=== PATIENT | female | born 2005 | race Caucasian/White ===

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

== ENCOUNTER → 2023-02-21 | Outpatient (CLI) | payer BC, OTHER, MEDICAID, SELFPAY ==
--- NOTE | 2023-02-21 10:25 | US_ITS ---
STUDY: ABDOMINAL ULTRASOUND - RIGHT UPPER QUADRANT REASON FOR VISIT: Female, 17 years old RUQ PAIN TECHNIQUE: Ultrasound evaluation of the right upper quadrant was performed with real-time and static figueroa-scale imaging. TECHNICAL QUALITY: Adequate. COMPARISON: None. FINDINGS: Liver: The liver measures 14.1 cm. There is normal echogenicity of the liver. The bile ducts are within normal limits. There is hepatic color flow. The direction of portal flow is hepatopetal. There is no demonstrated mass lesion. Gallbladder: Normal distended gallbladder. The gallbladder wall measures 1.6 mm. There is a negative sonographic Allison''s sign. There is no pericholecystic fluid. There are no gallstones. Common Bile Duct (C.B.D.): The common bile duct measures 3.2 mm. Pancreas: Normal size of the head, body and tail of the pancreas. There is normal echogenicity of the pancreas. There is no demonstrated pancreatic mass or cyst. Right Kidney: Normal size of the right kidney. The right kidney measures 11.6 x 5.3 x 4.0 cm. Normal renal cortex. The right cortex measures 1.0 cm. There is no demonstrated renal mass or cyst. There is no right hydronephrosis. US/Abdomen Limited IMPRESSION: Normal right upper quadrant ultrasound examination. Electronically Signed: Aneudy Mac MD at 11:31 EDT ,
[2023-02-21 11:50] LABS: Erythrocyte Sedimentation Rate 1 mm/hr (0-30)
[2023-02-21 12:00] LABS: Absolute Lymphocyte Count 1.76 X10^3/uL (0.83-4.51); Basophil# 0.04 X10^3/uL; Basophil% 0.7 % (0-1); Eosinophil# 0.07 X10^3/uL; Eosinophils% 1.3 % (0-5); Hematocrit 44.5 % (37-47); Hemoglobin 13.8 g/dL (12.0-15.0); Lymphocyte # 1.76 X10^3/ul (0.83-4.51); Lymphocyte % 32.8 % (19-41); Mean Corpuscular Hgb 27.1 pg (27.0-32.0); Mean Corpuscular Volume 87.4 fL (81-99); Mean Platelet Vol. 10.9 fl (6.2-12.0); Monocyte# 0.51 X10^3/uL; Monocyte% 9.5 % (0-10); NRBC Flagged by Analyzer 0 % (0-5); Neutrophil # 2.98 X10^3/uL (2.7-7.7); Neutrophil % 55.5 % (47-70); Platelet Count 228 K/mm3 (150-450); RBC Distribution Width CV 12.5 % (11.6-14.6); RBC Distribution Width SD 39.4 fl (35.1-43.9); Red Blood Count 5.09 M/mm3 (4.2-5.4); White Blood Count 5.4 K/mm3 (4.4-11.0)
[2023-02-21 12:21] LABS: ALB/GLOB Ratio 1.1 RATIO (0.9-2.4); AST(SGOT) 12 U/L (15-37); Alanine Aminotransfer ALT/SGPT 14 U/L (13-56); Albumin, Serum 3.8 g/dL (3.2-5.0); Alkaline Phosphatase 39 U/L (45-117); Anion Gap 7 (5-15); BUN 8 mg/dL (7-18); BUN/Creat Ratio 11.6 RATIO (10-20); CRP < 2.90 mg/L (0.0-3.0); Calcium,Total 9.3 mg/dL (8.5-10.1); Chloride 107 mmol/L (98-107); Creatinine, Serum 0.69 mg/dL (0.55-1.02); EST Glomerular Filtration Rate 116 mL/min (>60); Est Glom Filt Rate - Afr Amer 140 mL/min (>60); Ferritin 6 ng/mL (8-252); Globulin 3.6 g/dL (2.2-4.2); Glucose 93 mg/dL (74-106); Iron 35 ug/dL (50-170); Potassium 3.6 mmol/L (3.5-5.1); Protein, Total 7.4 g/dL (6.4-8.2); Sodium Level 138 mmol/L (136-145)
== END | disposition home or self-care (01) ==
PROVIDERS: PCP Family Medicine; Referring Provider Family Medicine; Visit Provider Family Medicine
DX: R10.9 Unspecified abdominal pain (principal); R11.0 Nausea; K90.0 Celiac disease; D64.9 Anemia, unspecified; Z51.81 Encounter for therapeutic drug level monitoring
CPT/HCPCS: 36415; 76705; 80053; 82728; 83540; 85025; 85652; 86140

== ENCOUNTER → 2023-03-28 | Outpatient (CLI) | payer OTHER, BC, SELFPAY ==
--- NOTE | 2023-03-28 10:13 | NM_ITS ---
(CLINICAL: 17-year-old female with history of chronic nausea. SEMI-SOLID PHASE 99m Tc SULFUR COLLOID GASTRIC EMPTYING STUDY COMPARISON: None available FINDINGS: The patient was administered 0.9 mCi of 99m Tc sulfur colloid mixed with oatmeal and consumed per os. Image acquisitions in the anterior-posterior projections were obtained for 60 minutes. There is prompt visualization of the stomach. There is no gastroesophageal reflux identified. The T ? raw data emptying was calculated to be 52 minutes, (Normal: 12-56 minutes). NM/Gastric Emptying Study IMPRESSION: 1. NORMAL 99m Tc sulfur colloid semi-solid phase (oatmeal) gastric emptying imaging examination. A. There is upper limits of normal semi-solid phase gastric emptying compared to normal controls with maintained first order kinetics throughout all components of the examination. (Laura et al, J Nucl Med Tech 38: 186, 2010). Electronically Signed: Srinivas Grayson DO at 9:28 EDT ,
== END | disposition home or self-care (01) ==
PROVIDERS: PCP Family Medicine; Referring Provider Family Medicine; Visit Provider Family Medicine
DX: R11.0 Nausea (principal)
CPT/HCPCS: 78264; A9541

== ENCOUNTER → 2024-05-14 | Outpatient (CLI) | payer OTHER, SELFPAY ==
[2024-05-14 15:15] LABS: Absolute Lymphocyte Count 2.58 X10^3/uL (0.83-4.51); Absolute Neutrophil Count 3.2 X10^3/uL (2.0-7.7); Basophil# 0.02 X10^3/uL; Basophil% 0.3 % (0-1); Eosinophil# 0.09 X10^3/uL; Eosinophils% 1.4 % (0-5); Hematocrit 40.9 % (37-47); Hemoglobin 13.2 g/dL (12.0-15.0); Lymphocyte # 2.58 X10^3/ul (0.83-4.51); Lymphocyte % 39.8 % (19-41); Mean Corp Hgb Conc 32.3 g/dL (32-36); Mean Corpuscular Hgb 26.6 pg (27.0-32.0); Mean Corpuscular Volume 82.3 fL (81-99); Mean Platelet Vol. 10.5 fl (6.2-12.0); Monocyte# 0.59 X10^3/uL; Monocyte% 9.1 % (0-10); NRBC Flagged by Analyzer 0 % (0-5); Neutrophil # 3.19 X10^3/uL (2.7-7.7); Neutrophil % 49.1 % (47-70); Platelet Count 235 K/mm3 (150-450); RBC Distribution Width CV 13.2 % (11.6-14.6); RBC Distribution Width SD 39.2 fl (35.1-43.9); Red Blood Count 4.97 M/mm3 (4.2-5.4); White Blood Count 6.5 K/mm3 (4.4-11.0)
[2024-05-14 16:42] LABS: Ferritin 7 ng/mL (8-252); Iron 38 ug/dL (50-170)
== END | disposition home or self-care (01) ==
LOC: LAB 14:47
PROVIDERS: PCP Family Medicine; Referring Provider Family Medicine; Visit Provider Family Medicine
DX: D50.9 Iron deficiency anemia, unspecified (principal)
CPT/HCPCS: 36415; 82728; 83540; 85025

== ENCOUNTER → 2024-07-27 | Outpatient (CLI) | payer OTHER, SELFPAY ==
[2024-07-27 09:37] LABS: hCG Titer Quant., Serum < 1 mIU/mL (1-3)
== END | disposition home or self-care (01) ==
LOC: LAB 07:59
PROVIDERS: PCP Family Medicine; Referring Provider Advanced Practice Midwife; Visit Provider Advanced Practice Midwife
DX: O20.9 Hemorrhage in early pregnancy, unspecified (principal); Z3A.00 Weeks of gestation of pregnancy not specified
CPT/HCPCS: 36415; 84702

== ENCOUNTER → 2024-09-10 | Outpatient (CLI) | payer OTHER, SELFPAY ==
[2024-09-10 14:24] LABS: Absolute Lymphocyte Count 1.61 X10^3/uL (0.83-4.51); Absolute Neutrophil Count 1.7 X10^3/uL (2.0-7.7); Basophil# 0.01 X10^3/uL; Basophil% 0.3 % (0-1); Eosinophil# 0.02 X10^3/uL; Eosinophils% 0.5 % (0-5); Hematocrit 43.4 % (37-47); Hemoglobin 14.5 g/dL (12.0-15.0); Lymphocyte # 1.61 X10^3/ul (0.83-4.51); Lymphocyte % 42.9 % (19-41); Mean Corp Hgb Conc 33.4 g/dL (32-36); Mean Corpuscular Hgb 28.4 pg (27.0-32.0); Mean Corpuscular Volume 85.1 fL (81-99); Mean Platelet Vol. 10.4 fl (6.2-12.0); Monocyte# 0.42 X10^3/uL; Monocyte% 11.2 % (0-10); NRBC Flagged by Analyzer 0 % (0-5); Neutrophil # 1.69 X10^3/uL (2.7-7.7); Neutrophil % 45.1 % (47-70); POSITIVE MORPHOLOGY YES; Platelet Count 180 K/mm3 (150-450); RBC Distribution Width CV 14.2 % (11.6-14.6); RBC Distribution Width SD 44.1 fl (35.1-43.9); White Blood Count 3.8 K/mm3 (4.4-11.0)
[2024-09-10 14:29] LABS: Differential Indicated SCAN CRITERIA MET
[2024-09-10 15:18] LABS: Ferritin 767 ng/mL (22-378); Iron 84 ug/dL (50-170)
[2024-09-10 15:20] LABS: Reactive Lymphocyte 3+
[2024-09-10 15:22] LABS: Platelet Estimate A (ADEQ)
[2024-09-10 15:23] LABS: Pathologist Review May foll
== END | disposition home or self-care (01) ==
LOC: LAB 13:00
PROVIDERS: PCP Family Medicine; Referring Provider Family Medicine; Visit Provider Family Medicine
DX: D50.9 Iron deficiency anemia, unspecified (principal)
CPT/HCPCS: 36415; 82728; 83540; 85025

== ENCOUNTER → 2024-12-08 | Outpatient (CLI) | payer OTHER, SELFPAY ==
[2024-12-08 08:47] LABS: Absolute Lymphocyte Count 2.04 X10^3/uL (0.83-4.51); Absolute Neutrophil Count 2.6 X10^3/uL (2.0-7.7); Basophil# 0.02 X10^3/uL; Basophil% 0.4 % (0-1); Eosinophil# 0.11 X10^3/uL; Eosinophils% 2.1 % (0-5); Hematocrit 44.2 % (37-47); Hemoglobin 15.1 g/dL (12.0-15.0); Lymphocyte # 2.04 X10^3/ul (0.83-4.51); Lymphocyte % 38.9 % (19-41); Mean Corp Hgb Conc 34.2 g/dL (32-36); Mean Corpuscular Hgb 30.2 pg (27.0-32.0); Mean Corpuscular Volume 88.4 fL (81-99); Mean Platelet Vol. 10.3 fl (6.2-12.0); Monocyte# 0.49 X10^3/uL; Monocyte% 9.4 % (0-10); NRBC Flagged by Analyzer 0 % (0-5); Neutrophil # 2.56 X10^3/uL (2.7-7.7); Neutrophil % 48.8 % (47-70); Platelet Count 199 K/mm3 (150-450); RBC Distribution Width CV 12.3 % (11.6-14.6); RBC Distribution Width SD 39.8 fl (35.1-43.9); White Blood Count 5.2 K/mm3 (4.4-11.0)
[2024-12-08 10:12] LABS: Ferritin 182 ng/mL (22-378); Iron 115 ug/dL (50-170); Iron Binding Capacity,Total 270 ug/dL (250-450); Iron Binding Capacity,Unsat 155 ug/dL (228-428); Vitamin B12 462 pg/mL (180-914)
== END | disposition home or self-care (01) ==
LOC: LAB 08:12
PROVIDERS: PCP Family Medicine; Referring Provider Family Medicine; Visit Provider Family Medicine
DX: D50.9 Iron deficiency anemia, unspecified (principal)
CPT/HCPCS: 36415; 82607; 82728; 83540; 83550; 85025

== ENCOUNTER → 2025-01-10 | Outpatient (CLI) | payer OTHER, SELFPAY ==
[2025-01-10 17:44] LABS: hCG Titer Quant., Serum 522 mIU/mL (<9 non-preg)
== END | disposition home or self-care (01) ==
LOC: LAB 16:40
PROVIDERS: PCP Family Medicine; Referring Provider Advanced Practice Midwife; Visit Provider Advanced Practice Midwife
DX: O20.9 Hemorrhage in early pregnancy, unspecified (principal); Z3A.00 Weeks of gestation of pregnancy not specified
CPT/HCPCS: 36415; 84702

== ENCOUNTER → 2025-01-12 | Outpatient (CLI) | payer OTHER, SELFPAY ==
[2025-01-12 20:40] LABS: hCG Titer Quant., Serum 94 mIU/mL (<9 non-preg)
== END | disposition home or self-care (01) ==
LOC: LABSPEC 18:45
PROVIDERS: PCP Family Medicine; Visit Provider Advanced Practice Midwife
DX: O20.9 Hemorrhage in early pregnancy, unspecified (principal); Z3A.00 Weeks of gestation of pregnancy not specified
CPT/HCPCS: 36415; 84702

== ENCOUNTER → 2025-01-12 | Outpatient (CLI) | payer OTHER, SELFPAY | END | disposition home or self-care (01) | LOC: LAB 18:27 | PROVIDERS: PCP Family Medicine; Referring Provider Advanced Practice Midwife; Visit Provider Advanced Practice Midwife | DX: Z00.00 Encounter for general adult medical examination without abnormal findings (principal) ==

== ENCOUNTER → 2025-01-21 | Outpatient (CLI) | payer OTHER, SELFPAY ==
--- OUTSIDE RECORDS SUMMARY | 2025-01-21 10:40 | XMS RPT_ITS | CCD ---
Author Organization [facility] Providers Care Mud Analysis Operator Name Role Phone Unavailable Primary Care Provider Unavailabl e PROVIDER, UNKNOWN Referring Unavailable Unavailable Primary Care Provider Unavailabl e NORA KEY Attending Unavailab le NORA KEY Attending Unavailab le NORA KEY Attending Unavailab le NORA KEY Referring Unavailab Dr. Susu Oconnor Primary Care Provider [phone] Dr. Susu Garcia Referring Provider [phone] ENDY Montesinos Attending Provider [phone] Dr. Susu Garcia DO Primary Care Provider Fely Hickman CNM Attending Provider [phone] Fely Hickman CNM Referring Provider Dr. Susu Garcia DO Attending Provider [phone] Dr. Susu Garcia DO Referring Provider [phone] Dr. Susu Garcia DO Primary Care Provider Dr. Susu Garcia DO Primary Care Provider [phone] Dr. Susu Garcia DO Attending Provider [phone] Dr. Susu Garcia DO Referring Provider [phone] Fely Hickman CNM Attending Provider Fely Hickman CNM Referring Provider Ifrah MAN, Dr. Piper Attending Provider Susu Garcia Referring Unavailable Susu Garcia Primary Care Unavailable Veronique Rg Attending Unavailable Fely Hickman Referring Unavailable Susu Garcia Primary Care Unavailable Fely Hickman Attending Unavailable Fely Hickman Attending Unavailable Fely Hickman Referring Unavailable Malys, Susu Primary Care Unavailable Malys, Susu Referring Unavailable Malys, Susu Primary Care Unavailable Malys, Susu Attending Unavailable Malys, Susu Primary Care Unavailable Fely Hickman Attending Unavailable Malys, Susu Referring Unavailable Malys, Susu Primary Care Unavailable Malys, Susu Attending Unavailable Fely Hickman Attending Unavailable Fely Hickman Referring Unavailable Malys, Susu Primary Care Unavailable Malys, Susu Attending Unavailable Malys, Susu Referring Unavailable Malys, Susu Primary Care Unavailable Allergies Allergy Classification Reported Allergen(s) Allergy Type Date of Onset Reaction(s) Facility (7 sources) Wheat gluten extract Drug Allergy 12-16-2022 Diarrhea [facility] (4 sources) natural latex rubber Allergy to substance 01-11-2025 Hives [facility] Comment on above: itching (1 source) Gluten Drug allergy (disorder) 01-11-2025 [facility] Repository (1 source) natural latex rubber Drug allergy (disorder) 01-11-2025 [facility] Repository Medications Current Medications Medication Drug Class(es) Dates Sig (Normalized) Sig (Original) acetaminophen 300 mg / codeine phosphate 30 mg oral tablet (1 source) Opioid Agonist Start: 04-02-2022 End: 04-07-2022 take 1 tablet by mouth every four hours as needed for pain acetaminophen-codein e (TYLENOL-CODEINE #3) 300-30 mg per tablet Indications: Postoperative pain Take 1 tablet by mouth every 4 hours as needed for pain for up to 5 days. 20 tablet 0 04/02/2022 04/07/2022 Active Comment on above: Take 1 tablet by shyla every 4 hours as needed for pain for up to 5 days. cetirizine hydrochloride 10 mg oral capsule (20 sources) Histamine-1 Receptor Antagonist Start: 04-15-2016 End: 10-15-2022 take 1 capsule by mouth once daily as needed Cetirizine (Zyrtec) 10 mg capsule Active 10 mg PO DAILY as needed October 15, 2022 12:00am Comment on above: Take 10 mg by mouth. cholecalciferol 0.125 mg oral capsule (4 sources) Vitamin D Start: 01-11-2025 take 1 capsule by mouth once daily Cholecalciferol (Vitamin D3) 125 mcg (5,000 unit) capsule Active 125 ug PO daily January 11, 2025 12:00am Multivit 33-Mdur-Xkxbnp 1-Dha (Pnv-Dha) 27 mg iron-1 mg -300 mg capsule (4 sources) Start: 01-11-2025 Multivit 76-Vevu-Hcsqdr 1-Dha (Pnv-Dha) 27 mg iron-1 mg -300 mg capsule Active NMA PO January 11, 2025 12:00am omeprazole 20 mg delayed release oral tablet (20 sources) Proton Pump Inhibitor Start: 10-15-2022 take 10 mg by mouth once daily Omeprazole 20 mg tablet,delayed release (DR/EC) Active 10 mg PO DAILY October 15, 2022 8:17am Start: 10-15-2022 take 10 mg by mouth once daily Omeprazole Active 10 MG PO DAILY October 15, 2022 8:17am Start: 02-27-2022 omeprazole (FL ILOSEC) 20 mg capsule Start: 05-24-2019 End: 10-15-2022 take 1 tablet by mouth once daily Omeprazole 20 MG tablet,delayed release (DR/EC) Discontinued 20 mg PO DAILY May 24, 2019 1:00am October 15, 2022 8:18am Completed/Discontinued Medications Medication Drug Class(es) Dates Sig (Normalized) Sig (Original) acetaminophen 325 mg / HYDROcodone bitartrate 5 mg oral tablet (7 sources) Opioid Agonist Start: 05-26-2019 End: 06-09-2019 take 1-2 tablets by mouth every six hours as needed for pain Hydrocodone-Acetamin ophen 1 TABLET tablet Discontinued 1 - 2 {tbl} PO EVERY 6 HOURS NEEDED as needed for Pain 40 5 0 May 26, 2019 May 30, 2019 1:00am June 09, 2019 1:10am Postoperative pain Other acute postprocedural pain stop all other narcotics and tylenol products Start: 05-26-2019 End: 06-09-2019 take 1-2 tablets by mouth every six hours as needed Hydrocodone-Acetaminophen Discontinued 1 - 2 TABLET PO EVERY 6 HOURS NEEDED 40 5 May 26, 2019 June 09, 2019 1:10am stop all other narcotics and tylenol products Desogestrel-Ethinyl Estradiol (20 sources) Progestin, Estrogen Start: 12-26-2023 End: 01-11-2025 take 0.15 tablet by mouth once daily Desogestrel-Ethinyl Estradiol (Enskyce) 0.15-0.03 mg tablet Discontinued 1 {tbl} PO DAILY 84 4 December 26, 2023 12:11pm January 11, 2025 8:06am Start: 12-26-2023 take 0.15 tablet by mouth once daily Desogestrel-Ethinyl Estradiol (Enskyce) 0.15-0.03 mg tablet Active 1 {tbl} PO DAILY 84 December 26, 2023 12:11pm Start: 12-16-2022 End: 12-26-2023 take 0.15 tablet by mouth once daily Desogestrel-Ethinyl Estradiol (Apri) 0.15-0.03 mg tablet Discontinued 1 {tbl} PO DAILY 84 December 16, 2022 8:58am December 26, 2023 12:11pm Start: 12-16-2022 End: 12-26-2023 take 0.15 tablet by mouth once daily Desogestrel-Ethinyl Estradiol (Apri) 0.15-0.03 mg tablet Discontinued 1 {tbl} PO DAILY 84 December 16, 2022 8:58am December 26, 2023 12:11pm Start: 12-16-2022 Desogestrel-Et hinyl Estradiol (Apri) 0.15-0.03 mg tablet Active 1 TABLET PO DAILY December 16, 2022 8:58am Start: 10-15-2022 End: 12-16-2022 take 0.15 tablet by mouth once daily Desogestrel-Ethinyl Estradiol (Apri) 0.15-0.03 mg tablet Discontinued 1 {tbl} PO DAILY 84 0 October 15, 2022 12:00am December 16, 2022 8:58am Start: 10-15-2022 End: 12-16-2022 take 0.15 tablet by mouth once daily Desogestrel-Ethinyl Estradiol (Apri) 0.15-0.03 mg tablet Discontinued 1 {tbl} PO DAILY 84 October 15, 2022 12:00am December 16, 2022 8:58am Start: 10-15-2022 End: 12-16-2022 Desogestrel-Ethinyl Estradio l (Apri) 0.15-0.03 mg tablet Discontinued 1 TABLET PO DAILY October 15, 2022 12:00am December 16, 2022 8:58am fexofenadine hydrochloride 180 mg oral tablet (6 sources) Histamine-1 Receptor Antagonist take 1 tablet by mouth once daily fexofenadine (NORMA) 180 mg tablet Take 180 mg by mouth once daily. 0 Active Comment on above: Take 180 mg by mouth once daily. fluticasone propionate 0.05 mg/actuat metered dose nasal spray (13 sources) Corticosteroid Start: 04-15-20 End: 10-08-19 18 Fluticasone Propionate 1 SPRAY spray,suspension Discontinued 1 NMA NASAL DAILY as needed for Allergies April 15, 2016 12:00am October 07, 2017 1:41pm Start: 04-15-2016 End: 10-07-2017 Fluticasone Propionate Disco ntinued 1 SPRAY NASAL DAILY April 15, 2016 12:00am October 07, 2017 1:41pm take 1 spray(s) nasa l route once daily as needed fluticasone (FLONASE) 50 mcg/actuation nasal spray Use 1 [place] in each nostril once daily as needed. 0 Active Comment on above: Use 1 [place] in each nostril once daily as needed. hydrOXYzine hydrochloride 25 mg oral tablet (7 sources) Antihistamine Start: 04-20-20 End: 10-16-19 take 1 tablet by mouth at bedtime Hydroxyzine Hcl 25 mg tablet Discontinued 25 mg PO AT BEDTIME April 20, 2021 12:00am October 15, 2022 8:17am Problems Problem Classification Problem Date Documented Da te Episodic/Chronic Complications of surgical procedures or medical care (4 sources) Suture granuloma; Translations: [Other complications of procedures, not elsewhere classified, initial encounter] Episodic Contraceptive and procreative management (8 sources) Patient encounter status; Translations: [Encounter for contraceptive management, unspecified] 10-15-2022 Episodic Crushing injury or internal injury (7 sources) Crush injury of right thumb; Translations: [Crushing injury of right thumb, initial encounter] 05-08-2020 Episodic Deficiency and other anemia (1 source) Iron deficiency anemia, unspecified; Translations: [Iron deficiency anemia, unspecified] Onset: 5 Episodic Esophageal disorders (6 sources) Gastroesophageal reflux disease; Translations: [Gastro-esophageal reflux disease without esophagitis] Onset: 2 Chronic Fracture of lower limb (7 sources) Closed fracture of lateral malleolus; Translations: [Displaced fracture of lateral malleolus of unspecified fibula, initial encounter for closed fracture] 10-15-2022 Episodic Hemorrhage during ; abruptio placenta; placenta previa (7 sources) Antepartum hemorrhage; Translations: [Hemorrhage in early , unspecified] Onset: 5 07-26-2024 Episodic Other complications of (3 sources) High risk ; Translations: [Supervision of high risk , unspecified, unspecified trimester] 01-11-2025 Episodic Comment on above: , INGRID 08/31/25, H dejon Rose Other complications of (3 sources) Chemical ; Translations: [Inappropriate change in quantitative human chorionic gonadotropin (hCG) in early ] 01-13-2025 Episodic Other connective tissue disease (7 sources) Peroneal tendinitis of right lower limb; Translations: [Peroneal tendinitis, right leg] 10-15-2022 Episodic Other gastrointestinal disorders (7 sources) Gastrointestinal tract problem; Translations: [Other specified symptoms and signs involving the digestive system and abdomen] 10-15-2022 Episodic Other injuries and conditions due to external causes (7 sources) Injury of right ankle; Translations: [Unspecified injury of right ankle, initial encounter] 10-15-2022 Episodic Other nervous system disorders (1 source) Postoperative pain ; Translations: [Other acute postprocedural pain] Episodic Other non-traumatic joint disorders (3 sources) Ankle pain; Translations: [Pain in right ankle and joints of right foot] Episodic Other and delivery including normal (3 sources) ; Translations: [Encounter for supervision of normal , unspecified, unspecified trimester] 01-11-2025 Episodic Comment on above: discussed genetic & carrier testing-undecided Other upper respiratory infections (7 sources) Acute upper respiratory infection; Translations: [Acute upper respiratory infection, unspecified] 10-15-2022 Episodic Residual codes; unclassified (1 source) Pain; Translations: [Pain, unspecified] Episodic Residual codes; unclassified (1 source) Pain, unspecified; Translations: [Pain] Onset: 2 Episodic Residual codes; unclassified (1 source) History of operative procedure on foot; Translations: [Other specified postprocedural states] Episodic Results Test Name Value Interpretation Reference Range Facility Serum human chorionic gonado tropin detection for pregnancyOrdered By: Fely Hickman on 01-12-2025 HCG ( test) Ql 94 mIU/mL High <9 [facility] Comment on above: Gestational Age0.2-1 Week: 5-50 mIU/mL1-2 Weeks: 50-500 mIU/mL2-3 Weeks: 100-5000 mIU/mL3-4 Weeks: 500-10,000 mIU/mL4-5 Weeks:1000-50,000 mIU/mL5-6 Weeks: 10,000-100,000 mIU/mL6-8 Weeks: 15,000-200,000 mIU/mL2-3 Months:10,000-100,000 mIU/mL hCG Titer Quant., Serumon HCG QUANT. 94 mIU/mL High <9 non-preg [facility] Comment on above: Result Comment: Gest ational Age 0.2-1 Week: 5-50 mIU/mL 1-2 Weeks: 50-500 mIU/mL 2-3 Weeks: 100-5000 mIU/mL 3-4 Weeks: 500-10,000 mIU/mL 4-5 Weeks:1000-50,000 mIU/mL 5-6 Weeks: 10,000-100,000 mIU/mL 6-8 Weeks: 15,000-200,000 mIU/mL 2-3 Months:10,000-100,000 mIU/mL Performed By: #### L [id number], L100.0100, L503.6150 #### [facility] [address] [place], [place], [id number] Serum human chorionic gonado tropin detection for pregnancyOrdered By: Fely Hickman on 01-10-2025 HCG ( test) Ql 522 mIU/mL High <9 [facility] Comment on above: Gestational Age0.2-1 Week: 5-50 mIU/mL1-2 Weeks: 50-500 mIU/mL2-3 Weeks: 100-5000 mIU/mL3-4 Weeks: 500-10,000 mIU/mL4-5 Weeks:1000-50,000 mIU/mL5-6 Weeks: 10,000-100,000 mIU/mL6-8 Weeks: 15,000-200,000 mIU/mL2-3 Months:10,000-100,000 mIU/mL hCG Titer Quant., Serumon HCG QUANT. 522 mIU/mL High <9 non-preg [facility] Comment on above: Result Comment: Gest ational Age 0.2-1 Week: 5-50 mIU/mL 1-2 Weeks: 50-500 mIU/mL 2-3 Weeks: 100-5000 mIU/mL 3-4 Weeks: 500-10,000 mIU/mL 4-5 Weeks:1000-50,000 mIU/mL 5-6 Weeks: 10,000-100,000 mIU/mL 6-8 Weeks: 15,000-200,000 mIU/mL 2-3 Months:10,000-100,000 mIU/mL Performed By: #### L [id number], L100.0100, L503.6150 #### [facility] [address] [place], [address] Absolute lymphocyte countOrd ered By: Susu Garcia on 12-08-2024 Lymphocytes Auto (Unsp spec) [#/Vol] 2.04 10*3/uL 0.83-4.51 [facility] Absolute neutrophil countOrd ered By: Susu Garcia on 12-08-2024 Neutrophils (Bld) [#/Vol] 2.6 10*3/uL 2.0-7.7 [facility] Automated lymphocyte count a s percentage of total leukocytesOrdered By: Susu Garcia on 12-08-2024 Lymphocytes/100 WBC Auto (Unsp spec) 38.9 % 19-41 [facility] Basophil percentageOrdered B y: Susu Garcia on 12-08-2024 Basophils/100 WBC (Bld) 0.4 % 0-1 [facility] CBC W/Diff, Automatedon 11-21 Absolute Lymph 2.04 X10 3/uL Normal 0.83-4.51 [facility] Comment on above: Performed By: #### L [id number], [id number], L100.0100, [id number] #### [facility] [address] [place], [address] Absolute Neut 2.6 X10 3/uL Normal 2.0-7.7 [facility] Comment on above: Performed By: #### L [id number], [id number], L100.0100, [id number] #### [facility] [address] [place], [address] Basophils/100 WBC (Bld) 0.4 % Normal 0-1 [facility] Comment on above: Performed By: #### L [id number], [id number], L100.0100, [id number] #### [facility] [address] [place], [address] Eosinophils/100 WBC (Bld) 2.1 % Normal 0-5 [facility] Comment on above: Performed By: #### L [id number], [id number], L100.0100, [id number] #### [facility] [address] [place], [address] Erythrocyte distribution width (RBC) [Ratio] 12.3 % Normal 11.6-14.6 [facility] Comment on above: Performed By: #### L [id number], [id number], L100.0100, [id number] #### [facility] [address] [place], [address] Hematocrit (Bld) [Volume fraction] 44.2 % Normal 37-47 [facility] Comment on above: Performed By: #### L [id number], [id number], L100.0100, [id number] #### [facility] [address] [place], [address] Hemoglobin (Bld) [Mass/Vol] 15.1 g/dL High 12.0-15.0 [facility] Comment on above: Performed By: #### L [id number], [id number], L100.0100, [id number] #### [facility] [address] [place], [address] IG% 0.400 Normal 0.0-0.9 [facility] Comment on above: Result Comment: IG% - Immature Granulocytes (promyelocytes, myelocytes and metamyelocytes) > 1% indicates that a LEFT SHIFT is Present. Performed By: #### L [id number], [id number], L100.0100, [id number] #### [facility] [address] [place], [address] Lymphocytes/100 WBC (Bld) 38.9 % Normal 19-41 [facility] Comment on above: Performed By: #### L [id number], [id number], L100.0100, [id number] #### [facility] [address] [place], [address] MCH (RBC) [Entitic mass] 30.2 pg Normal 27.0-32.0 [facility] Comment on above: Performed By: #### L [id number], [id number], L100.0100, [id number] #### [facility] [address] [place], [address] MCHC (RBC) [Mass/Vol] 34.2 g/dL Normal 32-36 [facility] Comment on above: Performed By: #### L [id number], [id number], L100.0100, [id number] #### [facility] [address] [place], [address] MCV (RBC) [Entitic vol] 88.4 fL Normal 81-99 [facility] Comment on above: Performed By: #### L [id number], [id number], L100.0100, [id number] #### [facility] [address] [place], [address] Monocytes/100 WBC (Bld) 9.4 % Normal 0-10 [facility] Comment on above: Performed By: #### L [id number], [id number], L100.0100, [id number] #### [facility] [address] [place], [address] Neutrophils/100 WBC (Bld) 48.8 % Normal 47-70 [facility] Comment on above: Performed By: #### L [id number], [id number], L100.0100, [id number] #### [facility] [address] [place], [address] Nucleated RBC (Bld) [#/Vol] 0 10*3/uL Normal 0-5 [facility] Comment on above: Performed By: #### L [id number], [id number], L100.0100, [id number] #### [facility] [address] [place], [address] Platelet mean volume (Bld) [Entitic vol] 10.3 fL Normal 6.2-12.0 [facility] Comment on above: Performed By: #### L [id number], [id number], L100.0100, [id number] #### [facility] [address] [place], [address] Platelets (Bld) [#/Vol] 199 10*3/uL Normal 150-450 [facility] Comment on above: Performed By: #### L [id number], [id number], L100.0100, [id number] #### [facility] [address] [place], [address] RBC (Bld) [#/Vol] 5.00 10*6/uL Normal 4.2-5.[address] [facility] Comment on above: Performed By: #### L [id number], [id number], L100.0100, [id number] #### [facility] [address] [place], [address] RDW SD 39.8 fl Normal 35.1-43.9 [facility] Comment on above: Performed By: #### L [id number], [id number], L100.0100, [id number] #### [facility] [address] [place], [address] WBC (Bld) [#/Vol] 5.2 10*3/uL Normal 4.4-11.0 [facility] Comment on above: Performed By: #### L [id number], [id number], L100.0100, [id number] #### [facility] [address] [place], [address] Eosinophil percentageOrdered By: Susu Garcia on 12-08-2024 Eosinophils/100 WBC (Bld) 2.1 % 0-5 [facility] Erythrocyte distribution wid th ratioOrdered By: Susu Garcia on 12-08-2024 Erythrocyte distribution width (RBC) [Ratio] 12.3 % 11.6-14.6 [facility] Erythrocyte distribution wid th standard deviationOrdered By: Susu Garcia on 12-08-2024 Erythrocyte distribution width (RBC) [Ratio] 39.8 fl 35.1-43.9 [facility] Ferritinon 12-08-2024 Ferritin [Mass/Vol] 182 ng/mL Normal 22-[address] [facility] Comment on above: Performed By: #### L [id number], [id number], L100.0100, [id number] #### [facility] [address] [place], [address] Hematocrit Auto (Bld) [Volum e fraction]Ordered By: Susu Garcia on 12-08-2024 Hematocrit (Bld) [Volume fraction] 44.2 % 37-47 [facility] Hemoglobin measurementOrdere d By: Susu Garcia on 12-08-2024 Hemoglobin (Bld) [Mass/Vol] 15.1 g/dL High 12.0-15.0 [facility] Immature granulocytes/100 WB C Auto (Bld)Ordered By: Susu Garcia on 12-08-2024 Immature granulocytes/100 WBC (Bld) 0.400 % 0.0-0.9 [facility] Comment on above: IG% - Immature Granu locytes (promyelocytes, myelocytes and metamyelocytes) > 1% indicates that a LEFT SHIFT is Present. Iron measurement (mass/mass) Ordered By: Susu Pitohomer on 12-08-2024 Iron (Unsp spec) [Mass/Mass] 115 ug/dL 50-170 [facility] Iron+Iron Binding Capacityon 12-08-2024 Iron [Mass/Vol] 115 ug/dL Normal 50-170 [facility] Comment on above: Performed By: #### L [id number], [id number], L100.0100, [id number] #### [facility] [address] [facility] [address] IRON SATURATION 43.0 Normal 13-59 [facility] Comment on above: Performed By: #### L 503.6030, [id number], L100.0100, [id number] #### [facility] [address] [place], [address] TIBC 270 ug/dL Normal 250-450 [facility] Comment on above: Performed By: #### L [id number], [id number], L100.0100, [id number] #### [facility] [address] [facility] [place] [place]. [facility] [address] UIBC 155 ug/dL Low 228-428 [facility] Comment on above: Performed By: #### L [id number], [id number], L100.0100, [id number] #### [facility] [place], [address] MCV (mean corpuscular volume ) determinationOrdered By: Susu Garcia on 12-08-2024 MCV (RBC) [Entitic vol] 88.4 fL 81-99 [facility] Mean corpuscular hemoglobin (MCH) determinationOrdered By: Susu Garcia on 12-08-2024 MCH (RBC) [Entitic mass] 30.2 pg 27.0-32.0 [facility] Mean corpuscular hemoglobin concentration (MCHC) determinationOrdered By: Susu Garcia on 12-08-2024 MCHC (RBC) [Mass/Vol] 34.2 g/dL 32-36 [facility] Mean platelet volume determi nationOrdered By: Susu Garcia on 12-08-2024 Platelet mean volume (Bld) [Entitic vol] 10.3 fL 6.2-12.0 [facility] Monocyte percentageOrdered B y: Susu Garcia on 12-08-2024 Monocytes/100 WBC (Bld) 9.4 % 0-10 [facility] Neutrophil percentageOrdered By: Susu Garcia on 12-08-2024 Neutrophils/100 WBC (Bld) 48.8 % 47-70 [facility] No Panel InformationOrdered By: Susu Garcia on 12-08-2024 Unsaturated Iron Binding Capacity 155 ug/dL Low 228-428 [facility] Nucleated red blood cell per centageOrdered By: Susu Garcia on 12-08-2024 Nucleated RBC/100 WBC (Bld) [Ratio] 0 % 0-5 [facility] Platelet countOrdered By: Renea Garcia on 12-08-2024 Platelets (Bld) [#/Vol] 199 10*3/uL 150-450 [facility] RBC Auto (Bld) [#/Vol]Ordere d By: Susu Garcia on 12-08-2024 RBC (Bld) [#/Vol] 5.00 10*6/uL 4.2-5.[address] [facility] Serum or plasma ferritin judie surement (mass/volume)Ordered By: Susu Garcia on 12-08-2024 Ferritin [Mass/Vol] 182 ng/mL 22-[address] [facility] Serum or plasma iron saturat ion measurement (mass fraction)Ordered By: Susuabran Garcia on 12-08-2024 Iron saturation [Mass fraction] 43.0 % 13-59 [facility] Vitamin B12on 12-08-2024 Cobalamin (Vitamin B12) [Mass/Vol] 462 pg/mL Normal 180-914 [facility] Comment on above: Performed By: #### L 503.6030, L503.0106, L100.0100, L503.6550 #### [facility] [address] [place], [address] Vitamin B12 ser/plasOrdered By: Susu Garcia on 12-08-2024 Cobalamin (Vitamin B12) [Mass/Vol] 462 pg/mL 180-914 [facility] White blood cell (WBC) count Ordered By: Susu Garcia on 12-08-2024 WBC (Bld) [#/Vol] 5.2 10*3/uL 4.4-11.0 [facility] CBC W/Diff, Automatedon 09-22 PATH REV Reviewed Normal [facility] Comment on above: Result Comment: SEE REPORT IN PATIENT'S EMR AMENDED REPORT 10/11/24 1520 PATH REV previously reported as: October Performed By: #### L 503.6150, L503.6550, L100.0100 #### [facility] [address] [place], [address] Absolute lymphocyte countOrd ered By: Susu Garcia on 09-10-2024 Lymphocytes Auto (Unsp spec) [#/Vol] 1.61 10*3/uL 0.83-4.51 [facility] Absolute neutrophil countOrd ered By: Susu Garcai on 09-10-2024 Neutrophils (Bld) [#/Vol] 1.7 10*3/uL Low 2.0-7.7 [facility] Automated lymphocyte count a s percentage of total leukocytesOrdered By: Susu Garcia on 09-10-2024 Lymphocytes/100 WBC Auto (Unsp spec) 42.9 % High 19-41 [facility] Basophil percentageOrdered B y: Susu Garcia on 09-10-2024 Basophils/100 WBC (Bld) 0.3 % 0-1 [facility] Eosinophil percentageOrdered By: Susu Garcia on 09-10-2024 Eosinophils/100 WBC (Bld) 0.5 % 0-5 [facility] Erythrocyte distribution wid th ratioOrdered By: Susu Garcia on 09-10-2024 Erythrocyte distribution width (RBC) [Ratio] 14.2 % 11.6-14.6 [facility] Erythrocyte distribution wid th standard deviationOrdered By: Susu Garcia on 09-10-2024 Erythrocyte distribution width (RBC) [Entitic vol] 44.1 fL High 35.1-43.9 [facility] Erythrocyte distribution width (RBC) [Ratio] 44.1 fl High 35.1-43.9 [facility] Ferritinon 09-10-2024 Ferritin [Mass/Vol] 767 ng/mL High 22-[address] [facility] Comment on above: Performed By: #### L 503.6550, L100.0100, L503.6150 #### [facility] [address] [place] [address], [id number] Hematocrit Auto (Bld) [Volum e fraction]Ordered By: Susu Pitohomer on 09-10-2024 Hematocrit (Bld) [Volume fraction] 43.4 % 37-47 [facility] Hemoglobin measurementOrdere d By: Susu Pitohomer on 09-10-2024 Hemoglobin (Bld) [Mass/Vol] 14.5 g/dL 12.0-15.0 [facility] Immature granulocytes/100 WB C Auto (Bld)Ordered By: Susu Garcia on 09-10-2024 Immature granulocytes/100 WBC (Bld) 0.000 % 0.0-0.9 [facility] Comment on above: IG% - Immature Granu locytes (promyelocytes, myelocytes and metamyelocytes) > 1% indicates that a LEFT SHIFT is Present. Ironon 09-10-2024 Iron [Mass/Vol] 84 ug/dL Normal 50-170 [facility] Comment on above: Performed By: #### L 503.6150, L503.6550, L100.0100 #### [facility] [place], [address] Iron (Unsp spec) [Mass/Mass] Ordered By: Susu Garcia on 09-10-2024 Iron [Mass/Vol] 84 ug/dL 50-170 [facility] Iron measurement (mass/mass) Ordered By: Susu Garcia on 09-10-2024 Iron (Unsp spec) [Mass/Mass] 84 ug/dL 50-170 [facility] Lymphocytes Auto (Unsp spec) [#/Vol]Ordered By: Susu Garcia on 09-10-2024 Lymphocytes (Bld) [#/Vol] 1.61 10*3/uL 0.83-4.51 [facility] Lymphocytes/100 WBC Auto (Un sp spec)Ordered By: Susu Garcia on 09-10-2024 Lymphocytes/100 WBC (Bld) 42.9 % High 19-41 [facility] MCV (mean corpuscular volume ) determinationOrdered By: Susu Garcia on 09-10-2024 MCV (RBC) [Entitic vol] 85.1 fL 81-99 [facility] Mean corpuscular hemoglobin (MCH) determinationOrdered By: Susu Garcia on 09-10-2024 MCH (RBC) [Entitic mass] 28.4 pg 27.0-32.0 [facility] Mean corpuscular hemoglobin concentration (MCHC) determinationOrdered By: Susu Garcia on 09-10-2024 MCHC (RBC) [Mass/Vol] 33.4 g/dL 32-36 [facility] Mean platelet volume determi nationOrdered By: Susu Garcia on 09-10-2024 Platelet mean volume (Bld) [Entitic vol] 10.4 fL 6.2-12.0 [facility] Monocyte percentageOrdered B y: Susu Garcia on 09-10-2024 Monocytes/100 WBC (Bld) 11.2 % High 0-10 [facility] Neutrophil percentageOrdered By: Susu Garcia on 09-10-2024 Neutrophils/100 WBC (Bld) 45.1 % Low 47-70 [facility] Nucleated red blood cell per centageOrdered By: Susu Garcia on 09-10-2024 Nucleated RBC/100 WBC (Bld) [Ratio] 0 % 0-5 [facility] Pathologist review Marek (Unsp spec) [Interp]Ordered By: Susu Garcia on 09-10-2024 Differential Pathologist's Review October [facility] Platelet countOrdered By: Renea Garcia on 09-10-2024 Platelets (Bld) [#/Vol] 180 10*3/uL 150-450 [facility] Platelet estimateOrdered By: Susu Garcia on 09-10-2024 Platelets LM Ql (Bld) A [facility] Platelets LM Ql (Bld)Ordered By: Susu Garcia on 09-10-2024 Platelet Estimate A [facility] RBC Auto (Bld) [#/Vol]Ordere d By: Susu Garcia on 09-10-2024 RBC (Bld) [#/Vol] 5.10 10*6/uL 4.2-5.[address] [facility] Reactive lymphocyte countOrd ered By: Susu Garcia on 09-10-2024 Reactive Lymphocytes 3+ [facility] Review by pathologistOrdered By: Susu Garcia on 09-10-2024 Pathologist review Marek (Unsp spec) [Interp] Reviewed [facility] Comment on above: SEE REPORT IN PATIEN T'S EMRPrevious reported result: October sophia Edited by: MYRA on 10/11/24:1520SEE REPORT IN PATIENT'S EMR AMENDED REPORT 10/11/24 1520 PATH REV previously reported as: January cortes Previous reported result: Reviewed Edited by: MYRA on 10/11/24:1557 AMENDED REPORT 10/11/24 1557 PATH REV previously reported as: Reviewed Serum or plasma ferritin judie surement (mass/volume)Ordered By: Susu Garcia on 09-10-2024 Ferritin [Mass/Vol] 767 ng/mL High 22-[address] [facility] White blood cell (WBC) count Ordered By: Susu Garcia on 09-10-2024 WBC (Bld) [#/Vol] 3.8 10*3/uL Low 4.4-11.0 [facility] HCG ( test) QlOrder ed By: Fely Hickman on 07-27-2024 Human Chorionic Gonadotropin, Quant < 1 mIU/mL <4 [facility] Comment on above: hCG levels with Gest ational AgeGestational Age hCG mIU/mL (IU/L)0.2 - 1 week 5 - 501-2 weeks 50 - 5002-3 weeks 100 - 98133-5 weeks 500 - 804009-4 weeks 1000 - 872000-4 weeks 20827 - 100,0006-8 weeks 39928 - 200,0002-3 months 09419 - 100,000 hCG Titer Quant., Serumon HCG QUANT. < 1 Normal 1-3 [facility] Comment on above: Result Comment: hCG levels with Gestational Age Gestational Age hCG mIU/mL (IU/L) 0.2 - 1 week 5 - 50 1-2 weeks 50 - 500 2-3 weeks 100 - 5000 3-4 weeks 500 - 22507 4-5 weeks 1000 - 60250 5-6 weeks 28430 - 100,000 6-8 weeks 97608 - 200,000 2-3 months 83160 - 100,000 Performed By: #### L 700.8000 #### [facility] [address] [place], [address] CBC W/Diff, Automatedon - Absolute Lymph 2.58 X10 3/uL Normal 0.83-4.51 [facility] Comment on above: Performed By: #### L 503.6550, L100.0100, L503.6150 #### [facility] [address] [place], [address] Absolute Neut 3.2 X10 3/uL Normal 2.0-7.7 [facility] Comment on above: Performed By: #### L 503.6550, L100.0100, L503.6150 #### [facility] [address] [place], [address] Basophils/100 WBC (Bld) 0.3 % Normal 0-1 [facility] Comment on above: Performed By: #### L 503.6550, L100.0100, L503.6150 #### [facility] [address] [place], [address] Eosinophils/100 WBC (Bld) 1.4 % Normal 0-5 [facility] Comment on above: Performed By: #### L 503.6550, L100.0100, L503.6150 #### [facility] [address] [place], [address] Erythrocyte distribution width (RBC) [Ratio] 13.2 % Normal 11.6-14.6 [facility] Comment on above: Performed By: #### L 503.6550, L100.0100, L503.6150 #### [facility] [address] [place], [address] Hematocrit (Bld) [Volume fraction] 40.9 % Normal 37-47 [facility] Comment on above: Performed By: #### L 503.6550, L100.0100, L503.6150 #### [facility] [address] [place], [address] Hemoglobin (Bld) [Mass/Vol] 13.2 g/dL Normal 12.0-15.0 [facility] Comment on above: Performed By: #### L 503.6550, L100.0100, L503.6150 #### [facility] [address] [place], [address] IG% 0.300 Normal 0.0-0.9 [facility] Comment on above: Result Comment: IG% - Immature Granulocytes (promyelocytes, myelocytes and metamyelocytes) > 1% indicates that a LEFT SHIFT is Present. Performed By: #### L 503.6550, L100.0100, L503.6150 #### [facility] [address] [place], [address] Lymphocytes/100 WBC (Bld) 39.8 % Normal 19-41 [facility] Comment on above: Performed By: #### L 503.6550, L100.0100, L503.6150 #### [facility] [address] [place], [address] MCH (RBC) [Entitic mass] 26.6 pg Low 27.0-32.0 [facility] Comment on above: Performed By: #### L 503.6550, L100.0100, L503.6150 #### [facility] [address] [place], [address] MCHC (RBC) [Mass/Vol] 32.3 g/dL Normal 32-36 [facility] Comment on above: Performed By: #### L 503.6550, L100.0100, L503.6150 #### [facility] [address] [place], [address] MCV (RBC) [Entitic vol] 82.3 fL Normal 81-99 [facility] Comment on above: Performed By: #### L 503.6550, L100.0100, L503.6150 #### [facility] [address] [place], [address] Monocytes/100 WBC (Bld) 9.1 % Normal 0-10 [facility] Comment on above: Performed By: #### L 503.6550, L100.0100, L503.6150 #### [facility] [address] [place], [address] Neutrophils/100 WBC (Bld) 49.1 % Normal 47-70 [facility] Comment on above: Performed By: #### L 503.6550, L100.0100, L503.6150 #### [facility] [address] [place], [address] Nucleated RBC (Bld) [#/Vol] 0 10*3/uL Normal 0-5 [facility] Comment on above: Performed By: #### L 503.6550, L100.0100, L503.6150 #### [facility] [address] [place], [address] Platelet mean volume (Bld) [Entitic vol] 10.5 fL Normal 6.2-12.0 [facility] Comment on above: Performed By: #### L 503.6550, L100.0100, L503.6150 #### [facility] [address] [place], [address] Platelets (Bld) [#/Vol] 235 10*3/uL Normal 150-450 [facility] Comment on above: Performed By: #### L 503.6550, L100.0100, L503.6150 #### [facility] [address] [place], [address] RBC (Bld) [#/Vol] 4.97 10*6/uL Normal 4.2-5.[address] [facility] Comment on above: Performed By: #### L 503.6550, L100.0100, L503.6150 #### [facility] [address] [place], [address] RDW SD 39.2 fl Normal 35.1-43.9 [facility] Comment on above: Performed By: #### L 503.6550, L100.0100, L503.6150 #### [facility] [address] [place], [address] WBC (Bld) [#/Vol] 6.5 10*3/uL Normal 4.4-11.0 [facility] Comment on above: Performed By: #### L 503.6550, L100.0100, L503.6150 #### [facility] [address] [place], [address] Ferritinon 05-14-2024 Ferritin [Mass/Vol] 7 ng/mL Low 8-[address] [facility] Comment on above: Performed By: #### L 503.6550, L100.0100, L503.6150 #### [facility] [address] [place], [address] Ironon 05-14-2024 Iron [Mass/Vol] 38 ug/dL Low 50-170 [facility] Comment on above: Performed By: #### L 503.6550, L100.0100, L503.6150 #### [facility] [address] [place], [address] Absolute lymphocyte countOrd ered By: Susu Garcia on 02-21-2023 Lymphocytes Auto (Unsp spec) [#/Vol] 1.76 10*3/uL 0.83-4.51 [facility] Basophil percentageOrdered B y: Susu Garcia on 02-21-2023 Basophils/100 WBC (Bld) 0.7 % 0-1 [facility] Bilirubin [Mass/Vol] 0.30 mg/dL 0.20-1.00 [facility] Comment on above: For patients on eltr ombopag therapy, use of Dimension [place] TBIL is not recommended. Chloride [Moles/Vol] 107 mmol/L 98-107 [facility] Eosinophils/100 WBC (Bld) 1.3 % 0-5 [facility] Glucose [Mass/Vol] 93 mg/dL 74-106 [facility] Neutrophils (Bld) [#/Vol] 3.0 10*3/uL 2.0-7.7 [facility] Neutrophils/100 WBC (Bld) 55.5 % 47-70 [facility] Potassium [Moles/Vol] 3.6 mmol/L 3.5-5.1 [facility] Protein [Mass/Vol] 7.4 g/dL 6.4-8.2 [facility] Sodium [Moles/Vol] 138 mmol/L 136-145 [facility] WBC (Bld) [#/Vol] 5.4 10*3/uL 4.4-11.0 [facility] Blood erythrocytes count (nu mber/volume)Ordered By: Susu Garcia on 02-21-2023 RBC (Bld) [#/Vol] 5.09 10*6/uL 4.2-5.[address] [facility] Blood hemoglobin measurement (mass/volume)Ordered By: Susu Garcia on 02-21-2023 Hemoglobin (Bld) [Mass/Vol] 13.8 g/dL 12.0-15.0 [facility] Blood lymphocytes/100 leukoc ytesOrdered By: Susu Garcia on 02-21-2023 Lymphocytes/100 WBC (Bld) 32.8 % 19-41 [facility] Blood monocytes/100 leukocyt esOrdered By: Susu Garcia on 02-21-2023 Monocytes/100 WBC (Bld) 9.5 % 0-10 [facility] Blood platelet mean volumeOr dered By: Susu Garcia on 02-21-2023 Platelet mean volume (Bld) [Entitic vol] 10.9 fL 6.2-12.0 [facility] Determination of erythrocyte mean corpuscular volume (MCV)Ordered By: Susu Garcia on 02-21-2023 MCV (RBC) [Entitic vol] 87.4 fL 81-99 [facility] Erythrocyte sedimentation ra teOrdered By: Susu Garcia on 02-21-2023 ESR (Bld) [Velocity] 1 mm/h 0-30 [facility] Hematocrit Auto (Bld) [Volum e fraction]Ordered By: Susu Garcia on 02-21-2023 Hematocrit (Bld) [Volume fraction] 44.5 % 37-47 [facility] Iron measurement (mass/mass) Ordered By: Susu Garcia on 02-21-2023 Iron (Unsp spec) [Mass/Mass] 35 ug/dL 50-170 [facility] - Chemistry and C hemistry - challengeOrdered By: Susu Garcia on 02-21-2023 ALP [Catalytic activity/Vol] 39 U/L 45-117 [facility] ALT [Catalytic activity/Vol] 14 U/L 13-56 [facility] CO2 [Moles/Vol] 24.0 mmol/L 21.0-32.0 [facility] Globulin (S) [Mass/Vol] 3.6 g/dL 2.2-4.2 [facility] Urea nitrogen/Creatinine [Mass ratio] 11.6 mg/mg 10-20 [facility] - Hematology and Cell countsOrdered By: Susu Garcia on 02-21-2023 Erythrocyte distribution width (RBC) [Entitic vol] 39.4 fL 35.1-43.9 [facility] Erythrocyte distribution width (RBC) [Ratio] 12.5 % 11.6-14.6 [facility] Immature granulocytes/100 WBC (Bld) 0.200 % 0.0-0.9 [facility] Comment on above: IG% - Immature Granu locytes (promyelocytes, myelocytes and metamyelocytes) > 1% indicates that a LEFT SHIFT is Present. MCH (RBC) [Entitic mass] 27.1 pg 27.0-32.0 [facility] Nucleated RBC/100 WBC (Bld) [Ratio] 0 % 0-5 [facility] MCHC Auto (RBC) [Mass/Vol]Or dered By: Susu Garcia on 02-21-2023 MCHC (RBC) [Mass/Vol] 31.0 g/dL 32-36 [facility] No Panel InformationOrdered By: Susu Garcia on 02-21-2023 Estimated GFR (MDRD) Amer 140 mL/min >60 [facility] Comment on above: GFR Calc Estimated GFR (MDRD) Non-Af Amer 116 mL/min >60 [facility] Comment on above: Non- GFR Calc Platelets bldOrdered By: Joaquina Garcia on 02-21-2023 Platelets (Bld) [#/Vol] 228 10*3/uL 150-450 [facility] Serum or plasma C reactive p rotein measurement (mass/volume)Ordered By: Susu Garcia on 02-21-2023 CRP [Mass/Vol] mg/L 0.0-3.0 [facility] Comment on above: C-Reactive Protein ( CRP) provides useful information for thediagnosis, therapy and monitoring of inflammatory processesand associated diseases. For the evaluation of Relative Riskfor Cardiovascular Disease, a High Sensitivity CRP (HSCRP)should be ordered. Serum or plasma albumin nubia urement (mass/volume)Ordered By: Susu Garcia on 02-21-2023 Albumin [Mass/Vol] 3.8 g/dL 3.2-5.0 [facility] Serum or plasma albumin/glob ulin mass ratioOrdered By: Susu Garcia on 02-21-2023 Albumin/Globulin [Mass ratio] 1.1 {ratio} 0.9-2.4 [facility] Serum or plasma calcium nubia urement (mass/volume)Ordered By: Susu Garcia on 02-21-2023 Calcium [Mass/Vol] 9.3 mg/dL 8.5-10.1 [facility] Serum or plasma creatinine m easurement (mass/volume)Ordered By: Susu Garcia on 02-21-2023 Creatinine [Mass/Vol] 0.69 mg/dL 0.55-1.02 [facility] Comment on above: The validity of the calculated GFR & GFRAA in patients over 70 years has not been determined. Clinical correlation is essential. Serum or plasma ferritin judie surement (mass/volume)Ordered By: Susu Garcia on 02-21-2023 Ferritin [Mass/Vol] 6 ng/mL 8-[address] [facility] Serum or plasma urea nitroge n measurement (mass/volume)Ordered By: Susu Garcia on 02-21-2023 Urea nitrogen [Mass/Vol] 8 mg/dL 7-18 [facility] Thin prep Papanicolaou smear with manual screeningOrdered By: Susu Garcia on 02-21-2023 Thin prep Papanicolaou smear with manual screening 12 U/L 15-37 [facility] Thin prep Papanicolaou smear with manual screening 7 5-15 [facility] CNOVon 05-30-2022 AMANDAOV Office Visit ([place]) PANCHO SAVAGE ([id number]) 1 F Date Time Provider Department 05/30/22 11:45 AM NORA KEY During your visit today, we recorded the following information about you: Nora Key DO 05/30/2022 1:00 PM Signed Follow Up Visit Chief Complaint Pancho Savage is a 16 year old female who presents today for follow up office visit. Patient presents with: Right Ankle - Established Patient, Post Op History of Present Illness PAIN EVALUATION No data found in the last 1 encounters. HPI: Pancho Savage is a 16 year old female for a follow up visit right ankle. Pain history is noted as above. Denies calf pain, numbness, tingling, fever, chills or other constitutional symptoms. Is there any overall improvement in your condition? Yes, Any new injury, since being seen last: No REVIEW OF SYMPTOMS: Patient did not have, and does not currently have, any weight loss, malaise, fever, chills, headache, chest pain, chest pressure, palpitations, cough, shortness of breath, orthopnea, paroxsymal nocturnal dyspnea, nausea, vomiting, diarrhea, constipation, melena, hematochezia, urinary difficulties, prolonged bleeding, easily bruising, heat or cold intolerance, new onset joint pain or swelling, new onset extremity weakness or numbness, new onset auditory or visual disturbances, lightheadedness, dizziness, partial loss of consciousness or full loss of consciousness. Current Outpatient Medications Medication Sig omeprazole (PRILOSEC) 20 mg capsule Cetirizine 10 mg cap Take 10 mg by mouth. fluticasone (FLONASE) 50 mcg/actuation nasal spray Use 1 [place] in each nostril once daily as needed. fexofenadine (NORMA) 180 mg tablet Take 180 mg by mouth once daily. No current facility-administere d medications for this visit. Physical Exam Vitals: There were no vitals taken for this visit. Psych: Pleasant, good affect and mood General Appearance: Well appearing, alert, in no acute distress, well-hydrated, well nourished.. Skin: Skin color, texture, turgor normal, no suspicious rashes or lesions. Peripheral Pulses: Normal. Neurologic: Gait normal. Reflexes normal and symmetric. Sensation grossly intact.. Lymph Nodes: No cervical lymphadenopathy, No supraclavicular lymphadenopathy, No axillary lymphadenopathy., and No inguinal lymphadenopathy.. Respiratory: No recent pulmonary infection, hemoptysis, chronic cough, or shortness of breath at rest Rheumatologic: Joint deformities: Right ankle follow up Right Ankle Exam Right ankle exam is normal. Tenderness The patient is experiencing no tenderness. Range of Motion The patient has normal right ankle ROM. Dorsiflexion: normal Plantar flexion: normal Eversion: normal Inversion: normal Muscle Strength Dorsiflexion: 5/5 Plantar flexion: 5/5 Anterior tibial: 5/5 Posterior tibial: 5/5 Gastrocsoleus: 5/5 Peroneal muscle: 5/5 Tests Anterior drawer: negative Varus tilt: negative Other Erythema: absent Sensation: normal Pulse: present Left Ankle Exam Left ankle exam is normal. Tenderness The patient is experiencing no tenderness. Range of Motion The patient has normal left ankle ROM. Dorsiflexion: normal Plantar flexion: normal Eversion: normal Inversion: normal Muscle Strength Dorsiflexion: 5/5 Plantar flexion: 5/5 Anterior tibial: 5/5 Posterior tibial: 5/5 Gastrocsoleus: 5/5 Peroneal muscle: 5/5 Tests Anterior drawer: negative Varus tilt: negative Other Erythema: absent Sensation: normal Pulse: present Assessment and Plan Radiographs: No imaging to review. Impression: Encounter Diagnosis ICD-10-CM 1. S/P foot surgery Z98.890 Today, in detail, through a thorough evaluation, we discussed possible etiologies of pain and our plans for further diagnostic and therapeutic interventions. We discussed strategies for decreasing pain and improving strength, stability and motion. Patient's questions were answered in detailed. Patient verbalizes understanding and agrees with the treatment plan as discussed. Doing well from a postop standpoint back to all activities has no other issues scars are healing well is getting in November and discussed her wedding plans Call increased pain numbness tingling further issues arise at this point patient is free to go back to all activities and see in the knee as needed basis comment: Please note this report has been produced using speech recognition software and may contain errors related to that system including errors in grammar, punctuation, and spelling, as well as words and phrases that may be inappropriate. If there are any questions or concerns please feel free to contact the dictating provider for clarification. Referring Provider: SELF [[id number]] Allergies As of Date: 05/30/2022 (No Known Allergi (more content not included)... Normal [facility] CNOVon 04-17-2022 CNOV Office Visit (ORMDNA) PANCHO SAVAGE ([id number]) 1 F Date Time Provider Department 04/17/22 2:15 PM NORA KEY During your visit today, we recorded the following information about you: Nora Key DO 04/23/2022 3:11 PM Signed Follow Up Visit Chief Complaint Pancho Savage is a 16 year old female who presents today for follow up office visit. Patient presents with: Right Ankle - Post Op, Pain History of Present Illness PAIN EVALUATION No data found in the last 1 encounters. HPI: Pancho Savage is a 16 year old female for a follow up visit S/P Right ankle arthroscopy, extensive synovectomy, removal of hardware/suture, bony debridement. Pain history is noted as above. Denies calf pain, numbness, tingling, fever, chills or other constitutional symptoms. Is there any overall improvement in your condition? yes Any new injury, since being seen last: No REVIEW OF SYMPTOMS: Patient did not have, and does not currently have, any weight loss, malaise, fever, chills, headache, chest pain, chest pressure, palpitations, cough, shortness of breath, orthopnea, paroxsymal nocturnal dyspnea, nausea, vomiting, diarrhea, constipation, melena, hematochezia, urinary difficulties, prolonged bleeding, easily bruising, heat or cold intolerance, new onset joint pain or swelling, new onset extremity weakness or numbness, new onset auditory or visual disturbances, lightheadedness, dizziness, partial loss of consciousness or full loss of consciousness. Current Outpatient Medications Medication Sig omeprazole (PRILOSEC) 20 mg capsule Cetirizine 10 mg cap Take 10 mg by mouth. fluticasone (FLONASE) 50 mcg/actuation nasal spray Use 1 [place] in each nostril once daily as needed. fexofenadine (NORMA) 180 mg tablet Take 180 mg by mouth once daily. No current facility-administere d medications for this visit. Physical Exam Vitals: There were no vitals taken for this visit. Psych: Pleasant, good affect and mood General Appearance: Well appearing, alert, in no acute distress, well-hydrated, well nourished.. Skin: Skin color, texture, turgor normal, no suspicious rashes or lesions. Peripheral Pulses: Normal. Neurologic: Gait normal. Reflexes normal and symmetric. Sensation grossly intact.. Lymph Nodes: No cervical lymphadenopathy, No supraclavicular lymphadenopathy, No axillary lymphadenopathy., and No inguinal lymphadenopathy.. Respiratory: No recent pulmonary infection, hemoptysis, chronic cough, or shortness of breath at rest Rheumatologic: Joint deformities: right ankle pain Ortho Exam Assessment and Plan Radiographs: No imaging to review. Impression: Encounter Diagnosis ICD-10-CM 1. 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 S/P foot surgery Z98.890 Today, in detail, through a thorough evaluation, we discussed possible etiologies of pain and our plans for further diagnostic and therapeutic interventions. We discussed strategies for decreasing pain and improving strength, stability and motion. Patient's questions were answered in detailed. Patient verbalizes understanding and agrees with the treatment plan as discussed. Doing well WBAT right leg No pain at incision sites, healing well, no signs of infection Patient aware and in agreement of plan. All questions answered. Allergies As of Date: 04/17/2022 (No Known Allergies) Date Reviewed: 04/17/2022 Reviewed by: Danika Valente - Fully Assessed Reason for Visit: Post Op [174] Pain [78] Primary Visit Diagnosis:Suture granuloma, initial encounter [T81.89XA] Other Visit Diagnosis:S/P foot surgery [Z98.890] Prescriptions as of 04/23/2022 - omeprazole (PRILOSEC) 20 mg capsule - Cetirizine 10 mg cap Take 10 mg by mouth. - fluticasone (FLONASE) 50 mcg/actuation nasal spray Use 1 [place] in each nostril once daily as needed. - fexofenadine (NORMA) 180 mg tablet Take 180 mg by mouth once daily. Problem List As Of Date 04/17/2022 Noted Resolved GERD (gastroesophageal reflux disease) [K21.9] 03/27/2022 Right ankle pain [M25.571] 04/02/2022 04/02/2022 Encounter Status:Closed by NORA KEY on 04/23/22 [facility] 04-08-2022 CNPN Telephone (ORMDNA) PANCHO SAVAGE ([id number]) 1 F Date Time Provider Department 04/08/22 NORA KEY ORMICHAEL During your visit today, we recorded the following information about you: Jigna Andrews RN 04/08/2022 11:09 AM Signed Mom calling on behalf of pt Pt had surgery on ankle 04/02/22 Thery are aware to keep dressing (gauze) on but could loosen the nallely if needed Pt has expressed to mom she feels the gauze dressing is sticking to the incision/sutures and it is pulling on them ariel foster very uncomfortable Mom is asking if they can remove the gauze and redress it with something else Pts 1st post op appt is 04/17/22 Please advise Varinder Samuel PA-C 04/08/2022 12:15 PM Addendum I do not recommend removing the sterile dressing at home. If it feels like something is pulling on the sutures, it is likely because the NALLELY wrap is too loose. GERARDO Bucio RN 04/08/2022 1:23 PM Signed Spoke with mom and relayed message. Mom verbalized understanding. Allergies As of Date: 04/08/2022 (No Known Allergies) Date Reviewed: 04/02/2022 Reviewed by: Marjorie Luu RN - Fully Assessed Reason for Visit: Patient Question [6862] Prescriptions as of 04/08/2022 - omeprazole (PRILOSEC) 20 mg capsule - Cetirizine 10 mg cap Take 10 mg by mouth. - fluticasone (FLONASE) 50 mcg/actuation nasal spray Use 1 [place] in each nostril once daily as needed. - fexofenadine (NORMA) 180 mg tablet Take 180 mg by mouth once daily. Problem List As Of Date 04/08/2022 Noted Resolved GERD (gastroesophageal reflux disease) [K21.9] 03/27/2022 Right ankle pain [M25.571] 04/02/2022 04/02/2022 Encounter Status:Closed by JIGNA ANDREWS on 04/08/22 [facility] LATERALon 04-02-2022 [facility] HISTORY PHYSICALon HISTORY PHYSICAL HNO ID: [id number] Author: Khalida Abbott APRN.AIRCRAFT INSTRUMENT MECHANIC Service: ? Author Type: Nurse Practitioner Type: HANDP Filed: 03/27/2022 8:54 AM Note Text: PREANESTHESIA CONSULT CLINIC TELEHEALTH VISIT Patient has been identified by name and date of : Yes This is a virtual visit using Alternative video platform. It require patient-provider interaction for the medical decision making as documented below. Reason for contact: PACC visit Accompanied by: Self Scheduled Surgery: ARTHROSCOPY ANKLE W/ DEBRIDEMENT EXTENSIVE RIGHT Subjective CHIEF COMPLAINT: Patient presents with: Anesthesia Consult HPI: This is a 16 year old female who presents with right ankle pain. Pain has had multiple sprains and 2 ankle fractures. She had surgery on the ankle May of 2019. She is again having pain in ankle and has opted for surgical intervention. ACTIVE PROBLEM LIST Gerd (Gastroesophageal Reflux Disease) History reviewed. No pertinent past medical history. PAST SURGICAL HISTORY Procedure Laterality Date PAST SURGICAL HISTORY OF Right 2019 Ankle No family history on file. Social History Tobacco Use Smoking status: Never Smokeless tobacco: Never Substance Use Topics Alcohol use: Never Drug use: Never ALLERGIES No Known Allergies MEDICATIONS: Current Outpatient Medications Medication Sig omeprazole (PRILOSEC) 20 mg capsule Cetirizine 10 mg cap Take 10 mg by mouth. fluticasone (FLONASE ALLERGY RELIEF) 50 mcg/actuation nasal spray Use 1 [place] in each nostril once daily as needed. fexofenadine (NORMA ALLERGY) 180 mg tablet Take 180 mg by mouth once daily. No current facility-administere d medications for this visit. COVID VACCINATION STATUS: Not vaccinated REVIEW OF SYSTEMS: Pain Assessment: General: No weight loss, malaise or fevers. Neuro: No history of TIA's, stroke, POWER SHOVEL OPERATOR HELPER tumor, impaired sensorium, hemiplegia, paraplegia or quadraplegia. No neurological symptoms or problems. Respiratory: No history of current cough or dyspnea, or pneumonia in the past 6 weeks. No history of respiratory/pulmonar y symptoms or problems. Cardiovascular: No history of HTN requiring medication, no history of angina, CHF, DE, cardiac surgery or stents. Denies rest pain, gangrene or revascularization/am putation for PVD. No history of cardiovascular symptoms or problems. GI: Negative for Nausea, Vomiting, Abdominal pain, Inflammatory bowel disease +GERD : No history of dysuria, frequency or incontinence,, stones or chronic kidney disease BLACK TOP PAVER OPERATOR: Negative for abnormal vaginal bleeding, abnormal vaginal discharge. : Denies, No LMP recorded. Endocrine: No history of diabetes. Has not taken steroids within the past 30 days. No history of endocrinological symptoms or problems. Hematology: No history of bleeding or clotting disorder. Pt is not taking anti-coagulation or platelet medications. No history of hematological symptoms or problems. Oncology: No history of CA metastasis, chemo within 30 days, or radiotherapy within 90 days. Has not lost 10% of body wt in 6 months. No history of oncological symptoms or problems. Psych: No history of psychiatric symptoms or problems. Musculoskeletal: See HPI Skin: Negative for lesions, rash and itching. Objective PHYSICAL EXAM: Pulse 72 Ht 5' 7 (1.70m) Wt 130 lb (59.0kg) BMI 20.36 kg/(m2). VIDEO EXAM: (if completed, performed via video enabled technology) GENERAL: alert and appropriate, in no distress, well-hydrated, well nourished, and happy, smiling, interactive SKIN: no rash noted HEAD: normocephalic, no abnormality or lesion noted EARS: hearing grossly normal OROPHARYNX: moist mucus membranes NECK: full ROM, no cervical LNs noted RESPIRATORY: breathing non-labored CHEST: equal chest rise with normal respiratory effort HEART: No edema or JVD noted. Patient checked HR via apple watch 72 bpm NEUROLOGIC: no obvious deficit Diagnostic tests reviewed for today's visit: No new labs or tests Impression/Recommend ations ASSESSMENT: GERD (gastroesophageal reflux disease) Assessment: Controlled on PPI METS: Do moderate work around the house such as vacuuming, sweeping floors, or carrying in groceries (3.50 METs) Do yardwork, such as raking leaves, weeding,or pushing a power mower (4.50 METs) Climb a flight of stairs or walk up a hill (5.50 METs) Patient denies any chest pain or undue shortness of breath with the above physical activity. ASA Class: 3 ANESTHESIA FINDINGS: Intubation History: No history of difficult intubation Significant Anesthesia Considerations: None Airway Exam: General: Normal appearance Mallampati Score is CLASS II ULBT: Class II - Lower incisors can bite the upper lip below the deandre line Neck: Normal appearance and function, Distance from hyoid to mentum during neck extension is at least 3 finger breaths Mouth: Normal tongue size and Mouth opening greater jan (more content not included)... Normal [facility] CNOVon 03-06-2022 CNOV Office Visit (ORMDNA) PANCHO SAVAGE ([id number]) 1 F Date Time Provider Department 03/06/22 1:00 PM NORA KEY During your visit today, we recorded the following information about you: Weight Height 62.1 kg 1.708 m Nora Key DO 03/11/2022 2:19 PM Signed Reason for Visit/Chief Complaint Pancho Savage is a 16 year old female who presents today for a new evaluation of following complaint: Patient presents with: Right Ankle - New, Pain History of Present Illness: PAIN EVALUATION 03/06/2022 1311 Pain Level: 5 Pain Location: Ankle-Right Description: Shooting;Aching;Efe p Frequency: Continuous Intervention/Comfort measure: Cold;Medication;Repo sition;Relaxation motrin HPI: Pancho Savage is a 16 year old female presenting today with Right ankle pain. Pain history is noted as above. Patient recalls having surgery on her right ankle two years ago at [facility], presents today with pain in the same ankle. Pain located in the lateral ankle area and can feel stitch rubbing against skin which is causing her most of her pain. Patient has been applying ice and taking Motrin for comfort measures. Previous Treatments: Ice: Yes Heat: No Brace: No NSAIDs: Yes, Motrin Injections: No Surgeries: Yes, 2020? Physical Therapy: No Review of Systems: Patient did not have, and does not currently have, any weight loss, malaise, fever, chills, headache, chest pain, chest pressure, palpitations, cough, shortness of breath, orthopnea, paroxsymal nocturnal dyspnea, nausea, vomiting, diarrhea, constipation, melena, hematochezia, urinary difficulties, prolonged bleeding, easily bruising, heat or cold intolerance, new onset joint pain or swelling, new onset extremity weakness or numbness, new onset auditory or visual disturbances, lightheadedness, dizziness, partial loss of consciousness or full loss of consciousness. Current Outpatient Medications on File Prior to Visit Medication Sig omeprazole (PRILOSEC) 20 mg capsule Cetirizine 10 mg cap Take 10 mg by mouth. fluticasone (FLONASE ALLERGY RELIEF) 50 mcg/actuation nasal spray Use 1 [place] in each nostril once daily as needed. fexofenadine (NORMA ALLERGY) 180 mg tablet Take 180 mg by mouth once daily. No current facility-administere d medications on file prior to visit. ALLERGIES No Known Allergies Physical Exam: Vitals: Ht 5' 7.25 (1.71m) Wt 137 lb (62.1kg) BMI 21.30 kg/(m2). Psych: General Appearance: . Skin: Skin color, texture, turgor normal, no suspicious rashes or lesions, . Peripheral Pulses: normal. Neurologic: mormal. Lymph Nodes: normal. Respiratory: normal Rheumatologic: Joint deformities: right lateral ankle pain Right Ankle Exam Right ankle exam is normal. Tenderness The patient is experiencing tenderness in the lateral malleolus. Range of Motion The patient has normal right ankle ROM. Dorsiflexion: normal Plantar flexion: normal Eversion: normal Inversion: normal Muscle Strength Dorsiflexion: 5/5 Plantar flexion: 5/5 Anterior tibial: 5/5 Posterior tibial: 5/5 Gastrocsoleus: 5/5 Peroneal muscle: 5/5 Tests Anterior drawer: negative Varus tilt: negative Other Erythema: absent Sensation: normal Pulse: present Comments: Ttp lateral distal mall, palpable stitch at site of pain Left Ankle Exam Left ankle exam is normal. Tenderness The patient is experiencing no tenderness. Range of Motion The patient has normal left ankle ROM. Dorsiflexion: normal Plantar flexion: normal Eversion: normal Inversion: normal Muscle Strength Dorsiflexion: 5/5 Plantar flexion: 5/5 Anterior tibial: 5/5 Posterior tibial: 5/5 Gastrocsoleus: 5/5 Peroneal muscle: 5/5 Tests Anterior drawer: negative Varus tilt: negative Other Erythema: absent Sensation: normal Pulse: present Imaging: Last XR Ankle - Impression Only XR ANKLE GENERAL 3V AP/LAT/OBL RIGHT Exam End: 03/06/2022 1:49 PM (Final result) Impression: IMPRESSION: Postsurgical changes of the distal fibula. Heterogeneous appearance of the bone density of the talar dome laterally, questionable for prior surgical change. Clinical correlation is recommended. Explosives Mixer Operator: BEKAH Transcribe Date/Time: Mar 06 2022 2:27P ... Assessment and Plan: Impression: Encounter Diagnosis ICD-10-CM 1. Suture granuloma, initial encounter T81.89XA Plan: Today, in detail, through a thorough evaluation, we discussed possible etiologies of pain and our plans for further diagnostic and therapeutic interventions. We discussed strategies for decreasing pain and improving strength, stability and motion. Patient's questions were answered in detailed. Patient verbalizes understanding and agrees with the treatment plan as discussed. Risks and benefits vs alternatives to treatm (more content not included)... Normal [facility] XR ANKLE 3V AP/LAT/OBL RTon 03-06-2022 XR ANKLE 3V AP/LAT/OBL RT * * *Final Report* * * DATE OF EXAM: Mar 06 2022 1:49PM MOHINI [id number] - XR ANKLE 3V AP/LAT/OBL RT / PROCEDURE REASON: [id number] * * * * Physician Interpretation * * * * TECHNIQUE: XR ANKLE 3V AP/LAT/OBL RT - EXAM DATE: 03/06/2022 1:49 PM CLINICAL HISTORY: Pain COMPARISON: None RESULT: Bony alignment and joint spaces are normal. Multiple rounded lucencies are noted with thin sclerotic rim at the distal fibula, concerning for postsurgical changes. There is also mild heterogeneous irregularity within the talar dome laterally, questionable for prior surgical change. A fracture is not seen. The ankle mortise is intact. There is no soft tissue swelling. IMPRESSION: Postsurgical changes of the distal fibula. Heterogeneous appearance of the bone density of the talar dome laterally, questionable for prior surgical change. Clinical correlation is recommended. Explosives Mixer Operator: PSCB Transcribe Date/Time: Mar 06 2022 2:27P Dictated by : PAULO RAUSCH MD This examination was interpreted and the report reviewed and electronically signed by: PAULO RAUSCH MD on Mar 06 2022 2:32PM EST [id number] CN Normal [facility] XR ANKLE GENERAL 3V AP/LAT/O BL RIGHTon 03-06-2022 [facility] Immunoglobulin Aon 0 Immunoglobulin A 74 mg/dL Normal 47-249 [facility] Comment on above: Order Comment: With differential. Is this specimen being sent to an external lab?->No Performed By: #### I GA #### [facility] [place] [address] [employer] 11-03-2019 [employer] SEE COMMENTS Normal [facility] Comment on above: Order Comment: GOKEY TTGA 0.5 ml serum, refrig. Result Comment: Test Result Flag Unit RefValue - Tissue Transglutaminase Ab, <1.2 U/mL IgA, S -- REFERENCE VALUE -- <4.0 (Negative) Test Performed by: [facility] [address] [place] [id number] [employer] Sales: Werner Stoddard M.D. Ph.D.; CLIA# [id number] Testing Performed [address] [address] Performed By: #### M OMSO #### [address] [address] TSH with reflex T4FRon 11-01 TSH with reflex T4FR 1.462 uIU/mL Normal 0.350-5.500 [facility] Comment on above: Order Comment: With differential. Is this specimen being sent to an external lab?->No Performed By: #### T SHR #### [address] [address] Complete Blood Counton 10-31 Differential Complete Automated Normal [facility] Comment on above: Order Comment: With differential. Is this specimen being sent to an external lab?->No Performed By: #### C BC #### [address] [address] Basophils/100 WBC (Bld) 0.40 % Normal 0.00-1.00 [facility] Comment on above: Order Comment: With differential. Is this specimen being sent to an external lab?->No Performed By: #### C BC #### [address] [address] Eosinophils/100 WBC (Bld) 1.10 % Normal 0.00-3.00 [facility] Comment on above: Order Comment: With differential. Is this specimen being sent to an external lab?->No Performed By: #### C BC #### [address] [address] Erythrocyte distribution width (RBC) [Ratio] 12.1 % Normal 0.0-14.4 [facility] Comment on above: Order Comment: With differential. Is this specimen being sent to an external lab?->No Performed By: #### C BC #### [address] [address] Hematocrit (Bld) [Volume fraction] 43.0 % Normal 37.0-46.0 [facility] Comment on above: Order Comment: With differential. Is this specimen being sent to an external lab?->No Performed By: #### C BC #### [address] [id number] Hemoglobin (Bld) [Mass/Vol] 14.4 g/dL Normal 12.0-15.0 [facility] Comment on above: Order Comment: With differential. Is this specimen being sent to an external lab?->No Performed By: #### C BC #### [address] [id number] Immature granulocytes/100 WBC (Bld) 0.10 % Normal [facility] Comment on above: Order Comment: With differential. Is this specimen being sent to an external lab?->No Result Comment: Raquel ture Granulocyte Percent includes promyelocytes, myelocytes, and metamyelocytes. IG% > 1.0 indicates a left shift is present. With automated differentials, bands are included in the neutrophil count and not in the Immature Granulocyte Percent. Performed By: #### C BC #### [address] [address] Lymphocytes/100 WBC (Bld) 35.8 % Normal 25.0-45.0 [facility] Comment on above: Order Comment: With differential. Is this specimen being sent to an external lab?->No Performed By: #### C BC #### [address] [id number] MCH (RBC) [Entitic mass] 28.6 pg Normal 25.0-35.0 [facility] Comment on above: Order Comment: With differential. Is this specimen being sent to an external lab?->No Performed By: #### C BC #### [address] [id number] MCHC (RBC) [Mass/Vol] 33.5 % Normal 31.0-37.0 [facility] Comment on above: Order Comment: With differential. Is this specimen being sent to an external lab?->No Performed By: #### C BC #### [address] [address] MCV (RBC) [Entitic vol] 85.3 fL Normal 78.0-96.0 [facility] Comment on above: Order Comment: With differential. Is this specimen being sent to an external lab?->No Performed By: #### C BC #### [address] [address] Monocytes/100 WBC (Bld) 7.20 % High 3.00-6.00 [facility] Comment on above: Order Comment: With differential. Is this specimen being sent to an external lab?->No Performed By: #### C BC #### [address] [address] Neutrophils (Bld) [#/Vol] 4.1 10*3/uL Normal 1.8-7.5 [facility] Comment on above: Order Comment: With differential. Is this specimen being sent to an external lab?->No Performed By: #### C BC #### [address] [address] Neutrophils/100 WBC (Bld) 55.4 % Normal 34.0-64.0 [facility] Comment on above: Order Comment: With differential. Is this specimen being sent to an external lab?->No Performed By: #### C BC #### [address] [address] Nucleated RBC/100 WBC (Bld) [Ratio] 0.0 % Normal -1.0-0.0 [facility] Comment on above: Order Comment: With differential. Is this specimen being sent to an external lab?->No Performed By: #### C BC #### [address] [id number] Platelet mean volume (Bld) [Entitic vol] 10.8 fL Normal [facility] Comment on above: Order Comment: With differential. Is this specimen being sent to an external lab?->No Result Comment: MPV is platelet range and age dependent Performed By: #### C BC #### [address] [address] Platelets (Bld) [#/Vol] 220 10*3/uL Normal 150-450 [facility] Comment on above: Order Comment: With differential. Is this specimen being sent to an external lab?->No Performed By: #### C BC #### [address] [address] RBC (Bld) [#/Vol] 5.04 10E12/L High 4.10-4.80 [facility] Comment on above: Order Comment: With differential. Is this specimen being sent to an external lab?->No Performed By: #### C BC #### [address] [address] WBC (Bld) [#/Vol] 7.4 10*3/uL Normal 4.5-13.0 [facility] Comment on above: Order Comment: With differential. Is this specimen being sent to an external lab?->No Performed By: #### C BC #### [address] [address] Lipid Panelon 11-01-2019 Cholesterol [Mass/Vol] 160 mg/dL Normal 0-169 [facility] Comment on above: Order Comment: With differential. Is this specimen being sent to an external lab?->No Result Comment: Acceptable <170 mg/dL Borderline 170-199 mg/dL Abnormal >199 mg/dL NOTE: Reference Range change effective 05/26/18 Performed By: #### L IPID #### [address] [id number] Cholesterol in HDL [Mass/Vol] 58 mg/dL Normal [facility] Comment on above: Order Comment: With differential. Is this specimen being sent to an external lab?->No Result Comment: Acceptable >45 mg/dL Borderline 40-45 mg/dL Abnormal <40 mg/dL NOTE: Reference Range change effective 05/26/18 Performed By: #### L IPID #### [address] [id number] Cholesterol in LDL [Mass/Vol] 89 mg/dL Normal 0-109 [facility] Comment on above: Order Comment: With differential. Is this specimen being sent to an external lab?->No Result Comment: Acceptable <110 mg/dL Borderline 110-129 mg/dL Abnormal >129 mg/dl NOTE: Reference Range change effective 05/26/18 Performed By: #### L IPID #### [address] [id number] Non-HDL Cholesterol 102 mg/dl Normal 0-119 [facility] Comment on above: Order Comment: With differential. Is this specimen being sent to an external lab?->No Result Comment: Acceptable <120 mg/dL Borderline 120-144 mg/dL Abnormal >144 mg/dl Performed By: #### L IPID #### [address] [id number] Triglyceride [Mass/Vol] 66 mg/dL Normal 0-89 [facility] Comment on above: Order Comment: With differential. Is this specimen being sent to an external lab?->No Result Comment: Acceptable <90 mg/dl Borderline 90-129 mg/dl Abnormal >129 mg/dl NOTE: Reference Range change effective 05/26/18 Result invalid if not a fasting specimen. Performed By: #### L IPID #### [address] [id number] Progress Noteon 11-01-2019 Welfare Director Authentication Interface Message Text Patient ID: Pancho Savage is a 13 y.o. female. Her chief complaint(s) include: 13 YEAR WELL CHILD Assessment 1. Encounter for routine child health examination without abnormal findings 2. Exercise counseling 3. Encounter for dietary counseling and surveillance 4. Need for vaccination 5. Family history of elevated blood lipids 6. Weight loss, non-intentional 7. Gastroesophageal reflux disease, esophagitis presence not specified 8. Epigastric pain 9. Cluster headache, not intractable, unspecified chronicity pattern 10. Nausea and vomiting, intractability of vomiting not specified, unspecified vomiting type Plan Pancho was seen today for 13 year well child. Diagnoses and all orders for this visit: Encounter for routine child health examination without abnormal findings - Hearing Screening - Behavioral/Emotional Assessment w Score - PHQ-9 Exercise counseling Encounter for dietary counseling and surveillance Need for vaccination - Hepatitis A Ped/Adol <= 18y - HPV (Gardasil 9) Family history of elevated blood lipids - Lipid panel (Clinic Collect) Weight loss, non-intentional - TSH with Reflex to T4, Free (Clinic Collect); Future - Complete Blood Count with Diff (Clinic Collect) - TSH with Reflex to T4, Free (Clinic Collect) Gastroesophageal reflux disease, esophagitis presence not specified Epigastric pain - Immunoglobulin A - Cancel: Transglutaminase IgA Cluster headache, not intractable, unspecified chronicity pattern Nausea and vomiting, intractability of vomiting not specified, unspecified vomiting type - hydrOXYzine (ATARAX) 25 MG tablet; Take 1 Tab (25 mg) by mouth daily for 90 days Other orders - [place] Miscellaneous Sendout: Return in about 1 year (around 10/31/2020) for well check. Discussed fact that patient doing well on limiting diet. Discussed weight being stable. Headaches under good control with atarax. Subjective HPI Comments: Spending about 1-2 hours a day on school work. Anxiety is much better. Worse when having to go to dad's home. Counseling on hold at this time. Still taking hydroxyzine. gma with thyroid issues. Patient has been losing hair a lot. Also appearing thinner. Feeling cold a lot. She is accompanied by her mother. 13 YEAR WELL CHILD Home: Pancho eats meals with family, has an adult to turn to for help and is permitted and able to make independent decisions. Education: Pancho is in 10th grade and earns A's, is meeting expectations, is doing well and is doing well with homework. Eating: Pancho eats regular meals including fruits and vegetables, eats breakfast, limits fast food, drinks non-sweetened liquids and has a calcium source. Activities & Sports: Pancho has a job and has drivers license (working on it.). Drugs: Pancho does not use tobacco, does not use drugs, does not use alcohol and does not vape. Safety: Pancho has a violence free home, has peer relationships free from violence and uses seat belt. Sex: The patient has never had a sexual partner. The patient has never had sex. Suicidality: Pancho has ways to cope with stress. Pancho has no suicidal ideation and has no homicidal ideation. Menstruation Last Menstrual Period: 3 weeks ago. Last Menstrual period: LMP from Vitals No LMP recorded.. Menstruation: regular periods and minimal cramping Output Urine and Stool Pattern: Urine and Stool Pattern: Normal stool pattern, normal urine pattern. Stool Consistency: soft Sleep Sleeping Difficulty: difficulty falling asleep Hours of sleep at a time: 8 Teen Anticipatory Guidance The following anticipatory guidance was reviewed during the visit: Nutrition: limit junk food/fast food and soft drinks. Safety: home safety. Social: avoid or limit screen time and bullying. Health: age appropriate dental care, avoid situations where drugs and alcohol are present, how to resist peer pressure to smoke, drink, use drugs, if abusing drugs or alcohol help is available, seek assistance, learn how to say 'no' to sex, practice abstinence- the safest way to prevent and STDs, puberty/sexual development/contrace ptions/STDs, talk with trusted adult if feeling sad or nervous, learn about self and strengths, recognize and deal with stress and limit sun exposure/use sunscreen. Screenings Life events information was reviewed-no referral needed Hearing Vision Concerns: The caregiver has no concerns about the patient's hearing. The caregiver has no concerns about the patient's vision. Patient is being seen by fitter helper or motorboat mechanic helper. Primary Care Review of Systems Objective Vital Signs 11/01/19 1605 BP: 118/62 Pulse: 83 Weight: 62.6 kg Height: 169 cm Body mass index is 21.92 kg/m . Physical Exam Constitutional: She appears well. She is active. No distress. HENT: Head: Atraumatic. Ears: Right Ear: Tympanic membrane and external ear normal. Left Ear: Tympanic membrane and external ear normal. Nose: Nose normal. Mouth/Throat: Mucous membranes are moist. Dentition is normal. Oropharynx is clear. Eyes: Conjunctivae and EOM are normal. No strabismus. Pupils are equal, round, and reactive to light. Neck: Normal range of motion. Neck supple. Thyroid normal. No neck adenopathy. Cardiovascular: Normal rate, regular rhythm, S1 normal and S2 normal. Pulses are palpable. Heart murmur not heard. Pulmonary/Chest: Breath sounds normal. No respiratory distress. Exhibits no deformity. Abdominal: Soft. Bowel sounds are normal. She exhibits no distension and no mass. There is no hepatosplenomegaly. There is no abdominal tenderness. Musculoskeletal: Normal range of motion. Back: She exhibits no scoliosis. Neurological: She is alert. She has normal strength. She exhibits normal muscle tone. Gait normal. Skin: Skin is warm and not pale. Findings: No rash. Vitals reviewed: Blood pressure 118/62, pulse 83, height 169 cm, weight 62.6 kg. Pancho Savage is a 13 y.o. female patient. Behavioral/Emotional Assessment w Score - PHQ-9 Performed by: Sera Shah MD Authorized by: Sera Shah MD PHQ-9 See PHQ9 Flowsheet Feeling down, depressed, irritable or hopeless: Several days Little interest or pleasure in doing things: Not at all Trouble falling or staying sleep, or sleeping too much: Several days Poor appetite, weight loss, or overeating: Nearly every day Feeling tired or having little energy: More than half the days Feeling bad about yourself - or feeling that you are a failure, or have let yourself or your family down: More than half the days Trouble concentrating on things, like school work, reading or watching TV: Not at all Moving or speaking so slowly that other people could have noticed. Or the opposite - being so fidgety or restless that you were moving around a lot more than usual: Not at all Thoughts that you would be better off , or of hurting yourself in some way: Several days In the past year have you felt depressed or sad most days, even if you felt OK sometimes?: No If you are experiencing any of the problems on this form, how difficult have these problems made it for you to do your work, take care of things at home or get along with other people?: Not difficult at all Has there been a time in the past month when you have had serious thoughts about ending your life?: No Have you ever, in your whole life, tried to kill yourself or made a suicide attempt?: No PHQ-9 Total Score: 10 parents continuing to go through divorce. Electronically signed by: Sera Banks MD [facility] Progress Noteon 08-09-2019 Welfare Director Authentication Interface Message Text Patient ID: Pancho Savage is a 13 y.o. female. Her chief complaint(s) include: Pharyngitis Assessment 1. Acute pharyngitis, unspecified etiology 2. Nausea and vomiting, intractability of vomiting not specified, unspecified vomiting type Plan Pancho was seen today for pharyngitis. Diagnoses and all orders for this visit: Acute pharyngitis, unspecified etiology - POCT rapid strep A antigen - Strep culture Nausea and vomiting, intractability of vomiting not specified, unspecified vomiting type - hydrOXYzine (ATARAX) 25 MG tablet; Take 1 Tab (25 mg) by mouth daily Return for Well Visit and as needed. Reviewed etiologies of vomiting including issues with stress at home. Discussed need to start counseling. Discussed atarax and may increase to BID Subjective HPI Comments: Taking prilosec but still having some vomiting. 1-2 times a week. Very stressful at home. Had been off prilosec until recently. Sick on and off for past month. She is accompanied by her mother. Pharyngitis The onset has been acute. Characterized by aching. The patient's symptoms have included a fever, headaches and vomiting. The patient's symptoms have included no ear pain, no diarrhea and no rash. The patient has had a maximum temperature of 103 degrees. The patient has been exposed to no sick contacts at home . The patient's home management has included ibuprofen and acetaminophen. Primary Care Review of Systems Objective Vital Signs 08/09/19 1425 Temp: 36.6 C (97.9 F) TempSrc: Temporal Weight: 58.7 kg There is no height or weight on file to calculate BMI. Physical Exam Constitutional: She appears well. She is active. No distress. HENT: Head: Atraumatic. Right Ear: Tympanic membrane normal. Left Ear: Tympanic membrane normal. Mouth/Throat: Mucous membranes are moist. Pharynx erythema present. Tonsils are 3+ on the right. Tonsils are 3+ on the left. Eyes: Conjunctivae are normal. Cardiovascular: Normal rate and regular rhythm. Heart murmur not heard. Pulmonary/Chest: Breath sounds normal. There is normal air entry. Neurological: She is alert. Vitals reviewed: Temperature 36.6 C (97.9 F), temperature source Temporal, weight 58.7 kg, last menstrual period 07/29/2019. Last Result POCT rapid strep A antigen Collection Time: 08/09/19 3:15 PM Result Value Ref Range Strep A Antigen None Detected None Detected Yellow Solution *Present Red Control Line *Present Clear Background *Present Lot Number [id number] Normal [facility] Strep Cultureon 08-09-2019 Strep Culture Is this specimen being sent to an external lab?->No Strep Culture: No Beta hemolytic Streptococci isolated. Source: THRSW Collected: 08/09/19 15:19 Site: Throat swab Received : 08/09/19 19:43 Strep Culture FINAL 08/11/19 11:08 No Beta hemolytic Streptococci isolated. Normal [facility] Comment on above: Performed By: #### S SHAYNA #### [place] [address] Vital Signs Date Time Vital Sign Value Performing Clinician Darwin benjamin 12-16-2022 08:30-0400 Body height 170.[address] Susu Garcia Work Phone: [facility] 12-16-2022 08:22-0400 Body mass index (BMI) [Percentile] Per age and sex 70.1 % Dr. Susu Garcia Work Phone: [facility] 12-16-2022 08:22-0400 Body mass index (BMI) [Ratio] 23.5 kg/m2 Dr. Susu Garcia Work Phone: [facility] 12-16-2022 08:22-0400 Body weight 68.[address] Susu Garcia Work Phone: [facility] 12-16-2022 08:22-0400 Diastolic blood pressure 77 mm[Hg] Dr. Susu Garcia Work Phone: [facility] 12-16-2022 08:22-0400 Systolic blood pressure 112 mm[Hg] Dr. Susu Garcia Work Phone: [facility] 04-02-2022 13:00-0400 Diastolic blood pressure 59 mm[Hg] Nora Key DO Work Phone: [facility] 04-02-2022 13:00-0400 Heart rate 81 /min Nora Key DO Work Phone: [facility] 04-02-2022 13:00-0400 Respiratory rate 17 /min Nora Key DO Work Phone: [facility] 04-02-2022 13:00-0400 SaO2% (BldA) [Mass fraction] 100 % Nora Zunigaada DO Work Phone: [facility] 04-02-2022 13:00-0400 Systolic blood pressure 109 mm[Hg] Nora Zunigajasonli DO Work Phone: [facility] 04-02-2022 12:40-0400 Body temperature 97 [degF] Nora Yesi DO Work Phone: [facility] 03-27-2022 08:37-0400 Body height 170.2 cm Pacc 2 Work Phone: [facility] 03-27-2022 08:37-0400 Body mass index (BMI) [Percentile] Per age and sex 36.55 % Pacc 2 Work Phone: [facility] 03-27-2022 08:37-0400 Body weight 58.97 kg Pacc 2 Work Phone: [facility] 03-27-2022 08:37-0400 Heart rate 72 /min Pac 2 Work Phone: [facility] 03-06-2022 [id number] Body height 170.8 cm Nora Key DO Work Phone: [facility] [phone] Body mass index (BMI) [Percentile] Per age and sex 49.47 % Nora Key DO Work Phone: [facility] 03-06-2022 13:040 Body weight 62.14 kg Noar Key DO Work Phone: [facility] Encounters Encounter Date Encounter Type Care Provider Facility Start: 01-18-2025 Encounter for genera l adult medical examination without abnormal findings Fely Hickman [facility] Start: 01-12-2025 End: 01-12-[address] Susu Garcia DO Work Phone: -Laboratory Start: 01-12-2025 End: 01-12-2025 Patient encounter procedure Fely PATELM -Laboratory Specimen Work Phone: Start: 01-11-2025 End: 01-11-[address] Veronique Rg MD -[facility] Work Phone: Start: 01-11-2025 End: 01-12-[address] Susu Garcia DO Work Phone: -[facility] Start: 01-10-2025 End: 01-10-[address] Susu Garcia DO Work Phone: -Laboratory Start: 01-10-2025 End: 01-10-2025 Patient encounter procedure Fely Hickman CNM -Laboratory Work Phone: Start: 01-10-2025 End: 01-10-2025 ambulatory Fely Hickman Facility:[facility] Start: 12-08-2024 End: 12-08-[address] Susu Garcia DO Work Phone: [facility] Work Phone: Start: 12-08-2024 End: 12-08-[address] Susu Garcia DO -Laboratory Work Phone: Start: 12-08-2024 End: 12-08-2024 ambulatory Susu Garcia Facility:[facility] Start: 09-10-2024 End: 09-10-[address] Susu Garcia DO Work Phone: [facility] Work Phone: Start: 09-10-2024 End: 09-10-[address] Susu Garcia DO -Laboratory Work Phone: Start: 09-10-2024 End: 09-10-2024 ambulatory Susu Garcia Facility:[facility] Start: 07-27-2024 End: 07-27-2024 Patient encounter procedure Fely Hickman CNM -Laboratory Work Phone: Start: 07-27-2024 End: 07-27-2024 ambulatory Fely Hickman Facility:[facility] Start: 05-14-2024 End: 05-14-2024 ambulatory Susu Garcia Facility:[facility] Start: 02-21-2023 End: 02-21-[address] Susu Garcia Work Phone: [facility] Work Phone: Start: 02-21-2023 End: 02-21-[address] Susu Garcia Work Phone: [facility] Work Phone: Start: 12-16-2022 End: 12-16-[address] Susu Garcia Work Phone: [facility] Work Phone: Start: 05-30-2022 End: 05-30-2022 ambulatory NORA KEY Facility:[facility] Start: 04-17-2022 End: 04-17-2022 ambulatory NORA KEY Facility:[facility] Start: 04-17-2022 End: 04-17-2022 Patient encounter procedure Nora Key DO Work Phone: Orthopaedics Comment on above: Suture granuloma, in itial encounter (Primary Dx); S/P foot surgery Start: 04-08-2022 Telephone encounter Nora Key DO Work Phone: Orthopaedics Comment on above: Patient Question Start: 04-02-2022 End: 04-02-2022 Subsequent hospital visit by physician Nora Key DO Work Phone: [facility] Surgery Comment on above: Suture granuloma, 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], Right ankle pain, unspecified chronicity [M25.571] Start: 03-27-2022 End: 03-27-2022 ambulatory NORA KEY Facility:[facility] Start: 03-27-2022 Encounter for other preprocedural examination NORA KEY [facility] Start: 03-27-2022 End: 03-27-2022 [facility]: [facility] Start: 03-27-2022 End: 03-27-[address] [facility] 2 Work Phone: Pre Anesthesia Comment on above: Pre-op evaluation (P rimary Dx); Gastroesophageal reflux disease, unspecified whether esophagitis present Start: 03-27-2022 End: 03-27-2022 Preprocedural examination done [facility] 2 Work Phone: Pre Anesthesia Start: 03-13-2022 Orders Only Nora marie DO Work Phone: Orthopaedics Comment on above: Suture granuloma, in itial encounter (Primary Dx); Right ankle pain, acute Start: 03-06-2022 End: 03-06-2022 ambulatory UNKNOWN PROVIDER Facility:[facility] Start: 03-06-2022 End: 03-06-2022 Patient encounter procedure Nora Key DO Work Phone: Orthopaedics Comment on above: Suture granuloma, in itial encounter (Primary Dx) Start: 03-06-2022 End: 03-06-2022 Subsequent hospital visit by physician [facility] [employer] Ellen Jones Work Phone: Radiology Comment on above: Pain [R52] Procedures Date Procedure Procedure Detail Performing Clinician Start: 12-08-2024 Total iron binding c apacity measurement Dr. Susu Garcia DO Work Phone: Start: 09-10-[address] Susu Garcia DO Work Phone: Start: 02-21-[address] Susu Garcia Work Phone: Start: 04-02-2022 PHOTO ANKLE RIGHT LATERAL [facility] Provider Start: 03-06-2022 Radex ankle complete minimum 3 views Nora Key DO Work Phone: Plan of Treatment Date Care Activity Detail Author Start: 02-21-2022 Influenza vaccination INFLUENZA (#1) [facility] Start: 12-03-2021 CHLAMYDIA SCREENING (18-24) CHLAMYDIA SCREENING (18-24) [facility] Start: 12-03-2021 GC (GONORRHEA) SCREE ALINA (18-24) GC (GONORRHEA) SCREENING (18-24) [facility] Start: 12-03-2021 HEPATITIS C SCREENING HEPATITIS C SC REENING [facility] Start: 12-03-2021 HIV SCREENING HIV SCREENING [facility] Start: 06-23-2021 DEPRESSION ASSESSMENT DEPRESSION ASS ESSMENT [facility] Start: 2019 MENINGOCOCCAL CONJUG ATE (1 - 2-dose series) MENINGOCOCCAL CONJUGATE (1 - 2-dose series) [facility] Start: 12-03-2017 PEDS TO ADULT TRANSI TION ANNUAL ASSESSMENT PEDS TO ADULT TRANSITION ANNUAL ASSESSMENT [facility] Start: 2015 Adult depression screening assessment DEPRESSION SCREENING [facility] Start: 2015 PEDS TO ADULT TRANSI TION INITIAL DISCUSSION PEDS TO ADULT TRANSITION INITIAL DISCUSSION [facility] Start: 12-03-2014 HPV VACCINE (1 - 2-d ose series) HPV VACCINE (1 - 2-dose series) [facility] Start: 12-03-2013 MENINGOCOCCAL B: Consider based on risk (1 of 2 - Risk Bexsero 2-dose series) MENINGOCOCCAL B: Consider based on risk (1 of 2 - Risk Bexsero 2-dose series) [facility] Start: 12-03-2010 Urine microalbumin profile DTAP,TDAP,TD (5 - Tdap) [facility] Start: 06-04-2004 COVID-19 VACCINE (#1) COVID-19 VACCI NE (#1) [facility] SURGICAL PATHOLOGY [facility] Work Phone: Comment on above: Release Upon Orderin g for 1 Occurrences starting [facility]/02/2022 [facility] Immunizations Immunization Date Immunization Notes Care Provider Fa cility 04-29-2006 influenza virus vaccine, unspecified formulation [employer] Work Phone: [facility] Work Phone: 06-28-2005 diphtheria, tetanus toxoids and pertussis vaccine [employer] Work Phone: [facility] Work Phone: 06-28-2005 influenza virus vaccine, unspecified formulation [employer] Work Phone: [facility] Work Phone: 06-28-2005 poliovirus vaccine, inactivated [employer] Work Phone: [facility] Work Phone: 03-05-2005 haemophilus influenz ae type b vaccine, HbOC conjugate [employer] Work Phone: [facility] Work Phone: 03-05-2005 pneumococcal conjuga te vaccine, 7 valent [employer] Work Phone: [facility] Work Phone: 01-06-2005 diphtheria, tetanus toxoids and pertussis vaccine [employer] Work Phone: [facility] Work Phone: 12-05-2004 measles, mumps and rubella virus vaccine [employer] Work Phone: [facility] Work Phone: 12-05-2004 varicella virus vaccine [employer] Work Phone: [facility] Work Phone: 09-04-2004 hepatitis B vaccine, pediatric or pediatric/adolescent dosage [employer] Work Phone: [facility] Work Phone: 07-09-2004 haemophilus influenz ae type b vaccine, HbOC conjugate [employer] Work Phone: [facility] Work Phone: 07-09-2004 pneumococcal conjuga te vaccine, 7 valent [employer] Work Phone: [facility] Work Phone: 05-02-2004 diphtheria, tetanus toxoids and pertussis vaccine [employer] Work Phone: [facility] Work Phone: 05-02-2004 haemophilus influenz ae type b vaccine, HbOC conjugate [employer] Work Phone: [facility] Work Phone: 05-02-2004 pneumococcal conjuga te vaccine, 7 valent [employer] Work Phone: [facility] Work Phone: 05-02-2004 poliovirus vaccine, inactivated [employer] Work Phone: [facility] Work Phone: 02-14-2004 diphtheria, tetanus toxoids and pertussis vaccine [employer] Work Phone: [facility] Work Phone: 02-14-2004 poliovirus vaccine, inactivated [employer] Work Phone: [facility] Work Phone: 02-03-2004 haemophilus influenz ae type b vaccine, HbOC conjugate [employer] Work Phone: [facility] Work Phone: 02-03-2004 pneumococcal conjuga te vaccine, 7 valent [employer] Work Phone: [facility] Work Phone: 01-04-2004 hepatitis B vaccine, pediatric or pediatric/adolescent dosage [employer] Work Phone: [facility] Work Phone: 2003 hepatitis B vaccine, pediatric or pediatric/adolescent dosage [employer] Work Phone: [facility] Work Phone: Payers Date Payer Category Payer Self-pay [id number] 2024 Unknown [id number] 2021 Unknown [id number] 2020 Unknown [id number] 2015 Unknown [id number] 2015 Unknown [id number] Unknown [id number] Unknown [id number] [id number] [id number] Unknown [id number] 2.16.8 [id number] Unknown [id number] 2.16.8 [id number] Unknown [id number] 2.16.8 [id number] Unknown [id number] 2.16.8 [id number] Unknown [id number] 2.16.8 [id number] Unknown [id number] 2.16.8 [id number] Unknown [id number] 2.16.8 [id number] Social History Date Type Detail Facility Start: 12-16-2022 Tobacco smoking status SCIS Tobacco smoking consumption unknown [facility] Start: 2003 Sex Assigned At Not on file [facility] Start: 02-24-2022 End: 04-02-2022 Exposure to SARS-CoV-2 (event) Not sure [facility] Start: 03-03-2022 End: 03-13-2022 Exposure to SARS-CoV-2 (event) Unable to assess [facility] Start: 03-27-2022 End: 01-11-2025 Tobacco smoking status NHIS Never smoked tobacco [facility] Work Phone: Start: 03-27-2022 Tobacco use and exposure Smokeless tobacco non-user [facility] Work Phone: Start: 03-27-2022 End: 04-17-2022 Alcohol intake Lifetime non-drinker (finding) [facility] Start: 05-07-2020 With Family [facility] Start: 05-07-2020 Non-smoker [facility] Start: 2003 Sex Assigned At Female [facility] Start: 09-16-2024 Sex Female (finding) [facility] Medical Equipment Procedure Code Equipment Code Equipment Origin al Text Equipment Identifier Dates Arthroscopy, ankle Disposables K it, FiberTak DX S FDA Start: 05-26-2019 Arthroscopy, ankle FiberTak DX S uture [place] FDA Start: 05-26-2019 Arthroscopy, ankle FiberTak DX S uture [place] FDA Start: 05-26-2019 Arthroscopy, ankle FiberTak DX S uture [place] FDA Start: 05-26-2019 Arthroscopy, ankle FiberTak DX S uture [place] FDA Start: 05-26-2019 Arthroscopy, ankle FiberTak DX S uture [place] FDA Start: 05-26-2019 Arthroscopy, ankle InternalBrace Implant System FDA Start: 05-26-2019 Arthroscopy, ankle Disposables K it, FiberTak DX S FDA Start: 05-26-2019 Arthroscopy, ankle FiberTak DX S uture [place] FDA Start: 05-26-2019 Arthroscopy, ankle FiberTak DX S uture [place] FDA Start: 05-26-2019 Arthroscopy, ankle FiberTak DX S uture [place] FDA Start: 05-26-2019 Arthroscopy, ankle FiberTak DX S uture [place] FDA Start: 05-26-2019 Arthroscopy, ankle FiberTak DX S uture [place] FDA Start: 05-26-2019 Arthroscopy, ankle InternalBrace Implant System FDA Start: 05-26-2019 Arthroscopy, ankle Disposables K it, FiberTak DX S FDA Start: 05-26-2019 Arthroscopy, ankle FiberTak DX S uture [place] FDA Start: 05-26-2019 Arthroscopy, ankle FiberTak DX S uture [place] FDA Start: 05-26-2019 Arthroscopy, ankle FiberTak DX S uture [place] FDA Start: 05-26-2019 Arthroscopy, ankle FiberTak DX S uture [place] FDA Start: 05-26-2019 Arthroscopy, ankle FiberTak DX S uture [place] FDA Start: 05-26-2019 Arthroscopy, ankle InternalBrace Implant System FDA Start: 05-26-2019 Arthroscopy, ankle Disposables K it, FiberTak DX S FDA Start: 05-26-2019 Arthroscopy, ankle FiberTak DX S uture [place] FDA Start: 05-26-2019 Arthroscopy, ankle FiberTak DX S uture [place] FDA Start: 05-26-2019 Arthroscopy, ankle FiberTak DX S uture [place] FDA Start: 05-26-2019 Arthroscopy, ankle FiberTak DX S uture [place] FDA Start: 05-26-2019 Arthroscopy, ankle FiberTak DX S uture [place] FDA Start: 05-26-2019 Arthroscopy, ankle InternalBrace Implant System FDA Start: 05-26-2019 Arthroscopy, ankle Disposables K it, FiberTak DX S FDA Start: 05-26-2019 Arthroscopy, ankle FiberTak DX S uture [place] FDA Start: 05-26-2019 Arthroscopy, ankle FiberTak DX S uture [place] FDA Start: 05-26-2019 Arthroscopy, ankle FiberTak DX S uture [place] FDA Start: 05-26-2019 Arthroscopy, ankle FiberTak DX S uture [place] FDA Start: 05-26-2019 Arthroscopy, ankle FiberTak DX S uture [place] FDA Start: 05-26-2019 Arthroscopy, ankle InternalBrace Implant System FDA Start: 05-26-2019 Arthroscopy, ankle Disposables K it, FiberTak DX S FDA Start: 05-26-2019 Arthroscopy, ankle FiberTak DX S uture [place] FDA Start: 05-26-2019 Arthroscopy, ankle FiberTak DX S uture [place] FDA Start: 05-26-2019 Arthroscopy, ankle FiberTak DX S uture [place] FDA Start: 05-26-2019 Arthroscopy, ankle FiberTak DX S uture [place] FDA Start: 05-26-2019 Arthroscopy, ankle FiberTak DX S uture [place] FDA Start: 05-26-2019 Arthroscopy, ankle InternalBrace Implant System FDA Start: 05-26-2019 Arthroscopy, ankle Disposables K it, FiberTak DX S FDA Start: 05-26-2019 Arthroscopy, ankle FiberTak DX S uture [place] FDA Start: 05-26-2019 Arthroscopy, ankle FiberTak DX S uture [place] FDA Start: 05-26-2019 Arthroscopy, ankle FiberTak DX S uture [place] FDA Start: 05-26-2019 Arthroscopy, ankle FiberTak DX S uture [place] FDA Start: 05-26-2019 Arthroscopy, ankle FiberTak DX S uture [place] FDA Start: 05-26-2019 Arthroscopy, ankle InternalBrace Implant System FDA Start: 05-26-2019 Clinical Notes 03-06-2022 to 01-11-2025 Note Date & Type Note Facility 01-11-2025 Chief complaint+R mitch for visit Narrative PNOB Vitalisabella, Education January 11, 2025 7 :51am E ORDER January 12, 2025 6:24 pm [facility] Work Phone: [phone]) 219-999212-08-2022 NoteHNO ID: [id number] Author: Nora Key, DO Service: ? Author Type: Physician Type: Progress Notes Filed: 05/30/2022 1:00 PM Note Text: Follow Up Visit Chief Complaint Pancho Savage is a 16 year old female who presents today for follow up office visit. Patient presents with: Right Ankle - Established Patient, Post Op History of Present Illness PAIN EVALUATION No data found in the last 1 encounters. HPI: Pancho Savage is a 16 year old female for a follow up visit right ankle. Pain history is noted as above. Denies calf pain, numbness, tingling, fever, chills or other constitutional symptoms. Is there any overall improvement in your condition? Yes, Any new injury, since being seen last: No REVIEW OF SYMPTOMS: Patient did not have, and does not currently have, any weight loss, malaise, fever, chills, headache, chest pain, chest pressure, palpitations, cough, shortness of breath, orthopnea, paroxsymal nocturnal dyspnea, nausea, vomiting, diarrhea, constipation, melena, hematochezia, urinary difficulties, prolonged bleeding, easily bruising, heat or cold intolerance, new onset joint pain or swelling, new onset extremity weakness or numbness, new onset auditory or visual disturbances, lightheadedness, dizziness, partial loss of consciousness or full loss of consciousness. Current Outpatient Medications Medication Sig omeprazole (PRILOSEC) 20 mg capsule Cetirizine 10 mg cap Take 10 mg by mouth. fluticasone (FLONASE) 50 mcg/actuation nasal spray Use 1 [place] in each nostril once daily as needed. fexofenadine (NORMA) 180 mg tablet Take 180 mg by mouth once daily. No current facility-administered medications for this visit. Physical Exam Vitals: There were no vitals taken for this visit. Psych: Pleasant, good affect and mood General Appearance: Well appearing, alert, in no acute distress, well-hydrated, well nourished.. Skin: Skin color, texture, turgor normal, no suspicious rashes or lesions. Peripheral Pulses: Normal. Neurologic: Gait normal. Reflexes normal and symmetric. Sensation grossly intact.. Lymph Nodes: No cervical lymphadenopathy, No supraclavicular lymphadenopathy, No axillary lymphadenopathy., and No inguinal lymphadenopathy.. Respiratory: No recent pulmonary infection, hemoptysis, chronic cough, or shortness of breath at rest Rheumatologic: Joint deformities: Right ankle follow up Right Ankle Exam Right ankle exam is normal. Tenderness The patient is experiencing no tenderness. Range of Motion The patient has normal right ankle ROM. Dorsiflexion: normal Plantar flexion: normal Eversion: normal Inversion: normal Muscle Strength Dorsiflexion: 5/5 Plantar flexion: 5/5 Anterior tibial: 5/5 Posterior tibial: 5/5 Gastrocsoleus: 5/5 Peroneal muscle: 5/5 Tests Anterior drawer: negative Varus tilt: negative Other Erythema: absent Sensation: normal Pulse: present Left Ankle Exam Left ankle exam is normal. Tenderness The patient is experiencing no tenderness. Range of Motion The patient has normal left ankle ROM. Dorsiflexion: normal Plantar flexion: normal Eversion: normal Inversion: normal Muscle Strength Dorsiflexion: 5/5 Plantar flexion: 5/5 Anterior tibial: 5/5 Posterior tibial: 5/5 Gastrocsoleus: 5/5 Peroneal muscle: 5/5 Tests Anterior drawer: negative Varus tilt: negative Other Erythema: absent Sensation: normal Pulse: present Assessment and Plan Radiographs: No imaging to review. Impression: Encounter Diagnosis ICD-10-CM 1. S/P foot surgery Z98.890 Today, in detail, through a thorough evaluation, we discussed possible etiologies of pain and our plans for further diagnostic and therapeutic interventions. We discussed strategies for decreasing pain and improving strength, stability and motion. Patient's questions were answered in detailed. Patient verbalizes understanding and agrees with the treatment plan as discussed. Doing well from a postop standpoint back to all activities has no other issues scars are healing well is getting in November and discussed her wedding plans Call increased pain numbness tingling further issues arise at this point patient is free to go back to all activities and see in the knee as needed basis comment: Please note this report has been produced using speech recognition software and may contain errors related to that system including errors in grammar, punctuation, and spelling, as well as words and phrases that may be inappropriate. If there are any questions or concerns please feel free to contact the dictating provider for clarification.[facility]10-26-2022 NoteHNO ID: [id number] Author: Nora Key, DO Service: ? Author Type: Physician Type: Progress Notes Filed: 04/23/2022 3:11 PM Note Text: Follow Up Visit Chief Complaint Pancho Savage is a 16 year old female who presents today for follow up office visit. Patient presents with: Right Ankle - Post Op, Pain History of Present Illness PAIN EVALUATION No data found in the last 1 encounters. HPI: Pancho Savage is a 16 year old female for a follow up visit S/P Right ankle arthroscopy, extensive synovectomy, removal of hardware/suture, bony debridement. Pain history is noted as above. Denies calf pain, numbness, tingling, fever, chills or other constitutional symptoms. Is there any overall improvement in your condition? yes Any new injury, since being seen last: No REVIEW OF SYMPTOMS: Patient did not have, and does not currently have, any weight loss, malaise, fever, chills, headache, chest pain, chest pressure, palpitations, cough, shortness of breath, orthopnea, paroxsymal nocturnal dyspnea, nausea, vomiting, diarrhea, constipation, melena, hematochezia, urinary difficulties, prolonged bleeding, easily bruising, heat or cold intolerance, new onset joint pain or swelling, new onset extremity weakness or numbness, new onset auditory or visual disturbances, lightheadedness, dizziness, partial loss of consciousness or full loss of consciousness. Current Outpatient Medications Medication Sig omeprazole (PRILOSEC) 20 mg capsule Cetirizine 10 mg cap Take 10 mg by mouth. fluticasone (FLONASE) 50 mcg/actuation nasal spray Use 1 [place] in each nostril once daily as needed. fexofenadine (NORMA) 180 mg tablet Take 180 mg by mouth once daily. No current facility-administered medications for this visit. Physical Exam Vitals: There were no vitals taken for this visit. Psych: Pleasant, good affect and mood General Appearance: Well appearing, alert, in no acute distress, well-hydrated, well nourished.. Skin: Skin color, texture, turgor normal, no suspicious rashes or lesions. Peripheral Pulses: Normal. Neurologic: Gait normal. Reflexes normal and symmetric. Sensation grossly intact.. Lymph Nodes: No cervical lymphadenopathy, No supraclavicular lymphadenopathy, No axillary lymphadenopathy., and No inguinal lymphadenopathy.. Respiratory: No recent pulmonary infection, hemoptysis, chronic cough, or shortness of breath at rest Rheumatologic: Joint deformities: right ankle pain Ortho Exam Assessment and Plan Radiographs: No imaging to review. Impression: Encounter Diagnosis ICD-10-CM 1. 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 S/P foot surgery Z98.890 Today, in detail, through a thorough evaluation, we discussed possible etiologies of pain and our plans for further diagnostic and therapeutic interventions. We discussed strategies for decreasing pain and improving strength, stability and motion. Patient's questions were answered in detailed. Patient verbalizes understanding and agrees with the treatment plan as discussed. Doing well WBAT right leg No pain at incision sites, healing well, no signs of infection Patient aware and in agreement of plan. All questions answered.[facility]10-26-2022 History of Present illness Narrative* Nora Key, DO - 04/17/2022 2:23 PM EDT Follow Up Visit Chief Complaint Pancho Savage is a 16 year old female who presents today for follow up office visit. Patient presents with: Right Ankle - Post Op, Pain History of Present Illness PAIN EVALUATION No data found in the last 1 encounters. HPI: Pancho Savage is a 16 year old female for a follow up visit S/P Right ankle arthroscopy, extensive synovectomy, removal of hardware/suture, bony debridement. Pain history is noted as above. Denies calf pain, numbness, tingling, fever, chills or other constitutional symptoms. Is there any overall improvement in your condition? yes Any new injury, since being seen last: No REVIEW OF SYMPTOMS: Patient did not have, and does not currently have, any weight loss, malaise, fever, chills, headache, chest pain, chest pressure, palpitations, cough, shortness of breath, orthopnea, paroxsymal nocturnal dyspnea, nausea, vomiting, diarrhea, constipation, melena, hematochezia, urinary difficulties, prolonged bleeding, easily bruising, heat or cold intolerance, new onset joint pain or swelling, newonset extremity weakness or numbness, new onset auditory or visual disturbances, lightheadedness, dizziness, partial loss of consciousness or full loss of consciousness. Current Outpatient Medications Medication Sig omeprazole (PRILOSEC) 20 mg capsule Cetirizine 10 mg cap Take 10 mg by mouth. fluticasone (FLONASE) 50 mcg/actuation nasal spray Use 1 [place] in each nostril once daily as needed. fexofenadine (NORMA) 180 mg tablet Take 180 mg by mouth once daily. No current facility-administered medications for this visit. Physical Exam Vitals: There were no vitals taken for this visit. Psych: Pleasant, good affect and mood General Appearance: Well appearing, alert, in no acute distress, well-hydrated, well nourished.. Skin: Skin color, texture, turgor normal, no suspicious rashes or lesions. Peripheral Pulses: Normal. Neurologic: Gait normal. Reflexes normal and symmetric. Sensation grossly intact.. Lymph Nodes: No cervical lymphadenopathy, No supraclavicular lymphadenopathy, No axillary lymphadenopathy., and No inguinal lymphadenopathy.. Respiratory: No recent pulmonary infection, hemoptysis, chronic cough, or shortness of breath at rest Rheumatologic: Joint deformities: right ankle pain Ortho Exam Assessment and Plan Radiographs: No imaging to review. Impression: Encounter Diagnosis ICD-10-CM 1. 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 S/P foot surgery Z98.890 Today, in detail, through a thorough evaluation, we discussed possible etiologies of pain and our plans for further diagnostic and therapeutic interventions. We discussed strategies for decreasing pain and improving strength, stability and motion. Patient's questions were answered in detailed. Patient verbalizes understanding and agrees with the treatment plan as discussed. Doing well WBAT right leg No pain at incision sites, healing well, no signs of infection Patient aware and in agreement of plan. All questions answered. [facility] Miscellaneous Notes* Telephone Encounter - Jigna Andrews RN - 04/08/2022 1:21 PM EDT Spoke with mom and relayed message. Mom verbalized understanding. * Telephone Encounter - Varinder Samuel PA-C - 04/08/2022 12:09 PM EDT I do not recommend removing the sterile dressing at home. If it feels like something is pulling on the sutures, it is likely because the NALLELY wrap is too loose. [place] Samuel PA-C * Telephone Encounter - Jigna Andrews RN - 04/08/2022 11:06 AM EDT Mom calling on behalf of pt Pt had surgery on ankle 04/02/22 Thery are aware to keep dressing (gauze) on but could loosen the nallely if needed Pt has expressed to mom she feels the gauze dressing is sticking to the incision/sutures and it is pulling on them ariel foster very uncomfortable Mom is asking if they can remove the gauze and redress it with something else Pts 1st post op appt is 04/17/22 Please advise [facility] History of Past illness Narrative* Problem Noted Date Resolved Date Right ankle pain 04/02/2022 04/02/2022 documented as of this encounter (statuses as of 04/03/2022) [facility]10-11-2022 History of Past illness Narrative* Problem Noted Date Resolved Date Right ankle pain 04/02/2022 04/02/2022 documented as of this encounter (statuses as of 04/08/2022) [facility]10-11-2022 History of Past illness Narrative* Problem Noted Date Resolved Date Right ankle pain 04/02/2022 04/02/2022 documented as of this encounter (statuses as of 04/23/2022) [facility]10-11-2022 Surgical operation note* Operative Report - Nora Key DO - 04/02/2022 10:47 AM EDT OPERATIVE/PROCEDURE REPORT LOG ID: [id number] SURGERY/PROCEDURE DATE: 04/02/2022 INCISION/PROCEDURE START TIME: 11:18 AM INCISION CLOSE/PROCEDURE END TIME: 12:36 PM SURGEON(S)/PROCEDURALIST(S) AND WEB SITE DEVELOPER(S): Surgeon(s) and Role: * Nora Key DO - Primary Physician Systems Integration Manager: Bijal Mott PA-C SURGERY/PROCEDURE(S): Right ankle arthroscopy, extensive synovectomy, removal of hardware/suture, bony debridement ANESTHESIA: General SURGERY/PROCEDURE DETAILS: Preoperative Note Patient is an 16-year-old female well-known to me in clinic. Patient had a ankle reconstruction a few years ago has had 1 from instability standpoint however she is feeling some pain in the anterior aspect of her ankle more laterally where there is prominence from the previous suture. Risk-benefit and alternatives were discussed with patient. Risk included but not limited to blood loss, blood clot, infection, neurovascular G, failure procedure, loss of life and loss of limb. Patient is aware and would like to proceed with right ankle arthroscopy, lateral suture removal debridement bony debridement repair as indicated. Operative note Patient seen and examined preoperative holding area. Right leg was marked. Patient brought to the operating placed supine on the operating table. Signed, anesthesia, antibiotics were mister. Right leg was prepped and draped in usual sterile technique with a tourniquet around her upper thigh. All bony promises well-padded ST placed deep placed on her contralateral limb. We then marked out our anterior lateral anteromedial portal placements for arthroscopy. We also marked out our previous lateralincision. Timeout was performed. The right leg was then elevated Sanguily and tourniquet raised forpressure of 250 torr. We used the previous anteromedial portal and used a 20-gauge needle insufflated the ankle joint. We then used mosquitoes to dissect down to the capsule had good flush turning. Began our diagnostic arthroscopy. Created a lateral portal under direct visualization. There was extensive synovitis which was gently resected with a shaver. The cartilage was intact tibiotalar as wellas medial and lateral joint lines are no loose bodies. We then moved to our open repair. We used our previous incision using 15 blade to cut through the skin dissect down tonight to the level of the palpable hardware. These were suture anchors and knots that were gently removed down to bone and thebony insertion site was also debrided we palpated further to ensure that there is no further prominence of any of the hardware which there was not. We irrigated the incision with copious amounts of sterile saline incision was closed subcuticularly with 3-0 Monocryl in a running 4 Monocryl the portals were closed with interrupted Monocryl control as well. Sterile dressings and Nallely was applied. Tourniquet was deflated. Patient Toller procedure well no complication transferred recovery room stablecondition Postoperative note Taken Intra-Op picture will show appearance at postop visit Follow-up in 2 weeks weight-bear as tolerated Tylenol prescriptions #3 sent to patient's pharmacy Called increased pain numbness tingle further issues arise Gerda disclaimer comment: Please note this report has been produced using speech recognition software and may contain errors related to that system including errors in grammar, punctuation, and spelling, as well as words and phrases that may be inappropriate. If there are any questions or concernsplease feel free to contact the dictating provider for clarification. PRE-OP/PRE-PROCEDURE DIAGNOSIS: right ankle anterior and lateral pain POST-OP/POST-PROCEDURE DIAGNOSIS: Same as Preop ESTIMATED BLOOD LOSS: 0 ml SPECIMENS: retained suture IMPLANTABLE DEVICES: None DRAINS: None COMPLICATIONS: None PARTICIPATION IN SURGERY/PROCEDURE: I/primary surgeon/proceduralist performed the procedure with assistance. No qualified resident/fellow was available. SIGNATURE: Nora Key DO PATIENT NAME: Pancho Savage DATE: April 02, 2022 TIME: 1:11 PM documented in this encounter[facility] History and physical note * Nora Key DO - 04/02/2022 10:11 AM EDT UPDATED HISTORY AND PHYSICAL EXAMINATION SERVICE DATE: 04/02/2022 SERVICE TIME: 10:11 AM PHYSICAL EXAM MUST BE COMPLETED ON ADMISSION The History and Physical (completed in the past 30 days) has been reviewed and the patient has beenexamined. The contents accurately reflect the patient's condition with the following additions or revisions since the H&P was completed. Examination indicates no changes. This H&P can be found in the Electronic Medical Record. SIGNATURE: Nora Key DO PATIENT NAME: Pancho Savage DATE: April 02, 2022 TIME: 10:11 AM Source Note - Khalida Abbott APRN.AIRCRAFT INSTRUMENT MECHANIC - 03/27/2022 8:30 AM EDT PREANESTHESIA CONSULT CLINIC TELEHEALTH VISIT Patient has been identified by name and date of : Yes This is a virtual visit using Alternative video platform. It require patient- provider interaction for the medical decision making as documented below. Reason for contact: PACC visit Accompanied by: Self Scheduled Surgery: ARTHROSCOPY ANKLE W/ DEBRIDEMENT EXTENSIVE RIGHT Subjective CHIEF COMPLAINT: Patient presents with: Anesthesia Consult HPI: This is a 16 year old female who presents with right ankle pain. Pain has had multiple sprainsand 2 ankle fractures. She had surgery on the ankle May of 2019. She is again having pain in ankle and has opted for surgical intervention. ACTIVE PROBLEM LIST Gerd (Gastroesophageal Reflux Disease) History reviewed. No pertinent past medical history. PAST SURGICAL HISTORY Procedure Laterality Date PAST SURGICAL HISTORY OF Right 2019 Ankle No family history on file. Social History Tobacco Use Smoking status: Never Smokeless tobacco: Never Substance Use Topics Alcohol use: Never Drug use: Never ALLERGIES No Known Allergies MEDICATIONS: Current Outpatient Medications Medication Sig omeprazole (PRILOSEC) 20 mg capsule Cetirizine 10 mg cap Take 10 mg by mouth. fluticasone (FLONASE ALLERGY RELIEF) 50 mcg/actuation nasal spray Use 1 [place] in each nostril once daily as needed. fexofenadine (NORMA ALLERGY) 180 mg tablet Take 180 mg by mouth once daily. No current facility-administered medications for this visit. COVID VACCINATION STATUS: Not vaccinated REVIEW OF SYSTEMS: Pain Assessment: General: No weight loss, malaise or fevers. Neuro: No history of TIA's, stroke, POWER SHOVEL OPERATOR HELPER tumor, impaired sensorium, hemiplegia, paraplegia or quadraplegia. No neurological symptoms or problems. Respiratory: No history of current cough or dyspnea, or pneumonia in the past 6 weeks. No history of respiratory/pulmonary symptoms or problems. Cardiovascular: No history of HTN requiring medication, no history of angina, CHF, DE, cardiac surgery or stents. Denies rest pain, gangrene or revascularization/amputation for PVD. No history of cardiovascular symptoms or problems. GI: Negative for Nausea, Vomiting, Abdominal pain, Inflammatory bowel disease +GERD : No history of dysuria, frequency or incontinence,, stones or chronic kidney disease BLACK TOP PAVER OPERATOR: Negative for abnormal vaginal bleeding, abnormal vaginal discharge. : Denies, No LMP recorded. Endocrine: No history of diabetes. Has not taken steroids within the past 30 days. No history of endocrinological symptoms or problems. Hematology: No history of bleeding or clotting disorder. Pt is not taking anti- coagulation or platelet medications. No history of hematological symptoms or problems. Oncology: No history of CA metastasis, chemo within 30 days, or radiotherapy within 90 days. Has not lost 10% of body wt in 6 months. No history of oncological symptoms or problems. Psych: No history of psychiatric symptoms or problems. Musculoskeletal: See HPI Skin: Negative for lesions, rash and itching. Objective PHYSICAL EXAM: Pulse 72 Ht 5' 7 (1.70m) Wt 130 lb (59.0kg) BMI 20.36 kg/(m^2). VIDEO EXAM: (if completed, performed via video enabled technology) GENERAL: alert and appropriate, in no distress, well-hydrated, well nourished, and happy, smiling, interactive SKIN: no rash noted HEAD: normocephalic, no abnormality or lesion noted EARS: hearing grossly normal OROPHARYNX: moist mucus membranes NECK: full ROM, no cervical LNs noted RESPIRATORY: breathing non-labored CHEST: equal chest rise with normal respiratory effort HEART: No edema or JVD noted. Patient checked HR via apple watch 72 bpm NEUROLOGIC: no obvious deficit Diagnostic tests reviewed for today's visit: No new labs or tests Impression/Recommendations ASSESSMENT: GERD (gastroesophageal reflux disease) Assessment: Controlled on PPI METS: Do moderate work around the house such as vacuuming, sweeping floors, or carrying in groceries (3.50 METs) Do yardwork, such as raking leaves, weeding,or pushing a power mower (4.50 METs) Climb a flight of stairs or walk up a hill (5.50 METs) Patient denies any chest pain or undue shortness of breath with the above physical activity. ASA Class: 3 ANESTHESIA FINDINGS: Intubation History: No history of difficult intubation Significant Anesthesia Considerations: None Airway Exam: General: Normal appearance Mallampati Score is CLASS II ULBT: Class II - Lower incisors can bite the upper lip below the deandre line Neck: Normal appearance and function, Distance from hyoid to mentum during neck extension is at least 3 finger breaths Mouth: Normal tongue size and Mouth opening greater than 2 finger breaths Dentition: Intact Airway History: No abnormal airway history STOP BANG Score: Criteria: None Score = 0 PLAN: This patient is optimally prepared for surgery. Instructions will be mailed patient does not have MC CONSULTS: Patient does not require consults for optimization at this time. The Following Tests/Procedures Have Been Initiated: Labs not indicated per PACC protocol, EKG not indicated per PACC protocol Planned Anesthetic: Per anesthesia choice Instructions Given to Patient: Patient given verbal instructions and voices comprehension and compliance. Copy sent electronically via My Chart, email, or mobile device. This is a virtual visit. It required patient-provider interaction for the medical decision making as documented above. SIGNATURE: Khalida Abbott APRN.CNP PATIENT NAME: Pancho Savage DATE: Patient would like to see someone today. TIME: 8:32 AM PAGER/CONTACT #: [facility] History and physical note * Khalida Abbott APRN.CNP - 03/27/2022 8:30 AM EDT PREANESTHESIA CONSULT CLINIC TELEHEALTH VISIT Patient has been identified by name and date of : Yes This is a virtual visit using Alternative video platform. It require patient- provider interaction for the medical decision making as documented below. Reason for contact: PACC visit Accompanied by: Self Scheduled Surgery: ARTHROSCOPY ANKLE W/ DEBRIDEMENT EXTENSIVE RIGHT Subjective CHIEF COMPLAINT: Patient presents with: Anesthesia Consult HPI: This is a 16 year old female who presents with right ankle pain. Pain has had multiple sprainsand 2 ankle fractures. She had surgery on the ankle May of 2019. She is again having pain in ankle and has opted for surgical intervention. ACTIVE PROBLEM LIST Gerd (Gastroesophageal Reflux Disease) History reviewed. No pertinent past medical history. PAST SURGICAL HISTORY Procedure Laterality Date PAST SURGICAL HISTORY OF Right 2019 Ankle No family history on file. Social History Tobacco Use Smoking status: Never Smokeless tobacco: Never Substance Use Topics Alcohol use: Never Drug use: Never ALLERGIES No Known Allergies MEDICATIONS: Current Outpatient Medications Medication Sig omeprazole (PRILOSEC) 20 mg capsule Cetirizine 10 mg cap Take 10 mg by mouth. fluticasone (FLONASE ALLERGY RELIEF) 50 mcg/actuation nasal spray Use 1 [place] in each nostril once daily as needed. fexofenadine (NORMA ALLERGY) 180 mg tablet Take 180 mg by mouth once daily. No current facility-administered medications for this visit. COVID VACCINATION STATUS: Not vaccinated REVIEW OF SYSTEMS: Pain Assessment: General: No weight loss, malaise or fevers. Neuro: No history of TIA's, stroke, POWER SHOVEL OPERATOR HELPER tumor, impaired sensorium, hemiplegia, paraplegia or quadraplegia. No neurological symptoms or problems. Respiratory: No history of current cough or dyspnea, or pneumonia in the past 6 weeks. No history of respiratory/pulmonary symptoms or problems. Cardiovascular: No history of HTN requiring medication, no history of angina, CHF, DE, cardiac surgery or stents. Denies rest pain, gangrene or revascularization/amputation for PVD. No history of cardiovascular symptoms or problems. GI: Negative for Nausea, Vomiting, Abdominal pain, Inflammatory bowel disease +GERD : No history of dysuria, frequency or incontinence,, stones or chronic kidney disease BLACK TOP PAVER OPERATOR: Negative for abnormal vaginal bleeding, abnormal vaginal discharge. : Denies, No LMP recorded. Endocrine: No history of diabetes. Has not taken steroids within the past 30 days. No history of endocrinological symptoms or problems. Hematology: No history of bleeding or clotting disorder. Pt is not taking anti- coagulation or platelet medications. No history of hematological symptoms or problems. Oncology: No history of CA metastasis, chemo within 30 days, or radiotherapy within 90 days. Has not lost 10% of body wt in 6 months. No history of oncological symptoms or problems. Psych: No history of psychiatric symptoms or problems. Musculoskeletal: See HPI Skin: Negative for lesions, rash and itching. Objective PHYSICAL EXAM: Pulse 72 Ht 5' 7 (1.70m) Wt 130 lb (59.0kg) BMI 20.36 kg/(m^2). VIDEO EXAM: (if completed, performed via video enabled technology) GENERAL: alert and appropriate, in no distress, well-hydrated, well nourished, and happy, smiling, interactive SKIN: no rash noted HEAD: normocephalic, no abnormality or lesion noted EARS: hearing grossly normal OROPHARYNX: moist mucus membranes NECK: full ROM, no cervical LNs noted RESPIRATORY: breathing non-labored CHEST: equal chest rise with normal respiratory effort HEART: No edema or JVD noted. Patient checked HR via apple watch 72 bpm NEUROLOGIC: no obvious deficit Diagnostic tests reviewed for today's visit: No new labs or tests Impression/Recommendations ASSESSMENT: GERD (gastroesophageal reflux disease) Assessment: Controlled on PPI METS: Do moderate work around the house such as vacuuming, sweeping floors, or carrying in groceries (3.50 METs) Do yardwork, such as raking leaves, weeding,or pushing a power mower (4.50 METs) Climb a flight of stairs or walk up a hill (5.50 METs) Patient denies any chest pain or undue shortness of breath with the above physical activity. ASA Class: 3 ANESTHESIA FINDINGS: Intubation History: No history of difficult intubation Significant Anesthesia Considerations: None Airway Exam: General: Normal appearance Mallampati Score is CLASS II ULBT: Class II - Lower incisors can bite the upper lip below the deandre line Neck: Normal appearance and function, Distance from hyoid to mentum during neck extension is at least 3 finger breaths Mouth: Normal tongue size and Mouth opening greater than 2 finger breaths Dentition: Intact Airway History: No abnormal airway history STOP BANG Score: Criteria: None Score = 0 PLAN: This patient is optimally prepared for surgery. Instructions will be mailed patient does not have CONSULTS: Patient does not require consults for optimization at this time. The Following Tests/Procedures Have Been Initiated: Labs not indicated per PACC protocol, EKG not indicated per PACC protocol Planned Anesthetic: Per anesthesia choice Instructions Given to Patient: Patient given verbal instructions and voices comprehension and compliance. Copy sent electronically via My Chart, email, or mobile device. This is a virtual visit. It required patient-provider interaction for the medical decision making as documented above. SIGNATURE: Khalida Abbott APRN.CNP PATIENT NAME: Pancho Savage DATE: Patient would like to see someone today. TIME: 8:32 AM PAGER/CONTACT #: documented in this encounterSelect [facility] [place] Instructions* Patient Instructions* Khalida Abbott APRN.CNP - 03/27/2022 8:29 AM EDT PATIENT PREOPERATIVE INSTRUCTIONS Nora Key,* has scheduled you for your procedure at this surgery center: [facility]: [phone] -- [address] [address]. Please read below carefully for your personalized instructions. Dietary Restrictions: - No solid food after midnight. - You may have 12 ounces of clear liquids (water, clear juices such as apple juice or gatorade, carbonated beverages, clear tea, black coffee, jello) until 2 hours before scheduled arrival at facility. Medications: Unless instructed differently below, stay on all of your medications until your surgery. Approved medications to take the morning of surgery with a sip of water: Prilosec If you start any new medications after today's visit, please contact the surgeon's office. Blood Thinning Medications: - Stop NSAIDS (Ibuprofen, Advil, Aleve, Motrin, Celebrex, Mobic, etc.) 7 days before surgery, as directed by your surgeon. - Stop Aspirin 7 days before surgery, as directed by your surgeon. - Stop Vitamin E, ALL multi-vitamins, herbals and dietary supplements 7 days before surgery. - You may take Tylenol (Acetaminophen) or any of your pain medications that do not contain aspirin or NSAIDS as needed. Important Reminders: - Candy, mints, and tobacco products are NOT permitted the morning of surgery. - Hearing aids, dentures and glasses may be worn the morning of surgery. - NO jewelry, body piercings, makeup, hairpins or contacts are to be worn the day of surgery. If you develop symptoms such as a fever, cold, or flu, or have other changes to your health within TWO DAYS of scheduled surgery or the morning of surgery, please contact the surgery center above. Personal Belongings: -Please have photo ID and insurance cards. -If you do not have a copy of advance directives on file with us, please bring a copy with you on the day of surgery. - Leave ALL valuables and money at home or with family members. For Outpatient Procedures: - YOU MUST HAVE A RESPONSIBLE MACHINE COMPOSITOR TAKE YOU HOME. A BULK PLANT SUPERVISOR OR IT ADMINISTRATOR CANNOT BE MADE A RESPONSIBLE MACHINE COMPOSITOR. - We recommend that a responsible person stays with you overnight to take care of you. - You cannot stay in a hotel alone after outpatient surgery. You will not be permitted to have yoursurgery, if you do not have someone to take care of you. Arrival Time for Surgery: - The Surgery Center or hospital where you are having surgery will call the afternoon before surgery (or Friday for Friday surgery) with a scheduled arrival time. - If you have not heard by 4 pm, please contact the surgery center above. Please be aware that emergency situations arise, which may delay or change your surgical time. If this happens, we will notify you as soon as possible and regret any inconvenience. If you already have an Advance Directive, please fax a copy to [phone] or email to for it to be added to your chart. If you do not have an Advance Directive, you can find the appropriate form and more information at [email or web address]. We recommend that youcomplete the Advance Directive form found on the website and bring it with you the day of your surgery. It can be witnessed and scanned into your chart that day. Khalida Abbott APRN.CNP documented in this encounterSelect [facility] [place]22 NoteHNO ID: [id number] Author: Nora Key, DO Service: ? Author Type: Physician Type: Progress Notes Filed: 03/11/2022 2:19 PM Note Text: Reason for Visit/Chief Complaint Pancho Savage is a 16 year old female who presents today for a new evaluation of following complaint: Patient presents with: Right Ankle - New, Pain History of Present Illness: PAIN EVALUATION 03/06/2022 1311 Pain Level: 5 Pain Location: Ankle-Right Description: Shooting;Aching;Sharp Frequency: Continuous Intervention/Comfort measure: Cold;Medication;Reposition;Relaxation motrin HPI: Pancho Savage is a 16 year old female presenting today with Right ankle pain. Pain history is noted as above. Patient recalls having surgery on her right ankle two years ago at [facility], presents today with pain in the same ankle. Pain located in the lateral ankle area and can feel stitch rubbing against skin which is causing her most of her pain. Patient has been applying ice and taking Motrin for comfort measures. Previous Treatments: Ice: Yes Heat: No Brace: No NSAIDs: Yes, Motrin Injections: No Surgeries: Yes, 2020? Physical Therapy: No Review of Systems: Patient did not have, and does not currently have, any weight loss, malaise, fever, chills, headache, chest pain, chest pressure, palpitations, cough, shortness of breath, orthopnea, paroxsymal nocturnal dyspnea, nausea, vomiting, diarrhea, constipation, melena, hematochezia, urinary difficulties, prolonged bleeding, easily bruising, heat or cold intolerance, new onset joint pain or swelling, new onset extremity weakness or numbness, new onset auditory or visual disturbances, lightheadedness, dizziness, partial loss of consciousness or full loss of consciousness. Current Outpatient Medications on File Prior to Visit Medication Sig omeprazole (PRILOSEC) 20 mg capsule Cetirizine 10 mg cap Take 10 mg by mouth. fluticasone (FLONASE ALLERGY RELIEF) 50 mcg/actuation nasal spray Use 1 [place] in each nostril once daily as needed. fexofenadine (NORMA ALLERGY) 180 mg tablet Take 180 mg by mouth once daily. No current facility-administered medications on file prior to visit. ALLERGIES No Known Allergies Physical Exam: Vitals: Ht 5' 7.25 (1.71m) Wt 137 lb (62.1kg) BMI 21.30 kg/(m2). Psych: General Appearance: . Skin: Skin color, texture, turgor normal, no suspicious rashes or lesions, . Peripheral Pulses: normal. Neurologic: mormal. Lymph Nodes: normal. Respiratory: normal Rheumatologic: Joint deformities: right lateral ankle pain Right Ankle Exam Right ankle exam is normal. Tenderness The patient is experiencing tenderness in the lateral malleolus. Range of Motion The patient has normal right ankle ROM. Dorsiflexion: normal Plantar flexion: normal Eversion: normal Inversion: normal Muscle Strength Dorsiflexion: 5/5 Plantar flexion: 5/5 Anterior tibial: 5/5 Posterior tibial: 5/5 Gastrocsoleus: 5/5 Peroneal muscle: 5/5 Tests Anterior drawer: negative Varus tilt: negative Other Erythema: absent Sensation: normal Pulse: present Comments: Ttp lateral distal mall, palpable stitch at site of pain Left Ankle Exam Left ankle exam is normal. Tenderness The patient is experiencing no tenderness. Range of Motion The patient has normal left ankle ROM. Dorsiflexion: normal Plantar flexion: normal Eversion: normal Inversion: normal Muscle Strength Dorsiflexion: 5/5 Plantar flexion: 5/5 Anterior tibial: 5/5 Posterior tibial: 5/5 Gastrocsoleus: 5/5 Peroneal muscle: 5/5 Tests Anterior drawer: negative Varus tilt: negative Other Erythema: absent Sensation: normal Pulse: present Imaging: Last XR Ankle - Impression Only XR ANKLE GENERAL 3V AP/LAT/OBL RIGHT Exam End: 03/06/2022 1:49 PM (Final result) Impression: IMPRESSION: Postsurgical changes of the distal fibula. Heterogeneous appearance of the bone density of the talar dome laterally, questionable for prior surgical change. Clinical correlation is recommended. Explosives Mixer Operator: BEKAH Transcribe Date/Time: Mar 06 2022 2:27P ... Assessment and Plan: Impression: Encounter Diagnosis ICD-10-CM 1. Suture granuloma, initial encounter T81.89XA Plan: Today, in detail, through a thorough evaluation, we discussed possible etiologies of pain and our plans for further diagnostic and therapeutic interventions. We discussed strategies for decreasing pain and improving strength, stability and motion. Patient's questions were answered in detailed. Patient verbalizes understanding and agrees with the treatment plan as discussed. Risks and benefits vs alternatives to treatment were discussed with patient. Risks including but not limited to blood loss, blood clot, infection, neurovascular injury, failure of procedure, need for revision operation, loss of life and loss of limb. Patient james (more content not included)...[facility]22 NoteHNO ID: [id number] Author: MARLIN Velasquez Service: Radiology Author Type: Technologist Type: Progress Notes Filed: 03/06/2022 1:50 PM Note Text: Radiology Service Progress Note PATIENT NAME: Pancho Savage DATE OF SERVICE: March 06, 2022 TIME: 1:49 PM PATIENT IDENTITY VERIFICATION COMPLETED USING TWO (2) IDENTIFIERS: Name and Date of confirmed by patient verbally. FALL SCREENING: Has the patient had 2 falls in the last year or 1 fall with injury or currently using an Ambulatory Assistive Device (Walker, Cane, Wheelchair, Crutches, etc.)? No PATIENT GENDER DATA: Female. status: : No status: NO. PATIENT RELEVANT IMPLANT DATA REVIEWED: Not Applicable RADIOLOGY DEPARTMENT: General X-ray: Exam(s) Completed: Lower Extremity X-Ray(s): Ankle, Right and Wt. Bearing PERIPHERAL IV DATA: Not applicable SIGNED BY: MARLIN Velasquez March 06, 2022 1:49 [facility] [id number] History of Present illness Narrative* Nora Key, DO - 03/06/2022 1:04 PM EDT Images from the original note were not included. Reason for Visit/Chief Complaint Pancho Savage is a 16 year old female who presents today for a new evaluation of following complaint: Patient presents with: Right Ankle - New, Pain History of Present Illness: PAIN EVALUATION 03/06/2022 1311 Pain Level: 5 Pain Location: Ankle-Right Description: Shooting;Aching;Sharp Frequency: Continuous Intervention/Comfort measure: Cold;Medication;Reposition;Relaxation motrin HPI: Pancho Savage is a 16 year old female presenting today with Right ankle pain. Pain history is noted as above. Patient recalls having surgery on her right ankle two years ago at [facility], presents today with pain in the same ankle. Pain located in the lateral ankle area and can feel stitch rubbing against skin which is causing her most of her pain. Patient has been applying ice and taking Motrin for comfort measures. Previous Treatments: Ice: Yes Heat: No Brace: No NSAIDs: Yes, Motrin Injections: No Surgeries: Yes, 2020? Physical Therapy: No Review of Systems: Patient did not have, and does not currently have, any weight loss, malaise, fever, chills, headache, chest pain, chest pressure, palpitations, cough, shortness of breath, orthopnea, paroxsymal nocturnal dyspnea, nausea, vomiting, diarrhea, constipation, melena, hematochezia, urinary difficulties, prolonged bleeding, easily bruising, heat or cold intolerance, new onset joint pain or swelling, newonset extremity weakness or numbness, new onset auditory or visual disturbances, lightheadedness, dizziness, partial loss of consciousness or full loss of consciousness. Current Outpatient Medications on File Prior to Visit Medication Sig omeprazole (PRILOSEC) 20 mg capsule Cetirizine 10 mg cap Take 10 mg by mouth. fluticasone (FLONASE ALLERGY RELIEF) 50 mcg/actuation nasal spray Use 1 [place] in each nostril once daily as needed. fexofenadine (NORMA ALLERGY) 180 mg tablet Take 180 mg by mouth once daily. No current facility-administered medications on file prior to visit. ALLERGIES No Known Allergies Physical Exam: Vitals: Ht 5' 7.25 (1.71m) Wt 137 lb (62.1kg) BMI 21.30 kg/(m^2). Psych: General Appearance: . Skin: Skin color, texture, turgor normal, no suspicious rashes or lesions, . Peripheral Pulses: normal. Neurologic: mormal. Lymph Nodes: normal. Respiratory: normal Rheumatologic: Joint deformities: right lateral ankle pain Right Ankle Exam Right ankle exam is normal. Tenderness The patient is experiencing tenderness in the lateral malleolus. Range of Motion The patient has normal right ankle ROM. Dorsiflexion: normal Plantar flexion: normal Eversion: normal Inversion: normal Muscle Strength Dorsiflexion: 5/5 Plantar flexion: 5/5 Anterior tibial: 5/5 Posterior tibial: 5/5 Gastrocsoleus: 5/5 Peroneal muscle: 5/5 Tests Anterior drawer: negative Varus tilt: negative Other Erythema: absent Sensation: normal Pulse: present Comments: Ttp lateral distal mall, palpable stitch at site of pain Left Ankle Exam Left ankle exam is normal. Tenderness The patient is experiencing no tenderness. Range of Motion The patient has normal left ankle ROM. Dorsiflexion: normal Plantar flexion: normal Eversion: normal Inversion: normal Muscle Strength Dorsiflexion: 5/5 Plantar flexion: 5/5 Anterior tibial: 5/5 Posterior tibial: 5/5 Gastrocsoleus: 5/5 Peroneal muscle: 5/5 Tests Anterior drawer: negative Varus tilt: negative Other Erythema: absent Sensation: normal Pulse: present Imaging: Last XR Ankle - Impression Only XR ANKLE GENERAL 3V AP/LAT/OBL RIGHT Exam End: 03/06/2022 1:49 PM (Final result) Impression: IMPRESSION: Postsurgical changes of the distal fibula. Heterogeneous appearance of the bone density of the talar dome laterally, questionable for prior surgical change. Clinical correlation is recommended. Explosives Mixer Operator: BEKAH Transcribe Date/Time: Mar 06 2022 2:27P ... Assessment and Plan: Impression: Encounter Diagnosis ICD-10-CM 1. Suture granuloma, initial encounter T81.89XA Plan: Today, in detail, through a thorough evaluation, we discussed possible etiologies of pain and our plans for further diagnostic and therapeutic interventions. We discussed strategies for decreasing pain and improving strength, stability and motion. Patient's questions were answered in detailed. Patient verbalizes understanding and agrees with the treatment plan as discussed. Risks and benefits vs alternatives to treatment were discussed with patient. Risks including but not limited to blood loss, blood clot, infection, neurovascular injury, failure of procedure, need forrevision operation, loss of life and loss of limb. Patient aware of risks and benefits and agrees to proceed with written consent for surgical intervention. Will schedule patient for lateral ankle bony debridement, removal of foreign body, repair as indicated [facility] History of Present illness Narrative* MARLIN Velasquez - 03/06/2022 12:40 PM EDT Radiology Service Progress Note PATIENT NAME: Pancho Savage DATE OF SERVICE: March 06, 2022 TIME: 1:49 PM PATIENT IDENTITY VERIFICATION COMPLETED USING TWO (2) IDENTIFIERS: Name and Date of confirmedby patient verbally. FALL SCREENING: Has the patient had 2 falls in the last year or 1 fall with injury or currently using an Ambulatory Assistive Device (Walker, Cane, Wheelchair, Crutches, etc.)? No PATIENT GENDER DATA: Female. status: : No status: NO. PATIENT RELEVANT IMPLANT DATA REVIEWED: Not Applicable RADIOLOGY DEPARTMENT: General X-ray: Exam(s) Completed: Lower Extremity X- Ray(s): Ankle, Right and Wt. Bearing PERIPHERAL IV DATA: Not applicable SIGNED BY: MARLIN Velasquez March 06, 2022 1:49 PM documented in [facility] complaint+Reason for visit Narrative* Chief Complaint Admit Date Rikki Vogel January 11, 2025 7 :51am [facility] Work Phone: Evaluation note* Diagnosis Pain Generalized pain [facility] Diagnosis Suture granuloma, initial encounter- Primary [facility]* Diagnosis Suture granuloma, initial encounter- Primary Right ankle pain, acute [facility]* Diagnosis Pre-op evaluation- Primary Preoperative examination, unspecified Gastroesophageal reflux disease, unspecified whether esophagitis present Suture granuloma, initial encounter Right ankle pain, unspecified chronicity [facility]* Diagnosis Postoperative pain- Primary Other acute postoperative pain Suture granuloma, initial encounter Right ankle pain, unspecified chronicity Right ankle pain Pain in joint, ankle and foot [facility]* Diagnosis Suture granuloma, initial encounter- Primary S/P foot surgery Other postprocedural status [facility] Onset Date Resolution Status Contraception management acu te [facility] Work Phone: Evaluation noteNo assessment information available [facility] Work Phone: Relwli for referral (narrative)* Diagnostic Procedure Only (Routine) - Closed Specialty Diagnoses / Procedures Referred By Contac t Referred To Contact XR IMAGING Diagnoses Pain Procedures XR ANKLE GENERAL 3V AP/LAT/OBL RIGHT RADEX ANKLE COMPLETE MINIMUM 3 VIEWS Nora Key DO [address] [place] [address] Xr Imaging Referral ID Status Reason Start Date Expiration Date V isits Requested Visits Authorized [id number] Closed Auto-Generate d Referral 02/19/2022 03/21/2023 1 1 [facility] for referral (narrative)No reason for referral [facility] Work Phone: Reason for visit Narrative* Diagnostic Procedure Only (Routine) - Closed Specialty Diagnoses / Procedures Referred By Contac t Referred To Contact XR IMAGING Diagnoses Pain Procedures XR ANKLE GENERAL 3V AP/LAT/OBL RIGHT RADEX ANKLE COMPLETE MINIMUM 3 VIEWS Nora Key DO [address] [place] [address] Xr Imaging Referral ID Status Reason Start Date Expiration Date V isits Requested Visits Authorized [id number] Closed Auto-Generate d Referral 02/19/2022 03/21/2023 1 1 [facility] Summary Purpose Family History No Family History Records Found Relationship Condition Age at Onset Recorded Date/T huey Not Specified Sleep apnea Unknown Hypertension Unknown Asthma Unknown grandfather Diabetes mellitus Unknown Relationship Condition Age at Onset Recorded Date/T huey grandfather Diabetes mellitus Unknown Parkinson's disease Unknown father Asthma Unknown Sleep apnea Unknown mother Hypertension Unknown Not Specified Hypertension Unknown grandfather Hypertension Unknown Advance Directives No Advanced Directives Records Found Advance Directive Response Recorded Date/ Time Advance Directives No April 15, 2016 1:15pm Living Will No April 15 1:15pm Power of Corporate Legal Intern No April 15, 2016 1:15pm Advance Directive Response Recorded Date/ Time Advance Directives No April 15, 2016 1:15pm Medications Administered Section Inactive Administered Medications - up to 3 most recent administrations Medication Order MAR Action Action Date Dose Rate Site acetaminophen 1,000 mg tab(s) (TYLENOL) 1,000 mg, ORAL, PRE-OP ONCE, 1 dose, On Fri04/02/22 at 1000, If ordered PRN for pain, patient/guardian may elect to receive this medication for higher pain levels INSTEAD of the opioid, if preferred: Yes, Preprocedure Given 04/02/2022 10:30 AM EDT 1,000 mg fentaNYL 50 mcg/mL 50 mcg injection (SUBLIMAZE) 50 mcg, INTRAVENOUS, EVERY 10 MINUTES NEEDED, 4 doses, Starting on Fri04/02/22 at 1250, Until Fri04/03/22 at 0304, Moderate Pain (4-6) - Parenteral, Severe Pain (>/=7) - Parenteral, breakthrough pain, FIRST LINE THERAPY for mild, moderate, or severe pain, USE FOR MILD PAIN ONLY IF PATIENT IS UNABLE TO TOLERATE ORAL THERAPY, Recovery or Phase I (only) lactated ringers iv infusion 50 mL/hr, INTRAVENOUS, CONTINUOUS, Starting on Fri04/02/22 at 1300, Until Fri04/03/22 at 0304, Recovery or Phase I (only) lactated ringers iv infusion 5-30 mL/hr, INTRAVENOUS, CONTINUOUS, Starting on Fri04/02/22 at 1030, Until Fri04/02/22 at 1240, Preprocedure New Bag/Syringe/Bottle 04/02/2022 10:19 AM EDT 30 mL/hr 30 mL/hr meperidine (PF) 12.5 mg injection (DEMEROL) 12.5 mg, INTRAVENOUS, EVERY 10 MINUTES NEEDED, 2 doses, Starting on Fri04/02/22 at 1250, Until Fri04/03/22 at 0304, for shivering, May Repeat 12.5 mg in 10 minutes X1, Recovery or Phase I (only) Given 04/02/2022 12:58 PM EDT 12.5 mg naloxone 0.4 mg injection (NARCAN) 0.4 mg, INTRAVENOUS, NEEDED, 5 doses, Starting on Fri04/02/22 at 1250, Until Fri04/03/22 at 0304, excessive sedation and respiratory rate less than 8, Please contact the provider if giving patient naloxone (Narcan) dose., Recovery or Phase I (only) oxyCODONE IR 5 mg tab(s) (ROXICODONE) 5 mg, ORAL, NEEDED, 1 dose, Starting on Fri04/02/22 at 1250, Until Fri04/02/22 at 1333, Mild Pain (1-3) - Enteral, Recovery or Phase I (only) Given 04/02/2022 1:33 PM EDT 5 mg prochlorperazine 10 mg injection (COMPAZINE) 10 mg, INTRAVENOUS, EVERY 6 HOURS NEEDED, Starting on Fri04/02/22 at 1250, Until Fri04/03/22 at 0304, Nausea/Vomiting - First Line - Parenteral, EVERY 6 HOURS NEEDED Protect From Light, Recovery or Phase I (only) promethazine 12.5 mg tab(s) (PHENERGAN) 12.5 mg, ORAL, PRE-OP ONCE, 1 dose, On Fri04/02/22 at 1000, Preprocedure Given 04/02/2022 10:30 AM EDT 12.5 mg scopolamine - REMOVE PATCH ONCE, THIS IS USED ONLY TO DOCUMENT PATCH REMOVAL. Use Remvd Patch action. scopolamine - VERIFY patch EVERY 8 HOURS, THIS IS USED ONLY TO DOCUMENT THAT THE PATCH IS VERIFIED ON OR OFF PER ORDER. Use Patch On or Patch Off action. scopolamine 1 mg over 3 days 1 Patch (TRANSDERM-SCOP) 1 Patch, TRANSDERMAL, Administer over 24 Hours, ONCE, 1 dose, On Fri04/02/22 at 1000, Allow 4 hours to achieve onset. Apply patch behind ear. Each time a new patch is needed it should be placed behind the alternate ear from the previous patch. Remove old patch. Each 1.5 mg patch delivers 1 mg of scopolamine over 3 days., Preprocedure Given 04/02/2022 10:30 AM EDT 1 Patch Other Chief Complaint and Reason for Visit Chief Complaint F/U APPT CONTR OL SCREENING/NEED LAB ORDER Reason for Visit Contraception manage ment Chief Complaint Admit Date E-ORDER July 27, 2024 7 :58am Additional Source Comments INFORMATION SOURCE (unrecogn ized section and content) DATE CREATED AUTHOR 11/06/2019 [facility] DATE CREATED AUTHOR AUTHOR'S ORGANIZ ATION 03/22/2022 [facility] DATE CREATED AUTHOR AUTHOR'S ORGANIZ ATION 05/31/2022 [facility] DATE CREATED AUTHOR AUTHOR'S ORGANIZ ATION 01/20/2025 [facility] Source Comments (unrecognize d section and content) In the event this informatio n is protected by the Federal Confidentiality of Alcohol and Drug Abuse Patient Records regulations: The Federal rules restrict any use of the information to criminally investigate or prosecute any alcohol or drug abuse patient.[facility] the event this information is protected by the Federal Confidentiality of Alcohol and Drug Abuse Patient Records regulations: The Federal rules restrict any use of the information to criminally investigate or prosecute any alcohol or drug abuse patient.[facility] the event this information is protected by the Federal Confidentiality of Alcohol and Drug Abuse Patient Records regulations: The Federal rules restrict any use of the information to criminally investigate or prosecute any alcohol or drug abuse patient.[facility] Dublin[facility] the event this information is protected by the Federal Confidentiality of Alcohol and Drug Abuse Patient Records regulations: The Federal rules restrict any use of the information to criminally investigate or prosecute any alcohol or drug abuse patient.[facility] the event this information is protected by the Federal Confidentiality of Alcohol and Drug Abuse Patient Records regulations: The Federal rules restrict any use of the information to criminally investigate or prosecute any alcohol or drug abuse patient.[facility] the event this information is protected by the Federal Confidentiality of Alcohol and Drug Abuse Patient Records regulations: The Federal rules restrict any use of the information to criminally investigate or prosecute any alcohol or drug abuse patient.[facility] DublinIn the event this information is protected by the Federal Confidentiality of Alcohol and Drug Abuse Patient Records regulations: The Federal rules restrict any use of the information to criminally investigate or prosecute any alcohol or drug abuse patient.[facility] Reason for Visit (unrecogniz ed section and content) Reason Comments New Pain Reason Comments Anesthesia Consult Specialty Diagnoses / Procedures Referred By Rigoberto t Referred To Contact Diagnoses Suture granuloma, initial encounter Right ankle pain, unspecified chronicity Suture granuloma, initial encounter [T81.89XA] Right ankle pain, unspecified chronicity [M25.571] Procedures ARTHROSCOPY ANKLE SURGICAL DEBRIDEMENT EXTENSIVE ARTHROSCOPY ANKLE W/ DEBRIDEMENT EXTENSIVE [facility] [address] [place] [address] Referral ID Status Reason Start Date Expiration Date Visits Re quested Visits Authorized [id number] 1 1 Reason Comments Patient Question Reason Comments Post Op Pain Scheduled Active and Recently Administ ered Medications (unrecognized section and content) Medication Order 03/31/2022 04/01/2022 04/02/2022 acetaminophen 1,000 mg tab(s) (TYLENOL) (COMPLETED) 1,000 mg, ORAL, PRE-OP ONCE, 1 dose, On Fri04/02/22 at 1000, If ordered PRN for pain, patient/guardian may elect to receive this medication for higher pain levels INSTEAD of the opioid, if preferred: Yes, Preprocedure 1030 (Given - Provid er: Rivka Downing RN) ceFAZolin iv piggyback 2 g in D5W (iso-osmotic) 100 mL (ANCEF) (COMPLETED) 2 g, INTRAVENOUS, at 200 mL/hr, Administer over 30 Minutes, PRE-OP ONCE, 1 dose, On Fri04/02/22 at 1030, Orthopedic Cases - MRSA Negative or Low Risk PRE-OP ANTIBIOTIC ADMINISTER ONLY IN SURGICAL AREA DO NOT ADMINSTER ON THE FLOOR Refrigerate, Please document the antimicrobial indication: Prophylaxis, Preprocedure 1020 (Sent with Teresa ent - Provider: Daniela Perez RN)1103 (Given - Provider: Teodoro Noyola APRN.EARLY CHILDHOOD TEACHER ASSISTANT) promethazine 12.5 mg tab(s) (PHENERGAN) (COMPLETED) 12.5 mg, ORAL, PRE-OP ONCE, 1 dose, On Fri04/02/22 at 1000, Preprocedure 1030 (Given - Provid er: Rivka Downing RN) scopolamine - REMOVE PATCH ONCE, THIS IS USED ONLY TO DOCUMENT PATCH REMOVAL. Use Remvd Patch action. scopolamine - VERIFY patch EVERY 8 HOURS, THIS IS USED ONLY TO DOCUMENT THAT THE PATCH IS VERIFIED ON OR OFF PER ORDER. Use Patch On or Patch Off action. scopolamine 1 mg over 3 days 1 Patch (TRANSDERM-SCOP) 1 Patch, TRANSDERMAL, Administer over 24 Hours, ONCE, 1 dose, On Fri04/02/22 at 1000, Allow 4 hours to achieve onset. Apply patch behind ear. Each time a new patch is needed it should be placed behind the alternate ear from the previous patch. Remove old patch. Each 1.5 mg patch delivers 1 mg of scopolamine over 3 days., Preprocedure 1030 (Given - Provid er: Rivka Downing RN - Comment: patch placed behind right ear) Continuous Medication Order 03/31/2022 04/01/2022 04/02/2022 lactated ringers iv infusion 50 mL/hr, INTRAVENOUS, CONTINUOUS, Starting on Fri04/02/22 at 1300, Until Fri04/03/22 at 0304, Recovery or Phase I (only) 1300 (Due) lactated ringers iv infusion (CANCELED) 5-30 mL/hr, INTRAVENOUS, CONTINUOUS, Starting on Fri04/02/22 at 1030, Until Fri04/02/22 at 1240, Preprocedure 1019 (New Bag/Syring e/Bottle - Provider: Daniela Perez RN)1240 (Due: Infusion Complete) PRN Medication Order 03/31/2022 04/01/2022 04/02/2022 EPINEPHrine 1 mg in NaCl 0.9% irrigation bag 3,000 mL (CANCELED) X (OR/PROCEDURE) PRN, Starting on Fri04/02/22 at 1132, Until Fri04/02/22 at 1242, Intraprocedure 1132 (Given - Provid er: Nora Key DO) fentaNYL 50 mcg/mL 50 mcg injection (SUBLIMAZE) 50 mcg, INTRAVENOUS, EVERY 10 MINUTES NEEDED, 4 doses, Starting on Fri04/02/22 at 1250, Until Fri04/03/22 at 0304, Moderate Pain (4-6) - Parenteral, Severe Pain (>/=7) - Parenteral, breakthrough pain, FIRST LINE THERAPY for mild, moderate, or severe pain, USE FOR MILD PAIN ONLY IF PATIENT IS UNABLE TO TOLERATE ORAL THERAPY, Recovery or Phase I (only) meperidine (PF) 12.5 mg injection (DEMEROL) 12.5 mg, INTRAVENOUS, EVERY 10 MINUTES NEEDED, 2 doses, Starting on Fri04/02/22 at 1250, Until Fri04/03/22 at 0304, for shivering, May Repeat 12.5 mg in 10 minutes X1, Recovery or Phase I (only) 1258 (Given - Provid er: Marjorie Luu, RN) naloxone 0.4 mg injection (NARCAN) 0.4 mg, INTRAVENOUS, NEEDED, 5 doses, Starting on Fri04/02/22 at 1250, Until Fri04/03/22 at 0304, excessive sedation and respiratory rate less than 8, Please contact the provider if giving patient naloxone (Narcan) dose., Recovery or Phase I (only) oxyCODONE IR 5 mg tab(s) (ROXICODONE) (COMPLETED) 5 mg, ORAL, NEEDED, 1 dose, Starting on Fri04/02/22 at 1250, Until Discontinued, Mild Pain (1-3) - Enteral, Recovery or Phase I (only) 1333 (Given - Provid er: Carmen Keita RN) prochlorperazine 10 mg injection (COMPAZINE) 10 mg, INTRAVENOUS, EVERY 6 HOURS NEEDED, Starting on Fri04/02/22 at 1250, Until Fri04/03/22 at 0304, Nausea/Vomiting - First Line - Parenteral, EVERY 6 HOURS NEEDED Protect From Light, Recovery or Phase I (only) Care Teams (unrecognized sec tion and content) Team Status: Active Member Role Status Dates Dr. Sera Nguyen MD Family Provider Active Dr. Susu Garcia DO Primary Care Provider Active Team Status: Inactive Member Role Status Dates Dr. Susu Garcia DO Primary Care Provider, Referring P guzman Active Tyesha Shi CNM Attending Provider Active Team Status: Inactive Member Role Status Dates Dr. Susu Garcia DO Primary Care Provide r, Attending Provider, Referring Provider Active Team Status: Active Member Role Status Dates Dr. Susu Garcia DO Primary Care Provider Active Team Status: Inactive Member Role Status Dates Dr. Susu Garcia DO Primary Care Provider Active Start: July 27, 2024 End: July 27, 2024 Fely Hickman CNM Attending Provider Active S tart: July 27, 2024 End: July 27, 2024 Fely Hickman CNM Referring Provider Active S tart: July 27, 2024 End: July 27, 2024 Team Status: Inactive Member Role Status Dates Dr. Susu Garcia DO Primary Care Provider Active Start: September 10, 2024 End: September 10, 2024 Dr. Susu Garcia DO Attending Provider Active St art: September 10, 2024 End: September 10, 2024 Dr. Susu Garcia DO Referring Provider Active St art: September 10, 2024 End: September 10, 2024 Team Status: Inactive Member Role Status Dates Dr. Susu Garcia DO Primary Care Provider Active Start: December 08, 2024 End: December 08, 2024 Dr. Susu Garcia DO Attending Provider Active St art: December 08, 2024 End: December 08, 2024 Dr. Susu Garcia DO Referring Provider Active St art: December 08, 2024 End: December 08, 2024 Team Status: Active Member Role/Relationship Status Dates Dr. Susu Garcia DO Primary Care Provider Active Team Status: Inactive Member Role/Relationship Status Dates Dr. Susu Garcia DO Primary Care Provider Active Start: December 08, 2024 End: December 08, 2024 Dr. Susu Garcia DO Attending Provider Active St art: December 08, 2024 End: December 08, 2024 Dr. Susu Garcia DO Referring Provider Active St art: December 08, 2024 End: December 08, 2024 Team Status: Active Member Role/Relationship Status Dates Dr. Susu Garcia DO Primary Care Provider Active Start: January 10, 2025 Fely Hickman CNM Attending Provider Active S tart: January 10, 2025 Fely Hickman CNM Referring Provider Active S tart: January 10, 2025 Team Status: Inactive Member Role/Relationship Status Dates Dr. Susu Garcia DO Primary Care Provider Active Start: January 11, 2025 End: January 11, 2025 Dr. Susu Garcia DO Referring Provider Active St art: January 11, 2025 End: January 11, 2025 Dr. Veronique Rg MD Attending Provider Active Start: January 11, 2025 End: January 11, 2025 Team Status: Inactive Member Role/Relationship Status Dates Dr. Susu Garcia DO Primary Care Provider Active Start: January 10, 2025 End: January 10, 2025 Fely Hickman CNM Attending Provider Active S tart: January 10, 2025 End: January 10, 2025 Fely Hickman CNM Referring Provider Active S tart: January 10, 2025 End: January 10, 2025 Team Status: Active Member Role/Relationship Status Dates Dr. Susu Garcia DO Primary Care Provider Active Start: January 12, 2025 Fely Hickman CNM Attending Provider Active S tart: January 12, 2025 Fely Hickman CNM Referring Provider Active S tart: January 12, 2025 Team Status: Active Member Role/Relationship Status Dates Dr. Susu Garcia DO Primary Care Provider Active Start: January 12, 2025 Fely Hickman CNM Attending Provider Active S tart: January 12, 2025 Team Status: Inactive Member Role/Relationship Status Dates Dr. Susu Garcia DO Primary Care Provider Active Start: January 12, 2025 End: January 12, 2025 Fely Hickman CNM Attending Provider Active S tart: January 12, 2025 End: January 12, 2025 Fely Hickman CNM Referring Provider Active S tart: January 12, 2025 End: January 12, 2025 Team Status: Inactive Member Role/Relationship Status Dates Dr. Susu Garcia DO Primary Care Provider Active Start: January 12, 2025 End: January 12, 2025 Fely Hickman CNM Attending Provider Active S tart: January 12, 2025 End: January 12, 2025 Goals (unrecognized section and content) Goals may be documented in a n alternate sectionGoals may be documented in an alternate sectionGoals may be documented in an alternate sectionGoals may be documented in an alternate sectionGoals may be documented in an alternate sectionGoals may be documented in an alternate sectionGoals may be documented in an alternate section FOR RECORDS PERTAINING TO PATIENTS WHO ARE OR HAVE BEEN ENROLLED IN A CHEMICAL DEPENDENCY/SUBSTANCEABUSE PROGRAM, SOME INFORMATION MAY BE OMITTED. This clinical summary was aggregated from multiple sources. Caution should be exercised in using it in the provision of clinical care. This summary normalizes information from multiple sources, and as a consequence, information in this document may materially change the coding, format and clinical context of patient data. In addition, data may be omitted in some cases. CLINICAL DECISIONS SHOULD BE BASED ON THE PRIMARY CLINICAL RECORDS. [facility]. provides no warranty or guarantee of the accuracy or completeness of information in this document.
[2025-01-21 11:44] LABS: hCG Titer Quant., Serum 2 mIU/mL (<9 non-preg)
[2025-01-24 16:09] LABS: Anti-Cardiolipin Ab, IgG, Qn < 9 GPL U/mL (0-14); Anti-Cardiolipin Ab, IgM, Qn < 9 MPL U/mL (0-12); Beta-2-Glycoprotein I IgA <9 (0-25); Beta-2-Glycoprotein I IgG <9 (0-20); Beta-2-Glycoprotein I IgM <9 (0-32); Dilute Russell Viper Venom 32.7 sec (0.0-47.0); Interpretation Comment: (.); PTT-LA 33.2 sec (0.0-43.5)
== END | disposition home or self-care (01) ==
LOC: LAB 09:08
PROVIDERS: PCP Family Medicine; Referring Provider Advanced Practice Midwife; Visit Provider Advanced Practice Midwife
DX: O09.90 Supervision of high risk pregnancy, unspecified, unspecified trimester (principal); O26.20 Pregnancy care for patient with recurrent pregnancy loss, unspecified trimester; Z3A.00 Weeks of gestation of pregnancy not specified; O02.81 Inappropriate change in quantitative human chorionic gonadotropin (hCG) in early pregnancy
CPT/HCPCS: 36415; 84702; 86146; 86147; 86850; 86900; 86901

== ENCOUNTER → 2025-01-29 | Outpatient (CLI) | payer OTHER, SELFPAY ==
--- OUTSIDE RECORDS SUMMARY | 2025-01-29 08:36 | XMS RPT_ITS | CCD ---
Author Organization [facility] Care Team Providers Care Gaming Manager Name Role Phone Unavailable Primary Care Provider Unavailchristen e PROVIDER, UNKNOWN Referring Unavailable Unavailable Primary Care Provider Unavailabl e NORA KEY Attending Unavailab NORA العراقي Attending Unavailab NORA العراقي Attending Unavailab NORA العراقي Referring Unavailab Dr. Susu Oconnor Primary Care Provider Dr. Susu Garcia Referring Provider [phone] ENDY Montesinos Attending Provider [phone] Susu Garcia DO Primary Care Provider [phone] Fely Hickman CNM Attending Provider [phone] Fely Hickman CNM Referring Provider [phone] Dr. Susu Garcia DO Attending Provider [phone] Dr. Susu Garcia DO Referring Provider [phone] Dr. Susu Garcia DO Primary Care Provider [phone] Dr. Susu Garcia DO Primary Care Provider [phone] Dr. Susu Garcia DO Attending Provider [phone] Dr. Susu Garcia DO Referring Provider [phone] Fely Hickman CNM Attending Provider [phone] Fely Hickman CNM Referring Provider Ifrah MAN, Dr. Piper Attending Provider Susu Garcia Primary Care Unavailable Fely Hickman Attending Unavailable Fely Hickman Attending Unavailable Susu Garcia Primary Care Unavailable Fely Hickman Referring Unavailable Fely Hickman Attending Unavailable Malys, Susu Primary Care Unavailable Fely Hickman Referring Unavailable Malys, Susu Referring Unavailable Malys, Susu Attending Unavailable Malys, Susu Primary Care Unavailable Vick, Fely Attending Unavailable Malys, Susu Primary Care Unavailable Vick, Fely Referring Unavailable Malys, Susu Primary Care Unavailable Vick, Fely Referring Unavailable Vick, Fely Attending Unavailable Malys, Susu Referring Unavailable Malys, Susu Attending Unavailable Malys, Susu Primary Care Unavailable Malys, Susu Referring Unavailable Malys, Susu Attending Unavailable Malys, Susu Primary Care Unavailable Malys, Susu Referring Unavailable Veronique Rg Attending Unavailable Malys, Susu Primary Care Unavailable Allergies Allergy Classification Reported Allergen(s) Allergy Type Date of Onset Reaction(s) Facility (8 sources) Wheat gluten extract Drug Allergy 12-16-2022 Diarrhea [facility] (5 sources) natural latex rubber Allergy to substance 01-11-2025 Hives [facility] Comment on above: itching (1 source) Gluten Drug allergy (disorder) 01-11-2025 [facility] (1 source) natural latex rubber Drug allergy (disorder) 01-11-2025 [facility] Medications Current Medications Medication [...] on above: Take 1 tablet by shyla th every 4 hours as needed for pain [...] by mouth. cholecalciferol 0.125 mg oral capsule (5 sources) Vitamin D Start: 01-11-2025 take 1 capsule by mouth once daily Cholecalciferol (Vitamin D3) 125 mcg (5,000 unit) capsule Active 125 ug PO daily January 11, 2025 12:00am Multivit 51-Ljyc-Gacnqm 1-Dha (Pnv-Dha) 27 mg iron-1 mg -300 mg capsule (5 sources) Start: 01-11-2025 Multivit 10-Cxny-Zyptvv 1-Dha (Pnv-Dha) 27 mg iron-1 mg -300 [...] October 15, 2022 8:17am Start: 02-27-2022 omeprazole (MS ILOSEC) 20 mg capsule Start: 05-24-2019 End: 10-15-2022 take 1 tablet by mouth once daily Omeprazole 20 MG tablet,delayed release (DR/EC) Discontinued 20 mg PO DAILY May 24, 2019 1:00am October 15, 2022 8:18am Completed/Discontinued Medications Medication Drug Class(es) Dates Sig (Normalized) Sig (Original) acetaminophen 325 mg / HYDROcodone bitartrate 5 mg oral tablet (8 sources) Opioid Agonist Start: 05-26-2019 End: 06-09-2019 [...] 1 {tbl} PO DAILY 84 4 December 16, 2022 8:58am December 26, 2023 12:11pm Start: 12-16-2022 End: 12-26-2023 take 0.15 tablet by mouth once daily Desogestrel-Ethinyl Estradiol (Apri) 0.15-0.03 mg tablet Discontinued 1 {tbl} PO DAILY 84 December 16, 2022 8:58am December 26, 2023 12:11pm Start: 12-16-2022 Desogestrel-Et hinyl Estradiol (Apri) 0.15-0.03 mg tablet Active 1 TABLET PO DAILY 84 December 16, 2022 8:58am Start: 10-15-2022 End: [...] mg tablet Discontinued 1 TABLET PO DAILY 84 October 15, 2022 12:00am December 16, 2022 8:58am fexofenadine hydrochloride 180 mg oral tablet (6 sources) Histamine-1 Receptor Antagonist take 1 tablet by mouth once daily fexofenadine (NORMA) 180 mg tablet Take 180 mg by mouth once daily. 0 Active Comment on above: Take 180 mg by mouth once daily. fluticasone propionate 0.05 mg/actuat metered dose nasal spray (14 sources) Corticosteroid Start: 04-15-20 End: 10-08-19 18 [...] (FLONASE) 50 mcg/actuation nasal spray Use 1 [place] in each nostril once daily as needed. 0 Active Comment on above: Use 1 [place] in each nostril once daily as needed. hydrOXYzine hydrochloride 25 mg oral tablet (8 sources) Antihistamine Start: 04-20-20 End: 10-16-19 take [...] initial encounter] Episodic Contraceptive and procreative management (9 sources) Patient encounter status; Translations: [Encounter for contraceptive management, unspecified] 10-15-2022 Episodic Crushing injury or internal injury (8 sources) Crush injury of right thumb; Translations: [Crushing injury of right thumb, initial encounter] 05-08-2020 Episodic Deficiency and other anemia (1 source) Iron deficiency anemia, unspecified; Translations: [Iron deficiency anemia, unspecified] Onset: 5 Episodic Esophageal disorders (6 sources) Gastroesophageal reflux disease; Translations: [Gastro-esophageal reflux disease without esophagitis] Onset: 2 Chronic Fracture of lower limb (8 sources) Closed fracture of lateral malleolus; Translations: [Displaced fracture of lateral malleolus of unspecified fibula, initial encounter for closed fracture] 10-15-2022 Episodic Hemorrhage during ; abruptio placenta; placenta previa (8 sources) Antepartum hemorrhage; Translations: [Hemorrhage in early , unspecified] Onset: 5 07-26-2024 Episodic Other complications of (4 sources) High risk ; Translations: [Supervision of high risk , unspecified, unspecified trimester] 01-11-2025 Episodic Comment on above: , INGRID 08/31/25, John Rose Other complications of (4 sources) Chemical ; Translations: [Inappropriate change in quantitative human chorionic gonadotropin (hCG) in early ] 01-13-2025 Episodic Other connective tissue disease (8 sources) Peroneal tendinitis of right lower limb; Translations: [Peroneal tendinitis, right leg] 10-15-2022 Episodic Other gastrointestinal disorders (8 sources) Gastrointestinal tract problem; Translations: [Other specified symptoms and signs involving the digestive system and abdomen] 10-15-2022 Episodic Other injuries and conditions due to external causes (8 sources) Injury of right ankle; Translations: [Unspecified injury of right ankle, initial encounter] 10-15-2022 Episodic Other nervous system disorders (1 source) Postoperative pain ; Translations: [Other acute postprocedural pain] Episodic Other non-traumatic joint disorders (3 sources) Ankle pain; Translations: [Pain in right ankle and joints of right foot] Episodic Other and delivery including normal (4 sources) ; Translations: [Encounter for supervision of normal , unspecified, unspecified trimester] 01-11-2025 Episodic Comment on above: discussed genetic & carrier testing-undecided Other upper respiratory infections (8 sources) Acute upper respiratory infection; Translations: [Acute upper respiratory infection, unspecified] 10-15-2022 Episodic Residual codes; unclassified (1 source) Pain; Translations: [Pain, unspecified] Episodic Residual codes; unclassified (1 source) Pain, unspecified; Translations: [Pain] Onset: 2 Episodic Residual codes; unclassified (1 source) History of operative procedure on foot; Translations: [Other specified postprocedural states] Episodic Results Test Name Value Interpretation Reference Range Facility Anticardiolipin IgG, IgMon 0 01-24-2025 ANTICARDIO IgG < 9 Normal 0-14 [facility] Comment on above: Result Comment: Nega tive: <15 Indeterminate: 15 - 20 Low-Med Positive: >20 - 80 High Positive: >80 Performed By: #### L [id number], L100.0100, L503.6150 #### [facility] [address] [place], [address] Anticardio.IgM < 9 Normal 0-12 [facility] Comment on above: Result Comment: Nega tive: <13 Indeterminate: 13 - 20 Low-Med Positive: >20 - 80 High Positive: >80 Performed at: [facility] [address] [id number] Breaker Table Worker: Caleb Armenta MD, Phone: [phone] Performed at: [facility] [id number] Breaker Table Worker: Huan Orlando PhD, Phone: [phone] Performed By: #### L [id number], L100.0100, L503.6150 #### [facility] [address] [place] [place], [address] Beta-2 Glycoprot IgG, A, 01-24-2025 B2 GLYCO I IGA <9 Normal 0-25 [facility] Comment on above: Result Comment: Resu lt Units: GPI IgA units The reference interval reflects a 3SD or 99th percentile interval, which is thought to represent a potentially clinically significant result in accordance with the International Consensus Statement on the classification criteria for definitive antiphospholipid syndrome (APS). J Thromb Haem 2006;4:295-306. Performed By: #### L 503.6550, L100.0100, L503.6150 #### [facility] [address] [place], [address] B2 GLYCO I IGG <9 Normal 0-20 [facility] Comment on above: Result Comment: Resu lt Units: GPI IgG units The reference interval reflects a 3SD or 99th percentile interval, which is thought to represent a potentially clinically significant result in accordance with the International Consensus Statement on the classification criteria for definitive antiphospholipid syndrome (APS). J Thromb Haem 2006;4:295-306. Performed By: #### L 503.6550, L100.0100, L503.6150 #### [facility] [address] [place], [address] B2 GLYCO I IGM <9 Normal 0-32 [facility] Comment on above: Result Comment: Resu lt Units: GPI IgM units The reference interval reflects a 3SD or 99th percentile interval, which is thought to represent a potentially clinically significant result in accordance with the International Consensus Statement on the classification criteria for definitive antiphospholipid syndrome (APS). J Thromb Haem 2006;4:295-306. Performed By: #### L 503.6550, L100.0100, L503.6150 #### [facility] [address] [place], [address] Lupus Anticoagulant Compon 0 8- aPTT Coag (Bld) [Time] 33.2 s Normal 0.0-43.5 [facility] Comment on above: Performed By: #### L 503.6550, L100.0100, L503.6150 #### [facility] [address] [place], [address] DILUTE PT (dPT) 32.6 sec Normal 0.0-47.6 [facility] Comment on above: Performed By: #### L 503.6550, L100.0100, L503.6150 #### [facility] [address] [place], [address] dPT Conf. Ratio 1.01 Ratio Normal 0.00-1.34 [facility] Comment on above: Performed By: #### L 503.6550, L100.0100, L503.6150 #### [facility] [address] [place], [address] DRVVT 32.7 sec Normal 0.0-47.0 [facility] Comment on above: Performed By: #### L 503.6550, L100.0100, L503.6150 #### [facility] [address] [place], [address] Interpretation Comment: Normal . [facility] Comment on above: Result Comment: No l upus anticoagulant was detected. Performed By: #### L 503.6550, L100.0100, L503.6150 #### [facility] [address] [place], [address] THROMBIN TIME 19.3 sec Normal 0.0-23.0 [facility] Comment on above: Performed By: #### L 503.6550, L100.0100, L503.6150 #### [facility] [address] [place], [address] Dilute Patrick's viper venom timeOrdered By: Fely Hickman on 01-21-2025 dRVVT Coag (PPP) [Time] 32.7 s 0.0-47.0 [facility] Serum beta 2 glycoprotein 1 IgA antibody detectionOrdered By: Fely Hickman on 01-21-2025 Beta 2 glycoprotein 1 IgA Ql (S) <9 0-25 [facility] Comment on above: Result Units: GPI Ig A unitsThe reference interval reflects a 3SD or 99th percentileinterval, which is thought to represent a potentiallyclinically significant result in accordance with theInternational Consensus Statement on the classificationcriteria for definitive antiphospholipid syndrome (APS). JThromb Haem 2006;4:295-306. Serum beta 2 glycoprotein 1 IgG antibody detectionOrdered By: Fely Hickman on 01-21-2025 Beta 2 glycoprotein 1 IgG Ql (S) <9 0-20 [facility] Comment on above: Result Units: GPI Ig G unitsThe reference interval reflects a 3SD or 99th percentileinterval, which is thought to represent a potentiallyclinically significant result in accordance with theInternational Consensus Statement on the classificationcriteria for definitive antiphospholipid syndrome (APS). JThromb Haem 2006;4:295-306. Serum beta 2 glycoprotein 1 IgM antibody detectionOrdered By: Fely Hickman on 01-21-2025 Beta 2 glycoprotein 1 IgM Ql (S) <9 0-32 [facility] Comment on above: Result Units: GPI Ig M unitsThe reference interval reflects a 3SD or 99th percentileinterval, which is thought to represent a potentiallyclinically significant result in accordance with theInternational Consensus Statement on the classificationcriteria for definitive antiphospholipid syndrome (APS). JThromb Haem 2006;4:295-306. Serum cardiolipin IgG antibo dy assay by immunoassay (units/volume)Ordered By: Fely Hickman on 01-21-2025 Cardiolipin IgG IA Qn (S) < 9 GPL U/mL 0-14 [facility] Comment on above: Negative: <15 Indete rminate: 15 - 20 Low-Med Positive: >20 - 80 High Positive: >80 Serum human chorionic gonado tropin detection for pregnancyOrdered By: Fely Hickman on 01-21-2025 HCG ( test) Ql 2 mIU/mL <9 [facility] Comment on above: Gestational Age0.2-1 Week: 5-50 mIU/mL1-2 Weeks: 50-500 mIU/mL2-3 Weeks: 100-5000 mIU/mL3-4 Weeks: 500-10,000 mIU/mL4-5 Weeks:1000-50,000 mIU/mL5-6 Weeks: 10,000-100,000 mIU/mL6-8 Weeks: 15,000-200,000 mIU/mL2-3 Months:10,000-100,000 mIU/mL Thrombin timeOrdered By: Dayron Hickman on 01-21-2025 Thrombin time Coag (PPP) [Time] 19.3 sec 0.0-23.0 [facility] Type AND Screenon 01-21-2025 ABO and Rh group Nom (Bld) Blood group A Rh(D) positive Normal [facility] Comment on above: Order Comment: PN Performed By: #### B TS, L4500.0100, L700.8000, L3410.2000, L3100.8410 #### [facility] [address] [place], [place], [id number] hCG Titer Quant., Serumon HCG QUANT. 2 mIU/mL Normal <9 non-preg [facility] Comment on above: Result Comment: Gest ational Age 0.2-1 Week: 5-50 mIU/mL 1-2 Weeks: 50-500 mIU/mL 2-3 Weeks: 100-5000 mIU/mL 3-4 Weeks: 500-10,000 mIU/mL 4-5 Weeks:1000-50,000 mIU/mL 5-6 Weeks: 10,000-100,000 mIU/mL 6-8 Weeks: 15,000-200,000 mIU/mL 2-3 Months:10,000-100,000 mIU/mL Performed By: #### B TS, L4500.0100, L700.8000, L3410.1999, L3100.8410 #### [facility] [address] [place], [place], [id number] Serum human chorionic gonado tropin detection for pregnancyOrdered By: Fely Hickman on 01-12-2025 HCG ( test) Ql 94 mIU/mL High <9 [facility] Comment on above: Gestational Age0.2-1 Week: 5-50 mIU/mL1-2 Weeks: 50-500 mIU/mL2-3 Weeks: 100-5000 mIU/mL3-4 Weeks: 500-10,000 mIU/mL4-5 Weeks:1000-50,000 mIU/mL5-6 Weeks: 10,000-100,000 mIU/mL6-8 Weeks: 15,000-200,000 mIU/mL2-3 Months:10,000-100,000 mIU/mL hCG Titer Quant., Serumon HCG QUANT. 94 mIU/mL High <9 non-preg [facility] Comment on above: Result Comment: Gest ational Age 0.2-1 Week: 5-50 mIU/mL 1-2 Weeks: 50-500 mIU/mL 2-3 Weeks: 100-5000 mIU/mL 3-4 Weeks: 500-10,000 mIU/mL 4-5 Weeks:1000-50,000 mIU/mL 5-6 Weeks: 10,000-100,000 mIU/mL 6-8 Weeks: 15,000-200,000 mIU/mL 2-3 Months:10,000-100,000 mIU/mL Performed By: #### L 503.6550, L100.0100, L503.6150 #### [facility] [address] [place], [place], [address] Serum human chorionic gonado tropin detection for pregnancyOrdered By: Fely Hickman on 01-10-2025 HCG ( test) Ql 522 mIU/mL High <9 [facility] Comment on above: Gestational Age0.2-1 Week: 5-50 mIU/mL1-2 Weeks: 50-500 mIU/mL2-3 Weeks: 100-5000 mIU/mL3-4 Weeks: 500-10,000 mIU/mL4-5 Weeks:1000-50,000 mIU/mL5-6 Weeks: 10,000-100,000 mIU/mL6-8 Weeks: 15,000-200,000 mIU/mL2-3 Months:10,000-100,000 mIU/mL hCG Titer Quant., Serumon HCG QUANT. 522 mIU/mL High <9 non-preg [facility] Comment on above: Result Comment: Gest ational Age 0.2-1 Week: 5-50 mIU/mL 1-2 Weeks: 50-500 mIU/mL 2-3 Weeks: 100-5000 mIU/mL 3-4 Weeks: 500-10,000 mIU/mL 4-5 Weeks:1000-50,000 mIU/mL 5-6 Weeks: 10,000-100,000 mIU/mL 6-8 Weeks: 15,000-200,000 mIU/mL 2-3 Months:10,000-100,000 mIU/mL Performed By: #### L 503.6550, L100.0100, L503.6150 #### [facility] [address] [place], [address] Absolute lymphocyte countOrd ered By: Susu Garcia on 12-08-2024 Lymphocytes Auto (Unsp spec) [#/Vol] 2.04 10*3/uL 0.83-4.51 [facility] Absolute neutrophil countOrd ered By: Susu Garcia on 12-08-2024 Neutrophils (Bld) [#/Vol] 2.6 10*3/uL 2.0-7.7 [facility] Automated lymphocyte count a s percentage of total leukocytesOrdered By: Susu Garcia on 12-08-2024 Lymphocytes/100 WBC Auto (Unsp spec) 38.9 % 19-41 [facility] Basophil percentageOrdered B y: Susu Garcia on 12-08-2024 Basophils/100 WBC (Bld) 0.4 % 0-1 [facility] CBC W/Diff, Automatedon 11-21 Absolute Lymph 2.04 X10 3/uL Normal 0.83-4.51 [facility] Comment on above: Performed By: #### L 503.6550, L503.6030, L503.0106, L100.0100 #### [facility] [address] [place], [address] Absolute Neut 2.6 X10 3/uL Normal 2.0-7.7 [facility] Comment on above: Performed By: #### L 503.6550, L503.6030, L503.0106, L100.0100 #### [facility] [address] [place], [address] Basophils/100 WBC (Bld) 0.4 % Normal 0-1 [facility] Comment on above: Performed By: #### L 503.6550, L503.6030, L503.0106, L100.0100 #### [facility] [address] [place], [address] Eosinophils/100 WBC (Bld) 2.1 % Normal 0-5 [facility] Comment on above: Performed By: #### L 503.6550, L503.6030, L503.0106, L100.0100 #### [facility] [address] [place], [address] Erythrocyte distribution width (RBC) [Ratio] 12.3 % Normal 11.6-14.6 [facility] Comment on above: Performed By: #### L 503.6550, L503.6030, L503.0106, L100.0100 #### [facility] [address] [place], [address] Hematocrit (Bld) [Volume fraction] 44.2 % Normal 37-47 [facility] Comment on above: Performed By: #### L 503.6550, L503.6030, L503.0106, L100.0100 #### [facility] [address] [place], [address] Hemoglobin (Bld) [Mass/Vol] 15.1 g/dL High 12.0-15.0 [facility] Comment on above: Performed By: #### L 503.6550, L503.6030, L503.0106, L100.0100 #### [facility] [address] [place], [address] IG% 0.400 Normal 0.0-0.9 [facility] Comment on above: Result Comment: IG% - Immature Granulocytes (promyelocytes, myelocytes and metamyelocytes) > 1% indicates that a LEFT SHIFT is Present. Performed By: #### L 503.6550, L503.6030, L503.0106, L100.0100 #### [facility] [address] [place], [address] Lymphocytes/100 WBC (Bld) 38.9 % Normal 19-41 [facility] Comment on above: Performed By: #### L 503.6550, L503.6030, L503.0106, L100.0100 #### [facility] [address] [place], [address] MCH (RBC) [Entitic mass] 30.2 pg Normal 27.0-32.0 [facility] Comment on above: Performed By: #### L 503.6550, L503.6030, L503.0106, L100.0100 #### [facility] [address] [place], [address] MCHC (RBC) [Mass/Vol] 34.2 g/dL Normal 32-36 [facility] Comment on above: Performed By: #### L 503.6550, L503.6030, L503.0106, L100.0100 #### [facility] [address] [place], [address] MCV (RBC) [Entitic vol] 88.4 fL Normal 81-99 [facility] Comment on above: Performed By: #### L 503.6550, L503.6030, L503.0106, L100.0100 #### [facility] [address] [place], [address] Monocytes/100 WBC (Bld) 9.4 % Normal 0-10 [facility] Comment on above: Performed By: #### L 503.6550, L503.6030, L503.0106, L100.0100 #### [facility] [address] [place], [address] Neutrophils/100 WBC (Bld) 48.8 % Normal 47-70 [facility] Comment on above: Performed By: #### L 503.6550, L503.6030, L503.0106, L100.0100 #### [facility] [address] [place], [address] Nucleated RBC (Bld) [#/Vol] 0 10*3/uL Normal 0-5 [facility] Comment on above: Performed By: #### L 503.6550, L503.6030, L503.0106, L100.0100 #### [facility] [address] [place], [address] Platelet mean volume (Bld) [Entitic vol] 10.3 fL Normal 6.2-12.0 [facility] Comment on above: Performed By: #### L 503.6550, L503.6030, L503.0106, L100.0100 #### [facility] [address] [place], [address] Platelets (Bld) [#/Vol] 199 10*3/uL Normal 150-450 [facility] Comment on above: Performed By: #### L 503.6550, L503.6030, L503.0106, L100.0100 #### [facility] [address] [place], [address] RBC (Bld) [#/Vol] 5.00 10*6/uL Normal 4.2-5.4 [facility] Comment on above: Performed By: #### L 503.6550, L503.6030, L503.0106, L100.0100 #### [facility] [address] [place], [address] RDW SD 39.8 fl Normal 35.1-43.9 [facility] [facility] Comment on above: Performed By: #### L 503.6550, L503.6030, L503.0106, L100.0100 #### [facility] [address] [place], [address] WBC (Bld) [#/Vol] 5.2 10*3/uL Normal 4.4-11.0 [facility] Comment on above: Performed By: #### L 503.6550, L503.6030, L503.0106, L100.0100 #### [facility] [address] [place], [address] Eosinophil percentageOrdered By: Susuabran Garcia on 12-08-2024 Eosinophils/100 WBC (Bld) 2.1 % 0-5 [facility] Erythrocyte distribution wid th ratioOrdered By: Susu Sheldonhomer on 12-08-2024 Erythrocyte distribution width (RBC) [Ratio] 12.3 % 11.6-14.6 [facility] Erythrocyte distribution wid th standard deviationOrdered By: Susu Pitohomer on 12-08-2024 Erythrocyte distribution width (RBC) [Ratio] 39.8 fl 35.1-43.9 [facility] Ferritinon 12-08-2024 Ferritin [Mass/Vol] 182 ng/mL Normal 22-378 [facility] Comment on above: Performed By: #### L 503.6550, L503.6030, L503.0106, L100.0100 #### [facility] [address] [place], [address] Hematocrit Auto (Bld) [Volum e fraction]Ordered By: Susu Garcia on 12-08-2024 Hematocrit (Bld) [Volume fraction] 44.2 % 37-47 [facility] Hemoglobin measurementOrdere d By: Susuabran Sheldonhomer on 12-08-2024 Hemoglobin (Bld) [Mass/Vol] 15.1 g/dL High 12.0-15.0 [facility] Immature granulocytes/100 WB C Auto (Bld)Ordered By: Susu Garcia on 12-08-2024 Immature granulocytes/100 WBC (Bld) 0.400 % 0.0-0.9 [facility] Comment on above: IG% - Immature Granu locytes (promyelocytes, myelocytes and metamyelocytes) > 1% indicates that a LEFT SHIFT is Present. Iron measurement (mass/mass) Ordered By: Susu Garcia on 12-08-2024 Iron (Unsp spec) [Mass/Mass] 115 ug/dL 50-170 [facility] Iron+Iron Binding Capacityon 12-08-2024 Iron [Mass/Vol] 115 ug/dL Normal 50-170 [facility] Comment on above: Performed By: #### L 503.6550, L503.6030, L503.0106, L100.0100 #### [facility] [address] [place], [address] IRON SATURATION 43.0 Normal 13-59 [facility] Comment on above: Performed By: #### L 503.6550, L503.6030, L503.0106, L100.0100 #### [facility] [address] [place], [address] TIBC 270 ug/dL Normal 250-450 [facility] Comment on above: Performed By: #### L 503.6550, L503.6030, L503.0106, L100.0100 #### [facility] [address] [place], [address] UIBC 155 ug/dL Low 228-428 [facility] Comment on above: Performed By: #### L 503.6550, L503.6030, L503.0106, L100.0100 #### [facility] [address] [place], [address] MCV (mean corpuscular volume ) determinationOrdered By: Susu Garcia on 12-08-2024 MCV (RBC) [Entitic vol] 88.4 fL 81-99 [facility] Mean corpuscular hemoglobin (MCH) determinationOrdered By: Susu Garcia on 12-08-2024 MCH (RBC) [Entitic mass] 30.2 pg 27.0-32.0 [facility] Mean corpuscular hemoglobin concentration (MCHC) determinationOrdered By: Susu Garcia on 12-08-2024 MCHC (RBC) [Mass/Vol] 34.2 g/dL 32-36 [facility] Mean platelet volume determi nationOrdered By: Susu Garcia on 12-08-2024 Platelet mean volume (Bld) [Entitic vol] 10.3 fL 6.2-12.0 [facility] Monocyte percentageOrdered B y: Susu Garcia on 12-08-2024 Monocytes/100 WBC (Bld) 9.4 % 0-10 [facility] Neutrophil percentageOrdered By: Susu Garcia on 12-08-2024 Neutrophils/100 WBC (Bld) 48.8 % 47-70 [facility] No Panel InformationOrdered By: Susu Garcia on 12-08-2024 Unsaturated Iron Binding Capacity 155 ug/dL Low 228-428 [facility] Nucleated red blood cell per centageOrdered By: Susu Garcia on 12-08-2024 Nucleated RBC/100 WBC (Bld) [Ratio] 0 % 0-5 [facility] Platelet countOrdered By: Renea Garcia on 12-08-2024 Platelets (Bld) [#/Vol] 199 10*3/uL 150-450 [facility] RBC Auto (Bld) [#/Vol]Ordere d By: Susu Garcia on 12-08-2024 RBC (Bld) [#/Vol] 5.00 10*6/uL 4.2-5.4 [facility] Serum or plasma ferritin judie surement (mass/volume)Ordered By: Susu Garcia on 12-08-2024 Ferritin [Mass/Vol] 182 ng/mL 22-378 [facility] Serum or plasma iron saturat ion measurement (mass fraction)Ordered By: Susu Garcia on 12-08-2024 Iron saturation [Mass fraction] 43.0 % 13-59 [facility] Vitamin B12on 12-08-2024 Cobalamin (Vitamin B12) [Mass/Vol] 462 pg/mL Normal 180-914 [facility] Comment on above: Performed By: #### L 503.6550, L503.6030, L503.0106, L100.0100 #### [facility] [address] [place] [address]. [place], [address] Vitamin B12 ser/plasOrdered By: Susu Garcia on 12-08-2024 Cobalamin (Vitamin B12) [Mass/Vol] 462 pg/mL 180-914 [facility] White blood cell (WBC) count Ordered By: Susu Garcia on 12-08-2024 WBC (Bld) [#/Vol] 5.2 10*3/uL 4.4-11.0 [facility] CBC W/Diff, Automatedon 09-22 PATH REV Reviewed Normal [facility] Comment on above: Result Comment: SEE REPORT IN PATIENT'S EMR AMENDED REPORT 10/11/24 1520 PATH REV previously reported as: October sophia Performed By: #### L 503.6550, L100.0100, L503.6150 #### [facility] [address] [place], [address] Absolute lymphocyte countOrd ered By: Susuabran Garcia on 09-10-2024 Lymphocytes Auto (Unsp spec) [#/Vol] 1.61 10*3/uL 0.83-4.51 [facility] Absolute neutrophil countOrd ered By: Susu Garcia on 09-10-2024 Neutrophils (Bld) [#/Vol] 1.7 10*3/uL Low 2.0-7.7 [facility] Automated lymphocyte count a s percentage of total leukocytesOrdered By: Susu Pitohomer on 09-10-2024 Lymphocytes/100 WBC Auto (Unsp spec) 42.9 % High 19-41 [facility] Basophil percentageOrdered B y: Susu Garcia on 09-10-2024 Basophils/100 WBC (Bld) 0.3 % 0-1 [facility] Eosinophil percentageOrdered By: Susu Garcia on 09-10-2024 Eosinophils/100 WBC (Bld) 0.5 % 0-5 [facility] Erythrocyte distribution wid th ratioOrdered By: Susuabran Garcia on 09-10-2024 Erythrocyte distribution width (RBC) [Ratio] 14.2 % 11.6-14.6 [facility] Erythrocyte distribution wid th standard deviationOrdered By: Susu Garcia on 09-10-2024 Erythrocyte distribution width (RBC) [Entitic vol] 44.1 fL High 35.1-43.9 [facility] Erythrocyte distribution width (RBC) [Ratio] 44.1 fl High 35.1-43.9 [facility] Ferritinon 09-10-2024 Ferritin [Mass/Vol] 767 ng/mL High 22-378 [facility] Comment on above: Performed By: #### L 503.6550, L100.0100, L503.6150 #### [facility] [address] [place], [place], [id number] Hematocrit Auto (Bld) [Volum e fraction]Ordered By: Susu Garcia on 09-10-2024 Hematocrit (Bld) [Volume fraction] 43.4 % 37-47 [facility] Hemoglobin measurementOrdere d By: Susu Garcia on 09-10-2024 Hemoglobin (Bld) [Mass/Vol] 14.5 g/dL 12.0-15.0 [facility] Immature granulocytes/100 WB C Auto (Bld)Ordered By: Susu Garcia on 09-10-2024 Immature granulocytes/100 WBC (Bld) 0.000 % 0.0-0.9 [facility] Comment on above: IG% - Immature Granu locytes (promyelocytes, myelocytes and metamyelocytes) > 1% indicates that a LEFT SHIFT is Present. Ironon 09-10-2024 Iron [Mass/Vol] 84 ug/dL Normal 50-170 [facility] Comment on above: Performed By: #### L 503.6550, L100.0100, L503.6150 #### [facility] [address] [place], [place], [id number] Iron (Unsp spec) [Mass/Mass] Ordered By: Susu Garcia on 09-10-2024 Iron [Mass/Vol] 84 ug/dL 50-170 [facility] Iron measurement (mass/mass) Ordered By: Susu Garcia on 09-10-2024 Iron (Unsp spec) [Mass/Mass] 84 ug/dL 50-170 [facility] Lymphocytes Auto (Unsp spec) [#/Vol]Ordered By: Susu Garcia on 09-10-2024 Lymphocytes (Bld) [#/Vol] 1.61 10*3/uL 0.83-4.51 [facility] Lymphocytes/100 WBC Auto (Un sp spec)Ordered By: Susu Garcia on 09-10-2024 Lymphocytes/100 WBC (Bld) 42.9 % High 19-41 [facility] MCV (mean corpuscular volume ) determinationOrdered By: Susu Garcia on 09-10-2024 MCV (RBC) [Entitic vol] 85.1 fL 81-99 [facility] Mean corpuscular hemoglobin (MCH) determinationOrdered By: Susu Garcia on 09-10-2024 MCH (RBC) [Entitic mass] 28.4 pg 27.0-32.0 [facility] Mean corpuscular hemoglobin concentration (MCHC) determinationOrdered By: Susu Garcia on 09-10-2024 MCHC (RBC) [Mass/Vol] 33.4 g/dL 32-36 [facility] Mean platelet volume determi nationOrdered By: Susu Garcia on 09-10-2024 Platelet mean volume (Bld) [Entitic vol] 10.4 fL 6.2-12.0 [facility] Monocyte percentageOrdered B y: Susu Garcia on 09-10-2024 Monocytes/100 WBC (Bld) 11.2 % High 0-10 [facility] Neutrophil percentageOrdered By: Susu Garcia on 09-10-2024 Neutrophils/100 WBC (Bld) 45.1 % Low 47-70 [facility] Nucleated red blood cell per centageOrdered By: Susu Garcia on 09-10-2024 Nucleated RBC/100 WBC (Bld) [Ratio] 0 % 0-5 [facility] Pathologist review Marek (Unsp spec) [Interp]Ordered By: Susu Garcia on 09-10-2024 Differential Pathologist's Review May [facility] Platelet countOrdered By: Renea Garcia on 09-10-2024 Platelets (Bld) [#/Vol] 180 10*3/uL 150-450 [facility] Platelet estimateOrdered By: Susu Garcia on 09-10-2024 Platelets LM Ql (Bld) A ADEQ [facility] Platelets LM Ql (Bld)Ordered By: Susu Garcia on 09-10-2024 Platelet Estimate A [facility] RBC Auto (Bld) [#/Vol]Ordere d By: Susu Garcia on 09-10-2024 RBC (Bld) [#/Vol] 5.10 10*6/uL 4.2-5.4 [facility] Reactive lymphocyte countOrd ered By: Susu Garcia on 09-10-2024 Reactive Lymphocytes 3+ [facility] Review by pathologistOrdered By: Susu Garcia on 09-10-2024 Pathologist review Marek (Unsp spec) [Interp] Reviewed [facility] Comment on above: SEE REPORT IN PATIEN T'S EMRPrevious reported result: October Edited by: MYRA on 10/11/24:1520SEE REPORT IN PATIENT'S EMR AMENDED REPORT 10/11/24 1520 PATH REV previously reported as: January cortes Previous reported result: Reviewed Edited by: MYRA on 10/11/24:1557 AMENDED REPORT 10/11/24 155 PATH REV previously reported as: Reviewed Serum or plasma ferritin judie surement (mass/volume)Ordered By: Susu Garcia on 09-10-2024 Ferritin [Mass/Vol] 767 ng/mL High 22-378 [facility] White blood cell (WBC) count Ordered By: Susu Garcia on 09-10-2024 WBC (Bld) [#/Vol] 3.8 10*3/uL Low 4.4-11.0 [facility] HCG ( test) QlOrder ed By: Fely Hickman on 07-27-2024 Human Chorionic Gonadotropin, Quant < 1 mIU/mL <4 [facility] Comment on above: hCG levels with Gest ational AgeGestational Age hCG mIU/mL (IU/L)0.2 - 1 week 5 - 501-2 weeks 50 - 5002-3 weeks 100 - 49662-1 weeks 500 - 575011-7 weeks 1000 - 845069-1 weeks 32144 - 100,0006-8 weeks 96415 - 200,0002-3 months 55731 - 100,000 hCG Titer Quant., Serumon HCG QUANT. < 1 Normal 1-3 [facility] Comment on above: Result Comment: hCG levels with Gestational Age Gestational Age hCG mIU/mL (IU/L) 0.2 - 1 week 5 - 50 1-2 weeks 50 - 500 2-3 weeks 100 - 5000 3-4 weeks 500 - 31523 4-5 weeks 1000 - 32689 5-6 weeks 80858 - 100,000 6-8 weeks 87929 - 200,000 2-3 months 35145 - 100,000 Performed By: #### L 700.8000 #### [facility] [address] [place], [address] CBC W/Diff, Automatedon 11- Absolute Lymph 2.58 X10 3/uL Normal 0.83-4.51 [facility] Comment on above: Performed By: #### L 503.6550, L100.0100, L503.6150 #### [facility] [address] [place], [address] Absolute Neut 3.2 X10 3/uL Normal 2.0-7.7 [facility] Comment on above: Performed By: #### L 503.6550, L100.0100, L503.6150 #### [facility] [address] [place], [address] Basophils/100 WBC (Bld) 0.3 % Normal 0-1 [facility] Comment on above: Performed By: #### L 503.6550, L100.0100, L503.6150 #### [facility] [address] [place], [address] Eosinophils/100 WBC (Bld) 1.4 % Normal 0-5 [facility] Comment on above: Performed By: #### L 503.6550, L100.0100, L503.6150 #### [facility] [address] [place], [address] Erythrocyte distribution width (RBC) [Ratio] 13.2 % Normal 11.6-14.6 [facility] Comment on above: Performed By: #### L 503.6550, L100.0100, L503.6150 #### [facility] [address] [place], [address] Hematocrit (Bld) [Volume fraction] 40.9 % Normal 37-47 [facility] Comment on above: Performed By: #### L 503.6550, L100.0100, L503.6150 #### [facility] [address] [place], [address] Hemoglobin (Bld) [Mass/Vol] 13.2 g/dL Normal 12.0-15.0 [facility] Comment on above: Performed By: #### L 503.6550, L100.0100, L503.6150 #### [facility] [address] [place], [address] IG% 0.300 Normal 0.0-0.9 [facility] Comment on above: Result Comment: IG% - Immature Granulocytes (promyelocytes, myelocytes and metamyelocytes) > 1% indicates that a LEFT SHIFT is Present. Performed By: #### L 503.6550, L100.0100, L503.6150 #### [facility] [address] [place], [address] Lymphocytes/100 WBC (Bld) 39.8 % Normal 19-41 [facility] Comment on above: Performed By: #### L 503.6550, L100.0100, L503.6150 #### [facility] [address] [place], [address] MCH (RBC) [Entitic mass] 26.6 pg Low 27.0-32.0 [facility] Comment on above: Performed By: #### L 503.6550, L100.0100, L503.6150 #### [facility] [address] [place], [address] MCHC (RBC) [Mass/Vol] 32.3 g/dL Normal 32-36 [facility] Comment on above: Performed By: #### L 503.6550, L100.0100, L503.6150 #### [facility] [address] [place], [address] MCV (RBC) [Entitic vol] 82.3 fL Normal 81-99 [facility] Comment on above: Performed By: #### L 503.6550, L100.0100, L503.6150 #### [facility] [address] [place], [address] Monocytes/100 WBC (Bld) 9.1 % Normal 0-10 [facility] Comment on above: Performed By: #### L 503.6550, L100.0100, L503.6150 #### [facility] [address] [place], [address] Neutrophils/100 WBC (Bld) 49.1 % Normal 47-70 [facility] Comment on above: Performed By: #### L 503.6550, L100.0100, L503.6150 #### [facility] [address] [place], [address] Nucleated RBC (Bld) [#/Vol] 0 10*3/uL Normal 0-5 [facility] Comment on above: Performed By: #### L 503.6550, L100.0100, L503.6150 #### [facility] [address] [place], [address] Platelet mean volume (Bld) [Entitic vol] 10.5 fL Normal 6.2-12.0 [facility] Comment on above: Performed By: #### L 503.6550, L100.0100, L503.6150 #### [facility] [address] [place], [address] Platelets (Bld) [#/Vol] 235 10*3/uL Normal 150-450 [facility] Comment on above: Performed By: #### L 503.6550, L100.0100, L503.6150 #### [facility] [address] [place], [address] RBC (Bld) [#/Vol] 4.97 10*6/uL Normal 4.2-5.4 [facility] Comment on above: Performed By: #### L 503.6550, L100.0100, L503.6150 #### [facility] [address] [place], [address] RDW SD 39.2 fl Normal 35.1-43.9 [facility] Comment on above: Performed By: #### L 503.6550, L100.0100, L503.6150 #### [facility] [address] [place], [address] WBC (Bld) [#/Vol] 6.5 10*3/uL Normal 4.4-11.0 [facility] Comment on above: Performed By: #### L 503.6550, L100.0100, L503.6150 #### [facility] [address] [place], [address] Ferritinon 05-14-2024 Ferritin [Mass/Vol] 7 ng/mL Low 8-252 [facility] Comment on above: Performed By: #### L 503.6550, L100.0100, L503.6150 #### [facility] [address] [place], [address] Ironon 05-14-2024 Iron [Mass/Vol] 38 ug/dL Low 50-170 [facility] Comment on above: Performed By: #### L 503.6550, L100.0100, L503.6150 #### [facility] [address] [place], [address] Absolute lymphocyte countOrd ered By: Susu Garica on 02-21-2023 Lymphocytes Auto (Unsp spec) [#/Vol] 1.76 10*3/uL 0.83-4.51 [facility] Basophil percentageOrdered B y: Susu Garcia on 02-21-2023 Basophils/100 WBC (Bld) 0.7 % 0-1 [facility] Bilirubin [Mass/Vol] 0.30 mg/dL 0.20-1.00 [facility] Comment on above: For patients on eltr ombopag therapy, use of Dimension Walsh TBIL is not recommended. Chloride [Moles/Vol] 107 mmol/L 98-107 [facility] Eosinophils/100 WBC (Bld) 1.3 % 0-5 [facility] Glucose [Mass/Vol] 93 mg/dL 74-106 [facility] Neutrophils (Bld) [#/Vol] 3.0 10*3/uL 2.0-7.7 [facility] Neutrophils/100 WBC (Bld) 55.5 % 47-70 [facility] Potassium [Moles/Vol] 3.6 mmol/L 3.5-5.1 [facility] Protein [Mass/Vol] 7.4 g/dL 6.4-8.2 [facility] Sodium [Moles/Vol] 138 mmol/L 136-145 [facility] WBC (Bld) [#/Vol] 5.4 10*3/uL 4.4-11.0 [facility] Blood erythrocytes count (nu mber/volume)Ordered By: Susu Garcia on 02-21-2023 RBC (Bld) [#/Vol] 5.09 10*6/uL 4.2-5.4 [facility] Blood hemoglobin measurement (mass/volume)Ordered By: Susu Garcia on 02-21-2023 Hemoglobin (Bld) [Mass/Vol] 13.8 g/dL 12.0-15.0 [facility] Blood lymphocytes/100 leukoc ytesOrdered By: Susu Garcia on 02-21-2023 Lymphocytes/100 WBC (Bld) 32.8 % 19-41 [facility] Blood monocytes/100 leukocyt esOrdered By: Susu Garcia on 02-21-2023 Monocytes/100 WBC (Bld) 9.5 % 0-10 [facility] Blood platelet mean volumeOr dered By: Susu Garcia on 02-21-2023 Platelet mean volume (Bld) [Entitic vol] 10.9 fL 6.2-12.0 [facility] Determination of erythrocyte mean corpuscular volume (MCV)Ordered By: Susu Garcia on 02-21-2023 MCV (RBC) [Entitic vol] 87.4 fL 81-99 [facility] Erythrocyte sedimentation ra teOrdered By: Susu Garcia on 02-21-2023 ESR (Bld) [Velocity] 1 mm/h 0-30 [facility] Hematocrit Auto (Bld) [Volum e fraction]Ordered By: Susu Garcia on 02-21-2023 Hematocrit (Bld) [Volume fraction] 44.5 % 37-47 [facility] Iron measurement (mass/mass) Ordered By: Ssuu Garcia on 02-21-2023 Iron (Unsp spec) [Mass/Mass] 35 ug/dL 50-170 [facility] - Chemistry and C hemistry - challengeOrdered By: Susu Garcia on 02-21-2023 ALP [Catalytic activity/Vol] 39 U/L 45-117 [facility] ALT [Catalytic activity/Vol] 14 U/L 13-56 [facility] CO2 [Moles/Vol] 24.0 mmol/L 21.0-32.0 [facility] Globulin (S) [Mass/Vol] 3.6 g/dL 2.2-4.2 [facility] Urea nitrogen/Creatinine [Mass ratio] 11.6 mg/mg 10-20 [facility] - Hematology and Cell countsOrdered By: Susu Garcia on 02-21-2023 Erythrocyte distribution width (RBC) [Entitic vol] 39.4 fL 35.1-43.9 [facility] Erythrocyte distribution width (RBC) [Ratio] 12.5 % 11.6-14.6 [facility] Immature granulocytes/100 WBC (Bld) 0.200 % 0.0-0.9 [facility] Comment on above: IG% - Immature Granu locytes (promyelocytes, myelocytes and metamyelocytes) > 1% indicates that a LEFT SHIFT is Present. MCH (RBC) [Entitic mass] 27.1 pg 27.0-32.0 [facility] Nucleated RBC/100 WBC (Bld) [Ratio] 0 % 0-5 [facility] MCHC Auto (RBC) [Mass/Vol]Or dered By: Susu Garcia on 02-21-2023 MCHC (RBC) [Mass/Vol] 31.0 g/dL 32-36 [facility] No Panel InformationOrdered By: Susu Garcia on 02-21-2023 Estimated GFR (MDRD) Amer 140 mL/min >60 [facility] Comment on above: GFR Calc Estimated GFR (MDRD) Non-Af Amer 116 mL/min >60 [facility] Comment on above: Non- GFR Calc Platelets bldOrdered By: Joaquina Garcia on 02-21-2023 Platelets (Bld) [#/Vol] 228 10*3/uL 150-450 [facility] Serum or plasma C reactive p rotein measurement (mass/volume)Ordered By: Susu Garcia on 02-21-2023 CRP [Mass/Vol] mg/L 0.0-3.0 [facility] [facility] Comment on above: C-Reactive Protein ( CRP) provides useful information for thediagnosis, therapy and monitoring of inflammatory processesand associated diseases. For the evaluation of Relative Riskfor Cardiovascular Disease, a High Sensitivity CRP (HSCRP)should be ordered. Serum or plasma albumin nubia urement (mass/volume)Ordered By: Susu Garcia on 02-21-2023 Albumin [Mass/Vol] 3.8 g/dL 3.2-5.0 [facility] Serum or plasma albumin/glob ulin mass ratioOrdered By: Susu Garcia on 02-21-2023 Albumin/Globulin [Mass ratio] 1.1 {ratio} 0.9-2.4 [facility] Serum or plasma calcium nubia urement (mass/volume)Ordered By: Susu Garcia on 02-21-2023 Calcium [Mass/Vol] 9.3 mg/dL 8.5-10.1 [facility] Serum or plasma creatinine m easurement (mass/volume)Ordered By: Susu Garcia on 02-21-2023 Creatinine [Mass/Vol] 0.69 mg/dL 0.55-1.02 [facility] Comment on above: The validity of the calculated GFR & GFRAA in patients over 70 years has not been determined. Clinical correlation is essential. Serum or plasma ferritin judie surement (mass/volume)Ordered By: Susu Garcia on 02-21-2023 Ferritin [Mass/Vol] 6 ng/mL 8-252 [facility] Serum or plasma urea nitroge n measurement (mass/volume)Ordered By: Susu Garcia on 02-21-2023 Urea nitrogen [Mass/Vol] 8 mg/dL 7-18 [facility] Thin prep Papanicolaou smear with manual screeningOrdered By: Susu Garcia on 02-21-2023 Thin prep Papanicolaou smear with manual screening 12 U/L 15-37 [facility] Thin prep Papanicolaou smear with manual screening 7 5-15 [facility] CNOVon 05-30-2022 CNOV Office Visit (SAGRARIO ) ----- PANCHO SAVAGE ([id number]) 1 F Date Time Provider Department 05/30/22 [...] (FLONASE) 50 mcg/actuation nasal spray Use 1 [place] in each nostril once daily as needed. [...] Known Allergi (more content not included)... Normal [facility] CNOVon 04-17-2022 CNOV Office Visit (ORMICHAEL ) ----- PANCHO SAVAGE ([id number]) 1 F Date Time Provider Department 04/17/22 [...] (FLONASE) 50 mcg/actuation nasal spray Use 1 [place] in each nostril once daily as needed. [...] (FLONASE) 50 mcg/actuation nasal spray Use 1 [place] in each nostril once daily as needed. - fexofenadine (NORMA) 180 mg tablet Take 180 mg by mouth once daily. Problem List As Of Date 04/17/2022 Noted Resolved GERD (gastroesophageal reflux disease) [K21.9] 03/27/2022 Right ankle pain [M25.571] 04/02/2022 04/02/2022 Encounter Status:Closed by NORA KEY on 04/23/22 [facility] Joaquim 04-08-2022 LULAN Telephone (MYRIAM) ----- PANCHO SAVAGE ([id number]) 1 F Date Time Provider Department 04/08/22 NORA KEY During your visit today, we [...] Fully Assessed Reason for Visit: Patient Question [1237] Prescriptions as of 04/08/2022 - omeprazole (PRILOSEC) 20 mg capsule - Cetirizine 10 mg cap Take 10 mg by mouth. - fluticasone (FLONASE) 50 mcg/actuation nasal spray Use 1 [place] in each nostril once daily as needed. - fexofenadine (NORMA) 180 mg tablet Take 180 mg by mouth once daily. Problem List As Of Date 04/08/2022 Noted Resolved GERD (gastroesophageal reflux disease) [K21.9] 03/27/2022 Right ankle pain [M25.571] 04/02/2022 04/02/2022 Encounter Status:Closed by JIGNA ANDREWS on 04/08/22 [facility] RIGHT LATERALon 04-02-2022 [facility] HISTORY PHYSICALon HISTORY PHYSICAL HNO ID: [id number] Author: Khalida Abbott APRN.LULA Service: ? Author Type: Nurse Practitioner Type: [...] RELIEF) 50 mcg/actuation nasal spray Use 1 [place] in each nostril once daily as needed. fexofenadine (NORMA ALLERGY) 180 mg tablet Take 180 mg by mouth once daily. No current facility-administered medications for this visit. COVID VACCINATION STATUS: Not vaccinated REVIEW OF SYSTEMS: Pain Assessment: General: No weight loss, malaise or fevers. Neuro: No history of TIA's, stroke, DENTAL AIDE tumor, impaired sensorium, hemiplegia, paraplegia or quadraplegia. No neurological symptoms or problems. Respiratory: No history of current cough or dyspnea, or pneumonia in the past 6 weeks. No history of respiratory/pulmonary symptoms or problems. Cardiovascular: No history of HTN requiring medication, no history of angina, CHF, NH, cardiac surgery or stents. Denies rest pain, gangrene or revascularization/amputat ion for PVD. No history of cardiovascular symptoms or problems. 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 Patient checked HR via [employer] watch 72 bpm NEUROLOGIC: no obvious deficit Diagnostic tests reviewed for today's visit: No new labs or tests Impression/Recommendation s ASSESSMENT: GERD (gastroesophageal reflux disease) Assessment: Controlled [...] greater jan (more content not included)... Normal [facility] CNOVon 03-06-2022 CNOV Office Visit (ORMDNA ) ----- PANCHO SAVAGE ([id number]) 1 F Date Time Provider Department 03/06/22 1:00 PM NORA KEY During your visit today, we recorded the following information about you: Weight Height 62.1 kg 1.708 m Nora Key, 03/11/2022 2:19 PM Signed Reason for Visit/Chief Complaint Pancho Savage is a 16 year old female who presents today for a new evaluation of following complaint: Patient presents with: Right Ankle - New, Pain History of Present Illness: PAIN EVALUATION 03/06/2022 1311 Pain Level: 5 Pain Location: Ankle-Right Description: Shooting;Aching;Sharp Frequency: Continuous Intervention/Comfort measure: Cold;Medication;Repositio n;Relaxation motrin HPI: Pancho Savage is a 16 year old female presenting today with Right ankle pain. Pain history is noted as above. Patient recalls having surgery on her right ankle two years ago at [facility], presents today with pain in [...] RELIEF) 50 mcg/actuation nasal spray Use 1 [place] in each nostril once daily as needed. [...] prior surgical change. Clinical correlation is recommended. Nutrient Management Specialist: BEKAH Transcribe Date/Time: Mar 06 2022 2:27P [...] to treatm (more content not included)... Normal [facility] XR ANKLE 3V AP/LAT/OBL RTon 03-06-2022 XR ANKLE 3V AP/LAT/OBL RT * * *Final Report* * * DATE OF EXAM: Mar 06 2022 1:49PM MOHINI [id number] - XR ANKLE 3V AP/LAT/OBL RT / PROCEDURE REASON: [id number] * * * * Physician Interpretation * [...] prior surgical change. Clinical correlation is recommended. Nutrient Management Specialist: BEKAH Transcribe Date/Time: Mar 06 2022 2:27P Dictated by : PAULO RAUSCH MD This examination was interpreted and the report reviewed and electronically signed by: PAULO RAUSCH MD on Mar 06 2022 2:32PM EST [id number] [facility] XR ANKLE GENERAL 3V AP/LAT/O BL RIGHTon 03-06-2022 [facility] Immunoglobulin Aon 0 Immunoglobulin A 74 mg/dL Normal 47-249 [facility] Comment on above: Order Comment: With differential. Is this specimen being sent to an external lab?->No Performed By: #### I GA #### [address] [address] [place] [facility] Sendouton 11-03-2019 [facility] Sendout SEE COMMENTS [facility] Comment on above: Order Comment: GOKEY TTGA 0.5 ml serum, refrig. Result Comment: Test Result Flag Unit RefValue Tissue Transglutaminase Ab, <1.2 U/mL IgA, S -- REFERENCE VALUE -- <4.0 (Negative) Test Performed by: [facility] [address] [place] [address] Breaker Table Worker: Werner Stoddard M.D. Ph.D.; CLIA# [id number] [place] [address] Performed By: #### M OMSO #### [address] [id number] TSH with reflex T4FRon 11-01 TSH with reflex T4FR 1.462 uIU/mL Normal 0.350-5.500 [facility] Comment on above: Order Comment: With differential. Is this specimen being sent to an external lab?->No Performed By: #### T SHR #### [address] [address] Complete Blood Counton 10-31 Differential Complete Automated Normal [facility] Comment on above: Order Comment: With differential. Is this specimen being sent to an external lab?->No Performed By: #### C BC #### [address] [id number] Basophils/100 WBC (Bld) 0.40 % Normal 0.00-1.00 [facility] Comment on above: Order Comment: With differential. Is this specimen being sent to an external lab?->No Performed By: #### C BC #### [address] [address] Eosinophils/100 WBC (Bld) 1.10 % Normal 0.00-3.00 [facility] Comment on above: Order Comment: With differential. Is this specimen being sent to an external lab?->No Performed By: #### C BC #### [address] [address] Erythrocyte distribution width (RBC) [Ratio] 12.1 % Normal 0.0-14.4 [facility] Comment on above: Order Comment: With differential. Is this specimen being sent to an external lab?->No Performed By: #### C BC #### [address] [address] Hematocrit (Bld) [Volume fraction] 43.0 % Normal 37.0-46.0 [facility] Comment on above: Order Comment: With differential. Is this specimen being sent to an external lab?->No Performed By: #### C BC #### [address] [address] Hemoglobin (Bld) [Mass/Vol] 14.4 g/dL Normal 12.0-15.0 [facility] Comment on above: Order Comment: With differential. Is this specimen being sent to an external lab?->No Performed By: #### C BC #### [address] [address] Immature granulocytes/100 WBC (Bld) 0.10 % [facility] Comment on above: Order Comment: With differential. Is this specimen being sent to an external lab?->No Result Comment: Raquel ture Granulocyte Percent includes promyelocytes, myelocytes, and metamyelocytes. IG% > 1.0 indicates a left shift is present. With automated differentials, bands are included in the neutrophil count and not in the Immature Granulocyte Percent. Performed By: #### C BC #### [address] [address] Lymphocytes/100 WBC (Bld) 35.8 % Normal 25.0-45.0 [facility] Comment on above: Order Comment: With differential. Is this specimen being sent to an external lab?->No Performed By: #### C BC #### [address] [address] MCH (RBC) [Entitic mass] 28.6 pg Normal 25.0-35.0 [facility] Comment on above: Order Comment: With differential. Is this specimen being sent to an external lab?->No Performed By: #### C BC #### [address] [address] MCHC (RBC) [Mass/Vol] 33.5 % Normal 31.0-37.0 [facility] Comment on above: Order Comment: With differential. Is this specimen being sent to an external lab?->No Performed By: #### C BC #### [address] [address] MCV (RBC) [Entitic vol] 85.3 fL Normal 78.0-96.0 [facility] Comment on above: Order Comment: With differential. Is this specimen being sent to an external lab?->No Performed By: #### C BC #### [address] [address] Monocytes/100 WBC (Bld) 7.20 % High 3.00-6.00 A [facility] Comment on above: Order Comment: With differential. Is this specimen being sent to an external lab?->No Performed By: #### C BC #### [address] [address] Neutrophils (Bld) [#/Vol] 4.1 10*3/uL Normal 1.8-7.5 [facility] Comment on above: Order Comment: With differential. Is this specimen being sent to an external lab?->No Performed By: #### C BC #### [address] [address] Neutrophils/100 WBC (Bld) 55.4 % Normal 34.0-64.0 [facility] Comment on above: Order Comment: With differential. Is this specimen being sent to an external lab?->No Performed By: #### C BC #### [address] [address] Nucleated RBC/100 WBC (Bld) [Ratio] 0.0 % Normal -1.0-0.0 [facility] Comment on above: Order Comment: With differential. Is this specimen being sent to an external lab?->No Performed By: #### C BC #### [address] [address] Platelet mean volume (Bld) [Entitic vol] 10.8 fL [facility] Comment on above: Order Comment: With differential. Is this specimen being sent to an external lab?->No Result Comment: MPV is platelet range and age dependent Performed By: #### C BC #### [address] [address] Platelets (Bld) [#/Vol] 220 10*3/uL Normal 150-450 [facility] Comment on above: Order Comment: With differential. Is this specimen being sent to an external lab?->No Performed By: #### C BC #### [address] [address] RBC (Bld) [#/Vol] 5.04 10E12/L High 4.10-4.80 [facility] Comment on above: Order Comment: With differential. Is this specimen being sent to an external lab?->No Performed By: #### C BC #### [address] [address] WBC (Bld) [#/Vol] 7.4 10*3/uL Normal 4.5-13.0 [facility] Comment on above: Order Comment: With differential. Is this specimen being sent to an external lab?->No Performed By: #### C BC #### [address] [address] Lipid Panelon 11-01-2019 Cholesterol [Mass/Vol] 160 mg/dL Normal 0-169 [facility] Comment on above: Order Comment: With differential. Is this specimen being sent to an external lab?->No Result Comment: Acceptable <170 mg/dL Borderline 170-199 mg/dL Abnormal >199 mg/dL NOTE: Reference Range change effective 05/26/18 Performed By: #### L IPID #### [address] [id number] Cholesterol in HDL [Mass/Vol] 58 mg/dL [facility] Comment on above: Order Comment: With differential. Is this specimen being sent to an external lab?->No Result Comment: Acceptable >45 mg/dL Borderline 40-45 mg/dL Abnormal <40 mg/dL NOTE: Reference Range change effective 05/26/18 Performed By: #### L IPID #### [address] [address] Cholesterol in LDL [Mass/Vol] 89 mg/dL Normal 0-109 [facility] Comment on above: Order Comment: With differential. Is this specimen being sent to an external lab?->No Result Comment: Acceptable <110 mg/dL Borderline 110-129 mg/dL Abnormal >129 mg/dl NOTE: Reference Range change effective 05/26/18 Performed By: #### L IPID #### [address] [id number] Non-HDL Cholesterol 102 mg/dl Normal 0-119 [facility] Comment on above: Order Comment: With differential. Is this specimen being sent to an external lab?->No Result Comment: Acceptable <120 mg/dL Borderline 120-144 mg/dL Abnormal >144 mg/dl Performed By: #### L IPID #### [address] [address] Triglyceride [Mass/Vol] 66 mg/dL Normal 0-89 A [facility] Comment on above: Order Comment: With differential. Is this specimen being sent to an external lab?->No Result Comment: Acceptable <90 mg/dl Borderline 90-129 mg/dl Abnormal >129 mg/dl NOTE: Reference Range change effective 05/26/18 Result invalid if not a fasting specimen. Performed By: #### L IPID #### [address] [address] Progress Noteon 11-01-2019 [employer] Authentication Interface Message Text Patient ID: Pancho [...] daily for 90 days Other orders - [place] [facility]isc[facility] Sendout: Return in about 1 year [...] safest way to prevent and STDs, puberty/sexual development/contraception s/STDs, talk with trusted adult if feeling sad or nervous, learn about self and strengths, recognize and deal with stress and limit sun exposure/use sunscreen. Screenings Life events information was reviewed-no referral needed Hearing Vision Concerns: The caregiver has no concerns about the patient's hearing. The caregiver has no concerns about the patient's vision. Patient is being seen by nursing unit clerk or steel cutter. Primary Care Review of Systems Objective Vital [...] divorce. Electronically signed by: Sera Banks MD [facility] Progress Noteon 08-09-2019 [employer] Interface Message Text Patient ID: Pancho [...] Line *Present Clear Background *Present Lot Number [id number] [facility] Strep Cultureon 08-09-2019 Strep Culture Is this specimen eddi ng sent to an external lab?->No Strep Culture: No Beta hemolytic Streptococci isolated. Source: THRSW Collected: 08/09/19 15:19 Site: Throat swab Received : 08/09/19 19:43 Strep Culture FINAL 08/11/19 11:08 No Beta hemolytic Streptococci isolated. [facility] Comment on above: Performed By: #### S SHAYNA #### [facility] [address] [place] [address] Vital Signs Date Time Vital Sign Value Performing Clinician Darwin benjamin 12-16-2022 08:30-0400 Body height 170.[address] Susu Garcia Work Phone: [facility] 12-16-2022 08:22-0400 Body mass index (BMI) [Percentile] Per age and sex 70.1 % Dr. Susu Garcia Work Phone: [facility] 12-16-2022 08:22-0400 Body mass index (BMI) [Ratio] 23.5 kg/m2 Dr. Susu Garcia Work Phone: [facility] 12-16-2022 08:22-0400 Body weight 68.[address] Susu Garcia Work Phone: [facility] 12-16-2022 08:22-0400 Diastolic blood pressure 77 mm[Hg] Dr. Susu Garcia Work Phone: [facility] 12-16-2022 08:22-0400 Systolic blood pressure 112 mm[Hg] Dr. Susu Garcia Work Phone: [facility] 04-02-2022 13:00-0400 Diastolic blood pressure 59 mm[Hg] Nora Key DO Work Phone: [facility] 04-02-2022 13:00-0400 Heart rate 81 /min Nora Key DO Work Phone: [facility] 04-02-2022 13:00-0400 Respiratory rate 17 /min Nora Key DO Work Phone: [facility] 04-02-2022 13:00-0400 SaO2% (BldA) [Mass fraction] 100 % Nora Key DO Work Phone: [facility] 04-02-2022 13:00-0400 Systolic blood pressure 109 mm[Hg] Nora Yesi DO Work Phone: [facility] 04-02-2022 12:40-0400 Body temperature 97 [degF] Nora Yesi DO Work Phone: [facility] 03-27-2022 08:37-0400 Body height 170.2 cm Pac 2 Work Phone: [facility] 03-27-2022 08:37-0400 Body mass index (BMI) [Percentile] Per age and sex 36.55 % Pac 2 Work Phone: [facility] 03-27-2022 08:37-0400 Body weight 58.97 kg Pac 2 Work Phone: [facility] 03-27-2022 08:37-0400 Heart rate 72 /min Pac 2 Work Phone: [facility] 03-06-2022 13:07-0400 Body height 170.8 cm Nora Zunigaada DO Work Phone: [facility] 03-06-2022 13:07-0400 Body mass index (BMI) [Percentile] Per age and sex 49.47 % Nora Yesi DO Work Phone: [facility] 03-06-2022 13:07-0400 Body weight 62.14 kg Nora Key DO Work Phone: [facility] Encounters Encounter Date Encounter Type Care Provider Facility Start: 01-21-2025 End: 01-21-2025 Patient encounter procedure Fely Hickman CNM -Laboratory Work Phone: Start: 01-21-2025 End: 01-21-2025 ambulatory Susu Garcia Facility:[facility] Start: 01-18-2025 Encounter for genera l adult medical examination without abnormal findings Fely Hickman [facility] Start: 01-12-2025 End: 01-12-[address] Susu Garcia DO Work Phone: -Laboratory Start: 01-12-2025 End: 01-12-2025 Patient encounter procedure Fely Hickman CNM -Laboratory Specimen Work Phone: Start: 01-11-2025 End: 01-11-[address] Veronique Rg MD -[facility] Work Phone: Start: 01-11-2025 End: 01-12-[address] Susu Garcia DO Work Phone: -[facility] Start: 01-10-2025 End: 01-10-[address] Susu Garcia DO Work Phone: -Laboratory Start: 01-10-2025 End: 01-10-2025 Patient encounter procedure Fely Hickman CNM -Laboratory Work Phone: Start: 01-10-2025 End: 01-10-2025 ambulatory Fely Hickman Facility:[facility] Start: 12-08-2024 End: 12-08-[address] Susu Garcia DO Work Phone: [facility] Work Phone: Start: 12-08-2024 End: 12-08-[address] Susu Garcia DO -Laboratory Work Phone: Start: 12-08-2024 End: 12-08-2024 ambulatory Susu Garcia Facility:[facility] Start: 09-10-2024 End: 09-10-[address] Susu Garcia DO Work Phone: [facility] Work Phone: Start: 09-10-2024 End: 09-10-[address] Susu Garcia DO -Laboratory Work Phone: Start: 09-10-2024 End: 09-10-2024 ambulatory Susu Garcia Facility:[facility] Start: 07-27-2024 End: 07-27-2024 Patient encounter procedure Fely Hickman CNM -Laboratory Work Phone: Start: 07-27-2024 End: 07-27-2024 ambulatory Fely Hickman Facility:[facility] Start: 05-14-2024 End: 05-14-2024 ambulatory Susu Garcia Facility:[facility] Start: 02-21-2023 End: 02-21-[address] Susu Garcia Work Phone: [facility] Work Phone: Start: 02-21-2023 End: 02-21-[address] Susu Garcia Work Phone: [facility] Work Phone: Start: 12-16-2022 End: 12-16-[address] Susu Garcia Work Phone: [facility] Work Phone: Start: 05-30-2022 End: 05-30-2022 ambulatory NORA KEY Facility:[facility] Start: 04-17-2022 End: 04-17-2022 ambulatory NORA KEY Facility:[facility] Start: 04-17-2022 End: 04-17-2022 Patient encounter procedure Nora Key DO Work Phone: Orthopaedics Comment on above: Suture granuloma, in itial encounter (Primary Dx); S/P foot surgery Start: 04-08-2022 Telephone encounter Nora Key DO Work Phone: Orthopaedics Comment on above: Patient Question Start: 04-02-2022 End: 04-02-2022 Subsequent hospital visit by physician Nora Key DO Work Phone: [facility] Comment on above: Suture granuloma, 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], Right ankle pain, unspecified chronicity [M25.571] Start: 03-27-2022 End: 03-27-2022 ambulatory NORA KEY Facility:[facility] Start: 03-27-2022 Encounter for other preprocedural examination NORA KEY [facility] Start: 03-27-2022 End: 03-27-2022 Admission to establishment Pacc [facility] 2 Work Phone: [facility] Start: 03-27-2022 End: 03-27-2022 ambulatory Pac 2 Work Phone: Pre Anesthesia Comment on above: Pre-op evaluation (P rimary Dx); Gastroesophageal reflux disease, unspecified whether esophagitis present Start: 03-27-2022 End: 03-27-2022 Preprocedural examination done Pac 2 Work Phone: Pre Anesthesia Start: 03-13-2022 Orders Only BisiAdelaide marie DO Work Phone: Orthopaedics Comment on above: Suture granuloma, in itial encounter (Primary Dx); Right ankle pain, acute Start: 03-06-2022 End: 03-06-2022 ambulatory UNKNOWN PROVIDER Facility:[facility] Start: 03-06-2022 End: 03-06-2022 Patient encounter procedure BisiAdelaide Key DO Work Phone: Orthopaedics Comment on above: Suture granuloma, in itial encounter (Primary Dx) Start: 03-06-2022 End: 03-06-2022 Subsequent hospital visit by physician [facility] Work Phone: Radiology Comment on above: Pain [R52] Procedures Date Procedure Procedure Detail Performing Clinician Start: 01-21-[address] Susu Garcia DO Work Phone: Comment on above: No lupus anticoagula nt was detected. Start: 01-21-2025 Lupus anticoagulant assay, platelet neutralization method Dr. Susu Garcia DO Work Phone: Start: 01-21-2025 Lupus antico[address] screening test Dr. Susu Garcia DO Work Phone: Start: 01-21-[address] Renea Garcia DO Work Phone: Start: 01-21-2025 Serum IgM anticardio lipin measurement Dr. Susu Garcia DO Work Phone: Comment on above: Negative: <13 Indete rminate: 13 - 20 Low-Med Positive: >20 - 80 High Positive: >80Performed at: [address] [id number] Director: Caleb Armenta MD, Phone: [phone] at: [address] [id number] Director: Huan Orlando PhD, Phone: [phone] Start: 12-08-2024 Total iron binding c apacity [...] Author Start: 02-21-2022 Influenza vaccination INFLUENZA (#1) [facility] Start: 12-03-2021 CHLAMYDIA SCREENING (18-24) CHLAMYDIA SCREENING (18-24) [facility] Start: 12-03-2021 GC (GONORRHEA) SCREE ALINA (18-24) GC (GONORRHEA) SCREENING (18-24) [facility] Start: 12-03-2021 HEPATITIS C SCREENING HEPATITIS C SC REEALINA [facility] Start: 12-03-2021 HIV SCREENING HIV SCREENING [facility] Start: 06-23-2021 DEPRESSION ASSESSMENT DEPRESSION ASS ESSMENT [facility] Start: 2019 MENINGOCOCCAL CONJUG ATE (1 - 2-dose series) MENINGOCOCCAL CONJUGATE (1 - 2-dose series) [facility] Start: 12-03-2017 PEDS TO ADULT TRANSI TION ANNUAL ASSESSMENT PEDS TO ADULT TRANSITION ANNUAL ASSESSMENT [facility] Start: 2015 Adult depression screening assessment DEPRESSION SCREENING [facility] Start: 2015 PEDS TO ADULT TRANSI TION INITIAL DISCUSSION PEDS TO ADULT TRANSITION INITIAL DISCUSSION [facility] Start: 12-03-2014 HPV VACCINE (1 - 2-d ose series) HPV VACCINE (1 - 2-dose series) [facility] Start: 12-03-2013 MENINGOCOCCAL B: Consider based on risk (1 of 2 - Risk Bexsero 2-dose series) MENINGOCOCCAL B: Consider based on risk (1 of 2 - Risk Bexsero 2-dose series) [facility] Start: 12-03-2010 Urine microalbumin profile DTAP,TDAP,TD (5 - Tdap) [facility] Start: 06-04-2004 COVID-19 VACCINE (#1) COVID-19 VACCI NE (#1) [facility] SURGICAL PATHOLOGY [facility] Work Phone: Comment on above: Release Upon Lexin g for 1 Occurrences starting 04/02/2022 [facility] Immunizations Immunization Date Immunization Notes Care Provider Anastacia allen 04-29-2006 influenza virus vaccine, unspecified formulation [employer] Work Phone: [facility] Work Phone: 06-28-2005 diphtheria, tetanus toxoids and pertussis vaccine [employer] Work Phone: [facility] Work Phone: 06-28-2005 influenza virus vaccine, unspecified formulation [employer] Work Phone: [facility] Work Phone: 06-28-2005 poliovirus vaccine, inactivated [employer] Work Phone: [facility] Work Phone: 03-05-2005 haemophilus influenz ae type b vaccine, HbOC conjugate [employer] Work Phone: [facility] Work Phone: 03-05-2005 pneumococcal conjuga te vaccine, 7 valent [employer] Work Phone: [facility] Work Phone: 01-06-2005 diphtheria, tetanus toxoids and pertussis vaccine [employer] Work Phone: [facility] Work Phone: 12-05-2004 measles, mumps and rubella virus vaccine [employer] Work Phone: [facility] Work Phone: 12-05-2004 varicella virus vaccine [employer] Work Phone: [facility] Work Phone: 09-04-2004 hepatitis B vaccine, pediatric or pediatric/adolescent dosage [employer] Work Phone: [facility] Work Phone: 07-09-2004 haemophilus influenz ae type b vaccine, HbOC conjugate [employer] Work Phone: [facility] Work Phone: 07-09-2004 pneumococcal conjuga te vaccine, 7 valent [employer] Work Phone: [facility] Work Phone: 05-02-2004 diphtheria, tetanus toxoids and pertussis vaccine [employer] Work Phone: [facility] Work Phone: 05-02-2004 haemophilus influenz ae type b vaccine, HbOC conjugate [employer] Work Phone: [facility] Work Phone: 05-02-2004 pneumococcal conjuga te vaccine, 7 valent [employer] Work Phone: [facility] Work Phone: 05-02-2004 poliovirus vaccine, inactivated [employer] Work Phone: [facility] Work Phone: 02-14-2004 diphtheria, tetanus toxoids and pertussis vaccine [employer] Work Phone: [facility] Work Phone: 02-14-2004 poliovirus vaccine, inactivated [employer] Work Phone: [facility] Work Phone: 02-03-2004 haemophilus influenz ae type b vaccine, HbOC conjugate [employer] Work Phone: [facility] Work Phone: 02-03-2004 pneumococcal conjuga te vaccine, 7 valent [employer] Work Phone: [facility] Work Phone: 01-04-2004 hepatitis B vaccine, pediatric or pediatric/adolescent dosage [employer] Work Phone: [facility] Work Phone: 2003 hepatitis B vaccine, pediatric or pediatric/adolescent dosage [employer] Work Phone: [facility] Work Phone: Payers Date Payer Category Payer Self-pay [id number] 2024 Unknown [id number] 2021 Unknown [id number] 2020 Unknown [id number] 2015 Unknown [id number] 2015 Unknown [id number] Unknown [id number] Unknown [id number] 2.16.8 [id number] Unknown [id number] 2.16.8 [id number] Unknown [id number] 2.16.8 [id number] Unknown [id number] 2.16.8 [id number] Unknown [id number] 2.16.8 [id number] Unknown [id number] 2.16.8 [id number] Unknown [id number] 2.16.8 [id number] Unknown [id number] 2.16.8 [id number] Unknown [id number] 2.16.8 [id number] Social History Date Type Detail Facility Start: 12-16-2022 Tobacco smoking status TXIS Tobacco smoking consumption unknown [facility] Start: 2003 Sex Assigned At Not on file [facility] Start: 02-24-2022 End: 04-02-2022 Exposure to SARS-CoV-2 (event) Not sure [facility] Start: 03-03-2022 End: 03-13-2022 Exposure to SARS-CoV-2 (event) Unable to assess [facility] Start: 03-27-2022 End: 01-11-2025 Tobacco smoking status TXIS Never smoked tobacco [facility] Work Phone: Start: 03-27-2022 Tobacco use and exposure Smokeless tobacco non-user [facility] Work Phone: Start: 03-27-2022 End: 04-17-2022 Alcohol intake Lifetime non-drinker (finding) [facility] Start: 05-07-2020 With Family [facility] Start: 05-07-2020 Non-smoker [facility] Start: 2003 Sex Assigned At Female [facility] Start: 09-16-2024 Sex Female (finding) [facility] Medical Equipment Procedure Code Equipment Code Equipment Origin al Text Equipment Identifier Dates Arthroscopy, ankle Disposables K it, FiberTak DX S FDA Start: 05-26-2019 Arthroscopy, ankle FiberTak DX S uture [place] FDA Start: 05-26-2019 Arthroscopy, ankle FiberTak DX S uture [place] FDA Start: 05-26-2019 Arthroscopy, ankle FiberTak DX S uture [place] FDA Start: 05-26-2019 Arthroscopy, ankle FiberTak DX S uture [place] FDA Start: 05-26-2019 Arthroscopy, ankle FiberTak DX S uture [place] FDA Start: 05-26-2019 Arthroscopy, ankle InternalBrace Implant System FDA Start: 05-26-2019 Arthroscopy, ankle Disposables K it, FiberTak DX S FDA Start: 05-26-2019 Arthroscopy, ankle FiberTak DX S uture [place] FDA Start: 05-26-2019 Arthroscopy, ankle FiberTak DX S uture [place] FDA Start: 05-26-2019 Arthroscopy, ankle FiberTak DX S uture [place] FDA Start: 05-26-2019 Arthroscopy, ankle FiberTak DX S uture [place] FDA Start: 05-26-2019 Arthroscopy, ankle FiberTak DX S uture [place] FDA Start: 05-26-2019 Arthroscopy, ankle InternalBrace Implant System FDA Start: 05-26-2019 Arthroscopy, ankle Disposables K it, FiberTak DX S FDA Start: 05-26-2019 Arthroscopy, ankle FiberTak DX S uture [place] FDA Start: 05-26-2019 Arthroscopy, ankle FiberTak DX S uture [place] FDA Start: 05-26-2019 Arthroscopy, ankle FiberTak DX S uture [place] FDA Start: 05-26-2019 Arthroscopy, ankle FiberTak DX S uture [place] FDA Start: 05-26-2019 Arthroscopy, ankle FiberTak DX S uture [place] FDA Start: 05-26-2019 Arthroscopy, ankle InternalBrace Implant System FDA Start: 05-26-2019 Arthroscopy, ankle Disposables K it, FiberTak DX S FDA Start: 05-26-2019 Arthroscopy, ankle FiberTak DX S uture [place] FDA Start: 05-26-2019 Arthroscopy, ankle FiberTak DX S uture [place] FDA Start: 05-26-2019 Arthroscopy, ankle FiberTak DX S uture [place] FDA Start: 05-26-2019 Arthroscopy, ankle FiberTak DX S uture [place] FDA Start: 05-26-2019 Arthroscopy, ankle FiberTak DX S uture [place] FDA Start: 05-26-2019 Arthroscopy, ankle InternalBrace Implant System FDA Start: 05-26-2019 Arthroscopy, ankle Disposables K it, FiberTak DX S FDA Start: 05-26-2019 Arthroscopy, ankle FiberTak DX S uture [place] FDA Start: 05-26-2019 Arthroscopy, ankle FiberTak DX S uture [place] FDA Start: 05-26-2019 Arthroscopy, ankle FiberTak DX S uture [place] FDA Start: 05-26-2019 Arthroscopy, ankle FiberTak DX S uture [place] FDA Start: 05-26-2019 Arthroscopy, ankle FiberTak DX S uture [place] FDA Start: 05-26-2019 Arthroscopy, ankle InternalBrace Implant System FDA Start: 05-26-2019 Arthroscopy, ankle Disposables K it, FiberTak DX S FDA Start: 05-26-2019 Arthroscopy, ankle FiberTak DX S uture [place] FDA Start: 05-26-2019 Arthroscopy, ankle FiberTak DX S uture [place] FDA Start: 05-26-2019 Arthroscopy, ankle FiberTak DX S uture [place] FDA Start: 05-26-2019 Arthroscopy, ankle FiberTak DX S uture [place] FDA Start: 05-26-2019 Arthroscopy, ankle FiberTak DX S uture [place] FDA Start: 05-26-2019 Arthroscopy, ankle InternalBrace Implant System FDA Start: 05-26-2019 Arthroscopy, ankle Disposables K it, FiberTak DX S FDA Start: 05-26-2019 Arthroscopy, ankle FiberTak DX S uture [place] FDA Start: 05-26-2019 Arthroscopy, ankle FiberTak DX S uture [place] FDA Start: 05-26-2019 Arthroscopy, ankle FiberTak DX S uture [place] FDA Start: 05-26-2019 Arthroscopy, ankle FiberTak DX S uture [place] FDA Start: 05-26-2019 Arthroscopy, ankle FiberTak DX S uture [place] FDA Start: 05-26-2019 Arthroscopy, ankle InternalBrace Implant System FDA Start: 05-26-2019 Arthroscopy, ankle Disposables K it, FiberTak DX S FDA Start: 05-26-2019 Arthroscopy, ankle FiberTak DX S uture [place] FDA Start: 05-26-2019 Arthroscopy, ankle FiberTak DX S uture [place] FDA Start: 05-26-2019 Arthroscopy, ankle FiberTak DX S uture [place] FDA Start: 05-26-2019 Arthroscopy, ankle FiberTak DX S uture [place] FDA Start: 05-26-2019 Arthroscopy, ankle FiberTak DX S uture [place] FDA Start: 05-26-2019 Arthroscopy, ankle InternalBrace Implant System FDA Start: 05-26-2019 Clinical Notes 03-06-2022 to 01-11-2025 Note Date & Type Note Facility 01-11-2025 Chief complaint+R mitch for visit Narrative PNOB Vitals, Education January 11, 2025 7 :51am E ORDER January 12, 2025 6:24 pm [facility] Work Phone: 1(429) 140-802007-22-2025 Chief complaint+Reason for visit Narrative * Chief Complaint Admit Date PNOB Vitals, Education January 11, 2025 7 :51am E ORDER January 12, 2025 6:24 pm E ORDERS January 21, 2025 9:0 5am [facility] Work Phone: [phone]) 647-646112-08-2022 NoteHNO ID: [id number] Author: Nora Key, DO Service: ? Author [...] (FLONASE) 50 mcg/actuation nasal spray Use 1 [place] in each nostril once daily as needed. [...] free to contact the dictating provider for clarification.[facility]10-26-2022 NoteHNO ID: [id number] Author: Nora Key, DO Service: ? Author [...] (FLONASE) 50 mcg/actuation nasal spray Use 1 [place] in each nostril once daily as needed. [...] and in agreement of plan. All questions answered.[facility]10-26-2022 History of Present illness Narrative* Nora Key, [...] (FLONASE) 50 mcg/actuation nasal spray Use 1 [place] in each nostril once daily as needed. [...] plan. All questions answered. documented in this encounter[facility]10-17-2022 Miscellaneous Notes* Telephone Encounter - Jigna Andrews [...] is 04/17/22 Please advise documented in this encounterTrihealth10-11-2022 History of Past illness Narrative* Problem Noted Date Resolved Date Right ankle pain 04/02/2022 04/02/2022 documented as of this encounter (statuses as of 04/03/2022) [facility]10-11-2022 History of Past illness Narrative* Problem Noted Date Resolved Date Right ankle pain 04/02/2022 04/02/2022 documented as of this encounter (statuses as of 04/08/2022) [facility]10-11-2022 History of Past illness Narrative* Problem Noted Date Resolved Date Right ankle pain 04/02/2022 04/02/2022 documented as of this encounter (statuses as of 04/23/2022) [facility]10-11-2022 Surgical operation note* Operative Report - Nora Key DO - 04/02/2022 10:47 AM EDT OPERATIVE/PROCEDURE REPORT LOG ID: [id number] SURGERY/PROCEDURE DATE: 04/02/2022 INCISION/PROCEDURE START TIME: 11:18 AM INCISION CLOSE/PROCEDURE END TIME: 12:36 PM SURGEON(S)/PROCEDURALIST(S) AND DIRECTOR OF COMPENSATION(S): Surgeon(s) and Role: * Nora Key DO - Primary Physician State Editor: Bijal Mott PA-C SURGERY/PROCEDURE(S): Right ankle arthroscopy, [...] increased pain numbness tingle further issues arise Dragon disclaimer comment: Please note this report has [...] 2022 TIME: 1:11 PM documented in this encounterTrihealth10-11-2022 History and physical note * Nora Key [...] 10:11 AM Source Note - Khalida Abbott APRN.DIRECTOR OF PROMOTIONS - 03/27/2022 8:30 AM EDT PREANESTHESIA CONSULT [...] RELIEF) 50 mcg/actuation nasal spray Use 1 [place] in each nostril once daily as needed. fexofenadine (NORMA ALLERGY) 180 mg tablet Take 180 mg by mouth once daily. No current facility-administered medications for this visit. COVID VACCINATION STATUS: Not vaccinated REVIEW OF SYSTEMS: Pain Assessment: General: No weight loss, malaise or fevers. Neuro: No history of TIA's, stroke, DENTAL AIDE tumor, impaired sensorium, hemiplegia, paraplegia or quadraplegia. No neurological symptoms or problems. Respiratory: No history of current cough or dyspnea, or pneumonia in the past 6 weeks. No history of respiratory/pulmonary symptoms or problems. Cardiovascular: No history of HTN requiring medication, no history of angina, CHF, NH, cardiac surgery or stents. Denies rest pain, gangrene or revascularization/amputation for PVD. No history of cardiovascular symptoms or problems. 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 fexofenadine (NORMA ALLERGY) 180 mg tablet Take 180 mg by mouth once daily. No current facility-administered medications for this visit. COVID VACCINATION STATUS: Not vaccinated REVIEW OF SYSTEMS: Pain Assessment: General: No weight loss, malaise or fevers. Neuro: No history of TIA's, stroke, DENTAL AIDE tumor, impaired sensorium, hemiplegia, paraplegia or quadraplegia. No neurological symptoms or problems. Respiratory: No history of current cough or dyspnea, or pneumonia in the past 6 weeks. No history of respiratory/pulmonary symptoms or problems. Cardiovascular: No history of HTN requiring medication, no history of angina, CHF, NH, cardiac surgery or stents. Denies rest pain, gangrene or revascularization/amputation for PVD. No history of cardiovascular symptoms or problems. 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 Patient checked HR via [employer] watch 72 bpm NEUROLOGIC: no obvious deficit [...] 8:32 AM PAGER/CONTACT #: documented in this encounterTrihealth10-05-2022 Instructions* Patient Instructions* Khalida Abbott APRN.CNP - 03/27/2022 8:29 AM EDT PATIENT PREOPERATIVE INSTRUCTIONS Nora Key,* has scheduled you for your procedure at this surgery center: [facility]: [phone] -- [address] [facility] [address]. Please read below carefully for your personalized [...] Procedures: - YOU MUST HAVE A RESPONSIBLE BSS SOLUTION ARCHITECT TAKE YOU HOME. A PEANUT PICKER OR INSTRUCTOR MODELING CANNOT BE MADE A RESPONSIBLE BSS SOLUTION ARCHITECT. - We recommend that a responsible person [...] Advance Directive, please fax a copy to [phone] or email to for it to be [...] day. Khalida Abbott APRN.CNP documented in this encounterTrihealth09-14-2022 NoteHNO ID: [id number] Author: Nora Key, DO Service: ? Author [...] her right ankle two years ago at [facility], presents today with pain in [...] RELIEF) 50 mcg/actuation nasal spray Use 1 [place] in each nostril once daily as needed. [...] prior surgical change. Clinical correlation is recommended. Nutrient Management Specialist: BEKAH Transcribe Date/Time: Mar 06 2022 2:27P [...] of limb. Patient james (more content not included)...[facility]09-14-2022 NoteHNO ID: [id number] Author: MARLIN Velasquez Service: Radiology Author Type: [...] BY: MARLIN Velasquez March 06, 2022 1:49 PM[id number] History of Present illness Narrative* Nora Key, [...] her right ankle two years ago at [facility], presents today with pain in [...] RELIEF) 50 mcg/actuation nasal spray Use 1 [place] in each nostril once daily as needed. [...] prior surgical change. Clinical correlation is recommended. Nutrient Management Specialist: BEKAH Transcribe Date/Time: Mar 06 2022 2:27P [...] body, repair as indicated documented in this encounterTrihealth09-14-2022 History of Present illness Narrative* MARLIN Velasquez [...] 06, 2022 1:49 PM [facility]+Reason for visit Narrative* Chief Complaint Admit Date PNOB Vitals, Education January 11, 2025 7 :51am [facility] Work Phone: Evaluation note* Diagnosis Pain Generalized pain documented in this encounter [facility] note* Diagnosis Suture granuloma, initial encounter- Primary documented in this encounter [facility] note* Diagnosis Suture granuloma, initial encounter- Primary Right ankle pain, acute documented in this encounter [facility] note* Diagnosis Pre-op evaluation- Primary Preoperative examination, unspecified Gastroesophageal reflux disease, unspecified whether esophagitis present Suture granuloma, initial encounter Right ankle pain, unspecified chronicity documented in this encounter [facility] note* Diagnosis Postoperative pain- Primary Other acute postoperative pain Suture granuloma, initial encounter Right ankle pain, unspecified chronicity Right ankle pain Pain in joint, ankle and foot documented in this encounter [facility] note* Diagnosis Suture granuloma, initial encounter- Primary S/P foot surgery Other postprocedural status documented in this encounter [facility] note* Diagnosis Onset Date Resolution Status Contraception management acu te [facility] Work Phone: Evaluation noteNo assessment information available [facility] Work Phone: Reason for referral (narrative)* Diagnostic Procedure Only (Routine) - Closed Specialty Diagnoses / Procedures Referred By Rigoberto t Referred To Contact XR IMAGING Diagnoses Pain Procedures XR ANKLE GENERAL 3V AP/LAT/OBL RIGHT RADEX ANKLE COMPLETE MINIMUM 3 VIEWS Nora Key DO [address] [place] [address] Xr Imaging Referral ID Status Reason Start Date Expiration Date V isits Requested Visits Authorized [id number] Closed Auto-Generate d Referral 02/19/2022 03/21/2023 1 1 [facility] for referral (narrative)No reason for referral information [facility]: Reason for visit Narrative* Diagnostic Procedure Only (Routine) - Closed Specialty Diagnoses / Procedures Referred By Contac t Referred To Contact XR IMAGING Diagnoses Pain Procedures XR ANKLE GENERAL 3V AP/LAT/OBL RIGHT RADEX ANKLE COMPLETE MINIMUM 3 VIEWS Nora Key DO [address] [place] [address] Xr Imaging Referral ID Status Reason Start Date Expiration Date V isits Requested Visits Authorized [id number] Closed Auto-Generate d Referral 02/19/2022 03/21/2023 1 1 [facility] Summary Purpose Family History Relationship Condition Age at Onset Recorded Date/T huey Not Specified Sleep apnea Unknown Hypertension Unknown Asthma Unknown grandfather Diabetes mellitus Unknown Relationship Condition Age at Onset Recorded Date/T huey grandfather Diabetes mellitus Unknown Parkinson's disease Unknown father Asthma Unknown Sleep apnea Unknown mother Hypertension Unknown Not Specified Hypertension Unknown grandfather Hypertension Unknown Advance Directives Advance Directive Response Recorded Date/ Time Advance Directives No April 15, 2016 1:15pm Living Will No April 15 1:15pm Power of Handle Maker No April 15, 2016 1:15pm Advance Directive [...] section and content) DATE CREATED AUTHOR 11/06/2019 [facility] DATE CREATED AUTHOR AUTHOR'S ORGANIZ ATION 03/22/2022 [facility] DATE CREATED AUTHOR AUTHOR'S ORGANIZ ATION 05/31/2022 [facility] DATE CREATED AUTHOR AUTHOR'S ORGANIZ ATION 01/27/2025 [facility] Source Comments (unrecognize d section and content) In the event this informatio n is protected by the Federal Confidentiality of Alcohol and Drug Abuse Patient Records regulations: The Federal rules restrict any use of the information to criminally investigate or prosecute any alcohol or drug abuse patient.TrihealthIn the event this information is protected by the Federal Confidentiality of Alcohol and Drug Abuse Patient Records regulations: The Federal rules restrict any use of the information to criminally investigate or prosecute any alcohol or drug abuse patient.TrihealthIn the event this information is protected by the Federal Confidentiality of Alcohol and Drug Abuse Patient Records regulations: The Federal rules restrict any use of the information to criminally investigate or prosecute any alcohol or drug abuse patient.[facility]healthIn the event this information is protected by the Federal Confidentiality of Alcohol and Drug Abuse Patient Records regulations: The Federal rules restrict any use of the information to criminally investigate or prosecute any alcohol or drug abuse patient.TrihealthIn the event this information is protected by the Federal Confidentiality of Alcohol and Drug Abuse Patient Records regulations: The Federal rules restrict any use of the information to criminally investigate or prosecute any alcohol or drug abuse patient.TrihealthIn the event this information is protected by the Federal Confidentiality of Alcohol and Drug Abuse Patient Records regulations: The Federal rules restrict any use of the information to criminally investigate or prosecute any alcohol or drug abuse patient.TrihealthIn the event this information is protected by the Federal Confidentiality of Alcohol and Drug Abuse Patient Records regulations: The Federal rules restrict any use of the information to criminally investigate or prosecute any alcohol or drug abuse patient.[facility] Reason for Visit (unrecogniz ed section and content) Reason Comments New Pain Reason Comments Anesthesia Consult Specialty Diagnoses / Procedures Referred By Contac t Referred To Contact Diagnoses Suture granuloma, initial encounter Right ankle pain, unspecified chronicity Suture granuloma, initial encounter [T81.89XA] Right ankle pain, unspecified chronicity [M25.571] Procedures ARTHROSCOPY ANKLE SURGICAL DEBRIDEMENT EXTENSIVE ARTHROSCOPY ANKLE W/ DEBRIDEMENT EXTENSIVE [facility] [address] [place] [id number] Referral ID Status Reason Start Date Expiration Date Visits Re quested Visits Authorized [id number] 1 1 Reason Comments Patient Question Reason [...] Perez RN)1103 (Given - Provider: Teodoro Noyola APRN.MANUGRAPHER) promethazine 12.5 mg tab(s) (PHENERGAN) (COMPLETED) 12.5 [...] Intraprocedure 1132 (Given - Provid er: Nora Key, ) fentaNYL 50 mcg/mL 50 mcg injection (SUBLIMAZE) [...] (only) 1258 (Given - Provid er: Marjorie Luu RN) naloxone 0.4 mg injection (NARCAN) 0.4 [...] (only) 1333 (Given - Provid er: Carmen Keita, RN) prochlorperazine 10 mg injection (COMPAZINE) 10 [...] DO Primary Care Provider Active Start: January 21, 2025 End: January 21, 2025 Fely Hickman CNM Attending Provider Active S tart: January 21, 2025 End: January 21, 2025 Fely Hickman CNM Referring Provider Active S tart: January 21, 2025 End: January 21, 2025 Goals (unrecognized section and content) Goals [...] BE BASED ON THE PRIMARY CLINICAL RECORDS. [employer] provides [phone] warranty [phone] [id number] the accuracy [phone] completeness of [phone] in [phone] [id number]
== END | disposition home or self-care (01) ==
LOC: LAB 08:34
PROVIDERS: PCP Family Medicine; Referring Provider Advanced Practice Midwife; Visit Provider Advanced Practice Midwife
DX: O02.81 Inappropriate change in quantitative human chorionic gonadotropin (hCG) in early pregnancy (principal)
CPT/HCPCS: 36415; 83036; 84443

== ENCOUNTER → 2025-02-11 | Outpatient (CLI) | payer OTHER, SELFPAY ==
[2025-02-11 15:39] LABS: hCG Titer Quant., Serum 276 mIU/mL (<9 non-preg)
== END | disposition home or self-care (01) ==
LOC: LAB 13:46
PROVIDERS: PCP Family Medicine; Referring Provider Obstetrics & Gynecology; Visit Provider Obstetrics & Gynecology
DX: N91.2 Amenorrhea, unspecified (principal)
CPT/HCPCS: 36415; 84702

== ENCOUNTER → 2025-02-13 | Outpatient (CLI) | payer OTHER, SELFPAY ==
--- OUTSIDE RECORDS SUMMARY | 2025-02-13 14:06 | XMS RPT_ITS | CCD ---
Author Organization [facility] Care Team Providers Care Private Detective Name Role Phone Unavailable Primary Care Provider Unavailabl e PROVIDER, UNKNOWN Referring Unavailable Unavailable Primary Care Provider Unavailabl e NORA KEY Attending Unavailab le NORA KEY Attending Unavailab le NORA KEY Attending Unavailab le NORA KEY Referring Unavailab Dr. Susu Oconnor Primary Care Provider Dr. Susu Garcia Referring Provider [phone] ENDY Montesinos Attending Provider [phone] Dr. Susu Garcia DO Primary Care Provider Fely Hickman CNM Attending Provider [phone] Fely Hickman CNM Referring Provider Dr. Susu Garcia DO Attending Provider [phone] Dr. Susu Garcia DO Referring Provider [phone] Dr. Susu Garcia DO Primary Care Provider Dr. Susu Garcia DO Primary Care Provider Dr. Susu Garcia DO Attending Provider [phone] Dr. Susu Garcia DO Referring Provider Fely Hickman CNM Attending Provider [phone] Fely Hickman CNM Referring Provider [phone] Ifrah MAN, Dr. Piper Attending Provider Susu Garcia Primary Care Unavailable Fely Hickman Attending Unavailable Fely Hickman Referring Unavailable Jose, Susu Primary Care Unavailable Fely Hickman Attending Unavailable Fely Hickman Referring Unavailable Malhomer, Susu Primary Care Unavailable Fely Hickman Attending Unavailable Malys, Susu Primary Care Unavailable Vick, Fely Attending Unavailable Vick, Fely Referring Unavailable Vick, Fely Attending Unavailable Vick, Fely Referring Unavailable Malys, Susu Primary Care Unavailable Malys, Susu Primary Care Unavailable Malys, Susu Attending Unavailable Malys, Susu Referring Unavailable Vick, Fely Referring Unavailable Malys, Susu Primary Care Unavailable Vick, Fely Attending Unavailable Malys, Susu Primary Care Unavailable Malys, Susu Attending Unavailable Malys, Susu Referring Unavailable Malys, Susu Primary Care Unavailable Veronique Rg Attending Unavailable Malys, Susu Referring Unavailable Malys, Susu Primary Care Unavailable Malys, Susu Attending Unavailable Malys, Susu Referring Unavailable Allergies Allergy Classification Reported Allergen(s) Allergy Type Date of Onset Reaction(s) Facility (9 sources) Wheat gluten extract Drug Allergy 12-16-[address] [facility] (6 sources) natural latex rubber Allergy to substance 01-11-[address] [facility] Comment on above: itching (1 source) Gluten Drug allergy (disorder) 01-11-[address] [facility] (1 source) natural latex rubber Drug allergy (disorder) 01-11-[address] [facility] Medications Current Medications Medication Drug [...] by mouth. cholecalciferol 0.125 mg oral capsule (6 sources) Vitamin D Start: 01-11-2025 take 1 capsule by mouth once daily Cholecalciferol (Vitamin D3) 125 mcg (5,000 unit) capsule Active 125 ug PO daily January 11, 2025 12:00am Multivit 10-Naxu-Dclpti 1-Dha (Pnv-Dha) 27 mg iron-1 mg -300 mg capsule (6 sources) Start: 01-11-2025 Multivit 28-Nkyl-Roscxx 1-Dha (Pnv-Dha) 27 mg iron-1 mg -300 [...] October 15, 2022 8:17am Start: 02-27-2022 omeprazole (SD ILOSEC) 20 mg capsule Start: 05-24-2019 End: 10-15-2022 take 1 tablet by mouth once daily Omeprazole 20 MG tablet,delayed release (DR/EC) Discontinued 20 mg PO DAILY May 24, 2019 1:00am October 15, 2022 8:18am Completed/Discontinued Medications Medication Drug Class(es) Dates Sig (Normalized) Sig (Original) acetaminophen 325 mg / HYDROcodone bitartrate 5 mg oral tablet (9 sources) Opioid Agonist Start: 05-26-2019 End: 06-09-2019 [...] Discontinued 1 {tbl} PO DAILY 84 December 26, 2023 12:11pm January 11, 2025 [...] mg tablet Discontinued 1 {tbl} PO DAILY October 15, 2022 12:00am December [...] propionate 0.05 mg/actuat metered dose nasal spray (15 sources) Corticosteroid Start: 04-15-20 End: 10-08-19 18 [...] (FLONASE) 50 mcg/actuation nasal spray Use 1 Newton in each nostril once daily as needed. 0 Active Comment on above: Use 1 Newton in each nostril once daily as needed. hydrOXYzine hydrochloride 25 mg oral tablet (9 sources) Antihistamine Start: 04-20-20 End: 10-16-19 take [...] initial encounter] Episodic Contraceptive and procreative management (10 sources) Patient encounter status; Translations: [Encounter for contraceptive management, unspecified] 10-15-2022 Episodic Crushing injury or internal injury (9 sources) Crush injury of right thumb; Translations: [Crushing injury of right thumb, initial encounter] 05-08-2020 Episodic Deficiency and other anemia (1 source) Iron deficiency anemia, unspecified; Translations: [Iron deficiency anemia, unspecified] Onset: 5 Episodic Esophageal disorders (6 sources) Gastroesophageal reflux disease; Translations: [Gastro-esophageal reflux disease without esophagitis] Onset: 2 Chronic Fracture of lower limb (9 sources) Closed fracture of lateral malleolus; Translations: [Displaced fracture of lateral malleolus of unspecified fibula, initial encounter for closed fracture] 10-15-2022 Episodic Hemorrhage during ; abruptio placenta; placenta previa (9 sources) Antepartum hemorrhage; Translations: [Hemorrhage in early , unspecified] Onset: 5 07-26-2024 Episodic Other complications of (5 sources) High risk ; Translations: [Supervision of high risk , unspecified, unspecified trimester] 01-11-2025 Episodic Comment on above: , INGRID 08/31/25, John Rose Other complications of (5 sources) Chemical ; Translations: [Inappropriate change in quantitative human chorionic gonadotropin (hCG) in early ] 01-13-2025 Episodic Other complications of (1 source) Inappropriate change in quantitative human chorionic gonadotropin (hCG) in early ; Translations: [Inappropriate change in quantitative human chorionic gonadotropin (hCG) in early ] Onset: 5 Episodic Other complications of (1 source) Supervision of high risk , unspecified, unspecified trimester; Translations: [Supervision of high risk , unspecified, unspecified trimester] Onset: 5 Episodic Other connective tissue disease (9 sources) Peroneal tendinitis of right lower limb; Translations: [Peroneal tendinitis, right leg] 10-15-2022 Episodic Other gastrointestinal disorders (9 sources) Gastrointestinal tract problem; Translations: [Other specified symptoms and signs involving the digestive system and abdomen] 10-15-2022 Episodic Other injuries and conditions due to external causes (9 sources) Injury of right ankle; Translations: [Unspecified injury of right ankle, initial encounter] 10-15-2022 Episodic Other nervous system disorders (1 source) Postoperative pain ; Translations: [Other acute postprocedural pain] Episodic Other non-traumatic joint disorders (3 sources) Ankle pain; Translations: [Pain in right ankle and joints of right foot] Episodic Other and delivery including normal (5 sources) ; Translations: [Encounter for supervision of normal , unspecified, unspecified trimester] 01-11-2025 Episodic Comment on above: discussed genetic & carrier testing-undecided Other upper respiratory infections (9 sources) Acute upper respiratory infection; Translations: [Acute upper respiratory infection, unspecified] 10-15-2022 Episodic Residual codes; unclassified (1 source) Pain; Translations: [Pain, unspecified] Episodic Residual codes; unclassified (1 source) Pain, unspecified; Translations: [Pain] Onset: 2 Episodic Residual codes; unclassified (1 source) History of operative procedure on foot; Translations: [Other specified postprocedural states] Episodic Results Test Name Value Interpretation Reference Range Facility Hemoglobin A1con 01-29-2025 HbA1c (Bld) [Mass fraction] 4.8 % Normal <=5.[address] [facility] Comment on above: Result Comment: Norm al < 5.7 % Prediabetic 5.7 - 6.4 % Diabetic >or= 6.5 % Please note range changes. Performed By: #### L [id number], L501.1040 #### [facility] [address] [place], [place], [id number] Hemoglobin A1c percentageOrd ered By: Fely Hickman on 01-29-2025 HbA1c (Bld) [Mass fraction] 4.8 % <5.[address] [facility] Comment on above: Normal < 5.7 % Predi abetic 5.7 - 6.4 % Diabetic >or= 6.5 % Please note range changes. TSH DL <= 0.005 mIU/L QnOrde red By: Fely Hickman on 01-29-2025 TSH Qn 0.847 uIU/mL 0.300-4.[address] [facility] Thyroid Stim Hormone (TSH)on 01-29-2025 TSH 0.847 uIU/mL Normal 0.300-4.[address] [facility] Comment on above: Performed By: #### L [id number], L501.1307 #### [facility] [address] [place], [place], [id number] Anticardiolipin IgG, IgMon 0 01-24-2025 ANTICARDIO IgG < 9 Normal 0-[address] [facility] Comment on above: Result Comment: Nega tive: <15 Indeterminate: 15 - 20 Low-Med Positive: >20 - 80 High Positive: >80 Performed By: #### L [id number], [id number] #### [facility] [address] [place], [place], [id number] Anticardio.IgM < 9 Normal 0-[address] [facility] Comment on above: Result Comment: Nega tive: <13 Indeterminate: 13 - 20 Low-Med Positive: >20 - 80 High Positive: >80 Performed at: [facility] [id number] Data Programmer: Caleb Armenta MD, Phone: [phone] Performed at: [facility] [id number] Data Programmer: Huan Orlando PhD, Phone: [phone] Performed By: #### L [id number], L598.9520 #### [facility] [address] [place], [place], [id number] Beta-2 Glycoprot IgG, A, 01-24-2025 B2 GLYCO I IGA <9 Normal 0-[address] [facility] Comment on above: Result Comment: Resu lt Units: GPI IgA units The reference interval reflects a 3SD or 99th percentile interval, which is thought to represent a potentially clinically significant result in accordance with the International Consensus Statement on the classification criteria for definitive antiphospholipid syndrome (APS). J Thromb Haem 2006;4:295-306. Performed By: #### L [id number], [id number] #### [facility] [address] [place], [place], [address] B2 GLYCO I IGG <9 Normal 0-[address] [facility] Comment on above: Result Comment: Resu lt Units: GPI IgG units The reference interval reflects a 3SD or 99th percentile interval, which is thought to represent a potentially clinically significant result in accordance with the International Consensus Statement on the classification criteria for definitive antiphospholipid syndrome (APS). J Thromb Haem 2006;4:295-306. Performed By: #### L [id number], [id number] #### [facility] [address] [place], [address] B2 GLYCO I IGM <9 Normal 0-[address] [facility] Comment on above: Result Comment: Resu lt Units: GPI IgM units The reference interval reflects a 3SD or 99th percentile interval, which is thought to represent a potentially clinically significant result in accordance with the International Consensus Statement on the classification criteria for definitive antiphospholipid syndrome (APS). J Thromb Haem 2006;4:295-306. Performed By: #### L [id number], [id number] #### [facility] [address] [place], [address] Lupus Anticoagulant Compon 0 8- aPTT Coag (Bld) [Time] 33.2 s Normal 0.0-43.5 [facility] Comment on above: Performed By: #### L [id number], [id number] #### [facility] [address] [place], [address] DILUTE PT (dPT) 32.6 sec Normal 0.0-47.[address] [facility] Comment on above: Performed By: #### L [id number], [id number] #### [facility] [address] [place], [address] dPT Conf. Ratio 1.01 Ratio Normal 0.00-1.[address] [facility] Comment on above: Performed By: #### L [id number], [id number] #### [facility] [address] [place], [address] DRVVT 32.7 sec Normal 0.0-47.[address] [facility] Comment on above: Performed By: #### L [id number], [id number] #### [facility] [address] [place], [address] Interpretation Comment: Normal . [facility] Comment on above: Result Comment: No l upus anticoagulant was detected. Performed By: #### L [id number], [id number] #### [facility] [address] [place], [address] THROMBIN TIME 19.3 sec Normal 0.0-23.[address] [facility] Comment on above: Performed By: #### L [id number], [id number] #### [facility] [address] [place], [address] Dilute Patrick's viper venom timeOrdered By: Fely Hickman on 01-21-2025 dRVVT Coag (PPP) [Time] 32.7 s 0.0-47.0 [facility] Serum beta 2 glycoprotein 1 IgA antibody detectionOrdered By: Fely Hickman on 01-21-2025 Beta 2 glycoprotein 1 IgA Ql (S) <9 0-[address] [facility] Comment on above: Result Units: GPI Ig A unitsThe reference interval reflects a 3SD or 99th percentileinterval, which is thought to represent a potentiallyclinically significant result in accordance with theInternational Consensus Statement on the classificationcriteria for definitive antiphospholipid syndrome (APS). JThromb Haem 2006;4:295-306. Serum beta 2 glycoprotein 1 IgG antibody detectionOrdered By: Feyl Hickman on 01-21-2025 Beta 2 glycoprotein 1 IgG Ql (S) <9 0-[address] [facility] Comment on above: Result Units: GPI [...] glycoprotein 1 IgM Ql (S) <9 0-[address] [facility] Comment on above: Result Units: GPI [...] Qn (S) < 9 GPL U/mL 0-[address] [facility] Comment on above: Negative: <15 Indete rminate: 15 - 20 Low-Med Positive: >20 - 80 High Positive: >80 Serum human chorionic gonado tropin detection for pregnancyOrdered By: Fely Hickman on 01-21-2025 HCG ( test) Ql 2 mIU/mL <9 [facility] Comment on above: Gestational Age0.2-1 Week: 5-50 mIU/mL1-2 Weeks: 50-500 mIU/mL2-3 Weeks: 100-5000 mIU/mL3-4 Weeks: 500-10,000 mIU/mL4-5 Weeks:1000-50,000 mIU/mL5-6 Weeks: 10,000-100,000 mIU/mL6-8 Weeks: 15,000-200,000 mIU/mL2-3 Months:10,000-100,000 mIU/mL Thrombin timeOrdered By: Dayron Hickman on 01-21-2025 Thrombin time Coag (PPP) [Time] 19.3 sec 0.0-23.[address] [facility] Type AND Screenon 01-21-2025 ABO and Rh group Nom (Bld) Blood group A Rh(D) positive Normal [facility] Comment on above: Order Comment: PN Performed By: #### L [id number], BTS, L4500.0100, L700.8000, L3410.2000 #### [facility] [address] [place], [address] hCG Titer Quant., Serumon HCG QUANT. 2 mIU/mL Normal <9 non-preg [facility] Comment on above: Result Comment: Gest ational Age 0.2-1 Week: 5-50 mIU/mL 1-2 Weeks: 50-500 mIU/mL 2-3 Weeks: 100-5000 mIU/mL 3-4 Weeks: 500-10,000 mIU/mL 4-5 Weeks:1000-50,000 mIU/mL 5-6 Weeks: 10,000-100,000 mIU/mL 6-8 Weeks: 15,000-200,000 mIU/mL 2-3 Months:10,000-100,000 mIU/mL Performed By: #### L [id number], [id number] #### [facility] [address] [place], [place], [id number] Serum human chorionic gonado tropin detection for pregnancyOrdered By: Fely Hickman on 01-12-2025 HCG ( test) Ql 94 mIU/mL High <9 [facility] Comment on above: Gestational Age0.2-1 Week: 5-50 mIU/mL1-2 Weeks: 50-500 mIU/mL2-3 Weeks: 100-5000 mIU/mL3-4 Weeks: 500-10,000 mIU/mL4-5 Weeks:1000-50,000 mIU/mL5-6 Weeks: 10,000-100,000 mIU/mL6-8 Weeks: 15,000-200,000 mIU/mL2-3 Months:10,000-100,000 mIU/mL hCG Titer Quant., Serumon HCG QUANT. 94 mIU/mL High <9 non-preg [facility] Comment on above: Result Comment: Gest ational Age 0.2-1 Week: 5-50 mIU/mL 1-2 Weeks: 50-500 mIU/mL 2-3 Weeks: 100-5000 mIU/mL 3-4 Weeks: 500-10,000 mIU/mL 4-5 Weeks:1000-50,000 mIU/mL 5-6 Weeks: 10,000-100,000 mIU/mL 6-8 Weeks: 15,000-200,000 mIU/mL 2-3 Months:10,000-100,000 mIU/mL Performed By: #### L [id number], [id number] #### [facility] [address] [place], [address] Serum human chorionic gonado tropin detection for pregnancyOrdered By: Fely Hickman on 01-10-2025 HCG ( test) Ql 522 mIU/mL High <9 [facility] Comment on above: Gestational Age0.2-1 Week: 5-50 mIU/mL1-2 Weeks: 50-500 mIU/mL2-3 Weeks: 100-5000 mIU/mL3-4 Weeks: 500-10,000 mIU/mL4-5 Weeks:1000-50,000 mIU/mL5-6 Weeks: 10,000-100,000 mIU/mL6-8 Weeks: 15,000-200,000 mIU/mL2-3 Months:10,000-100,000 mIU/mL hCG Titer Quant., Serumon HCG QUANT. 522 mIU/mL High <9 non-preg [facility] Comment on above: Result Comment: Gest ational Age 0.2-1 Week: 5-50 mIU/mL 1-2 Weeks: 50-500 mIU/mL 2-3 Weeks: 100-5000 mIU/mL 3-4 Weeks: 500-10,000 mIU/mL 4-5 Weeks:1000-50,000 mIU/mL 5-6 Weeks: 10,000-100,000 mIU/mL 6-8 Weeks: 15,000-200,000 mIU/mL 2-3 Months:10,000-100,000 mIU/mL Performed By: #### L [id number], [id number] #### [facility] [address] [facility] [place], [address] Absolute lymphocyte countOrd ered By: Susu Garcia on 12-08-2024 Lymphocytes Auto (Unsp spec) [#/Vol] 2.04 10*3/uL 0.83-4.[address] [facility] Absolute neutrophil countOrd ered By: Susu Garcia on 12-08-2024 Neutrophils (Bld) [#/Vol] 2.6 10*3/uL 2.0-7.[address] [facility] Automated lymphocyte count a s percentage of total leukocytesOrdered By: Susu Garcia on 12-08-2024 Lymphocytes/100 WBC Auto (Unsp spec) 38.9 % 19-[address] [facility] Basophil percentageOrdered B y: Susu Garcia on 12-08-2024 Basophils/100 WBC (Bld) 0.4 % 0-1 [facility] CBC W/Diff, Automatedon 11-21 Absolute Lymph 2.04 X10 3/uL Normal 0.83-4.[address] [facility] Comment on above: Performed By: #### L [id number], L503.6030, L503.0106, L100.0100 #### [facility] [address] [place], [address] Absolute Neut 2.6 X10 3/uL Normal 2.0-7.[address] [facility] Comment on above: Performed By: #### L 503.6550, L503.6030, L503.0106, L100.0100 #### [facility] [address] [place], [address] Basophils/100 WBC (Bld) 0.4 % Normal 0-1 [facility] Comment on above: Performed By: #### L 503.6550, L503.6030, L503.0106, L100.0100 #### [facility] [address] [place], [address] Eosinophils/100 WBC (Bld) 2.1 % Normal 0-[address] [facility] Comment on above: Performed By: #### L 503.6550, L503.6030, L503.0106, L100.0100 #### [facility] [address] [place], [address] Erythrocyte distribution width (RBC) [Ratio] 12.3 % Normal 11.6-14.[address] [facility] Comment on above: Performed By: #### L 503.6550, L503.6030, L503.0106, L100.0100 #### [facility] [address] [place], [address] Hematocrit (Bld) [Volume fraction] 44.2 % Normal 37-[address] [facility] Comment on above: Performed By: #### L 503.6550, L503.6030, L503.0106, L100.0100 #### [facility] [address] [place], [address] Hemoglobin (Bld) [Mass/Vol] 15.1 g/dL High 12.0-15.[address] [facility] Comment on above: Performed By: #### L 503.6550, L503.6030, L503.0106, L100.0100 #### [facility] [address] [place], [address] IG% 0.400 Normal 0.0-0.[address] [facility] Comment on above: Result Comment: IG% - Immature Granulocytes (promyelocytes, myelocytes and metamyelocytes) > 1% indicates that a LEFT SHIFT is Present. Performed By: #### L 503.6550, L503.6030, L503.0106, L100.0100 #### [facility] [address] [place], [address] Lymphocytes/100 WBC (Bld) 38.9 % Normal 19-[address] [facility] Comment on above: Performed By: #### L 503.6550, L503.6030, L503.0106, L100.0100 #### [facility] [address] [place], [address] MCH (RBC) [Entitic mass] 30.2 pg Normal 27.0-32.[address] [facility] Comment on above: Performed By: #### L 503.6550, L503.6030, L503.0106, L100.0100 #### [facility] [address] [place], [address] MCHC (RBC) [Mass/Vol] 34.2 g/dL Normal 32-36 [place] Comment on above: Performed By: #### L 503.6550, L503.6030, L503.0106, L100.0100 #### [facility] [address] [place], [address] MCV (RBC) [Entitic vol] 88.4 fL Normal 81-99 [facility] Comment on above: Performed By: #### L 503.6550, L503.6030, L503.0106, L100.0100 #### [facility] [address] [place], [address] Monocytes/100 WBC (Bld) 9.4 % Normal 0-10 [facility] Comment on above: Performed By: #### L 503.6550, L503.6030, L503.0106, L100.0100 #### [facility] [address] [place], [address] Neutrophils/100 WBC (Bld) 48.8 % Normal 47-[address] [facility] Comment on above: Performed By: #### L 503.6550, L503.6030, L503.0106, L100.0100 #### [facility] [address] [place], [address] Nucleated RBC (Bld) [#/Vol] 0 10*3/uL Normal 0-[address] [facility] Comment on above: Performed By: #### L 503.6550, L503.6030, L503.0106, L100.0100 #### [facility] [address] [place], [address] Platelet mean volume (Bld) [Entitic vol] 10.3 fL Normal 6.2-12.[address] [facility] Comment on above: Performed By: #### L 503.6550, L503.6030, L503.0106, L100.0100 #### [facility] [address] [place], [address] Platelets (Bld) [#/Vol] 199 10*3/uL Normal 150-[address] [facility] Comment on above: Performed By: #### L 503.6550, L503.6030, L503.0106, L100.0100 #### [facility] [address] [place], [address] RBC (Bld) [#/Vol] 5.00 10*6/uL Normal 4.2-5.4 [facility] Comment on above: Performed By: #### L 503.6550, L503.6030, L503.0106, L100.0100 #### [facility] [address] [place], [address] RDW SD 39.8 fl Normal 35.1-43.[address] [facility] Comment on above: Performed By: #### L 503.6550, L503.6030, L503.0106, L100.0100 #### [facility] [address] [place], [address] WBC (Bld) [#/Vol] 5.2 10*3/uL Normal 4.4-11.0 [facility] Comment on above: Performed By: #### L 503.6550, L503.6030, L503.0106, L100.0100 #### [facility] [address] [place], [address] Eosinophil percentageOrdered By: Susu Garcia on 12-08-2024 Eosinophils/100 WBC (Bld) 2.1 % 0-[address] [facility] Erythrocyte distribution wid th ratioOrdered By: Susu Garcia on 12-08-2024 Erythrocyte distribution width (RBC) [Ratio] 12.3 % 11.6-14.[address] [facility] Erythrocyte distribution wid th standard deviationOrdered By: Susu Garcia on 12-08-2024 Erythrocyte distribution width (RBC) [Ratio] 39.8 fl 35.1-43.[address] [facility] Ferritinon 12-08-2024 Ferritin [Mass/Vol] 182 ng/mL Normal 22-378 [facility] Comment on above: Performed By: #### L 503.6550, L503.6030, L503.0106, L100.0100 #### [facility] [address] [place], [address] Hematocrit Auto (Bld) [Volum e fraction]Ordered By: Susu Garcia on 12-08-2024 Hematocrit (Bld) [Volume fraction] 44.2 % 37-[address] [facility] Hemoglobin measurementOrdere d By: Susu Garcia on 12-08-2024 Hemoglobin (Bld) [Mass/Vol] 15.1 g/dL High 12.0-15.[address] [facility] Immature granulocytes/100 WB C Auto (Bld)Ordered By: Susu Garcia on 12-08-2024 Immature granulocytes/100 WBC (Bld) 0.400 % 0.0-0.9 [facility] Comment on above: IG% - Immature Granu locytes (promyelocytes, myelocytes and metamyelocytes) > 1% indicates that a LEFT SHIFT is Present. Iron measurement (mass/mass) Ordered By: Susu Garcia on 12-08-2024 Iron (Unsp spec) [Mass/Mass] 115 ug/dL 50-[address] [facility] Iron+Iron Binding Capacityon 12-08-2024 Iron [Mass/Vol] 115 ug/dL Normal 50-[address] [facility] Comment on above: Performed By: #### L 503.6550, L503.6030, L503.0106, L100.0100 #### [facility] [address] [place], [address] IRON SATURATION 43.0 Normal 13-[address] [facility] Comment on above: Performed By: #### L 503.6550, L503.6030, L503.0106, L100.0100 #### [facility] [address] [place], [address] TIBC 270 ug/dL Normal 250-[address] [facility] Comment on above: Performed By: #### L 503.6550, L503.6030, L503.0106, L100.0100 #### [facility] [address] [place], [place], [id number] UIBC 155 ug/dL Low 228-[address] [facility] Comment on above: Performed By: #### L 503.6550, L503.6030, L503.0106, L100.0100 #### [facility] [address] [place], [address] MCV (mean corpuscular volume ) determinationOrdered By: Susu Garcia on 12-08-2024 MCV (RBC) [Entitic vol] 88.4 fL 81-99 [facility] Mean corpuscular hemoglobin (MCH) determinationOrdered By: Susu Garcia on 12-08-2024 MCH (RBC) [Entitic mass] 30.2 pg 27.0-32.[address] [facility] Mean corpuscular hemoglobin concentration (MCHC) determinationOrdered By: Susu Garcia on 12-08-2024 MCHC (RBC) [Mass/Vol] 34.2 g/dL 32-36 [place] Mean platelet volume determi nationOrdered By: Susu Garcia on 12-08-2024 Platelet mean volume (Bld) [Entitic vol] 10.3 fL 6.2-12.[address] [facility] Monocyte percentageOrdered B y: Susu Garcia on 12-08-2024 Monocytes/100 WBC (Bld) 9.4 % 0-10 [facility] Neutrophil percentageOrdered By: Susu Garcia on 12-08-2024 Neutrophils/100 WBC (Bld) 48.8 % 47-[address] [facility] No Panel InformationOrdered By: Susu Garcia on 12-08-2024 Unsaturated Iron Binding Capacity 155 ug/dL Low 228-[address] [facility] Nucleated red blood cell per centageOrdered By: Susu Garcia on 12-08-2024 Nucleated RBC/100 WBC (Bld) [Ratio] 0 % 0-[address] [facility] Platelet countOrdered By: Renea Garcia on 12-08-2024 Platelets (Bld) [#/Vol] 199 10*3/uL 150-[address] [facility] RBC Auto (Bld) [#/Vol]Ordere d By: Susu Garcia on 12-08-2024 RBC (Bld) [#/Vol] 5.00 10*6/uL 4.2-5.4 [facility] Serum or plasma ferritin judie surement (mass/volume)Ordered By: Susu Sheldonhomer on 12-08-2024 Ferritin [Mass/Vol] 182 ng/mL 22-378 [facility] Serum or plasma iron saturat ion measurement (mass fraction)Ordered By: Susuabran Garcia on 12-08-2024 Iron saturation [Mass fraction] 43.0 % 13-[address] [facility] Vitamin B12on 12-08-2024 Cobalamin (Vitamin B12) [Mass/Vol] 462 pg/mL Normal 180-[address] [facility] Comment on above: Performed By: #### L 503.6550, L503.6030, L503.0106, L100.0100 #### [facility] [address] [place], [place], [id number] Vitamin B12 ser/plasOrdered By: Susuabran Garcia on 12-08-2024 Cobalamin (Vitamin B12) [Mass/Vol] 462 pg/mL 180-[address] [facility] White blood cell (WBC) count Ordered By: Susu Sheldonhomer on 12-08-2024 WBC (Bld) [#/Vol] 5.2 10*3/uL 4.4-11.0 [facility] CBC W/Diff, Automatedon - PATH REV Reviewed Normal [facility] Comment on above: Result Comment: SEE REPORT IN PATIENT'S EMR AMENDED REPORT 10/11/24 1520 PATH REV previously reported as: October Performed By: #### L 501.9985, L501.9520 #### [facility] [address] [place], [place], [id number] Absolute lymphocyte countOrd ered By: Susuabran Garcia on 09-10-2024 Lymphocytes Auto (Unsp spec) [#/Vol] 1.61 10*3/uL 0.83-4.[address] [facility] Absolute neutrophil countOrd ered By: Susuabran Garcia on 09-10-2024 Neutrophils (Bld) [#/Vol] 1.7 10*3/uL Low 2.0-7.[address] [facility] Automated lymphocyte count a s percentage of total leukocytesOrdered By: Susuabran Garcia on 09-10-2024 Lymphocytes/100 WBC Auto (Unsp spec) 42.9 % High 19-[address] [facility] Basophil percentageOrdered B y: Susu Pitohomer on 09-10-2024 Basophils/100 WBC (Bld) 0.3 % 0-1 [facility] Eosinophil percentageOrdered By: Susu Garcia on 09-10-2024 Eosinophils/100 WBC (Bld) 0.5 % 0-[address] [facility] Erythrocyte distribution wid th ratioOrdered By: Susu Garcia on 09-10-2024 Erythrocyte distribution width (RBC) [Ratio] 14.2 % 11.6-14.[address] [facility] Erythrocyte distribution wid th standard deviationOrdered By: Susu Garcia on 09-10-2024 Erythrocyte distribution width (RBC) [Entitic vol] 44.1 fL High 35.1-43.[address] [facility] Erythrocyte distribution width (RBC) [Ratio] 44.1 fl High 35.1-43.[address] [facility] Ferritinon 09-10-2024 Ferritin [Mass/Vol] 767 ng/mL High 22-378 [facility] Comment on above: Performed By: #### L 501.9985, L501.9520 #### [facility] [address] [place] [address], [address] Hematocrit Auto (Bld) [Volum e fraction]Ordered By: Susu Garcia on 09-10-2024 Hematocrit (Bld) [Volume fraction] 43.4 % 37-[address] [facility] Hemoglobin measurementOrdere d By: Susu Garcia on 09-10-2024 Hemoglobin (Bld) [Mass/Vol] 14.5 g/dL 12.0-15.[address] [facility] Immature granulocytes/100 WB C Auto (Bld)Ordered By: Susu Garcia on 09-10-2024 Immature granulocytes/100 WBC (Bld) 0.000 % 0.0-0.[address] [facility] Comment on above: IG% - Immature Granu locytes (promyelocytes, myelocytes and metamyelocytes) > 1% indicates that a LEFT SHIFT is Present. Ironon 09-10-2024 Iron [Mass/Vol] 84 ug/dL Normal 50-[address] [facility] Comment on above: Performed By: #### L 501.9985, L501.9520 #### [facility] [place], [address] Iron (Unsp spec) [Mass/Mass] Ordered By: Susu Garcia on 09-10-2024 Iron [Mass/Vol] 84 ug/dL 50-[address] [facility] Iron measurement (mass/mass) Ordered By: Susu Garcia on 09-10-2024 Iron (Unsp spec) [Mass/Mass] 84 ug/dL 50-[address] [facility] Lymphocytes Auto (Unsp spec) [#/Vol]Ordered By: Susu Garcia on 09-10-2024 Lymphocytes (Bld) [#/Vol] 1.61 10*3/uL 0.83-4.[address] [facility] Lymphocytes/100 WBC Auto (Un sp spec)Ordered By: Susu Garcia on 09-10-2024 Lymphocytes/100 WBC (Bld) 42.9 % High 19-[address] [facility] MCV (mean corpuscular volume ) determinationOrdered By: Susu Garcia on 09-10-2024 MCV (RBC) [Entitic vol] 85.1 fL 81-99 [facility] Mean corpuscular hemoglobin (MCH) determinationOrdered By: Susu Garcia on 09-10-2024 MCH (RBC) [Entitic mass] 28.4 pg 27.0-32.[address] [facility] Mean corpuscular hemoglobin concentration (MCHC) determinationOrdered By: Susu Garcia on 09-10-2024 MCHC (RBC) [Mass/Vol] 33.4 g/dL 32-36 [place] Mean platelet volume determi nationOrdered By: Susu Garcia on 09-10-2024 Platelet mean volume (Bld) [Entitic vol] 10.4 fL 6.2-12.[address] [facility] Monocyte percentageOrdered B y: Susu Garcia on 09-10-2024 Monocytes/100 WBC (Bld) 11.2 % High 0-10 [facility] Neutrophil percentageOrdered By: Susu Garcia on 09-10-2024 Neutrophils/100 WBC (Bld) 45.1 % Low 47-[address] [facility] Nucleated red blood cell per centageOrdered By: Susu Garcia on 09-10-2024 Nucleated RBC/100 WBC (Bld) [Ratio] 0 % 0-[address] [facility] Pathologist review Marek (Unsp spec) [Interp]Ordered By: Susu Garcia on 09-10-2024 Differential Pathologist's Review [facility] Platelet countOrdered By: Renea Garcia on 09-10-2024 Platelets (Bld) [#/Vol] 180 10*3/uL 150-[address] [facility] Platelet estimateOrdered By: Susu Garcia on 09-10-2024 Platelets LM Ql (Bld) A ADEQ [place] Platelets LM Ql (Bld)Ordered By: Susu Garcia on 09-10-2024 Platelet Estimate A [facility] RBC Auto (Bld) [#/Vol]Ordere d By: Susu Garcia on 09-10-2024 RBC (Bld) [#/Vol] 5.10 10*6/uL 4.2-5.4 [facility] Reactive lymphocyte countOrd ered By: Susu Garcia on 09-10-2024 Reactive Lymphocytes 3+ [facility] Review by pathologistOrdered By: Susu Garcia on 09-10-2024 Pathologist review Marek (Unsp spec) [Interp] Reviewed [facility] Comment on above: SEE REPORT IN PATIEN T'S EMRPrevious reported result: October Edited by: MYRA on 10/11/24:1520SEE REPORT IN PATIENT'S EMR AMENDED REPORT 10/11/24 1520 PATH REV previously reported as: October sophia Previous reported result: Reviewed Edited by: MYRA on 10/11/24:1557 AMENDED REPORT 10/11/24 1557 PATH REV previously reported as: Reviewed Serum or plasma ferritin judie surement (mass/volume)Ordered By: Susu Garcia on 09-10-2024 Ferritin [Mass/Vol] 767 ng/mL High 22-378 [facility] White blood cell (WBC) count Ordered By: Susu Sheldonhomer on 09-10-2024 WBC (Bld) [#/Vol] 3.8 10*3/uL Low 4.4-11.0 [facility] HCG ( test) QlOrder ed By: Fely Hickman on 07-27-2024 Human Chorionic Gonadotropin, Quant < 1 mIU/mL <[address] [facility] Comment on above: hCG levels with Gest ational AgeGestational Age hCG mIU/mL (IU/L)0.2 - 1 week 5 - 501-2 weeks 50 - 5002-3 weeks 100 - 29257-0 weeks 500 - 058172-1 weeks 1000 - 848066-3 weeks 86365 - 100,0006-8 weeks 08750 - 200,0002-3 months 35972 - 100,000 hCG Titer Quant., Serumon HCG QUANT. < 1 Normal 1-[address] [facility] Comment on above: Result Comment: hCG levels with Gestational Age Gestational Age hCG mIU/mL (IU/L) 0.2 - 1 week 5 - 50 1-2 weeks 50 - 500 2-3 weeks 100 - 5000 3-4 weeks 500 - 68837 4-5 weeks 1000 - 44463 5-6 weeks 56477 - 100,000 6-8 weeks 97048 - 200,000 2-3 months 77199 - 100,000 Performed By: #### L 501.9985, L501.9520 #### [facility] [address] [place], [address] CBC W/Diff, Automatedon - Absolute Lymph 2.58 X10 3/uL Normal 0.83-4.[address] [facility] Comment on above: Performed By: #### L 503.6150, L503.6550, L100.0100 #### [facility] [address] [place], [address] Absolute Neut 3.2 X10 3/uL Normal 2.0-7.[address] [facility] Comment on above: Performed By: #### L 503.6150, L503.6550, L100.0100 #### [facility] [address] [place], [address] Basophils/100 WBC (Bld) 0.3 % Normal 0-1 [facility] Comment on above: Performed By: #### L 503.6150, L503.6550, L100.0100 #### [facility] [address] [place], [address] Eosinophils/100 WBC (Bld) 1.4 % Normal 0-[address] [facility] Comment on above: Performed By: #### L 503.6150, L503.6550, L100.0100 #### [facility] [address] [place], [address] Erythrocyte distribution width (RBC) [Ratio] 13.2 % Normal 11.6-14.[address] [facility] Comment on above: Performed By: #### L 503.6150, L503.6550, L100.0100 #### [facility] [address] [place], [address] Hematocrit (Bld) [Volume fraction] 40.9 % Normal 37-[address] [facility] Comment on above: Performed By: #### L 503.6150, L503.6550, L100.0100 #### [facility] [address] [place], [address] Hemoglobin (Bld) [Mass/Vol] 13.2 g/dL Normal 12.0-15.[address] [facility] Comment on above: Performed By: #### L 503.6150, L503.6550, L100.0100 #### [facility] [address] [place], [address] IG% 0.300 Normal 0.0-0.[address] [facility] Comment on above: Result Comment: IG% - Immature Granulocytes (promyelocytes, myelocytes and metamyelocytes) > 1% indicates that a LEFT SHIFT is Present. Performed By: #### L 503.6150, L503.6550, L100.0100 #### [facility] [address] [place], [address] Lymphocytes/100 WBC (Bld) 39.8 % Normal 19-[address] [facility] Comment on above: Performed By: #### L 503.6150, L503.6550, L100.0100 #### [facility] [address] [place], [address] MCH (RBC) [Entitic mass] 26.6 pg Low 27.0-32.[address] [facility] Comment on above: Performed By: #### L 503.6150, L503.6550, L100.0100 #### [facility] [address] [place], [address] MCHC (RBC) [Mass/Vol] 32.3 g/dL Normal 32-36 [place] Comment on above: Performed By: #### L 503.6150, L503.6550, L100.0100 #### [facility] [address] [place], [address] MCV (RBC) [Entitic vol] 82.3 fL Normal 81-99 [facility] Comment on above: Performed By: #### L 503.6150, L503.6550, L100.0100 #### [facility] [address] [place], [address] Monocytes/100 WBC (Bld) 9.1 % Normal 0-10 [facility] Comment on above: Performed By: #### L 503.6150, L503.6550, L100.0100 #### [facility] [address] [place], [address] Neutrophils/100 WBC (Bld) 49.1 % Normal 47-[address] [facility] Comment on above: Performed By: #### L 503.6150, L503.6550, L100.0100 #### [facility] [address] [place], [address] Nucleated RBC (Bld) [#/Vol] 0 10*3/uL Normal 0-[address] [facility] Comment on above: Performed By: #### L 503.6150, L503.6550, L100.0100 #### [facility] [address] [place], [address] Platelet mean volume (Bld) [Entitic vol] 10.5 fL Normal 6.2-12.[address] [facility] Comment on above: Performed By: #### L 503.6150, L503.6550, L100.0100 #### [facility] [address] [place], [address] Platelets (Bld) [#/Vol] 235 10*3/uL Normal 150-[address] [facility] Comment on above: Performed By: #### L 503.6150, L503.6550, L100.0100 #### [facility] [address] [place], [address] RBC (Bld) [#/Vol] 4.97 10*6/uL Normal 4.2-5.4 [facility] Comment on above: Performed By: #### L 503.6150, L503.6550, L100.0100 #### [facility] [address] [place], [address] RDW SD 39.2 fl Normal 35.1-43.[address] [facility] Comment on above: Performed By: #### L 503.6150, L503.6550, L100.0100 #### [facility] [address] [place], [address] WBC (Bld) [#/Vol] 6.5 10*3/uL Normal 4.4-11.0 [facility] Comment on above: Performed By: #### L 503.6150, L503.6550, L100.0100 #### [facility] [address] [place], [address] Ferritinon 05-14-2024 Ferritin [Mass/Vol] 7 ng/mL Low 8-252 [facility] Comment on above: Performed By: #### L 503.6150, L503.6550, L100.0100 #### [facility] [address] [place], [address] Ironon 05-14-2024 Iron [Mass/Vol] 38 ug/dL Low 50-[address] [facility] Comment on above: Performed By: #### L 503.6150, L503.6550, L100.0100 #### [facility] [address] [place], [address] Absolute lymphocyte countOrd ered By: Susu Garcia on 02-21-2023 Lymphocytes Auto (Unsp spec) [#/Vol] 1.76 10*3/uL 0.83-4.[address] [facility] Basophil percentageOrdered B y: Susu Garcia on 02-21-2023 Basophils/100 WBC (Bld) 0.7 % 0-1 [facility] Bilirubin [Mass/Vol] 0.30 mg/dL 0.20-1.00 [facility] Comment on above: For patients on eltr ombopag therapy, use of Dimension [place] TBIL is not recommended. Chloride [Moles/Vol] 107 mmol/L 98-107 [facility] Eosinophils/100 WBC (Bld) 1.3 % 0-[address] [facility] Glucose [Mass/Vol] 93 mg/dL 74-106 [facility] Neutrophils (Bld) [#/Vol] 3.0 10*3/uL 2.0-7.[address] [facility] Neutrophils/100 WBC (Bld) 55.5 % 47-[address] [facility] Potassium [Moles/Vol] 3.6 mmol/L 3.5-5.1 [place] Protein [Mass/Vol] 7.4 g/dL 6.4-8.2 [facility] Sodium [Moles/Vol] 138 mmol/L 136-145 [facility] WBC (Bld) [#/Vol] 5.4 10*3/uL 4.4-11.0 [facility] Blood erythrocytes count (nu mber/volume)Ordered By: Susu Garcia on 02-21-2023 RBC (Bld) [#/Vol] 5.09 10*6/uL 4.2-5.4 [facility] Blood hemoglobin measurement (mass/volume)Ordered By: Susu Garcia on 02-21-2023 Hemoglobin (Bld) [Mass/Vol] 13.8 g/dL 12.0-15.[address] [facility] Blood lymphocytes/100 leukoc ytesOrdered By: Susu Garcia on 02-21-2023 Lymphocytes/100 WBC (Bld) 32.8 % 19-[address] [facility] Blood monocytes/100 leukocyt esOrdered By: Susu Garcia on 02-21-2023 Monocytes/100 WBC (Bld) 9.5 % 0-10 [facility] Blood platelet mean volumeOr dered By: Susu Garcia on 02-21-2023 Platelet mean volume (Bld) [Entitic vol] 10.9 fL 6.2-12.[address] [facility] Determination of erythrocyte mean corpuscular volume (MCV)Ordered By: Susu Garcia on 02-21-2023 MCV (RBC) [Entitic vol] 87.4 fL 81-99 [facility] Erythrocyte sedimentation ra teOrdered By: Susu Garcia on 02-21-2023 ESR (Bld) [Velocity] 1 mm/h 0-30 [facility] Hematocrit Auto (Bld) [Volum e fraction]Ordered By: Susu Garcia on 02-21-2023 Hematocrit (Bld) [Volume fraction] 44.5 % 37-[address] [facility] Iron measurement (mass/mass) Ordered By: Susu Garcia on 02-21-2023 Iron (Unsp spec) [Mass/Mass] 35 ug/dL 50-[address] [facility] - Chemistry and C hemistry - challengeOrdered By: Susu Garcia on 02-21-2023 ALP [Catalytic activity/Vol] 39 U/L 45-[address] [facility] ALT [Catalytic activity/Vol] 14 U/L 13-[address] [facility] CO2 [Moles/Vol] 24.0 mmol/L 21.0-32.[address] [facility] Globulin (S) [Mass/Vol] 3.6 g/dL 2.2-4.2 [facility] Urea nitrogen/Creatinine [Mass ratio] 11.6 mg/mg 10-[address] [facility] - Hematology and Cell countsOrdered By: Susu Garcia on 02-21-2023 Erythrocyte distribution width (RBC) [Entitic vol] 39.4 fL 35.1-43.[address] [facility] Erythrocyte distribution width (RBC) [Ratio] 12.5 % 11.6-14.[address] [facility] Immature granulocytes/100 WBC (Bld) 0.200 % 0.0-0.[address] [facility] Comment on above: IG% - Immature Granu locytes (promyelocytes, myelocytes and metamyelocytes) > 1% indicates that a LEFT SHIFT is Present. MCH (RBC) [Entitic mass] 27.1 pg 27.0-32.[address] [facility] Nucleated RBC/100 WBC (Bld) [Ratio] 0 % 0-[address] [facility] MCHC Auto (RBC) [Mass/Vol]Or dered By: Susu Garcia on 02-21-2023 MCHC (RBC) [Mass/Vol] 31.0 g/dL 32-36 [place] No Panel InformationOrdered By: Susu Garcia on 02-21-2023 Estimated GFR (MDRD) Amer 140 mL/min >[address] [facility] Comment on above: GFR Calc Estimated GFR (MDRD) Non-Af Amer 116 mL/min >[address] [facility] Comment on above: Non- GFR Calc Platelets bldOrdered By: Joaquina Garcia on 02-21-2023 Platelets (Bld) [#/Vol] 228 10*3/uL 150-[address] [facility] Serum or plasma C reactive p rotein measurement (mass/volume)Ordered By: Susu Garcia on 02-21-2023 CRP [Mass/Vol] mg/L 0.0-3.[address] [facility] Comment on above: C-Reactive Protein ( CRP) provides useful information for thediagnosis, therapy and monitoring of inflammatory processesand associated diseases. For the evaluation of Relative Riskfor Cardiovascular Disease, a High Sensitivity CRP (HSCRP)should be ordered. Serum or plasma albumin nubia urement (mass/volume)Ordered By: Susu Garcia on 02-21-2023 Albumin [Mass/Vol] 3.8 g/dL 3.2-5.0 [facility] Serum or plasma albumin/glob ulin mass ratioOrdered By: Susu Garcia on 02-21-2023 Albumin/Globulin [Mass ratio] 1.1 {ratio} 0.9-2.[address] [facility] Serum or plasma calcium nubia urement (mass/volume)Ordered By: Susu Garcia on 02-21-2023 Calcium [Mass/Vol] 9.3 mg/dL 8.5-10.1 [facility] Serum or plasma creatinine m easurement (mass/volume)Ordered By: Susu Garcia on 02-21-2023 Creatinine [Mass/Vol] 0.69 mg/dL 0.55-1.02 [place] Comment on above: The validity of the calculated GFR & GFRAA in patients over 70 years has not been determined. Clinical correlation is essential. Serum or plasma ferritin judie surement (mass/volume)Ordered By: Susu Garcia on 02-21-2023 Ferritin [Mass/Vol] 6 ng/mL 8-252 [facility] Serum or plasma urea nitroge n measurement (mass/volume)Ordered By: Susu Garcia on 02-21-2023 Urea nitrogen [Mass/Vol] 8 mg/dL 7-[address] [facility] Thin prep Papanicolaou smear with manual screeningOrdered By: Susu Garcia on 02-21-2023 Thin prep Papanicolaou smear with manual screening 12 U/L 15-[address] [facility] Thin prep Papanicolaou smear with manual screening 7 5-[address] [facility] CNOVon 05-30-2022 CNOV Office Visit (ORTHWS ) ----- PANCHO SAVAGE ([id number]) 1 F Date Time Provider Department 05/30/22 [...] (FLONASE) 50 mcg/actuation nasal spray Use 1 [place] in each nostril once daily as needed. [...] Known Allergi (more content not included)... Normal [facility] CNOVon 04-17-2022 CNOV Office Visit (ORMDNA ) ----- PANCHO SAVAGE ([id number]) 1 F Date Time Provider Department 04/17/22 [...] (FLONASE) 50 mcg/actuation nasal spray Use 1 [place] in each nostril once daily as needed. [...] (FLONASE) 50 mcg/actuation nasal spray Use 1 [place] in each nostril once daily as needed. - fexofenadine (NORMA) 180 mg tablet Take 180 mg by mouth once daily. Problem List As Of Date 04/17/2022 Noted Resolved GERD (gastroesophageal reflux disease) [K21.9] 03/27/2022 Right ankle pain [M25.571] 04/02/2022 04/02/2022 Encounter Status:Closed by NOR[facility] ----- PANCHO SAVAGE ([id number]) 1 F Date Time Provider Department 04/08/22 [...] Fully Assessed Reason for Visit: Patient Question [9957] Prescriptions as of 04/08/2022 - omeprazole (PRILOSEC) 20 mg capsule - Cetirizine 10 mg cap Take 10 mg by mouth. - fluticasone (FLONASE) 50 mcg/actuation nasal spray Use 1 [place] in each nostril once daily as needed. - fexofenadine (NORMA) 180 mg tablet Take 180 mg by mouth once daily. Problem List As Of Date 04/08/2022 Noted Resolved GERD (gastroesophageal reflux disease) [K21.9] 03/27/2022 Right ankle pain [M25.571] 04/02/2022 04/02/2022 Encounter Status:Closed by JIGNA ANDREWS on 04/08/22 Normal [facility] PHOTO ANKLE RIGHT LATERALon 04-02-2022 [facility] HISTORY PHYSICALon HISTORY PHYSICAL HNO ID: [id number] Author: Khalida Abbott APRN.FEED IN WORKER Service: ? Author Type: Nurse Practitioner Type: [...] RELIEF) 50 mcg/actuation nasal spray Use 1 [place] in each nostril once daily as needed. fexofenadine (NORMA ALLERGY) 180 mg tablet Take 180 mg by mouth once daily. No current facility-administered medications for this visit. COVID VACCINATION STATUS: Not vaccinated REVIEW OF SYSTEMS: Pain Assessment: General: No weight loss, malaise or fevers. Neuro: No history of TIA's, stroke, DIRECTOR DERMATOLOGY tumor, impaired sensorium, hemiplegia, paraplegia or quadraplegia. No neurological symptoms or problems. Respiratory: No history of current cough or dyspnea, or pneumonia in the past 6 weeks. No history of respiratory/pulmonary symptoms or problems. Cardiovascular: No history of HTN requiring medication, no history of angina, CHF, IN, cardiac surgery or stents. Denies rest pain, gangrene or revascularization/amputat ion for PVD. No history of cardiovascular symptoms or problems. GI: Negative for Nausea, Vomiting, Abdominal pain, Inflammatory bowel disease +GERD : No history of dysuria, frequency or incontinence,, stones or chronic kidney disease SENIOR COMMUNICATIONS SPECIALIST: Negative for abnormal vaginal bleeding, abnormal vaginal [...] greater jan (more content not included)... Normal [facility] CNOVon 03-06-2022 CNOV Office Visit (MYRIAM ) ----- PANCHO SAVAGE ([id number]) 1 F Date Time Provider Department 03/06/22 1:00 PM NORA KEY During your visit today, we recorded the following information about you: Weight Height 62.1 kg 1.708 m Nora Key DO 03/11/2022 2:19 PM Signed Reason for Visit/Chief Complaint Panchopoornima Savage is a 16 year old female [...] her right ankle two years ago at [facility], presents today with pain in the [...] RELIEF) 50 mcg/actuation nasal spray Use 1 Newton in each nostril once daily as needed. [...] prior surgical change. Clinical correlation is recommended. Ticket Puller: BEKAH Transcribe Date/Time: Mar 06 2022 2:27P [...] to treatm (more content not included)... Normal [facility] XR ANKLE 3V AP/LAT/OBL RTon 03-06-2022 XR ANKLE 3V AP/LAT/OBL RT * * *Final Report* * * DATE OF EXAM: Mar 06 2022 1:49PM MOHINI [id number] - XR ANKLE 3V AP/LAT/OBL RT / PROCEDURE REASON: [id number] * * * * Physician Interpretation * [...] prior surgical change. Clinical correlation is recommended. Ticket Puller: BEKAH Transcribe Date/Time: Mar 06 2022 2:27P Dictated by : PAULO RAUSCH MD This examination was interpreted and the report reviewed and electronically signed by: PAULO RAUSCH MD on Mar 06 2022 2:32PM EST [id number] [facility] XR ANKLE GENERAL 3V AP/LAT/O BL RIGHTon 03-06-2022 [facility] Immunoglobulin Aon 0 Immunoglobulin A 74 mg/dL Normal 47-249 [facility] Comment on above: Order Comment: With differential. Is this specimen being sent to an external lab?->No Performed By: #### I GA #### [place] [address] [facility] Sendouton 11-03-2019 [facility] Send[facility] SEE COMMENTS Normal [facility] Comment on above: Order Comment: GOKEY TTGA 0.5 ml serum, refrig. Result Comment: Test Result Flag Unit RefValue Tissue Transglutaminase Ab, <1.2 U/mL IgA, S -- REFERENCE VALUE -- <4.0 (Negative) Test Performed by: [facility] [address], [place] [address] Data Programmer: Werner Stoddard M.D. Ph.D.; CLIA# [id number] Testing Performed [facility] [address] [place] [address] Performed By: #### M OMSO #### [address] [address] TSH with reflex T4FRon 11-01 TSH with reflex T4FR 1.462 uIU/mL Normal 0.350-5.[address] [facility] Comment on above: Order Comment: With differential. Is this specimen being sent to an external lab?->No Performed By: #### T SHR #### [address] [address] Complete Blood Counton 10-31 Differential Complete Automated Normal [facility] Comment on above: Order Comment: With differential. Is this specimen being sent to an external lab?->No Performed By: #### C BC #### [address] [address] Basophils/100 WBC (Bld) 0.40 % Normal 0.00-1.[address] [facility] Comment on above: Order Comment: With differential. Is this specimen being sent to an external lab?->No Performed By: #### C BC #### [address] [address] Eosinophils/100 WBC (Bld) 1.10 % Normal 0.00-3.00 [facility] Comment on above: Order Comment: With differential. Is this specimen being sent to an external lab?->No Performed By: #### C BC #### [address] [address] Erythrocyte distribution width (RBC) [Ratio] 12.1 % Normal 0.0-14.4 [facility] Comment on above: Order Comment: With differential. Is this specimen being sent to an external lab?->No Performed By: #### C BC #### [address] [id number] Hematocrit (Bld) [Volume fraction] 43.0 % Normal 37.0-46.0 [facility] Comment on above: Order Comment: With differential. Is this specimen being sent to an external lab?->No Performed By: #### C BC #### [place] [address] Hemoglobin (Bld) [Mass/Vol] 14.4 g/dL Normal 12.0-15.0 [facility] Comment on above: Order Comment: With differential. Is this specimen being sent to an external lab?->No Performed By: #### C BC #### [place] [address] Immature granulocytes/100 WBC (Bld) 0.10 % Normal [facility] Comment on above: Order Comment: With differential. Is this specimen being sent to an external lab?->No Result Comment: Raquel ture Granulocyte Percent includes promyelocytes, myelocytes, and metamyelocytes. IG% > 1.0 indicates a left shift is present. With automated differentials, bands are included in the neutrophil count and not in the Immature Granulocyte Percent. Performed By: #### C BC #### [place] [address] Lymphocytes/100 WBC (Bld) 35.8 % Normal 25.0-45.0 [facility] Comment on above: Order Comment: With differential. Is this specimen being sent to an external lab?->No Performed By: #### C BC #### [address] [address] MCH (RBC) [Entitic mass] 28.6 pg Normal 25.0-35.0 [facility] Comment on above: Order Comment: With differential. Is this specimen being sent to an external lab?->No Performed By: #### C BC #### [address] [address] MCHC (RBC) [Mass/Vol] 33.5 % Normal 31.0-37.0 [facility] Comment on above: Order Comment: With differential. Is this specimen being sent to an external lab?->No Performed By: #### C BC #### [address] [address] MCV (RBC) [Entitic vol] 85.3 fL Normal 78.0-96.0 [facility] Comment on above: Order Comment: With differential. Is this specimen being sent to an external lab?->No Performed By: #### C BC #### [address] [address] Monocytes/100 WBC (Bld) 7.20 % High 3.00-6.00 [facility] Comment on above: Order Comment: With differential. Is this specimen being sent to an external lab?->No Performed By: #### C BC #### [address] [address] Neutrophils (Bld) [#/Vol] 4.1 10*3/uL Normal 1.8-7.5 [facility] Comment on above: Order Comment: With differential. Is this specimen being sent to an external lab?->No Performed By: #### C BC #### [address] [address] Neutrophils/100 WBC (Bld) 55.4 % Normal 34.0-64.0 [facility] Comment on above: Order Comment: With differential. Is this specimen being sent to an external lab?->No Performed By: #### C BC #### [address] [address] Nucleated RBC/100 WBC (Bld) [Ratio] 0.0 % Normal -1.0-0.0 [facility] Comment on above: Order Comment: With differential. Is this specimen being sent to an external lab?->No Performed By: #### C BC #### [address] [address] Platelet mean volume (Bld) [Entitic vol] 10.8 fL Normal [facility] Comment on above: Order Comment: With differential. Is this specimen being sent to an external lab?->No Result Comment: MPV is platelet range and age dependent Performed By: #### C BC #### [address] [address] Platelets (Bld) [#/Vol] 220 10*3/uL Normal 150-450 [facility] Comment on above: Order Comment: With differential. Is this specimen being sent to an external lab?->No Performed By: #### C BC #### [address] [address] RBC (Bld) [#/Vol] 5.04 10E12/L High 4.10-4.80 [facility] Comment on above: Order Comment: With differential. Is this specimen being sent to an external lab?->No Performed By: #### C BC #### [address] [address] WBC (Bld) [#/Vol] 7.4 10*3/uL Normal 4.5-13.0 [facility] Comment on above: Order Comment: With differential. Is this specimen being sent to an external lab?->No Performed By: #### C BC #### [address] [address] Lipid Panelon 11-01-2019 Cholesterol [Mass/Vol] 160 mg/dL Normal 0-169 [facility] Comment on above: Order Comment: With differential. Is this specimen being sent to an external lab?->No Result Comment: Acceptable <170 mg/dL Borderline 170-199 mg/dL Abnormal >199 mg/dL NOTE: Reference Range change effective 05/26/18 Performed By: #### L IPID #### [address] [id number] Cholesterol in HDL [Mass/Vol] 58 mg/dL Normal [facility] Comment on above: Order Comment: With differential. Is this specimen being sent to an external lab?->No Result Comment: Acceptable >45 mg/dL Borderline 40-45 mg/dL Abnormal <40 mg/dL NOTE: Reference Range change effective 05/26/18 Performed By: #### L IPID #### [address] [id number] Cholesterol in LDL [Mass/Vol] 89 mg/dL Normal 0-109 [facility] Comment on above: Order Comment: With differential. Is this specimen being sent to an external lab?->No Result Comment: Acceptable <110 mg/dL Borderline 110-129 mg/dL Abnormal >129 mg/dl NOTE: Reference Range change effective 05/26/18 Performed By: #### L IPID #### [address] [id number] Non-HDL Cholesterol 102 mg/dl Normal 0-119 [facility] Comment on above: Order Comment: With differential. Is this specimen being sent to an external lab?->No Result Comment: Acceptable <120 mg/dL Borderline 120-144 mg/dL Abnormal >144 mg/dl Performed By: #### L IPID #### [address] [id number] Triglyceride [Mass/Vol] 66 mg/dL Normal 0-89 [facility] Comment on above: Order Comment: With differential. Is this specimen being sent to an external lab?->No Result Comment: Acceptable <90 mg/dl Borderline 90-129 mg/dl Abnormal >129 mg/dl NOTE: Reference Range change effective 05/26/18 Result invalid if not a fasting specimen. Performed By: #### L IPID #### [facility] [address] [place] [address] Progress Noteon 11-01-2019 International Trade Specialist Authentication Interface Message Text Patient ID: Pancho [...] daily for 90 days Other orders - [facility] Sendout: Return in about 1 year [...] patient's vision. Patient is being seen by memorial counselor or screen machine operator. Primary Care Review of Systems Objective Vital [...] divorce. Electronically signed by: Sera Banks MD [facility] Progress Noteon 08-09-2019 International Trade Specialist Authentication Interface Message Text Patient ID: Pancho [...] Line *Present Clear Background *Present Lot Number [id number] Normal [facility] Strep Cultureon 08-09-2019 Strep Culture Is this specimen eddi ng sent to an external lab?->No Strep Culture: No Beta hemolytic Streptococci isolated. Source: THRSW Collected: 08/09/19 15:19 Site: Throat swab Received : 08/09/19 19:43 Strep Culture FINAL 08/11/19 11:08 No Beta hemolytic Streptococci isolated. Normal [facility] Comment on above: Performed By: #### S TREP #### [facility] [place] [address] Vital Signs Date Time Vital Sign Value Performing Clinician Darwin benjamin 12-16-2022 08:30-0400 Body height 170.[address] Susu Garcia Work Phone: [facility] 12-16-2022 08:22-0400 Body mass index (BMI) [Percentile] Per age and sex 70.1 % Dr. Susu Garcia Work Phone: [facility] 12-16-2022 08:22-0400 Body mass index (BMI) [Ratio] 23.5 kg/m2 Dr. Susu Garcia Work Phone: [facility] 12-16-2022 08:22-0400 Body weight 68.[address] Susu Garcia Work Phone: [facility] 12-16-2022 08:22-0400 Diastolic blood pressure 77 mm[Hg] Dr. Susu Garcia Work Phone: [facility] 12-16-2022 08:22-0400 Systolic blood pressure 112 mm[Hg] Dr. Susu Garcia Work Phone: [facility] 04-02-2022 13:00-0400 Diastolic blood pressure 59 mm[Hg] Nora Key DO Work Phone: [facility] 04-02-2022 13:00-0400 Heart rate 81 /min Nora Key DO Work Phone: [facility] 04-02-2022 13:00-0400 Respiratory rate 17 /min Nora Key DO Work Phone: [facility] 04-02-2022 13:00-0400 SaO2% (BldA) [Mass fraction] 100 % Nora Key DO Work Phone: [facility] 04-02-2022 13:00-0400 Systolic blood pressure 109 mm[Hg] Nora Key DO Work Phone: [facility] 04-02-2022 12:40-0400 Body temperature 97 [degF] Nora Key DO Work Phone: [facility] 03-27-2022 08:37-0400 Body height 170.2 cm Pac 2 Work Phone: [facility] 03-27-2022 08:37-0400 Body mass index (BMI) [Percentile] Per age and sex 36.55 % Pacc 2 Work Phone: [facility] 03-27-2022 08:37-0400 Body weight 58.97 kg Pacc 2 Work Phone: [facility] 03-27-2022 08:37-0400 Heart rate 72 /min Pac 2 Work Phone: [facility] 03-06-2022 13:07-0400 Body height 170.8 cm Nora Key DO Work Phone: [facility] 03-06-2022 13:07-0400 Body mass index (BMI) [Percentile] Per age and sex 49.47 % Nora Key DO Work Phone: [facility] 03-06-2022 13:07-0400 Body weight 62.14 kg Nora Key DO Work Phone: [facility] Encounters Encounter Date Encounter Type Care Provider Facility Start: 01-29-2025 End: 01-29-[address] Susu Garcia DO Work Phone: -Laboratory Start: 01-29-2025 End: 01-29-2025 Patient encounter procedure Fely Hickman CNM -Laboratory Work Phone: Start: 01-29-2025 End: 01-29-2025 ambulatory Fely Hickman Facility:[facility] Start: 01-21-2025 End: 01-21-[address] Susu Garcia DO Work Phone: -Laboratory Start: 01-21-2025 End: 01-21-2025 Patient encounter procedure Fely PATELM -Laboratory Work Phone: Start: 01-21-2025 End: 01-21-2025 ambulatory Susu Garcia Facility:[facility] Start: 01-18-2025 Encounter for genera l adult medical examination without abnormal findings Fely Hickman [facility] Start: 01-12-2025 End: 01-12-[address] Susu Garcia DO Work Phone: -Laboratory Start: 01-12-2025 End: 01-12-2025 Patient encounter procedure Fely Hickman CNM -Laboratory Specimen Work Phone: Start: 01-11-2025 End: 01-11-[address] Veronique Rg MD -[facility] Work Phone: Start: 01-11-2025 End: 01-12-[address] Susu Garcia DO Work Phone: -[facility] Start: 01-10-2025 End: 01-10-[address] Susu Garcia DO Work Phone: -Laboratory Start: 01-10-2025 End: 01-10-2025 Patient encounter procedure Fely Hickman CNM -Laboratory Work Phone: Start: 01-10-2025 End: 01-10-2025 ambulatory Susu Garcia Facility:[facility] Start: 12-08-2024 End: 12-08-[address] Susu Garcia DO Work Phone: [facility] Work Phone: Start: 12-08-2024 End: 12-08-[address] Susu Garcia DO -Laboratory Work Phone: Start: 12-08-2024 End: 12-08-2024 ambulatory Susu Garcia Facility:[facility] Start: 09-10-2024 End: 09-10-[address] Susu Garcia DO Work Phone: [facility] Work Phone: Start: 09-10-2024 End: 09-10-[address] Susu Garcia DO -Laboratory Work Phone: Start: 09-10-2024 End: 09-10-2024 ambulatory Susu Garcia Facility:[facility] Start: 07-27-2024 End: 07-27-2024 Patient encounter procedure Fely Hickman CNM -Laboratory Work Phone: Start: 07-27-2024 End: 07-27-2024 ambulatory Fely Hickman Facility:[facility] Start: 05-14-2024 End: 05-14-2024 ambulatory Susu Pitoys Facility:[facility] Start: 02-21-2023 End: 02-21-[address] Susu Garcia Work Phone: [facility] Work Phone: Start: 02-21-2023 End: 02-21-[address] Susu Garcia Work Phone: [facility] Work Phone: Start: 12-16-2022 End: 12-16-[address] Susu Garcia Work Phone: [facility] Work Phone: Start: 05-30-2022 End: 05-30-2022 ambulatory NORA KEY Facility:[facility] Start: 04-17-2022 End: 04-17-2022 ambulatory NORA KEY Facility:[facility] Start: 04-17-2022 End: 04-17-2022 Patient encounter procedure Nora Key DO Work Phone: Orthopaedics Comment on above: Suture granuloma, in itial encounter (Primary Dx); S/P foot surgery Start: 04-08-2022 Telephone encounter Nora Key DO Work Phone: Orthopaedics Comment on above: Patient Question Start: 04-02-2022 End: 04-02-2022 Subsequent hospital visit by physician Nora Key DO Work Phone: [facility] Surgery Comment on above: Suture granuloma, 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 2 Work Phone: [facility] Start: 03-27-2022 End: 03-27-2022 ambulatory Pacc 2 Work Phone: Pre Anesthesia Comment on above: Pre-op evaluation (P rimary Dx); Gastroesophageal reflux disease, unspecified whether esophagitis present Start: 03-27-2022 End: 03-27-2022 Preprocedural examination done Pac 2 Work Phone: Pre Anesthesia Start: 03-13-2022 Orders Only Nora Bryson Vince marie DO Work Phone: Orthopaedics Comment on above: Suture granuloma, in itial encounter (Primary Dx); Right ankle pain, acute Start: 03-06-2022 End: 03-06-2022 ambulatory UNKNOWN PROVIDER Facility:[facility] Start: 03-06-2022 End: 03-06-2022 Patient encounter procedure Nora Bryson Yesi DO Work Phone: Orthopaedics Comment on above: Suture granuloma, in itial encounter (Primary Dx) Start: 03-06-2022 End: 03-06-2022 Subsequent hospital visit by physician [facility] Work Phone: Radiology Comment on above: Pain [...] >20 - 80 High Positive: >80Performed at: [facility] [address] [id number] Director: Caleb Armenta MD, Phone: [phone] at: [facility] [address] [id number] Director: Huan Orlando PhD, Phone: [phone] Start: 12-08-2024 Total iron binding c apacity [...] Author Start: 02-21-2022 Influenza vaccination INFLUENZA (#1) [facility] Start: 12-03-2021 CHLAMYDIA SCREENING (18-24) CHLAMYDIA SCREENING (18-24) [facility] Start: 12-03-2021 GC (GONORRHEA) SCREE ALINA (18-24) GC (GONORRHEA) SCREENING (18-24) [facility] Start: 12-03-2021 HEPATITIS C SCREENING HEPATITIS C SC REENING [facility] Start: 12-03-2021 HIV SCREENING HIV SCREENING [facility] Start: 06-23-2021 DEPRESSION ASSESSMENT DEPRESSION ASS ESSMENT [facility] Start: 2019 MENINGOCOCCAL CONJUG ATE (1 - 2-dose series) MENINGOCOCCAL CONJUGATE (1 - 2-dose series) [facility] Start: 12-03-2017 PEDS TO ADULT TRANSI TION ANNUAL ASSESSMENT PEDS TO ADULT TRANSITION ANNUAL ASSESSMENT [facility] Start: 2015 Adult depression screening assessment DEPRESSION SCREENING [facility] Start: 2015 PEDS TO ADULT TRANSI TION INITIAL DISCUSSION PEDS TO ADULT TRANSITION INITIAL DISCUSSION [facility] Start: 12-03-2014 HPV VACCINE (1 - 2-d ose series) HPV VACCINE (1 - 2-dose series) [facility] Start: 12-03-2013 MENINGOCOCCAL B: Consider based on risk (1 of 2 - Risk Bexsero 2-dose series) MENINGOCOCCAL B: Consider based on risk (1 of 2 - Risk Bexsero 2-dose series) [facility] Start: 12-03-2010 Urine microalbumin profile DTAP,TDAP,TD (5 - Tdap) [facility] Start: 06-04-2004 COVID-19 VACCINE (#1) COVID-19 VACCI NE (#1) [facility] SURGICAL PATHOLOGY [facility] Work Phone: Comment on above: Release Upon Orderin g for 1 Occurrences starting 04/02/2022 [facility] Immunizations Immunization Date Immunization Notes Care Provider Anastacia allen 04-29-2006 influenza virus vaccine, unspecified formulation [employer] Work Phone: [facility] Work Phone: 06-28-2005 diphtheria, tetanus toxoids and pertussis vaccine [employer] Work Phone: [facility] Work Phone: 06-28-2005 influenza virus vaccine, unspecified formulation [employer] Work Phone: [facility] Work Phone: 06-28-2005 poliovirus vaccine, inactivated [employer] Work Phone: [facility] Work Phone: 03-05-2005 haemophilus influenz ae type b vaccine, HbOC conjugate [employer] Work Phone: [facility] Work Phone: 03-05-2005 pneumococcal conjuga te vaccine, 7 valent [employer] Work Phone: [facility] Work Phone: 01-06-2005 diphtheria, tetanus toxoids and pertussis vaccine [employer] Work Phone: [facility] Work Phone: 12-05-2004 measles, mumps and rubella virus vaccine [employer] Work Phone: [facility] Work Phone: 12-05-2004 varicella virus vaccine [employer] Work Phone: [facility] Work Phone: 09-04-2004 hepatitis B vaccine, pediatric or pediatric/adolescent dosage [employer] Work Phone: [facility] Work Phone: 07-09-2004 haemophilus influenz ae type b vaccine, HbOC conjugate [employer] Work Phone: [facility] Work Phone: 07-09-2004 pneumococcal conjuga te vaccine, 7 valent [employer] Work Phone: [facility] Work Phone: 05-02-2004 diphtheria, tetanus toxoids and pertussis vaccine [employer] Work Phone: [facility] Work Phone: 05-02-2004 haemophilus influenz ae type b vaccine, HbOC conjugate [employer] Work Phone: [facility] Work Phone: 05-02-2004 pneumococcal conjuga te vaccine, 7 valent [employer] Work Phone: [facility] Work Phone: 05-02-2004 poliovirus vaccine, inactivated [employer] Work Phone: [facility] Work Phone: 02-14-2004 diphtheria, tetanus toxoids and pertussis vaccine [employer] Work Phone: [facility] Work Phone: 02-14-2004 poliovirus vaccine, inactivated [employer] Work Phone: [facility] Work Phone: 02-03-2004 haemophilus influenz ae type b vaccine, HbOC conjugate [employer] Work Phone: [facility] Work Phone: 02-03-2004 pneumococcal conjuga te vaccine, 7 valent [employer] Work Phone: [facility] Work Phone: 01-04-2004 hepatitis B vaccine, pediatric or pediatric/adolescent dosage [employer] Work Phone: [facility] Work Phone: 2003 hepatitis B vaccine, pediatric or pediatric/adolescent dosage [employer] Work Phone: [facility] Work Phone: Payers Date Payer Category Payer Self-pay [id number] 2024 Unknown [id number] 2021 Unknown [id number] 2020 Unknown [id number] 2015 Unknown [id number] 2015 [id number] Unknown [id number] Unknown [id number] Unknown [id number] 2.16.8 [id number] Unknown [id number] 2.16.8 [id number] Unknown [id number] 2.16.8 [id number] Unknown [id number] 2.16.8 [id number] Unknown [id number] 2.16.8 [id number] Unknown [id number] 2.16.8 [id number] Unknown [id number] 2.16.8 [id number] Social History Date Type Detail Facility Start: 12-16-2022 Tobacco smoking status CTIS Tobacco smoking consumption unknown [facility] Start: 2005 Sex Assigned At Not on file [facility] Start: 02-24-2022 End: 04-02-2022 Exposure to SARS-CoV-2 (event) Not sure [facility] Start: 03-03-2022 End: 03-13-2022 Exposure to SARS-CoV-2 (event) Unable to assess [facility] Start: 03-27-2022 End: 01-11-2025 Tobacco smoking status CTIS Never smoked tobacco [facility] Work Phone: Start: 03-27-2022 Tobacco use and exposure Smokeless tobacco non-user [facility] Work Phone: Start: 03-27-2022 End: 04-17-2022 Alcohol intake Lifetime non-drinker (finding) [facility] Start: 05-07-2020 With Family [facility] Start: 05-07-2020 Non-smoker [facility] Start: 2003 Sex Assigned At Female [facility] Start: 09-16-2024 Sex Female (finding) [facility] Medical Equipment Procedure Code Equipment Code Equipment Origin al Text Equipment Identifier Dates Arthroscopy, ankle Disposables K it, FiberTak DX S FDA Start: 05-26-2019 Arthroscopy, ankle FiberTak DX S uture [place] FDA Start: 05-26-2019 Arthroscopy, ankle FiberTak DX S uture [place] FDA Start: 05-26-2019 Arthroscopy, ankle FiberTak DX S uture [place] FDA Start: 05-26-2019 Arthroscopy, ankle FiberTak DX S uture [place] FDA Start: 05-26-2019 Arthroscopy, ankle FiberTak DX S uture [place] FDA Start: 05-26-2019 Arthroscopy, ankle InternalBrace Implant System FDA Start: 05-26-2019 Arthroscopy, ankle Disposables K it, FiberTak DX S FDA Start: 05-26-2019 Arthroscopy, ankle FiberTak DX S uture [place] FDA Start: 05-26-2019 Arthroscopy, ankle FiberTak DX S uture [place] FDA Start: 05-26-2019 Arthroscopy, ankle FiberTak DX S uture [place] FDA Start: 05-26-2019 Arthroscopy, ankle FiberTak DX S uture [place] FDA Start: 05-26-2019 Arthroscopy, ankle FiberTak DX S uture [place] FDA Start: 05-26-2019 Arthroscopy, ankle InternalBrace Implant System FDA Start: 05-26-2019 Arthroscopy, ankle Disposables K it, FiberTak DX S FDA Start: 05-26-2019 Arthroscopy, ankle FiberTak DX S uture [place] FDA Start: 05-26-2019 Arthroscopy, ankle FiberTak DX S uture [place] FDA Start: 05-26-2019 Arthroscopy, ankle FiberTak DX S uture [place] FDA Start: 05-26-2019 Arthroscopy, ankle FiberTak DX S uture [place] FDA Start: 05-26-2019 Arthroscopy, ankle FiberTak DX S uture [place] FDA Start: 05-26-2019 Arthroscopy, ankle InternalBrace Implant System FDA Start: 05-26-2019 Arthroscopy, ankle Disposables K it, FiberTak DX S FDA Start: 05-26-2019 Arthroscopy, ankle FiberTak DX S uture [place] FDA Start: 05-26-2019 Arthroscopy, ankle FiberTak DX S uture [place] FDA Start: 05-26-2019 Arthroscopy, ankle FiberTak DX S uture [place] FDA Start: 05-26-2019 Arthroscopy, ankle FiberTak DX S uture [place] FDA Start: 05-26-2019 Arthroscopy, ankle FiberTak DX S uture [place] FDA Start: 05-26-2019 Arthroscopy, ankle InternalBrace Implant System FDA Start: 05-26-2019 Arthroscopy, ankle Disposables K it, FiberTak DX S FDA Start: 05-26-2019 Arthroscopy, ankle FiberTak DX S uture [place] FDA Start: 05-26-2019 Arthroscopy, ankle FiberTak DX S uture [place] FDA Start: 05-26-2019 Arthroscopy, ankle FiberTak DX S uture [place] FDA Start: 05-26-2019 Arthroscopy, ankle FiberTak DX S uture [place] FDA Start: 05-26-2019 Arthroscopy, ankle FiberTak DX S uture [place] FDA Start: 05-26-2019 Arthroscopy, ankle InternalBrace Implant System FDA Start: 05-26-2019 Arthroscopy, ankle Disposables K it, FiberTak DX S FDA Start: 05-26-2019 Arthroscopy, ankle FiberTak DX S uture [place] FDA Start: 05-26-2019 Arthroscopy, ankle FiberTak DX S uture [place] FDA Start: 05-26-2019 Arthroscopy, ankle FiberTak DX S uture [place] FDA Start: 05-26-2019 Arthroscopy, ankle FiberTak DX S uture [place] FDA Start: 05-26-2019 Arthroscopy, ankle FiberTak DX S uture [place] FDA Start: 05-26-2019 Arthroscopy, ankle InternalBrace Implant System FDA Start: 05-26-2019 Arthroscopy, ankle Disposables K it, FiberTak DX S FDA Start: 05-26-2019 Arthroscopy, ankle FiberTak DX S uture [place] FDA Start: 05-26-2019 Arthroscopy, ankle FiberTak DX S uture [place] FDA Start: 05-26-2019 Arthroscopy, ankle FiberTak DX S uture [place] FDA Start: 05-26-2019 Arthroscopy, ankle FiberTak DX S uture [place] FDA Start: 05-26-2019 Arthroscopy, ankle FiberTak DX S uture [place] FDA Start: 05-26-2019 Arthroscopy, ankle InternalBrace Implant System FDA Start: 05-26-2019 Arthroscopy, ankle Disposables K it, FiberTak DX S FDA Start: 05-26-2019 Arthroscopy, ankle FiberTak DX S uture [place] FDA Start: 05-26-2019 Arthroscopy, ankle FiberTak DX S uture [place] FDA Start: 05-26-2019 Arthroscopy, ankle FiberTak DX S uture [place] FDA Start: 05-26-2019 Arthroscopy, ankle FiberTak DX S uture [place] FDA Start: 05-26-2019 Arthroscopy, ankle FiberTak DX S uture [place] FDA Start: 05-26-2019 Arthroscopy, ankle InternalBrace Implant System FDA Start: 05-26-2019 Arthroscopy, ankle Disposables K it, FiberTak DX S FDA Start: 05-26-2019 Arthroscopy, ankle FiberTak DX S uture [place] FDA Start: 05-26-2019 Arthroscopy, ankle FiberTak DX S uture [place] FDA Start: 05-26-2019 Arthroscopy, ankle FiberTak DX S uture [place] FDA Start: 05-26-2019 Arthroscopy, ankle FiberTak DX S uture [place] FDA Start: 05-26-2019 Arthroscopy, ankle FiberTak DX S uture [place] FDA Start: 05-26-2019 Arthroscopy, ankle InternalBrace Implant System FDA Start: 05-26-2019 Clinical Notes 03-06-2022 to 01-11-2025 Note Date & Type Note Facility 01-11-2025 Chief complaint+R mitch for visit Narrative PNOB Vitals, Education January 11, 2025 7 :51am E ORDER January 12, 2025 6:[address] [facility] Work Phone: 1(731) 759-169907-22-2025 Chief complaint+Reason for visit Narrative * Chief Complaint Admit Date PNOB Vitals, Education January 11, 2025 7 :51am E ORDER January 12, 2025 6:24 pm E ORDERS January 21, 2025 9:[address] [facility] Work Phone: 1(261) 735-381712-08-2022 NoteHNO ID: [id number] Author: Nora Key, DO Service: ? Author [...] (FLONASE) 50 mcg/actuation nasal spray Use 1 Newton in each nostril once daily as needed. [...] free to contact the dictating provider for clarification.[facility]10-26-2022 NoteHNO ID: [id number] Author: Nora Key, DO Service: ? Author Type: Physician Type: Progress Notes Filed: 04/23/2022 3:11 PM Note Text: Follow Up Visit Chief Complaint Panhco Savage is a 16 year old female [...] (FLONASE) 50 mcg/actuation nasal spray Use 1 Newton in each nostril once daily as needed. [...] and in agreement of plan. All questions answered.[facility]10-26-2022 History of Present illness Narrative* Nora Key, [...] (FLONASE) 50 mcg/actuation nasal spray Use 1 Newton in each nostril once daily as needed. [...] plan. All questions answered. documented in [facility] Miscellaneous Notes* Telephone Encounter - Jigna Andrews [...] is 04/17/22 Please advise documented in this encounterFire[facility]10-[facility]22 History of Past illness Narrative* Problem Noted Date Resolved Date Right ankle pain 04/02/2022 04/02/2022 documented as of this encounter (statuses as of 04/03/2022) [facility] History of Past illness Narrative* Problem Noted Date Resolved Date Right ankle pain 04/02/2022 04/02/2022 documented as of this encounter (statuses as of 04/08/2022) [facility] History of Past illness Narrative* Problem Noted Date Resolved Date Right ankle pain 04/02/2022 04/02/2022 documented as of this encounter (statuses as of 04/23/2022) [facility] Surgical operation note* Operative Report - Nora Key DO - 04/02/2022 10:47 AM EDT OPERATIVE/PROCEDURE REPORT LOG ID: [id number] SURGERY/PROCEDURE DATE: 04/02/2022 INCISION/PROCEDURE START TIME: 11:18 AM INCISION CLOSE/PROCEDURE END TIME: 12:36 PM SURGEON(S)/PROCEDURALIST(S) AND PROJECT CONTROL ANALYST(S): Surgeon(s) and Role: * Nora Key DO - Primary Physician Stockfeed Miller: Bijal Mott PA-C SURGERY/PROCEDURE(S): Right ankle arthroscopy, [...] 2022 TIME: 1:11 PM documented in this encounterFirelands [facility] Center10-11-2022 History and physical note * Nora Key [...] 10:11 AM Source Note - Khalida Abbott APRN.FEED IN WORKER - 03/27/2022 8:30 AM EDT PREANESTHESIA CONSULT [...] RELIEF) 50 mcg/actuation nasal spray Use 1 Newton in each nostril once daily as needed. fexofenadine (NORMA ALLERGY) 180 mg tablet Take 180 mg by mouth once daily. No current facility-administered medications for this visit. COVID VACCINATION STATUS: Not vaccinated REVIEW OF SYSTEMS: Pain Assessment: General: No weight loss, malaise or fevers. Neuro: No history of TIA's, stroke, DIRECTOR DERMATOLOGY tumor, impaired sensorium, hemiplegia, paraplegia or quadraplegia. No neurological symptoms or problems. Respiratory: No history of current cough or dyspnea, or pneumonia in the past 6 weeks. No history of respiratory/pulmonary symptoms or problems. Cardiovascular: No history of HTN requiring medication, no history of angina, CHF, IN, cardiac surgery or stents. Denies rest pain, gangrene or revascularization/amputation for PVD. No history of cardiovascular symptoms or problems. GI: Negative for Nausea, Vomiting, Abdominal pain, Inflammatory bowel disease +GERD : No history of dysuria, frequency or incontinence,, stones or chronic kidney disease SENIOR COMMUNICATIONS SPECIALIST: Negative for abnormal vaginal bleeding, abnormal vaginal [...] 8:32 AM PAGER/CONTACT #: documented in this encounterFirelands [facility] Center10-05-2022 History and physical note * Khalida AbbottJJ.FEED IN WORKER - 03/27/2022 8:30 AM EDT PREANESTHESIA CONSULT [...] RELIEF) 50 mcg/actuation nasal spray Use 1 Newton in each nostril once daily as needed. fexofenadine (NORMA ALLERGY) 180 mg tablet Take 180 mg by mouth once daily. No current facility-administered medications for this visit. COVID VACCINATION STATUS: Not vaccinated REVIEW OF SYSTEMS: Pain Assessment: General: No weight loss, malaise or fevers. Neuro: No history of TIA's, stroke, DIRECTOR DERMATOLOGY tumor, impaired sensorium, hemiplegia, paraplegia or quadraplegia. No neurological symptoms or problems. Respiratory: No history of current cough or dyspnea, or pneumonia in the past 6 weeks. No history of respiratory/pulmonary symptoms or problems. Cardiovascular: No history of HTN requiring medication, no history of angina, CHF, IN, cardiac surgery or stents. Denies rest pain, gangrene or revascularization/amputation for PVD. No history of cardiovascular symptoms or problems. GI: Negative for Nausea, Vomiting, Abdominal pain, Inflammatory bowel disease +GERD : No history of dysuria, frequency or incontinence,, stones or chronic kidney disease SENIOR COMMUNICATIONS SPECIALIST: Negative for abnormal vaginal bleeding, abnormal vaginal [...] 8:32 AM PAGER/CONTACT #: documented in this encounterFirelands [facility] Center10-05-2022 Instructions* Patient Instructions* Khalida Abbott APRN.CNP - 03/27/2022 8:29 AM EDT PATIENT PREOPERATIVE INSTRUCTIONS Nora Key,* has scheduled you for your procedure at this surgery center: [facility]: [phone] -- [address] [facility] [address]. Please read below carefully for your personalized [...] Procedures: - YOU MUST HAVE A RESPONSIBLE ECONOMIC FORECASTER TAKE YOU HOME. A ENGINEER EXHAUSTER OR SECURITY CONTROLS ASSESSOR CANNOT BE MADE A RESPONSIBLE ECONOMIC FORECASTER. - We recommend that a responsible person [...] Advance Directive, please fax a copy to [phone] or email to for it to be [...] day. Khalida Abbott APRN.CNP documented in this encounterFirelands Regional Medical Center09-14-2022 NoteHNO ID: [id number] Author: Nora Key, DO Service: ? Author [...] her right ankle two years ago at [facility], presents today with pain in the [...] RELIEF) 50 mcg/actuation nasal spray Use 1 Newton in each nostril once daily as needed. [...] prior surgical change. Clinical correlation is recommended. Ticket Puller: BEKAH Transcribe Date/Time: Mar 06 2022 2:27P [...] of limb. Patient james (more content not included)...[facility]09-14-2022 NoteHNO ID: [id number] Author: MARLIN Velasquez Service: Radiology Author Type: [...] BY: MARLIN Velasquez March 06, 2022 1:49 [facility]MPrem[facility] [id number] History of Present illness Narrative* Nora Key, - 03/06/2022 1:04 PM EDT Images from [...] her right ankle two years ago at [facility], presents today with pain in the [...] RELIEF) 50 mcg/actuation nasal spray Use 1 Newton in each nostril once daily as needed. [...] prior surgical change. Clinical correlation is recommended. Ticket Puller: BEKAH Transcribe Date/Time: Mar 06 2022 2:27P [...] body, repair as indicated documented in this encounterFirelands Regional Medical Center09-14-2022 History of Present illness Narrative* MARLIN Velasquez [...] 06, 2022 1:49 PM documented in this encounterFirelands Regional Medical CenterChi complaint+Reason for visit Narrative* Chief Complaint Admit Date PNOB Vitals, Education January 11, 2025 7 :51am [facility] Work Phone: Evaluation note* Diagnosis Pain Generalized pain documented in this encounter [facility]* Diagnosis Suture granuloma, initial encounter- Primary [facility] Diagnosis Suture granuloma, initial encounter- Primary Right ankle pain, acute [facility]* Diagnosis Pre-op evaluation- Primary Preoperative examination, unspecified Gastroesophageal reflux disease, unspecified whether esophagitis present Suture granuloma, initial encounter Right ankle pain, unspecified chronicity [facility]* Diagnosis Postoperative pain- Primary Other acute postoperative pain Suture granuloma, initial encounter Right ankle pain, unspecified chronicity Right ankle pain Pain in joint, ankle and foot [facility]* Diagnosis Suture granuloma, initial encounter- Primary S/P foot surgery Other postprocedural status [facility]* Diagnosis Onset Date Resolution Status Contraception management acu te [facility] Work Phone: Evaluation noteNo assessment information available [facility] Work Phone: Reyiim for referral (narrative)* Diagnostic Procedure Only (Routine) - Closed Specialty Diagnoses / Procedures Referred By Contac t Referred To Contact XR IMAGING Diagnoses Pain Procedures XR ANKLE GENERAL 3V AP/LAT/OBL RIGHT RADEX ANKLE COMPLETE MINIMUM 3 VIEWS Nora Key DO [address] [place] [address] Xr Imaging Referral ID Status Reason Start Date Expiration Date V isits Requested Visits Authorized [id number] Closed Auto-Generate d Referral 02/19/2022 03/21/2023 1 1 [facility] CenterReason for referral (narrative)No reason for referral information availableMer[facility] Work Phone: Rekgdo for visit Narrative* Diagnostic Procedure Only (Routine) - Closed Specialty Diagnoses / Procedures Referred By Contac t Referred To Contact XR IMAGING Diagnoses Pain Procedures XR ANKLE GENERAL 3V AP/LAT/OBL RIGHT RADEX ANKLE COMPLETE MINIMUM 3 VIEWS Nora Key DO [address] [place] [address] Xr Imaging Referral ID Status Reason Start Date Expiration Date V isits Requested Visits Authorized [id number] Closed Auto-Generate d Referral 02/19/2022 03/21/2023 1 1 [facility] Summary Purpose Family History No Family History [...] Will No April 15 1:15pm Power of Crusher Screen Repairer No April 15, 2016 1:15pm Advance Directive [...] section and content) DATE CREATED AUTHOR 11/06/2019 [facility] DATE CREATED AUTHOR AUTHOR'S ORGANIZ ATION 03/22/2022 [facility] DATE CREATED AUTHOR AUTHOR'S ORGANIZ ATION 05/31/2022 [facility] DATE CREATED AUTHOR AUTHOR'S ORGANISABEL ATION 02/05/2025 [facility] Source Comments (unrecognize d section and content) In the event this informatio n is protected by the Federal Confidentiality of Alcohol and Drug Abuse Patient Records regulations: The Federal rules restrict any use of the information to criminally investigate or prosecute any alcohol or drug abuse patient.[facility] CenterIn the event this information is protected by the Federal Confidentiality of Alcohol and Drug Abuse Patient Records regulations: The Federal rules restrict any use of the information to criminally investigate or prosecute any alcohol or drug abuse patient.[facility] CenterIn the event this information is protected by the Federal Confidentiality of Alcohol and Drug Abuse Patient Records regulations: The Federal rules restrict any use of the information to criminally investigate or prosecute any alcohol or drug abuse patient.[facility] CenterIn the event this information is protected by the Federal Confidentiality of Alcohol and Drug Abuse Patient Records regulations: The Federal rules restrict any use of the information to criminally investigate or prosecute any alcohol or drug abuse patient.[facility] CenterIn the event this information is protected by the Federal Confidentiality of Alcohol and Drug Abuse Patient Records regulations: The Federal rules restrict any use of the information to criminally investigate or prosecute any alcohol or drug abuse patient.[facility] CenterIn the event this information is protected by the Federal Confidentiality of Alcohol and Drug Abuse Patient Records regulations: The Federal rules restrict any use of the information to criminally investigate or prosecute any alcohol or drug abuse patient.[facility] CenterIn the event this information is protected by the Federal Confidentiality of Alcohol and Drug Abuse Patient Records regulations: The Federal rules restrict any use of the information to criminally investigate or prosecute any alcohol or drug abuse patient.[facility] Reason for Visit (unrecogniz ed section and content) Reason Comments New Pain Reason Comments Anesthesia Consult Specialty Diagnoses / Procedures Referred By Contac t Referred To Contact Diagnoses Suture granuloma, initial encounter Right ankle pain, unspecified chronicity Suture granuloma, initial encounter [T81.89XA] Right ankle pain, unspecified chronicity [M25.571] Procedures ARTHROSCOPY ANKLE SURGICAL DEBRIDEMENT EXTENSIVE ARTHROSCOPY ANKLE W/ DEBRIDEMENT EXTENSIVE [facility] [address] [place] [address] Referral ID Status Reason Start Date Expiration Date Visits Re quested Visits Authorized [id number] 1 1 Reason Comments Patient Question Reason [...] Perez RN)1103 (Given - Provider: Teodoro Noyola APRN.PORT CAPTAIN) promethazine 12.5 mg tab(s) (PHENERGAN) (COMPLETED) 12.5 [...] Provider Active Start: January 12, 2025 Fely Hikcman CNM Attending Provider Active S tart: January [...] January 21, 2025 End: January 21, 2025 Team Status: Inactive Member Role/Relationship Status Dates Dr. Susu Garcia DO Primary Care Provider Active Start: January 29, 2025 End: January 29, 2025 Fely Hickman CNM Attending Provider Active S tart: January 29, 2025 End: January 29, 2025 Fely Hickman CNM Referring Provider Active S tart: January 29, 2025 End: January 29, 2025 Goals (unrecognized section and content) Goals [...] BE BASED ON THE PRIMARY CLINICAL RECORDS. [facility]. provides no warranty or guarantee of the accuracy or completeness of information in this document.
[2025-02-13 15:36] LABS: hCG Titer Quant., Serum 707 mIU/mL (<9 non-preg)
== END | disposition home or self-care (01) ==
PROVIDERS: PCP Family Medicine; Visit Provider Obstetrics & Gynecology
DX: N91.2 Amenorrhea, unspecified (principal)
CPT/HCPCS: 36415; 84702

== ENCOUNTER → 2025-03-04 | Outpatient (CLI) | payer OTHER, SELFPAY ==
[2025-03-07 20:08] LABS: Chlamydia By Nucleic Acid AMP Negative (Negative); Gonococcus By Nucleic Acid AMP Negative (Negative)
== END | disposition home or self-care (01) ==
LOC: LABSPEC 11:00
PROVIDERS: PCP Family Medicine; Referring Provider Advanced Practice Midwife; Visit Provider Advanced Practice Midwife
DX: O09.91 Supervision of high risk pregnancy, unspecified, first trimester (principal); Z3A.01 Less than 8 weeks gestation of pregnancy; Z12.4 Encounter for screening for malignant neoplasm of cervix
CPT/HCPCS: 87077; 87086; 87088; 87491; 87591; 88175; G0145

== ENCOUNTER → 2025-06-22 | Outpatient (CLI) | payer OTHER, SELFPAY ==
--- OUTSIDE RECORDS SUMMARY | 2025-06-22 14:38 | XMS RPT_ITS | CCD ---
Author Organization [facility] Care Team Providers Care Psychiatric Registered Nurse Name Role Phone Unavailable Primary Care Provider Unavailabl e PROVIDER, UNKNOWN Referring Unavailable Unavailable Primary Care Provider Unavailabl e NORA KEY Attending Unavailab le NORA KEY Attending Unavailab le NORA KEY Attending Unavailab NORA العراقي Referring Unavailab Dr. Susu Oconnor Primary Care Provider Dr. Susu Garcia Referring Provider [phone] ENDY Montesinos Attending Provider [phone] Susu Garcia DO Primary Care Provider [phone] Fely Hickman CNM Attending Provider Fely Hickman CNM Referring Provider [phone] Dr. Susu Garcia DO Attending Provider Dr. Susu Garcia DO Referring Provider Dr. Susu Garcia DO Primary Care Provider [phone] Susu Garcia DO Primary Care Provider [phone] Dr. Susu Garcia DO Attending Provider Dr. Susu Garcia DO Referring Provider Fely Hickman CNM Attending Provider [phone] Fely Hickman CNM Referring Provider Ifrah MAN, Dr. Piper Attending Provider [phone] Dr. Veronique Rg MD Referring Provider Dr. Susu Garcia DO Primary Care Physician Dr. Susu Garcia DO Attending Physician Fely Hickman CNM Attending Physician [phone] Ifrah MAN, Dr. Piper Attending Physician Dr. Darlyn Menendez DO Attending Physician Malys, Susu Primary Care Unavailable Fely Hickman Referring Unavailable Fely Hickman Attending Unavailable Malys, Susu Primary Care Unavailable Malys, Susu Referring Unavailable Fely Hickman Attending Unavailable Malys, Susu Referring Unavailable Vande Velzully, Darlyn Attending Unavailabl e Malys, Susu Primary Care Unavailable Malys, Susu Referring Unavailable Vande Velde, Darlyn Attending Unavailabl e Malys, Susu Primary Care Unavailable Malys, Susu Referring Unavailable Malys, Susu Primary Care Unavailable Vande Velde, Darlyn Attending Unavailabl e Malys, Susu Primary Care Unavailable Fely Hickman Referring Unavailable Fely Hickman Attending Unavailable Malys, Susu Attending Unavailable Malys, Susu Primary Care Unavailable Malys, Susu Referring Unavailable Malys, Susu Primary Care Unavailable Veronique Rg Attending Unavailable Malys, Susu Primary Care Unavailable Malys, Susu Referring Unavailable Veronique gR Attending Unavailable Malys, Susu Primary Care Unavailable Fely Hickman Referring Unavailable Fely Hickman Attending Unavailable Malys, Susu Attending Unavailable Malys, Susu Primary Care Unavailable Malys, Susu Referring Unavailable Malys, Susu Primary Care Unavailable Fely Hickman Attending Unavailable Malys, Susu Primary Care Unavailable Fely Hickman Referring Unavailable Fely Hickman Attending Unavailable Malys, Susu Primary Care Unavailable Veronique Rg Referring Unavailable Veronique Rg Attending Unavailable Fely Hickman Attending Unavailable Fely Hickman Referring Unavailable Malys, Susu Primary Care Unavailable Malys, Susu Attending Unavailable Malys, Susu Primary Care Unavailable Malys, Susu Referring Unavailable Malys, Susu Primary Care Unavailable Fely Hickman Referring Unavailable Fely Hickman Attending Unavailable Allergies Allergy Classification Reported Allergen(s) Allergy Type Date of Onset Reaction(s) Facility (15 sources) Wheat gluten extract Drug Allergy 3 Diarrhea [facility] (12 sources) natural latex rubber Allergy to substance 5 Hives [facility] Comment on above: itching (2 sources) suture; Translations: [suture] Propensity to adverse reactions 5 body rejected [facility] Comment on above: Vicryl sutures-body rejected after ankle reconstructio. Sutures protruded through skin. (1 source) Gluten Drug allergy (disorder) 5 [facility] Repository (1 source) natural latex rubber Drug allergy (disorder) 5 [facility] Repository Medications Current Medications Medication Drug Class(es) [...] DAILY as needed October 15, 2022 12:00am Complies with drug therapy Comment on above: Take 10 mg by mouth. cholecalciferol 0.125 mg oral capsule (12 sources) Vitamin D Start: 01-11-2025 take 1 capsule by mouth once daily Cholecalciferol (Vitamin D3) 125 mcg (5,000 unit) capsule Active 125 ug PO daily January 11, 2025 12:00am Complies with drug therapy Multivit 10-Jzcz-Kcwezj 1-Dha (Pnv-Dha) 27 mg iron-1 mg -300 mg capsule (12 sources) Start: 01-11-2025 Multivit 35-Enyo-Hdoaqw 1-Dha (Pnv-Dha) 27 mg iron-1 mg -300 mg capsule Active NMA PO January 11, 2025 12:00am Complies with drug therapy Start: 01-11-2025 Multivit 47-Ir on-Folate 1-Dha (Pnv-Dha) 27 mg iron-1 mg -300 mg capsule Active NMA PO January 11, 2025 12:00am omeprazole 20 mg delayed release oral tablet (20 sources) Proton Pump Inhibitor Start: 10-15-2022 take 10 mg by mouth once daily Omeprazole 20 mg tablet,delayed release (DR/EC) Active 10 mg PO DAILY October 15, 2022 8:17am Complies with drug therapy Start: 10-15-2022 take 10 mg by mouth once daily Omeprazole Active 10 MG PO DAILY October 15, 2022 8:17am Start: 02-27-2022 omeprazole (ME ILOSEC) 20 mg capsule Start: 05-24-2019 End: 10-15-2022 take 1 tablet by mouth once daily Omeprazole 20 MG tablet,delayed release (DR/EC) Discontinued 20 mg PO DAILY May 24, 2019 1:00am October 15, 2022 8:18am ondansetron 4 mg disintegrating oral tablet (3 sources) Serotonin-3 Receptor Antagonist Start: 03-16-2025 take 1 tablet by mouth every six hours as needed for nausea and vomiting Ondansetron 4 mg tablet,disintegrating Active 4 mg PO EVERY 6 HOURS as needed for nausea and vomiting 30 March 16, 2025 12:00am Complies with drug therapy Completed/Discontinued Medications Medication Drug Class(es) Dates Sig (Normalized) Sig (Original) acetaminophen 325 mg / HYDROcodone bitartrate 5 mg oral tablet (15 sources) Opioid Agonist Start: 05-26-2019 End: 06-09-2019 [...] propionate 0.05 mg/actuat metered dose nasal spray (20 sources) Corticosteroid Start: 04-15-20 End: 10-08-19 18 [...] (FLONASE) 50 mcg/actuation nasal spray Use 1 [place] in each nostril once daily as needed. 0 Active Comment on above: Use 1 [place] in each nostril once daily as needed. hydrOXYzine hydrochloride 25 mg oral tablet (15 sources) Antihistamine Start: 04-20-20 End: 10-16-19 take 1 tablet by mouth at bedtime Hydroxyzine Hcl 25 mg tablet Discontinued 25 mg PO AT BEDTIME April 20, 2021 12:00am October 15, 2022 8:17am Problems Active Problems Problem Classification Problem Date Documented Da te Episodic/Chronic Complications of surgical procedures or medical care (4 sources) Suture granuloma; Translations: [Other complications of procedures, not elsewhere classified, initial encounter] Episodic Contraceptive and procreative management (16 sources) Patient encounter status; Translations: [Encounter for contraceptive management, unspecified] 10-15-2022 Episodic Crushing injury or internal injury (15 sources) Crush injury of right thumb; Translations: [Crushing injury of right thumb, initial encounter] 05-08-2020 Episodic Esophageal disorders (6 sources) Gastroesophageal reflux disease; Translations: [Gastro-esophageal reflux disease without esophagitis] Onset: 2 Chronic Fracture of lower limb (15 sources) Closed fracture of lateral malleolus; Translations: [Displaced fracture of lateral malleolus of unspecified fibula, initial encounter for closed fracture] 10-15-2022 Episodic Hemorrhage during ; abruptio placenta; placenta previa (20 sources) Antepartum hemorrhage; Translations: [Hemorrhage in early , unspecified] Onset: 5 07-26-2024 Episodic Menstrual disorders (15 sources) Amenorrhea; Translations: [Amenorrhea, unspecified] Onset: 5 02-11-2025 Chronic Comment on above: serial HCG Other complications of (19 sources) High risk ; Translations: [Supervision of high risk , unspecified, unspecified trimester] 01-11-2025 Episodic Comment on above: , INGRID 08/31/25, H dejon Rose , INGRID 08/31/25, H dejon Rose Other complications of (19 sources) Chemical ; Translations: [Inappropriate change in quantitative human chorionic gonadotropin (hCG) in early ] 01-13-2025 Episodic Other complications of (1 source) Supervision of high risk , unspecified, unspecified trimester; Translations: [Supervision of high risk , unspecified, unspecified trimester] Onset: 5 Episodic Other complications of (1 source) Inappropriate change in quantitative human chorionic gonadotropin (hCG) in early ; Translations: [Inappropriate change in quantitative human chorionic gonadotropin (hCG) in early ] Onset: 5 Episodic Other complications of (1 source) Supervision of high risk , unspecified, first trimester; Translations: [Supervision of high risk , unspecified, first trimester] Onset: 5 Episodic Other connective tissue disease (15 sources) Peroneal tendinitis of right lower limb; Translations: [Peroneal tendinitis, right leg] 10-15-2022 Episodic Other gastrointestinal disorders (15 sources) Gastrointestinal tract problem; Translations: [Other specified symptoms and signs involving the digestive system and abdomen] 10-15-2022 Episodic Other injuries and conditions due to external causes (15 sources) Injury of right ankle; Translations: [Unspecified injury of right ankle, initial encounter] 10-15-2022 Episodic Other nervous system disorders (1 source) Postoperative pain ; Translations: [Other acute postprocedural pain] Episodic Other non-traumatic joint disorders (3 sources) Ankle pain; Translations: [Pain in right ankle and joints of right foot] Episodic Other and delivery including normal (19 sources) ; Translations: [Encounter for supervision of normal , unspecified, unspecified trimester] 01-11-2025 Episodic Comment on above: discussed genetic & carrier testing-undecided NEEDS repeat urine c ulture at 2nd visit. discussed genetic & carrier testing-undecided Other screening for suspected conditions (not mental disorders or infectious disease) (1 source) Encounter for screening for malignant neoplasm of cervix; Translations: [Encounter for screening for malignant neoplasm of cervix] Onset: 5 Episodic Other upper respiratory infections (15 sources) Acute upper respiratory infection; Translations: [Acute upper respiratory infection, unspecified] 10-15-2022 Episodic Residual codes; unclassified (1 source) Pain; Translations: [Pain, unspecified] Episodic Residual codes; unclassified (1 source) Pain, unspecified; Translations: [Pain] Onset: 2 Episodic Residual codes; unclassified (1 source) History of operative procedure on foot; Translations: [Other specified postprocedural states] Episodic Residual codes; unclassified (1 source) 10 weeks gestation of ; Translations: [10 weeks gestation of ] Onset: 5 Episodic Residual codes; unclassified (1 source) 8 weeks gestation of ; Translations: [8 weeks gestation of ] Onset: 5 Episodic Residual codes; unclassified (1 source) Less than 8 weeks gestation of ; Translations: [Less than 8 weeks gestation of ] Onset: 5 Episodic Past or Other Problems Problem Classification Problem Date Documented Da te Episodic/Chronic Deficiency and other anemia (1 source) Iron deficiency anemia, unspecified; Translations: [Iron deficiency anemia, unspecified] Onset: 12-13-2024 Episodic Results Test Name Value Interpretation Reference Range Facility Wine Specialist Office Visit Reporton 04-29-2025 Wine Specialist Office Visit Report [facility] [address], [address] [place] [address] OFFICE VISIT Date of Service: 04/29/25 MR#: [id number] Acct: [id number] Name: PANCHO RUIZ Rep #: [id number] : 2005 Provider: Dr. Darlyn Lang DO Age/Sex: 19/F Location: [facility] [place] Status: Signed Intake Vital Signs 03/16/25 14:30 03/31/25 09:26 04/29/25 13:50 Height 5 ft 7 in 5 ft 7 in 5 ft 7 in Weight: 148 lb 3 oz BMI 23.2 BP 108/70 Intake Visit Reasons: 14wk4d ob Resin Painter Required: No Is patient in pain?: No Allergies Latex, Natural Rubber Allergy (Intermediate, Verified 04/29/25 13:53) Hives gluten Allergy (Mild, Verified 04/29/25 13:53) Diarrhea suture Adverse Reaction (Intermediate, Verified 04/29/25 13:53) body rejected Medications ???Medication ???Instructions ???Recorded ???Confirmed ???Type cetirizine 10 mg capsule (Zyrtec) 10 mg PO DAILY PRN 10/15/2204/29 History omeprazole 20 mg tablet,delayed 10 mg PO DAILY 10/15/22 04/29/25 H istory release cholecalciferol (vitamin D3) 125 125 mcg PO QDAY 01/11/25 04/29/25 History mcg (5,000 unit) capsule multivitamin no.47-iron fum 27 cap PO 01/11/25 04/29/25 History mg-folate no.1 1 mg-dha 300 mg capsule (PNV-DHA) ondansetron 4 mg disintegrating 4 mg PO Q6H PRN nausea and 5 04/29/25 Rx tablet vomiting #30 tabs Last Menstrual Period: 11/24/24 Zika: Zika virus screening: Negative : No PFSH PFSH Medical History Seasonal allergies Gastrointestinal problem Peroneal tendinitis of right lower extremity Right ankle injury Ankle fracture, lateral malleolus, closed URI, acute Hay fever Surgical History History of ankle surgery Hx of tonsillectomy Family History Grandfather Diabetes Paternal Parkinsons disease Paternal Father Asthma Sleep apnea Mother Hypertension Maternal Grandmother Hypertension Grandfather Hypertension Paternal Social History adopted: No household members: spouse housing: house current occupational status: employed 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 current occupational exposures/hazards: No pets and animals: No history of recent travel: No sexually active: Yes Smoking Status: Never smoker alcohol intake: never substance use type: does not use diet: gluten free and lactose free well-balanced diet: daily or most days caffeine: Yes (occasional) Type: coffee Number of servings: 1 and tea Number of servings: 1 eating out: rarely or never during the past year weight has: remained stable what type of physical activity do you participate in: none elvira/amish: Rastafari seatbelt use: always do you feel safe at home: Yes additional social history: [place] History 3 Elective abortions Hx Para 0 Spontaneous abortions 3 Hx # Term Pregnancies Ectopic pregnancies Hx # Pregnancies Multiple births # of living children HPI 14wk4d ob Details: PANCHO RUIZ is a 19 year old who presents for routine OB visit. OB Visit INGRID Calculator Estimated Delivery Date Method Current WG Current Estimate 10/23/25 Ultrasound #1 14w 5d Other Estimates 10/17/25 LMP (Certain) 15w 4d Expected Delivery Route/Plan Labor Preferences- CB/BF classes: [] labor support person: [] labor intervention preferences: [] pain management options preferred: [] cut cord/dad catch: [] : [] PP control planned: [] discussed possible routes of delivery and associated risks: [] special requests: [] Specific Issue/Plans Covid status: [] Flu vaccine: [] Tdap vaccine: [] Rhogam: [] LARC form signed: [] Problem list reviewed and updated with the most current plan of care details and appropriate orders placed. Relevant counseling for the gestational age provided. Continue routine care and follow up unless otherwise noted in visit notes/problem list details Initial Weight: 148 lb Date -???-???-???-???-???-???- ???-???-???-???-???-???- EGA Weight BP Urine Prot -???-???-???-???-???-???- ???-???-???-???-???-???- Glucose FHR FuHt Pres Dilation -???-???-???-???-???-???- ???-???-???-???-???-???- Effaced St Visit Note 03/04/25 -???-???-???-???-???-???- ???-???-???-???-???-???- 6w 5d 148 lb 5 oz (+5 oz) 107/70 -???-???-???-???-???-???- ???-???-???-???-???-???- 127 -???-???-???-???-???-???- ???-???-???-???-???-???- KW- CRL not cons with dates. unsure of LMP due to it being SAB. RTO in 2 weeks for rescan. will do labs then. declines NIPT. 03/16/ (more content not included)... Normal [facility] Wine Specialist Office Visit Reporton 03-31-2025 Wine Specialist Office Visit Report [facility] [address] [place] [address], [address] [place] [address] OFFICE VISIT Date of Service: 03/31/25 MR#: [id number] Acct: [id number] Name: PANCHO RUIZ BISI Rep #: [id number] : 2005 Provider: Dr. Darlyn Lang DO Age/Sex: 19/F [place] [facility] [place]: Signed Intake Vital Signs 03/04/25 07:59 03/16/25 14:30 03/31/25 09:26 03/31/25 09:26 Height 5 ft 7 in 5 ft 7 in 5 ft 7 in 5 ft 7 in Weight: 147 lb 6 oz BMI 23.1 BP 118/71 Intake Visit Reasons: 10 WK 4D OB Resin Painter Required: No Is patient in pain?: No Allergies Latex, Natural Rubber Allergy (Intermediate, Verified 03/31/25 09:26) Hives gluten Allergy (Mild, Verified 03/31/25 09:26) Diarrhea suture Adverse Reaction (Intermediate, Verified 03/31/25 09:37) body rejected Medications ???Medication ???Instructions ???Recorded ???Confirmed ???Type cetirizine 10 mg capsule (Zyrtec) 10 mg PO DAILY PRN 10/15/2203/31 History omeprazole 20 mg tablet,delayed 10 mg PO DAILY 10/15/22 03/31/25 H istory release cholecalciferol (vitamin D3) 125 125 mcg PO QDAY 01/11/25 03/31/25 History mcg (5,000 unit) capsule multivitamin no.47-iron fum 27 cap PO 01/11/25 03/31/25 History mg-folate no.1 1 mg-dha 300 mg capsule (PNV-DHA) ondansetron 4 mg disintegrating 4 mg PO Q6H PRN nausea and 5 03/31/25 Rx tablet vomiting #30 tabs Last Menstrual Period: 11/24/24 Zika: Zika virus screening: Negative : No PFSH PFSH Medical History Seasonal allergies Gastrointestinal problem Peroneal tendinitis of right lower extremity Right ankle injury Ankle fracture, lateral malleolus, closed URI, acute Hay fever Surgical History History of ankle surgery Hx of tonsillectomy Family History Grandfather Diabetes Paternal Parkinsons disease Paternal Father Asthma Sleep apnea Mother Hypertension Maternal Grandmother Hypertension Grandfather Hypertension Paternal Social History adopted: No household members: spouse housing: house current occupational status: employed 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 current occupational exposures/hazards: No pets and animals: No history of recent travel: No sexually active: Yes Smoking Status: Never smoker alcohol intake: never substance use type: does not use diet: gluten free and lactose free well-balanced diet: daily or most days caffeine: Yes (occasional) Type: coffee Number of servings: 1 and tea Number of servings: 1 eating out: rarely or never during the past year weight has: remained stable what type of physical activity do you participate in: none elvira/amish: Rastafari seatbelt use: always do you feel safe at home: Yes additional social history: [place]- [employer] History 3 Elective abortions Hx Para 0 Spontaneous abortions 3 Hx # Term Pregnancies Ectopic pregnancies Hx # Pregnancies Multiple births # of living children HPI 10 WK 4D OB Details: PANCHO RUIZ is a 19 year old who presents for routine OB visit. OB Visit INGRID Calculator Estimated Delivery Date Method Current WG Current Estimate 10/23/25 Ultrasound #1 10w 4d Other Estimates 10/17/25 LMP (Certain) 11w 3d Expected Delivery Route/Plan Labor Preferences- CB/BF classes: [] labor support person: [] labor intervention preferences: [] pain management options preferred: [] cut cord/dad catch: [] : [] PP control planned: [] discussed possible routes of delivery and associated risks: [] special requests: [] Specific Issue/Plans Covid status: [] Flu vaccine: [] Tdap vaccine: [] Rhogam: [] LARC form signed: [] Problem list reviewed and updated with the most current plan of care details and appropriate orders placed. Relevant counseling for the gestational age provided. Continue routine care and follow up unless otherwise noted in visit notes/problem list details Initial Weight: 148 lb Date -???-???-???-???-???-???- ???-???-???-???-???-???- EGA Weight BP Urine Prot -???-???-???-???-???-???- ???-???-???-???-???-???- Glucose FHR FuHt Pres Dilation -???-???-???-???-???-???- ???-???-???-???-???-???- Effaced St Visit Note 03/04/25 -???-???-???-???-???-???- ???-???-???-???-???-???- 6w 5d 148 lb 5 oz (+5 oz) 107/70 -???-???-???-???-???-???- ???-???-???-???-???-???- 127 -???-???-???-???-???-???- ???-???-???-???-???-???- KW- CRL not cons with dates. unsure of LMP due to it being SAB. RTO in 2 weeks for rescan. will do labs then (more content not included)... Normal [facility] - Chemistry and C hemistry - challengeOrdered By: Darlyn Crane on 03-16-2025 Glucose Ql (U) Negative [facility] - UrinalysisOrder ed By: Darlyn Crane on 03-16-2025 Protein Ql (U) Negative [facility] Wine Specialist Office Visit Reporton 03-16-2025 Wine Specialist Office Visit Report [facility] [address], [address] [place] [address] OFFICE VISIT Date of Service: 03/16/25 MR#: [id number] Acct: [id number] Name: PANCHO RUIZ BISI Rep #: [id number] : 2005 Provider: Dr. Darlyn Lang DO Age/Sex: 19/F Location: [facility] [place] Status: Signed Intake Vital Signs 03/04/25 07:59 03/16/25 14:30 Height 5 ft 7 in 5 ft 7 in Weight: 148 lb 5 oz 148 lb BMI 23.2 23.1 BP 107/70 113/74 Intake Visit Reasons: RESCAN Resin Painter Required: No Is patient in pain?: No Allergies Latex, Natural Rubber Allergy (Intermediate, Verified 03/16/25 14:30) Hives gluten Allergy (Mild, Verified 03/16/25 14:30) Diarrhea Medications ???Medication ???Instructions ???Recorded ???Confirmed ???Type cetirizine 10 mg capsule (Zyrtec) 10 mg PO DAILY PRN 10/15/2203/16 History omeprazole 20 mg tablet,delayed 10 mg PO DAILY 10/15/22 03/16/25 H istory release cholecalciferol (vitamin D3) 125 125 mcg PO QDAY 01/11/25 03/16/25 History mcg (5,000 unit) capsule multivitamin no.47-iron fum 27 cap PO 01/11/25 03/16/25 History mg-folate no.1 1 mg-dha 300 mg capsule (PNV-DHA) ondansetron 4 mg disintegrating 4 mg PO Q6H PRN nausea and 5 03/16/25 Rx tablet vomiting #30 tabs Last Menstrual Period: 11/24/24 Zika: Zika virus screening: Negative : No PFSH PFSH Medical History Seasonal allergies Gastrointestinal problem Peroneal tendinitis of right lower extremity Right ankle injury Ankle fracture, lateral malleolus, closed URI, acute Hay fever Surgical History History of ankle surgery Hx of tonsillectomy Family History Grandfather Diabetes Paternal Parkinsons disease Paternal Father Asthma Sleep apnea Mother Hypertension Maternal Grandmother Hypertension Grandfather Hypertension Paternal Social History adopted: No household members: spouse housing: house current occupational status: employed 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 current occupational exposures/hazards: No pets and animals: No history of recent travel: No sexually active: Yes Smoking Status: Never smoker alcohol intake: never substance use type: does not use diet: gluten free and lactose free well-balanced diet: daily or most days caffeine: Yes (occasional) Type: coffee Number of servings: 1 and tea Number of servings: 1 eating out: rarely or never during the past year weight has: remained stable what type of physical activity do you participate in: none elvira/amish: Rastafari seatbelt use: always do you feel safe at home: Yes additional 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 OB Visit INGRID Calculator Estimated Delivery Date Method Current WG Current Estimate 10/23/25 Ultrasound #1 8w 3d Other Estimates 10/17/25 LMP (Certain) 9w 2d Expected Delivery Route/Plan Labor Preferences- CB/BF classes: [] labor support person: [] labor intervention preferences: [] pain management options preferred: [] cut cord/dad catch: [] : [] PP control planned: [] discussed possible routes of delivery and associated risks: [] special requests: [] Specific Issue/Plans Covid status: [] Flu vaccine: [] Tdap vaccine: [] Rhogam: [] LARC form signed: [] Problem list reviewed and updated with the most current plan of care details and appropriate orders placed. Relevant counseling for the gestational age provided. Continue routine care and follow up unless otherwise noted in visit notes/problem list details Initial Weight: 148 lb Date -???-???-???-???-???-???- ???-???-???-???-???-???- EGA Weight BP Urine Prot -???-???-???-???-???-???- ???-???-???-???-???-???- Glucose FHR FuHt Pres Dilation -???-???-???-???-???-???- ???-???-???-???-???-???- Effaced St Visit Note 03/04/25 -???-???-???-???-???-???- ???-???-???-???-???-???- 6w 5d 148 lb 5 oz (+5 oz) 107/70 -???-???-???-???-???-???- ???-???-???-???-???-???- 127 -???-???-???-???-???-???- ???-???-???-???-???-???- KW- CRL not cons with dates. unsure of LMP due to it being SAB. RTO in 2 weeks for rescan. will do labs then. declines NIPT. 03/16/25 -???-???-???-???-???-???- ???-???-???-???-???-???- 8w 3d 148 lb (+0 oz) 113/74 Negative (more content not included)... Normal [facility] PAP I-G w/rfx hrHPV-Aptimaon 03-10-2025 ORDER Normal [facility] Comment on above: Order Comment: Clini jessica Info: Collection Vial: Thin Prep VialGYN Source: CERVICAL/ENDOCERVICALDate LMP/Menopause: N/ACollection Techniques: CX BROOM ONLY Result Comment: IGP, rfx Aptima HPV ASCU INTERPRETATION: NEGATIVE FOR INTRAEPITHELIAL LESION AND MALIGNANCY Specimen Adequacy: Satisfactory for evaluation. Endocervical and/or squamous metaplastic cells (endocervical component) are present. COMMENTS: The pap smear is a screening test designated to aid in the detection of pre-malignant and malignant conditions of the uterine cervix. It is not a diagnostic procedure and should not be used as the sole means of detecting cervical cancer. Both false-positive and false-negative reports do occur. This liquid based ThinPrep(R) pap test was screened with the use of an image guided system. Performed by Aziza Guerrero, Auger Supervisor (ASCP) The HPV DNA reflex criteria were not met with this specimen result therefore, no HPV testing was performed TESTING PERFORMED AT [facility]. ORIGINAL REPORT ON FILE IN LAB CONTAINS ADDITIONAL TEST SITE INFORMATION. Performed By: #### L 3100.8410, BTS, L4500.0100, L700.8000, L3410.1999 #### [facility] [address] [place], [address] Chlamydia/GC KESHA aptimaon CHLAMY,NUC ACID Negative Normal Negative [facility] Comment on above: Performed By: #### L 3100.8410, BTS, L4500.0100, L700.8000, L3410.1999 #### [facility] [address] [place], [address] GC BY NUC ACID Negative Normal Negative [facility] Comment on above: Result Comment: Perf ormed at: =[address] [id number] Forensic Investigator: Isamar Guzman MD, Phone: [phone] Performed By: #### L 3100.8410, BTS, L4500.0100, L700.8000, L3410.1999 #### [facility] [address] [place], [address] Urine Cultureon 03-07-2025 URC Susceptibility not normally performed on this organism. Urine Culture Corynebacterium minutissimum [place] Count 80,000-100,000 Normal [facility] Comment on above: Performed By: #### L 3100.8410, BTS, L4500.0100, L700.8000, L3410.1999 #### [facility] [address] [place], [address] Chlamydia trachomatis rRNA d etection by probe and target amplification methodOrdered By: Fely Hickman on 03-04-2025 C. trachomatis rRNA KESHA+probe Ql (Unsp spec) Negative Negative [facility] Neisseria gonorrhoeae nuclei c acid detection by amplified probe techniqueOrdered By: Fely Hickman on 03-04-2025 N. gonorrhoeae DNA KESHA+probe Ql (Unsp spec) Negative Negative [facility] Comment on above: Performed at: [address] [id number] Director: Isamar Guzman MD, Phone: [phone] No Panel InformationOrdered By: Fely Hickman on 03-04-2025 Pap Smear Test Ordered See comment [facility] Comment on above: IGP, rfx Aptima HPV ASCUINTERPRETATION:NEGATIVE FOR INTRAEPITHELIAL LESION AND MALIGNANCYSpecimen Adequacy:Satisfactory for evaluation. Endocervical and/or squamous metaplastic cells (endocervical component) are present.COMMENTS:The pap smear is a screening test designated to aid in thedetection of pre-malignant and malignant conditions of theuterine cervix. It is not a diagnostic procedure and shouldnot be used as the sole means of detecting cervical cancer. Both false-positive and false-negative reports do occur.This liquid based ThinPrep(R) pap test was screened with the use of an image guided system. Performed by Aziza Guerrero Auger Supervisor (ASCP) The HPV DNA reflex criteria were not met with this specimen result therefore, no HPV testing was performed ____ TESTING PERFORMED AT [facility]. ORIGINAL REPORT ON FILE IN LAB CONTAINS ADDITIONAL TEST SITE INFORMATION. Wine Specialist Office Visit Reporton 03-04-2025 Wine Specialist Office Visit Report [facility] [address] [place] [address], [address] [place] [address] OFFICE VISIT Date of Service: 03/04/25 MR#: [id number] Acct: [id number] Name: PANCHO RUIZ Rep #: [id number] : 2005 Provider: ENDY Hodges ams Age/Sex: 19/F [place] [facility] [place]: Signed Intake Vital Signs 12/16/22 08:30 03/04/25 07:59 Height 5 ft 7 in 5 ft 7 in Weight: 148 lb 5 oz BMI 23.2 BP 107/70 Intake Visit Reasons: *EST* NOB LMP 01/10, INGRID 10/17 Chief Complaint: New OB Resin Painter Required: No Is patient in pain?: No Allergies Latex, Natural Rubber Allergy (Intermediate, Verified 03/04/25 07:57) Hives gluten Allergy (Mild, Verified 03/04/25 07:57) Diarrhea Medications ???Medication ???Instructions ???Recorded ???Confirmed ???Type cetirizine 10 mg capsule (Zyrtec) 10 mg PO DAILY PRN 10/15/2203/04 History omeprazole 20 mg tablet,delayed 10 mg PO DAILY 10/15/22 03/04/25 H istory release cholecalciferol (vitamin D3) 125 125 mcg PO QDAY 01/11/25 03/04/25 History mcg (5,000 unit) capsule multivitamin no.47-iron fum 27 cap PO 01/11/25 03/04/25 History mg-folate no.1 1 mg-dha 300 mg capsule (PNV-DHA) Last Menstrual Period: 11/24/24 PFSH PFS Medical History Seasonal allergies Gastrointestinal problem Peroneal tendinitis of right lower extremity Right ankle injury Ankle fracture, lateral malleolus, closed URI, acute Hay fever Surgical History History of ankle surgery Hx of tonsillectomy Family History Grandfather Diabetes Paternal Parkinsons disease Paternal Father Asthma Sleep apnea Mother Hypertension Maternal Grandmother Hypertension Grandfather Hypertension Paternal Social History adopted: No household members: spouse housing: house current occupational status: employed 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 current occupational exposures/hazards: No pets and animals: No history of recent travel: No sexually active: Yes Smoking Status: Never smoker alcohol intake: never substance use type: does not use diet: gluten free and lactose free well-balanced diet: daily or most days caffeine: Yes (occasional) Type: coffee Number of servings: 1 and tea Number of servings: 1 eating out: rarely or never during the past year weight has: remained stable what type of physical activity do you participate in: none elvira/amish: Rastafari seatbelt use: always do you feel safe at home: Yes additional social history: [place] History 3 Elective abortions Hx Para 0 Spontaneous abortions 3 Hx # Term Pregnancies Ectopic pregnancies Hx # Pregnancies Multiple births # of living children HPI *EST* NOB LMP 01/10, INGRID 10/17 Details: PANCHO RUIZ is a 19 year old who presents for New OB visit. OB Visit INGRID Calculator Estimated Delivery Date Method Current WG Current Estimate 10/23/25 Ultrasound #1 6w 5d Other Estimates 10/17/25 LMP (Certain) 7w 4d Estimated Due Date: 08/31/25 Expected Delivery Route/Plan Labor Preferences- CB/BF classes: [] labor support person: [] labor intervention preferences: [] pain management options preferred: [] cut cord/dad catch: [] : [] PP control planned: [] discussed possible routes of delivery and associated risks: [] special requests: [] Specific Issue/Plans Covid status: [] Flu vaccine: [] Tdap vaccine: [] Rhogam: [] LARC form signed: [] Problem list reviewed and updated with the most current plan of care details and appropriate orders placed. Relevant counseling for the gestational age provided. Continue routine care and follow up unless otherwise noted in visit notes/problem list details Initial Weight: 148 lb Date -???-???-???-???-???-???- ???-???-???-???-???-???- EGA Weight BP Urine Prot -???-???-???-???-???-???- ???-???-???-???-???-???- Glucose FHR FuHt Pres Dilation -???-???-???-???-???-???- ???-???-???-???-???-???- Effaced St Visit Note 03/04/25 -???-???-???-???-???-???- ???-???-???-???-???-???- 6w 5d 148 lb 5 oz (+5 oz) 107/70 -???-???-???-???-???-???- ???-???-???-???-???-???- 127 -???-???-???-???-???-???- ???-???-???-???-???-???- KW- CRL not cons with dates. unsure of LMP due to it being SAB. RTO in 2 weeks for rescan. will do labs then. declines NIPT. Menstrual History Last Menstrual Period: 11/24/24 Reported LMP: definite Normal amount/duration: Yes Frequency in days: 29-30 On hormonal BC at conception: No hCG+: 12/22/24 Antepartum Record Marie (more content not included)... Normal [facility] Urine cultureOrdered By: Dayron Hickman on 03-04-2025 Bacteria identified Cx Nom (U) Corynebacterium minutissimum Abnormal [facility] Serum human chorionic gonado tropin detection for pregnancyOrdered By: Veronique Rg on 02-13-2025 HCG ( test) Ql 707 mIU/mL High <9 [facility] Comment on above: Gestational Age0.2-1 Week: 5-50 mIU/mL1-2 Weeks: 50-500 mIU/mL2-3 Weeks: 100-5000 mIU/mL3-4 Weeks: 500-10,000 mIU/mL4-5 Weeks:1000-50,000 mIU/mL5-6 Weeks: 10,000-100,000 mIU/mL6-8 Weeks: 15,000-200,000 mIU/mL2-3 Months:10,000-100,000 mIU/mL hCG Titer Quant., Serumon HCG QUANT. 707 mIU/mL High <9 non-preg [facility] Comment on above: Result Comment: Gest ational Age 0.2-1 Week: 5-50 mIU/mL 1-2 Weeks: 50-500 mIU/mL 2-3 Weeks: 100-5000 mIU/mL 3-4 Weeks: 500-10,000 mIU/mL 4-5 Weeks:1000-50,000 mIU/mL 5-6 Weeks: 10,000-100,000 mIU/mL 6-8 Weeks: 15,000-200,000 mIU/mL 2-3 Months:10,000-100,000 mIU/mL Performed By: #### L 3100.8410, BTS, L4500.0100, L700.8000, L3410.2000 #### [facility] [address] [place], [address] Serum human chorionic gonado tropin detection for pregnancyOrdered By: Veronique Rg on 02-11-2025 HCG ( test) Ql 276 mIU/mL High <9 [facility] Comment on above: Gestational Age0.2-1 Week: 5-50 mIU/mL1-2 Weeks: 50-500 mIU/mL2-3 Weeks: 100-5000 mIU/mL3-4 Weeks: 500-10,000 mIU/mL4-5 Weeks:1000-50,000 mIU/mL5-6 Weeks: 10,000-100,000 mIU/mL6-8 Weeks: 15,000-200,000 mIU/mL2-3 Months:10,000-100,000 mIU/mL hCG Titer Quant., Serumon HCG QUANT. 276 mIU/mL High <9 non-preg [facility] Comment on above: Result Comment: Gest ational Age 0.2-1 Week: 5-50 mIU/mL 1-2 Weeks: 50-500 mIU/mL 2-3 Weeks: 100-5000 mIU/mL 3-4 Weeks: 500-10,000 mIU/mL 4-5 Weeks:1000-50,000 mIU/mL 5-6 Weeks: 10,000-100,000 mIU/mL 6-8 Weeks: 15,000-200,000 mIU/mL 2-3 Months:10,000-100,000 mIU/mL Performed By: #### L 3100.8410, BTS, L4500.0100, L700.8000, L3410.2000 #### [facility] [address] [place], [place], [address] Hemoglobin A1con 01-29-2025 HbA1c (Bld) [Mass fraction] 4.8 % Normal <=5.6 [facility] Comment on above: Result Comment: Norm al < 5.7 % Prediabetic 5.7 - 6.4 % Diabetic >or= 6.5 % Please note range changes. Performed By: #### L 501.9985, L501.9520 #### [facility] [address] [facility] [place], [place], [address] Hemoglobin A1c percentageOrd ered By: Fely Hickman on 01-29-2025 HbA1c (Bld) [Mass fraction] 4.8 % <5.7 [facility] Comment on above: Normal < 5.7 % Predi abetic 5.7 - 6.4 % Diabetic >or= 6.5 % Please note range changes. TSH DL <= 0.005 mIU/L QnOrde red By: Fely Hickman on 01-29-2025 TSH Qn 0.847 uIU/mL 0.300-4.200 [facility] Thyroid Stim Hormone (TSH)on 01-29-2025 TSH 0.847 uIU/mL Normal 0.300-4.200 [facility] Comment on above: Performed By: #### L 501.9985, L501.9520 #### [facility] [address] [facility] [place], [address] Anticardiolipin IgG, IgMon 0 01-24-2025 ANTICARDIO IgG < 9 Normal 0-14 [facility] Comment on above: Result Comment: Nega tive: <15 Indeterminate: 15 - 20 Low-Med Positive: >20 - 80 High Positive: >80 Performed By: #### L 3100.8410, BTS, L4500.0100, L700.8000, L3410.1999 #### [facility] [address] [place], [place], [address] Anticardio.IgM < 9 Normal 0-12 [facility] Comment on above: Result Comment: Nega tive: <13 Indeterminate: 13 - 20 Low-Med Positive: >20 - 80 High Positive: >80 Performed at: [facility] [id number] Forensic Investigator: Caleb Armenta MD, Phone: [phone] Performed at: [facility] Lab[address] [id number] Forensic Investigator: Huan Orlando PhD, Phone: [phone] Performed By: #### L 3100.8410, BTS, L4500.0100, L700.8000, L3410.1999 #### [facility] [address] [place], [place], [address] Beta-2 Glycoprot IgG, A, 01-24-2025 B2 GLYCO I IGA <9 Normal 0-25 [facility] Comment on above: Result Comment: Resu lt Units: GPI IgA units The reference interval reflects a 3SD or 99th percentile interval, which is thought to represent a potentially clinically significant result in accordance with the International Consensus Statement on the classification criteria for definitive antiphospholipid syndrome (APS). J Thromb Haem 2006;4:295-306. Performed By: #### L 3100.8410, BTS, L4500.0100, L700.8000, L3410.1999 #### [facility] [address] [place], [place], [address] B2 GLYCO I IGG <9 Normal 0-20 [facility] Comment on above: Result Comment: Resu lt Units: GPI IgG units The reference interval reflects a 3SD or 99th percentile interval, which is thought to represent a potentially clinically significant result in accordance with the International Consensus Statement on the classification criteria for definitive antiphospholipid syndrome (APS). J Thromb Haem 2006;4:295-306. Performed By: #### L 3100.8410, BTS, L4500.0100, L700.8000, L3410.1999 #### [facility] [address] [place], [address] B2 GLYCO I IGM <9 Normal 0-32 [facility] Comment on above: Result Comment: Resu lt Units: GPI IgM units The reference interval reflects a 3SD or 99th percentile interval, which is thought to represent a potentially clinically significant result in accordance with the International Consensus Statement on the classification criteria for definitive antiphospholipid syndrome (APS). J Thromb Haem 2006;4:295-306. Performed By: #### L 3100.8410, BTS, L4500.0100, L700.8000, L3410.1999 #### [facility] [address] [place], [address] Lupus Anticoagulant Compon 0 8- aPTT Coag (Bld) [Time] 33.2 s Normal 0.0-43.5 [facility] Comment on above: Performed By: #### L 3100.8410, BTS, L4500.0100, L700.8000, L3410.1999 #### [facility] [address] [place], [address] DILUTE PT (dPT) 32.6 sec Normal 0.0-47.6 [facility] Comment on above: Performed By: #### L 3100.8410, BTS, L4500.0100, L700.8000, L3410.1999 #### [facility] [address] [place], [address] dPT Conf. Ratio 1.01 Ratio Normal 0.00-1.34 [facility] Comment on above: Performed By: #### L 3100.8410, BTS, L4500.0100, L700.8000, L3410.2000 #### [facility] [address] [place], [address] DRVVT 32.7 sec Normal 0.0-47.0 [facility] Comment on above: Performed By: #### L 3100.8410, BTS, L4500.0100, L700.8000, L3410.2000 #### [facility] [address] [place], [address] Interpretation Comment: Normal . [facility] Comment on above: Result Comment: No l upus anticoagulant was detected. Performed By: #### L 3100.8410, BTS, L4500.0100, L700.8000, L3410.1999 #### [facility] [address] [place], [address] THROMBIN TIME 19.3 sec Normal 0.0-23.0 [facility] Comment on above: Performed By: #### L 3100.8410, BTS, L4500.0100, L700.8000, L3410.2000 #### [facility] [address] [place], [address] Dilute Patrick's viper venom timeOrdered By: Fely Hickman on 01-21-2025 dRVVT Coag (PPP) [Time] 32.7 s 0.0-47.0 [facility] Serum beta 2 glycoprotein 1 IgA antibody detectionOrdered By: Fely Hickman on 01-21-2025 Beta 2 glycoprotein 1 IgA Ql (S) <9 0-25 [facility] Comment on above: Result Units: GPI Ig [...] glycoprotein 1 IgG Ql (S) <9 0-20 [facility] Comment on above: Result Units: GPI Ig [...] glycoprotein 1 IgM Ql (S) <9 0-32 [facility] Comment on above: Result Units: GPI Ig [...] Qn (S) < 9 GPL U/mL 0-14 [facility] Comment on above: Negative: <15 Indete rminate: 15 - 20 Low-Med Positive: >20 - 80 High Positive: >80 Serum human chorionic gonado tropin detection for pregnancyOrdered By: Fely Hickman on 01-21-2025 HCG ( test) Ql 2 mIU/mL <9 [facility] Comment on above: Gestational Age0.2-1 Week: 5-50 mIU/mL1-2 Weeks: 50-500 mIU/mL2-3 Weeks: 100-5000 mIU/mL3-4 Weeks: 500-10,000 mIU/mL4-5 Weeks:1000-50,000 mIU/mL5-6 Weeks: 10,000-100,000 mIU/mL6-8 Weeks: 15,000-200,000 mIU/mL2-3 Months:10,000-100,000 mIU/mL Thrombin timeOrdered By: Dayron Hickman on 01-21-2025 Thrombin time Coag (PPP) [Time] 19.3 sec 0.0-23.0 [facility] Type AND Screenon 01-21-2025 ABO and Rh group Nom (Bld) Blood group A Rh(D) positive Normal [facility] Comment on above: Order Comment: PN Performed By: #### L 3100.8410, BTS, L4500.0100, L700.8000, L3410.1999 #### [facility] [address] [place], [place], [address] hCG Titer Quant., Serumon HCG QUANT. 2 mIU/mL Normal <9 non-preg [facility] Comment on above: Result Comment: Gest ational Age 0.2-1 Week: 5-50 mIU/mL 1-2 Weeks: 50-500 mIU/mL 2-3 Weeks: 100-5000 mIU/mL 3-4 Weeks: 500-10,000 mIU/mL 4-5 Weeks:1000-50,000 mIU/mL 5-6 Weeks: 10,000-100,000 mIU/mL 6-8 Weeks: 15,000-200,000 mIU/mL 2-3 Months:10,000-100,000 mIU/mL Performed By: #### L 3100.8410, BTS, L4500.0100, L700.8000, L3410.1999 #### [facility] [address] [place], [place], [id number] Serum human chorionic gonado tropin detection for pregnancyOrdered By: Fely Hickman on 01-12-2025 HCG ( test) Ql 94 mIU/mL High <9 [facility] Comment on above: Gestational Age0.2-1 Week: 5-50 mIU/mL1-2 Weeks: 50-500 mIU/mL2-3 Weeks: 100-5000 mIU/mL3-4 Weeks: 500-10,000 mIU/mL4-5 Weeks:1000-50,000 mIU/mL5-6 Weeks: 10,000-100,000 mIU/mL6-8 Weeks: 15,000-200,000 mIU/mL2-3 Months:10,000-100,000 mIU/mL hCG Titer Quant., Serumon HCG QUANT. 94 mIU/mL High <9 non-preg [facility] Comment on above: Result Comment: Gest ational Age 0.2-1 Week: 5-50 mIU/mL 1-2 Weeks: 50-500 mIU/mL 2-3 Weeks: 100-5000 mIU/mL 3-4 Weeks: 500-10,000 mIU/mL 4-5 Weeks:1000-50,000 mIU/mL 5-6 Weeks: 10,000-100,000 mIU/mL 6-8 Weeks: 15,000-200,000 mIU/mL 2-3 Months:10,000-100,000 mIU/mL Performed By: #### L 3100.8410, BTS, L4500.0100, L700.8000, L3410.2000 #### [facility] [place], [address] Serum human chorionic gonado tropin detection for pregnancyOrdered By: Fely Hickman on 01-10-2025 HCG ( test) Ql 522 mIU/mL High <9 [facility] Comment on above: Gestational Age0.2-1 Week: 5-50 mIU/mL1-2 Weeks: 50-500 mIU/mL2-3 Weeks: 100-5000 mIU/mL3-4 Weeks: 500-10,000 mIU/mL4-5 Weeks:1000-50,000 mIU/mL5-6 Weeks: 10,000-100,000 mIU/mL6-8 Weeks: 15,000-200,000 mIU/mL2-3 Months:10,000-100,000 mIU/mL hCG Titer Quant., Serumon HCG QUANT. 522 mIU/mL High <9 non-preg [facility] Comment on above: Result Comment: Gest ational Age 0.2-1 Week: 5-50 mIU/mL 1-2 Weeks: 50-500 mIU/mL 2-3 Weeks: 100-5000 mIU/mL 3-4 Weeks: 500-10,000 mIU/mL 4-5 Weeks:1000-50,000 mIU/mL 5-6 Weeks: 10,000-100,000 mIU/mL 6-8 Weeks: 15,000-200,000 mIU/mL 2-3 Months:10,000-100,000 mIU/mL Performed By: #### L 3100.8410, BTS, L4500.0100, L700.8000, L3410.1999 #### [facility] [address] [place], [place], [id number] Absolute lymphocyte countOrd ered By: Susu Garcia on 12-08-2024 Lymphocytes Auto (Unsp spec) [#/Vol] 2.04 10*3/uL 0.83-4.51 [facility] Absolute neutrophil countOrd ered By: Susu Sheldonhomer on 12-08-2024 Neutrophils (Bld) [#/Vol] 2.6 10*3/uL 2.0-7.7 [facility] Automated lymphocyte count a s percentage of total leukocytesOrdered By: Susu Garcia on 12-08-2024 Lymphocytes/100 WBC Auto (Unsp spec) 38.9 % 19-41 [facility] Basophil percentageOrdered B y: Susu Garcia on 12-08-2024 Basophils/100 WBC (Bld) 0.4 % 0-1 [facility] CBC W/Diff, Automatedon 11-21 Absolute Lymph 2.04 X10 3/uL Normal 0.83-4.51 [facility] Comment on above: Performed By: #### L 3100.8410, BTS, L4500.0100, L700.8000, L3410.1999 #### [facility] [address] [place], [address] Absolute Neut 2.6 X10 3/uL Normal 2.0-7.7 [facility] Comment on above: Performed By: #### L 3100.8410, BTS, L4500.0100, L700.8000, L3410.1999 #### [facility] [address] [place], [address] Basophils/100 WBC (Bld) 0.4 % Normal 0-1 [facility] Comment on above: Performed By: #### L 3100.8410, BTS, L4500.0100, L700.8000, L3410.1999 #### [facility] [address] [place], [address] Eosinophils/100 WBC (Bld) 2.1 % Normal 0-5 [facility] Comment on above: Performed By: #### L 3100.8410, BTS, L4500.0100, L700.8000, L3410.1999 #### [facility] [address] [place], [address] Erythrocyte distribution width (RBC) [Ratio] 12.3 % Normal 11.6-14.6 [facility] Comment on above: Performed By: #### L 3100.8410, BTS, L4500.0100, L700.8000, L3410.1999 #### [facility] [address] [place], [address] Hematocrit (Bld) [Volume fraction] 44.2 % Normal 37-47 [facility] Comment on above: Performed By: #### L 3100.8410, BTS, L4500.0100, L700.8000, L3410.1999 #### [facility] [address] [place], [address] Hemoglobin (Bld) [Mass/Vol] 15.1 g/dL High 12.0-15.0 [facility] Comment on above: Performed By: #### L 3100.8410, BTS, L4500.0100, L700.8000, L3410.1999 #### [facility] [address] [place], [address] IG% 0.400 Normal 0.0-0.9 [facility] Comment on above: Result Comment: IG% - Immature Granulocytes (promyelocytes, myelocytes and metamyelocytes) > 1% indicates that a LEFT SHIFT is Present. Performed By: #### L 3100.8410, BTS, L4500.0100, L700.8000, L3410.1999 #### [facility] [address] [place], [address] Lymphocytes/100 WBC (Bld) 38.9 % Normal 19-41 [facility] Comment on above: Performed By: #### L 3100.8410, BTS, L4500.0100, L700.8000, L3410.1999 #### [facility] [address] [place], [address] MCH (RBC) [Entitic mass] 30.2 pg Normal 27.0-32.0 [facility] Comment on above: Performed By: #### L 3100.8410, BTS, L4500.0100, L700.8000, L3410.1999 #### [facility] [address] [place], [address] MCHC (RBC) [Mass/Vol] 34.2 g/dL Normal 32-36 [facility] Comment on above: Performed By: #### L 3100.8410, BTS, L4500.0100, L700.8000, L3410.1999 #### [facility] [address] [place], [address] MCV (RBC) [Entitic vol] 88.4 fL Normal 81-99 [facility] Comment on above: Performed By: #### L 3100.8410, BTS, L4500.0100, L700.8000, L3410.1999 #### [facility] [address] [place], [address] Monocytes/100 WBC (Bld) 9.4 % Normal 0-10 [facility] Comment on above: Performed By: #### L 3100.8410, BTS, L4500.0100, L700.8000, L3410.1999 #### [facility] [address] [place], [address] Neutrophils/100 WBC (Bld) 48.8 % Normal 47-70 [facility] Comment on above: Performed By: #### L 3100.8410, BTS, L4500.0100, L700.8000, L3410.1999 #### [facility] [address] [place], [address] Nucleated RBC (Bld) [#/Vol] 0 10*3/uL Normal 0-5 [facility] Comment on above: Performed By: #### L 3100.8410, BTS, L4500.0100, L700.8000, L3410.1999 #### [facility] [address] [place], [address] Platelet mean volume (Bld) [Entitic vol] 10.3 fL Normal 6.2-12.0 [facility] Comment on above: Performed By: #### L 3100.8410, BTS, L4500.0100, L700.8000, L3410.1999 #### [facility] [address] [place], [address] Platelets (Bld) [#/Vol] 199 10*3/uL Normal 150-450 [facility] Comment on above: Performed By: #### L 3100.8410, BTS, L4500.0100, L700.8000, L3410.1999 #### [facility] [address] [place], [address] RBC (Bld) [#/Vol] 5.00 10*6/uL Normal 4.2-5.4 [facility] Comment on above: Performed By: #### L 3100.8410, BTS, L4500.0100, L700.8000, L3410.1999 #### [facility] [address] [place], [address] RDW SD 39.8 fl Normal 35.1-43.9 [facility] Comment on above: Performed By: #### L 3100.8410, BTS, L4500.0100, L700.8000, L3410.1999 #### [facility] [address] [place], [address] WBC (Bld) [#/Vol] 5.2 10*3/uL Normal 4.4-11.0 [facility] Comment on above: Performed By: #### L 3100.8410, BTS, L4500.0100, L700.8000, L3410.1999 #### [facility] [address] [place], [address] Eosinophil percentageOrdered By: Susu Garcia on 12-08-2024 Eosinophils/100 WBC (Bld) 2.1 % 0-5 [facility] Erythrocyte distribution wid th ratioOrdered By: Susu Garcia on 12-08-2024 Erythrocyte distribution width (RBC) [Ratio] 12.3 % 11.6-14.6 [facility] Erythrocyte distribution wid th standard deviationOrdered By: Susu Garcia on 12-08-2024 Erythrocyte distribution width (RBC) [Ratio] 39.8 fl 35.1-43.9 [facility] Ferritinon 12-08-2024 Ferritin [Mass/Vol] 182 ng/mL Normal 22-378 [facility] Comment on above: Performed By: #### L 3100.8410, BTS, L4500.0100, L700.8000, L3410.1999 #### [facility] [address] [place], [address] Hematocrit Auto (Bld) [Volum e fraction]Ordered By: Susu Garcia on 12-08-2024 Hematocrit (Bld) [Volume fraction] 44.2 % 37-47 [facility] Hemoglobin measurementOrdere d By: Susu Garcia on 12-08-2024 Hemoglobin (Bld) [Mass/Vol] 15.1 g/dL High 12.0-15.0 [facility] Immature granulocytes/100 WB C Auto (Bld)Ordered By: Susu Garcia on 12-08-2024 Immature granulocytes/100 WBC (Bld) 0.400 % 0.0-0.9 [facility] Comment on above: IG% - Immature Granu locytes (promyelocytes, myelocytes and metamyelocytes) > 1% indicates that a LEFT SHIFT is Present. Iron measurement (mass/mass) Ordered By: Susu Garcia on 12-08-2024 Iron (Unsp spec) [Mass/Mass] 115 ug/dL 50-170 [facility] Iron+Iron Binding Capacityon 12-08-2024 Iron [Mass/Vol] 115 ug/dL Normal 50-170 [facility] Comment on above: Performed By: #### L 3100.8410, BTS, L4500.0100, L700.8000, L3410.1999 #### [facility] [address] [place], [address] IRON SATURATION 43.0 Normal 13-59 [facility] Comment on above: Performed By: #### L 3100.8410, BTS, L4500.0100, L700.8000, L3410.1999 #### [facility] [address] [place], [address] TIBC 270 ug/dL Normal 250-450 [facility] Comment on above: Performed By: #### L 3100.8410, BTS, L4500.0100, L700.8000, L3410.1999 #### [facility] [address] [place], [address] UIBC 155 ug/dL Low 228-428 [facility] Comment on above: Performed By: #### L 3100.8410, BTS, L4500.0100, L700.8000, L3410.1999 #### [facility] [address] [place], [address] MCV (mean corpuscular volume ) determinationOrdered By: Susu Garcia on 12-08-2024 MCV (RBC) [Entitic vol] 88.4 fL 81-99 [facility] Mean corpuscular hemoglobin (MCH) determinationOrdered By: Susu Garcia on 12-08-2024 MCH (RBC) [Entitic mass] 30.2 pg 27.0-32.0 [facility] Mean corpuscular hemoglobin concentration (MCHC) determinationOrdered By: Susu Garcia on 12-08-2024 MCHC (RBC) [Mass/Vol] 34.2 g/dL 32-36 [facility] Mean platelet volume determi nationOrdered By: Susu Garcia on 12-08-2024 Platelet mean volume (Bld) [Entitic vol] 10.3 fL 6.2-12.0 [facility] Monocyte percentageOrdered B y: Susu Garcia on 12-08-2024 Monocytes/100 WBC (Bld) 9.4 % 0-10 [facility] Neutrophil percentageOrdered By: Susu Garcia on 12-08-2024 Neutrophils/100 WBC (Bld) 48.8 % 47-70 [facility] No Panel InformationOrdered By: Susu Garcia on 12-08-2024 Unsaturated Iron Binding Capacity 155 ug/dL Low 228-428 [facility] Nucleated red blood cell per centageOrdered By: Susu Garcia on 12-08-2024 Nucleated RBC/100 WBC (Bld) [Ratio] 0 % 0-5 [facility] Platelet countOrdered By: Renea Garcia on 12-08-2024 Platelets (Bld) [#/Vol] 199 10*3/uL 150-450 [facility] RBC Auto (Bld) [#/Vol]Ordere d By: Susu Garcia on 12-08-2024 RBC (Bld) [#/Vol] 5.00 10*6/uL 4.2-5.4 [facility] Serum or plasma ferritin judie surement (mass/volume)Ordered By: Susu Garcia on 12-08-2024 Ferritin [Mass/Vol] 182 ng/mL 22-378 [facility] Serum or plasma iron saturat ion measurement (mass fraction)Ordered By: Susu Garcia on 12-08-2024 Iron saturation [Mass fraction] 43.0 % 13-59 [facility] Vitamin B12on 12-08-2024 Cobalamin (Vitamin B12) [Mass/Vol] 462 pg/mL Normal 180-914 [facility] Comment on above: Performed By: #### L 3100.8410, BTS, L4500.0100, L700.8000, L3410.1999 #### [facility] [address] [place], [address] Vitamin B12 ser/plasOrdered By: Susuabran Garcia on 12-08-2024 Cobalamin (Vitamin B12) [Mass/Vol] 462 pg/mL 180-914 [facility] White blood cell (WBC) count Ordered By: Susu Garcia on 12-08-2024 WBC (Bld) [#/Vol] 5.2 10*3/uL 4.4-11.0 [facility] CBC W/Diff, Automatedon 09-22 PATH REV Reviewed Normal [facility] Comment on above: Result Comment: SEE REPORT IN PATIENT'S EMR AMENDED REPORT 10/11/24 1520 PATH REV previously reported as: October Performed By: #### L 3100.8410, BTS, L4500.0100, L700.8000, L3410.1999 #### [facility] [address] [place], [address] Absolute lymphocyte countOrd ered By: Susu Garcia on 09-10-2024 Lymphocytes Auto (Unsp spec) [#/Vol] 1.61 10*3/uL 0.83-4.51 [facility] Absolute neutrophil countOrd ered By: Susu Garcia on 09-10-2024 Neutrophils (Bld) [#/Vol] 1.7 10*3/uL Low 2.0-7.7 [facility] Automated lymphocyte count a s percentage of total leukocytesOrdered By: Susu Garcia on 09-10-2024 Lymphocytes/100 WBC Auto (Unsp spec) 42.9 % High 19-41 [facility] Basophil percentageOrdered B y: Susu Garcia on 09-10-2024 Basophils/100 WBC (Bld) 0.3 % 0-1 [facility] Eosinophil percentageOrdered By: Susu Garcia on 09-10-2024 Eosinophils/100 WBC (Bld) 0.5 % 0-5 [facility] Erythrocyte distribution wid th ratioOrdered By: Susu Garcia on 09-10-2024 Erythrocyte distribution width (RBC) [Ratio] 14.2 % 11.6-14.6 [facility] Erythrocyte distribution wid th standard deviationOrdered By: Susu Garcia on 09-10-2024 Erythrocyte distribution width (RBC) [Entitic vol] 44.1 fL High 35.1-43.9 [facility] Erythrocyte distribution width (RBC) [Ratio] 44.1 fl High 35.1-43.9 [facility] Ferritinon 09-10-2024 Ferritin [Mass/Vol] 767 ng/mL High 22-378 [facility] Comment on above: Performed By: #### L 3100.8410, BTS, L4500.0100, L700.8000, L3410.1999 #### [facility] [address] [place], [place], [address] Hematocrit Auto (Bld) [Volum e fraction]Ordered By: Susu Pitohomer on 09-10-2024 Hematocrit (Bld) [Volume fraction] 43.4 % 37-47 [facility] Hemoglobin measurementOrdere d By: Susu Garcia on 09-10-2024 Hemoglobin (Bld) [Mass/Vol] 14.5 g/dL 12.0-15.0 [facility] Immature granulocytes/100 WB C Auto (Bld)Ordered By: Susu Garcia on 09-10-2024 Immature granulocytes/100 WBC (Bld) 0.000 % 0.0-0.9 [facility] Comment on above: IG% - Immature Granu locytes (promyelocytes, myelocytes and metamyelocytes) > 1% indicates that a LEFT SHIFT is Present. Ironon 09-10-2024 Iron [Mass/Vol] 84 ug/dL Normal 50-170 [facility] Comment on above: Performed By: #### L 3100.8410, BTS, L4500.0100, L700.8000, L341 #### [facility] [address] [place], [address] Iron (Unsp spec) [Mass/Mass] Ordered By: Susu Garcia on 09-10-2024 Iron [Mass/Vol] 84 ug/dL 50-170 [facility] Iron measurement (mass/mass) Ordered By: Susu Garcia on 09-10-2024 Iron (Unsp spec) [Mass/Mass] 84 ug/dL 50-170 [facility] Lymphocytes Auto (Unsp spec) [#/Vol]Ordered By: Susu Garcia on 09-10-2024 Lymphocytes (Bld) [#/Vol] 1.61 10*3/uL 0.83-4.51 [facility] Lymphocytes/100 WBC Auto (Un sp spec)Ordered By: Susu Garcia on 09-10-2024 Lymphocytes/100 WBC (Bld) 42.9 % High 19-41 [facility] MCV (mean corpuscular volume ) determinationOrdered By: Susu Garcia on 09-10-2024 MCV (RBC) [Entitic vol] 85.1 fL 81-99 [facility] Mean corpuscular hemoglobin (MCH) determinationOrdered By: Susu Garcia on 09-10-2024 MCH (RBC) [Entitic mass] 28.4 pg 27.0-32.0 [facility] Mean corpuscular hemoglobin concentration (MCHC) determinationOrdered By: Susu Garcia on 09-10-2024 MCHC (RBC) [Mass/Vol] 33.4 g/dL 32-36 [facility] Mean platelet volume determi nationOrdered By: Susu Garcia on 09-10-2024 Platelet mean volume (Bld) [Entitic vol] 10.4 fL 6.2-12.0 [facility] Monocyte percentageOrdered B y: Susu Garcia on 09-10-2024 Monocytes/100 WBC (Bld) 11.2 % High 0-10 [facility] Neutrophil percentageOrdered By: Susu Gracia on 09-10-2024 Neutrophils/100 WBC (Bld) 45.1 % Low 47-70 [facility] Nucleated red blood cell per centageOrdered By: Susu Garcia on 09-10-2024 Nucleated RBC/100 WBC (Bld) [Ratio] 0 % 0-5 [facility] Pathologist review Marek (Unsp spec) [Interp]Ordered By: Susu Garcia on 09-10-2024 Differential Pathologist's Review [facility] Platelet countOrdered By: Renea Garcia on 09-10-2024 Platelets (Bld) [#/Vol] 180 10*3/uL 150-450 [facility] Platelet estimateOrdered By: Susu Garcia on 09-10-2024 Platelets LM Ql (Bld) A ADEQ [facility] Platelets LM Ql (Bld)Ordered By: Susu Garcia on 09-10-2024 Platelet Estimate A [facility] RBC Auto (Bld) [#/Vol]Ordere d By: Susu Garcia on 09-10-2024 RBC (Bld) [#/Vol] 5.10 10*6/uL 4.2-5.4 [facility] Reactive lymphocyte countOrd ered By: Susu Garcia on 09-10-2024 Reactive Lymphocytes 3+ [facility] Review by pathologistOrdered By: Susu Garcia on 09-10-2024 Pathologist review Marek (Unsp spec) [Interp] Reviewed [facility] Comment on above: SEE REPORT IN PATIEN T'S EMRPrevious reported result: January cortes Edited by: MYRA on 10/11/24:1520SEE REPORT IN PATIENT'S EMR AMENDED REPORT 10/11/24 1520 PATH REV previously reported as: January cortes Previous reported result: Reviewed Edited by: MYRA on 10/11/24:1557 AMENDED REPORT 10/11/24 1557 PATH REV previously reported as: Reviewed Serum or plasma ferritin judie surement (mass/volume)Ordered By: Susu Garcia on 09-10-2024 Ferritin [Mass/Vol] 767 ng/mL High 22-378 [facility] White blood cell (WBC) count Ordered By: Susu Garcia on 09-10-2024 WBC (Bld) [#/Vol] 3.8 10*3/uL Low 4.4-11.0 [facility] HCG ( test) QlOrder ed By: Fely Hickman on 07-27-2024 Human Chorionic Gonadotropin, Quant < 1 mIU/mL <4 [facility] Comment on above: hCG levels with Gest ational AgeGestational Age hCG mIU/mL (IU/L)0.2 - 1 week 5 - 501-2 weeks 50 - 5002-3 weeks 100 - 35189-4 weeks 500 - 833063-4 weeks 1000 - 301325-7 weeks 44961 - 100,0006-8 weeks 75268 - 200,0002-3 months 79114 - 100,000 hCG Titer Quant., Serumon HCG QUANT. < 1 Normal 1-3 [facility] Comment on above: Result Comment: hCG levels with Gestational Age Gestational Age hCG mIU/mL (IU/L) 0.2 - 1 week 5 - 50 1-2 weeks 50 - 500 2-3 weeks 100 - 5000 3-4 weeks 500 - 19227 4-5 weeks 1000 - 12333 5-6 weeks 18987 - 100,000 6-8 weeks 28980 - 200,000 2-3 months 19961 - 100,000 Performed By: #### L 3100.8410, BTS, L4500.0100, L700.8000, L3410.2000 #### [facility] [address] [place], [address] CBC W/Diff, Automatedon 04-24 Absolute Lymph 2.58 X10 3/uL Normal 0.83-4.51 [facility] Comment on above: Performed By: #### L 503.6150, L503.6550, L100.0100 #### [facility] [address] [place], [address] Absolute Neut 3.2 X10 3/uL Normal 2.0-7.7 [facility] Comment on above: Performed By: #### L 503.6150, L503.6550, L100.0100 #### [facility] [address] [place], [address] Basophils/100 WBC (Bld) 0.3 % Normal 0-1 [facility] Comment on above: Performed By: #### L 503.6150, L503.6550, L100.0100 #### [facility] [address] [place], [address] Eosinophils/100 WBC (Bld) 1.4 % Normal 0-5 [facility] Comment on above: Performed By: #### L 503.6150, L503.6550, L100.0100 #### [facility] [address] [place], [address] Erythrocyte distribution width (RBC) [Ratio] 13.2 % Normal 11.6-14.6 [facility] Comment on above: Performed By: #### L 503.6150, L503.6550, L100.0100 #### [facility] [address] [place], [address] Hematocrit (Bld) [Volume fraction] 40.9 % Normal 37-47 [facility] Comment on above: Performed By: #### L 503.6150, L503.6550, L100.0100 #### [facility] [address] [place], [address] Hemoglobin (Bld) [Mass/Vol] 13.2 g/dL Normal 12.0-15.0 [facility] Comment on above: Performed By: #### L 503.6150, L503.6550, L100.0100 #### [facility] [address] [place], [address] IG% 0.300 Normal 0.0-0.9 [facility] Comment on above: Result Comment: IG% - Immature Granulocytes (promyelocytes, myelocytes and metamyelocytes) > 1% indicates that a LEFT SHIFT is Present. Performed By: #### L 503.6150, L503.6550, L100.0100 #### [facility] [address] [place], [address] Lymphocytes/100 WBC (Bld) 39.8 % Normal 19-41 [facility] Comment on above: Performed By: #### L 503.6150, L503.6550, L100.0100 #### [facility] [address] [place], [address] MCH (RBC) [Entitic mass] 26.6 pg Low 27.0-32.0 [facility] Comment on above: Performed By: #### L 503.6150, L503.6550, L100.0100 #### [facility] [address] [place], [address] MCHC (RBC) [Mass/Vol] 32.3 g/dL Normal 32-36 [facility] Comment on above: Performed By: #### L 503.6150, L503.6550, L100.0100 #### [facility] [address] [place], [address] MCV (RBC) [Entitic vol] 82.3 fL Normal 81-99 [facility] Comment on above: Performed By: #### L 503.6150, L503.6550, L100.0100 #### [facility] [address] [place], [address] Monocytes/100 WBC (Bld) 9.1 % Normal 0-10 [facility] Comment on above: Performed By: #### L 503.6150, L503.6550, L100.0100 #### [facility] [address] [place], [address] Neutrophils/100 WBC (Bld) 49.1 % Normal 47-70 [facility] Comment on above: Performed By: #### L 503.6150, L503.6550, L100.0100 #### [facility] [address] [place], [address] Nucleated RBC (Bld) [#/Vol] 0 10*3/uL Normal 0-5 [facility] Comment on above: Performed By: #### L 503.6150, L503.6550, L100.0100 #### [facility] [address] [place], [address] Platelet mean volume (Bld) [Entitic vol] 10.5 fL Normal 6.2-12.0 [facility] Comment on above: Performed By: #### L 503.6150, L503.6550, L100.0100 #### [facility] [address] [place], [address] Platelets (Bld) [#/Vol] 235 10*3/uL Normal 150-450 [facility] Comment on above: Performed By: #### L 503.6150, L503.6550, L100.0100 #### [facility] [address] [place], [address] RBC (Bld) [#/Vol] 4.97 10*6/uL Normal 4.2-5.4 [facility] Comment on above: Performed By: #### L 503.6150, L503.6550, L100.0100 #### [facility] [address] [place], [address] RDW SD 39.2 fl Normal 35.1-43.9 [facility] Comment on above: Performed By: #### L 503.6150, L503.6550, L100.0100 #### [facility] [address] [place], [address] WBC (Bld) [#/Vol] 6.5 10*3/uL Normal 4.4-11.0 [facility] Comment on above: Performed By: #### L 503.6150, L503.6550, L100.0100 #### [facility] [address] [place], [address] Ferritinon 05-14-2024 Ferritin [Mass/Vol] 7 ng/mL Low 8-252 [facility] Comment on above: Performed By: #### L 503.6150, L503.6550, L100.0100 #### [facility] [address] [place], [address] Ironon 05-14-2024 Iron [Mass/Vol] 38 ug/dL Low 50-170 [facility] Comment on above: Performed By: #### L 503.6150, L503.6550, L100.0100 #### [facility] [address] [place], [address] Absolute lymphocyte countOrd ered By: Susu Garcia on 02-21-2023 Lymphocytes Auto (Unsp spec) [#/Vol] 1.76 10*3/uL 0.83-4.51 [facility] Basophil percentageOrdered B y: Susu Garcia on 02-21-2023 Basophils/100 WBC (Bld) 0.7 % 0-1 [facility] Bilirubin [Mass/Vol] 0.30 mg/dL 0.20-1.00 [facility] Comment on above: For patients on eltr ombopag therapy, use of Dimension [place] TBIL is not recommended. Chloride [Moles/Vol] 107 mmol/L 98-107 [facility] Eosinophils/100 WBC (Bld) 1.3 % 0-5 [facility] Glucose [Mass/Vol] 93 mg/dL 74-106 [facility] Neutrophils (Bld) [#/Vol] 3.0 10*3/uL 2.0-7.7 [facility] Neutrophils/100 WBC (Bld) 55.5 % 47-70 [facility] Potassium [Moles/Vol] 3.6 mmol/L 3.5-5.1 [facility] Protein [Mass/Vol] 7.4 g/dL 6.4-8.2 [facility] Sodium [Moles/Vol] 138 mmol/L 136-145 [facility] WBC (Bld) [#/Vol] 5.4 10*3/uL 4.4-11.0 [facility] Blood erythrocytes count (nu mber/volume)Ordered By: Susu Garcia on 02-21-2023 RBC (Bld) [#/Vol] 5.09 10*6/uL 4.2-5.4 [facility] Blood hemoglobin measurement (mass/volume)Ordered By: Susu Garcia on 02-21-2023 Hemoglobin (Bld) [Mass/Vol] 13.8 g/dL 12.0-15.0 [facility] Blood lymphocytes/100 leukoc ytesOrdered By: Susu Garcia on 02-21-2023 Lymphocytes/100 WBC (Bld) 32.8 % 19-41 [facility] Blood monocytes/100 leukocyt esOrdered By: Susu Garcia on 02-21-2023 Monocytes/100 WBC (Bld) 9.5 % 0-10 [facility] Blood platelet mean volumeOr dered By: Susu Garcia on 02-21-2023 Platelet mean volume (Bld) [Entitic vol] 10.9 fL 6.2-12.0 [facility] Determination of erythrocyte mean corpuscular volume (MCV)Ordered By: Susu Garcia on 02-21-2023 MCV (RBC) [Entitic vol] 87.4 fL 81-99 [facility] Erythrocyte sedimentation ra teOrdered By: Susu Garcia on 02-21-2023 ESR (Bld) [Velocity] 1 mm/h 0-30 [facility] Hematocrit Auto (Bld) [Volum e fraction]Ordered By: Susu Garcia on 02-21-2023 Hematocrit (Bld) [Volume fraction] 44.5 % 37-47 [facility] Iron measurement (mass/mass) Ordered By: Susu Garcia on 02-21-2023 Iron (Unsp spec) [Mass/Mass] 35 ug/dL 50-170 [facility] - Chemistry and C hemistry - challengeOrdered By: Susu Garcia on 02-21-2023 ALP [Catalytic activity/Vol] 39 U/L 45-117 [facility] ALT [Catalytic activity/Vol] 14 U/L 13-56 [facility] CO2 [Moles/Vol] 24.0 mmol/L 21.0-32.0 [facility] Globulin (S) [Mass/Vol] 3.6 g/dL 2.2-4.2 [facility] Urea nitrogen/Creatinine [Mass ratio] 11.6 mg/mg 10-20 [facility] - Hematology and Cell countsOrdered By: Susu Garcia on 02-21-2023 Erythrocyte distribution width (RBC) [Entitic vol] 39.4 fL 35.1-43.9 [facility] Erythrocyte distribution width (RBC) [Ratio] 12.5 % 11.6-14.6 [facility] Immature granulocytes/100 WBC (Bld) 0.200 % 0.0-0.9 [facility] Comment on above: IG% - Immature Granu locytes (promyelocytes, myelocytes and metamyelocytes) > 1% indicates that a LEFT SHIFT is Present. MCH (RBC) [Entitic mass] 27.1 pg 27.0-32.0 [facility] Nucleated RBC/100 WBC (Bld) [Ratio] 0 % 0-5 [facility] MCHC Auto (RBC) [Mass/Vol]Or dered By: Susu Garcia on 02-21-2023 MCHC (RBC) [Mass/Vol] 31.0 g/dL 32-36 [facility] No Panel InformationOrdered By: Susu Garcia on 02-21-2023 Estimated GFR (MDRD) Amer 140 mL/min >60 [facility] Comment on above: GFR Calc Estimated GFR (MDRD) Non-Af Amer 116 mL/min >60 [facility] Comment on above: Non- GFR Calc Platelets bldOrdered By: Joaquina Garcia on 02-21-2023 Platelets (Bld) [#/Vol] 228 10*3/uL 150-450 [facility] [facility] Serum or plasma C reactive p rotein measurement (mass/volume)Ordered By: Susu Garcia on 02-21-2023 CRP [Mass/Vol] mg/L 0.0-3.0 [facility] Comment on above: C-Reactive Protein ( CRP) provides useful information for thediagnosis, therapy and monitoring of inflammatory processesand associated diseases. For the evaluation of Relative Riskfor Cardiovascular Disease, a High Sensitivity CRP (HSCRP)should be ordered. Serum or plasma albumin nubia urement (mass/volume)Ordered By: Susu Garcia on 09-01-2023 Albumin [Mass/Vol] 3.8 g/dL 3.2-5.0 [facility] Serum or plasma albumin/glob ulin mass ratioOrdered By: Susu Garcia on 02-21-2023 Albumin/Globulin [Mass ratio] 1.1 {ratio} 0.9-2.4 [facility] Serum or plasma calcium nubia urement (mass/volume)Ordered By: Susu Garcia on 02-21-2023 Calcium [Mass/Vol] 9.3 mg/dL 8.5-10.1 [facility] Serum or plasma creatinine m easurement (mass/volume)Ordered By: Susu Garcia on 02-21-2023 Creatinine [Mass/Vol] 0.69 mg/dL 0.55-1.02 [facility] Comment on above: The validity of the calculated GFR & GFRAA in patients over 70 years has not been determined. Clinical correlation is essential. Serum or plasma ferritin judie surement (mass/volume)Ordered By: Susu Garcia on 02-21-2023 Ferritin [Mass/Vol] 6 ng/mL 8-252 [facility] Serum or plasma urea nitroge n measurement (mass/volume)Ordered By: Susu Garcia on 02-21-2023 Urea nitrogen [Mass/Vol] 8 mg/dL 7-18 [facility] Thin prep Papanicolaou smear with manual screeningOrdered By: Susu Garcia on 02-21-2023 Thin prep Papanicolaou smear with manual screening 12 U/L 15-37 [facility] Thin prep Papanicolaou smear with manual screening 7 5-15 [facility] CNOVon 05-30-2022 CNOV Office Visit ([place] ) ----- PANCHO SAVAGE ([id number]) 1 F Date Time Provider Department 05/30/22 11:45 AM NORA KEY During your visit today, we recorded the following information about you: Nora Bryson DO Yesi 05/30/2022 1:00 PM Signed Follow Up Visit [...] (FLONASE) 50 mcg/actuation nasal spray Use 1 [place] in each nostril once daily as needed. [...] Known Allergi (more content not included)... Normal [facility] CNOVon 04-17-2022 CNOV Office Visit (ORMDNA ) ----- PANCHO SAVAGE ([id number]) 1 F Date Time Provider Department 04/17/22 [...] (FLONASE) 50 mcg/actuation nasal spray Use 1 [place] in each nostril once daily as needed. [...] (FLONASE) 50 mcg/actuation nasal spray Use 1 [place] in each nostril once daily as needed. - fexofenadine (NORMA) 180 mg tablet Take 180 mg by mouth once daily. Problem List As Of Date 04/17/2022 Noted Resolved GERD (gastroesophageal reflux disease) [K21.9] 03/27/2022 Right ankle pain [M25.571] 04/02/2022 04/02/2022 Encounter Status:Closed by NORA KEY on 04/23/22 [facility] Joaquim 04-08-2022 CNPN Telephone (ARTHURMICHAEL) ----- PANCHO SAVAGE ([id number]) 1 F Date Time Provider Department 04/08/22 [...] Fully Assessed Reason for Visit: Patient Question [3098] Prescriptions as of 04/08/2022 - omeprazole (PRILOSEC) 20 mg capsule - Cetirizine 10 mg cap Take 10 mg by mouth. - fluticasone (FLONASE) 50 mcg/actuation nasal spray Use 1 [place] in each nostril once daily as needed. - fexofenadine (NORMA) 180 mg tablet Take 180 mg by mouth once daily. Problem List As Of Date 04/08/2022 Noted Resolved GERD (gastroesophageal reflux disease) [K21.9] 03/27/2022 Right ankle pain [M25.571] 04/02/2022 04/02/2022 Encounter Status:Closed by JIGNA ANDREWS on 04/08/22 Normal [facility] PHOTO ANKLE RIGHT LATERALon 04-02-2022 [facility] HISTORY PHYSICALon HISTORY PHYSICAL HNO ID: [id number] Author: Khalida Abbott APRN.BOWLING BALL GRADER AND MARKER Service: ? Author Type: Nurse Practitioner Type: [...] RELIEF) 50 mcg/actuation nasal spray Use 1 [place] in each nostril once daily as needed. fexofenadine (NORMA ALLERGY) 180 mg tablet Take 180 mg by mouth once daily. No current facility-administered medications for this visit. COVID VACCINATION STATUS: Not vaccinated REVIEW OF SYSTEMS: Pain Assessment: General: No weight loss, malaise or fevers. Neuro: No history of TIA's, stroke, SPINNING BATH PERSON tumor, impaired sensorium, hemiplegia, paraplegia or quadraplegia. No neurological symptoms or problems. Respiratory: No history of current cough or dyspnea, or pneumonia in the past 6 weeks. No history of respiratory/pulmonary symptoms or problems. Cardiovascular: No history of HTN requiring medication, no history of angina, CHF, RI, cardiac surgery or stents. Denies rest pain, gangrene or revascularization/amputat ion for PVD. No history of cardiovascular symptoms or problems. GI: Negative for Nausea, Vomiting, Abdominal pain, Inflammatory bowel disease +GERD : No history of dysuria, frequency or incontinence,, stones or chronic kidney disease PILL MAKER: Negative for abnormal vaginal bleeding, abnormal vaginal [...] greater jan (more content not included)... Normal [facility] CNOVon 03-06-2022 CNOV Office Visit (ORMDNA ) ----- PANCHO SAVAGE ([id number]) 1 F Date Time Provider Department 03/06/22 [...] her right ankle two years ago at [facility], presents today with pain in the same [...] RELIEF) 50 mcg/actuation nasal spray Use 1 [place] in each nostril once daily as needed. [...] prior surgical change. Clinical correlation is recommended. Metal Numerical Tool Programmer: BEKAH Transcribe Date/Time: Mar 06 2022 2:27P [...] to treatm (more content not included)... Normal [facility] XR ANKLE 3V AP/LAT/OBL RTon 03-06-2022 XR ANKLE 3V AP/LAT/OBL RT * * *Final Report* * * DATE OF EXAM: Mar 06 2022 1:49PM MOHINI [id number] - XR ANKLE 3V AP/LAT/OBL RT / PROCEDURE REASON: [id number] * * * * Physician Interpretation * [...] prior surgical change. Clinical correlation is recommended. Metal Numerical Tool Programmer: PSCB Transcribe Date/Time: Mar 06 2022 2:27P Dictated by : PAULO RAUSCH MD This examination was interpreted and the report reviewed and electronically signed by: PAULO RAUSCH MD on Mar 06 2022 2:32PM EST [id number] Normal [facility] XR ANKLE GENERAL 3V AP/LAT/O BL RIGHTon 03-06-2022 [facility] Immunoglobulin Aon 0 Immunoglobulin A 74 mg/dL Normal 47-249 [facility] Comment on above: Order Comment: With differential. Is this specimen being sent to an external lab?->No Performed By: #### I GA #### [address] [address] [facility]isc[employer] Sendouton 11-03-2019 [facility] Sendout SEE COMMENTS Normal [facility] Comment on above: Order Comment: GOKEY TTGA 0.5 ml serum, refrig. Result Comment: Test Result Flag Unit RefValue Tissue Transglutaminase Ab, <1.2 U/mL IgA, S -- REFERENCE VALUE -- <4.0 (Negative) Test Performed by: [facility] [address] [place] [id number] Forensic Investigator: Werner Stoddard M.D. Ph.D.; CLIA# [id number] Testing Performed [facility] [employer] [address] [place] [id number] Performed By: #### M OMSO #### [address] [place] [address] TSH with reflex T4FRon 11-01 TSH with reflex T4FR 1.462 uIU/mL Normal 0.350-5.500 [facility] Comment on above: Order Comment: With differential. Is this specimen being sent to an external lab?->No Performed By: #### T SHR #### [address] [address] Complete Blood Counton 10-31 Differential Complete Automated Normal [facility] Comment on above: Order Comment: With differential. Is this specimen being sent to an external lab?->No Performed By: #### C BC #### [address] [address] Basophils/100 WBC (Bld) 0.40 % Normal 0.00-1.00 [facility] Comment on above: Order Comment: With differential. Is this specimen being sent to an external lab?->No Performed By: #### C BC #### [address] [address] Eosinophils/100 WBC (Bld) 1.10 % Normal 0.00-3.00 [facility] Comment on above: Order Comment: With differential. Is this specimen being sent to an external lab?->No Performed By: #### C BC #### [address] [address] Erythrocyte distribution width (RBC) [Ratio] 12.1 % Normal 0.0-14.4 [facility] Comment on above: Order Comment: With differential. Is this specimen being sent to an external lab?->No Performed By: #### C BC #### [address] [id number] Hematocrit (Bld) [Volume fraction] 43.0 % Normal 37.0-46.0 [facility] Comment on above: Order Comment: With differential. Is this specimen being sent to an external lab?->No Performed By: #### C BC #### [address] [id number] Hemoglobin (Bld) [Mass/Vol] 14.4 g/dL Normal 12.0-15.0 [facility] Comment on above: Order Comment: With differential. Is this specimen being sent to an external lab?->No Performed By: #### C BC #### [address] [id number] Immature granulocytes/100 WBC (Bld) 0.10 % Normal [facility] Comment on above: Order Comment: With differential. Is this specimen being sent to an external lab?->No Result Comment: Raquel ture Granulocyte Percent includes promyelocytes, myelocytes, and metamyelocytes. IG% > 1.0 indicates a left shift is present. With automated differentials, bands are included in the neutrophil count and not in the Immature Granulocyte Percent. Performed By: #### C BC #### [address] [id number] Lymphocytes/100 WBC (Bld) 35.8 % Normal 25.0-45.0 [facility] Comment on above: Order Comment: With differential. Is this specimen being sent to an external lab?->No Performed By: #### C BC #### [address] [address] MCH (RBC) [Entitic mass] 28.6 pg Normal 25.0-35.0 [facility] Comment on above: Order Comment: With differential. Is this specimen being sent to an external lab?->No Performed By: #### C BC #### [address] [id number] MCHC (RBC) [Mass/Vol] 33.5 % Normal 31.0-37.0 [facility] Comment on above: Order Comment: With differential. Is this specimen being sent to an external lab?->No Performed By: #### C BC #### [address] [address] MCV (RBC) [Entitic vol] 85.3 fL Normal 78.0-96.0 [facility] Comment on above: Order Comment: With differential. Is this specimen being sent to an external lab?->No Performed By: #### C BC #### [address] [address] Monocytes/100 WBC (Bld) 7.20 % High 3.00-6.00 [facility] Comment on above: Order Comment: With differential. Is this specimen being sent to an external lab?->No Performed By: #### C BC #### [address] [address] Neutrophils (Bld) [#/Vol] 4.1 10*3/uL Normal 1.8-7.5 [facility] Comment on above: Order Comment: With differential. Is this specimen being sent to an external lab?->No Performed By: #### C BC #### [address] [address] Neutrophils/100 WBC (Bld) 55.4 % Normal 34.0-64.0 [facility] Comment on above: Order Comment: With differential. Is this specimen being sent to an external lab?->No Performed By: #### C BC #### [address] [address] Nucleated RBC/100 WBC (Bld) [Ratio] 0.0 % Normal -1.0-0.0 [facility] Comment on above: Order Comment: With differential. Is this specimen being sent to an external lab?->No Performed By: #### C BC #### [address] [address] Platelet mean volume (Bld) [Entitic vol] 10.8 fL Normal [facility] Comment on above: Order Comment: With differential. Is this specimen being sent to an external lab?->No Result Comment: MPV is platelet range and age dependent Performed By: #### C BC #### [address] [address] Platelets (Bld) [#/Vol] 220 10*3/uL Normal 150-450 [facility] Comment on above: Order Comment: With differential. Is this specimen being sent to an external lab?->No Performed By: #### C BC #### [address] [address] RBC (Bld) [#/Vol] 5.04 10E12/L High 4.10-4.80 [facility] Comment on above: Order Comment: With differential. Is this specimen being sent to an external lab?->No Performed By: #### C BC #### [address] [address] WBC (Bld) [#/Vol] 7.4 10*3/uL Normal 4.5-13.0 [facility] Comment on above: Order Comment: With differential. Is this specimen being sent to an external lab?->No Performed By: #### C BC #### [address] [address] Lipid Panelon 11-01-2019 Cholesterol [Mass/Vol] 160 mg/dL Normal 0-169 [facility] Comment on above: Order Comment: With differential. Is this specimen being sent to an external lab?->No Result Comment: Acceptable <170 mg/dL Borderline 170-199 mg/dL Abnormal >199 mg/dL NOTE: Reference Range change effective 05/26/18 Performed By: #### L IPID #### [address] [id number] Cholesterol in HDL [Mass/Vol] 58 mg/dL Normal [facility] Comment on above: Order Comment: With differential. Is this specimen being sent to an external lab?->No Result Comment: Acceptable >45 mg/dL Borderline 40-45 mg/dL Abnormal <40 mg/dL NOTE: Reference Range change effective 05/26/18 Performed By: #### L IPID #### [address] [id number] Cholesterol in LDL [Mass/Vol] 89 mg/dL Normal 0-109 [facility] Comment on above: Order Comment: With differential. Is this specimen being sent to an external lab?->No Result Comment: Acceptable <110 mg/dL Borderline 110-129 mg/dL Abnormal >129 mg/dl NOTE: Reference Range change effective 05/26/18 Performed By: #### L IPID #### [address] [id number] Non-HDL Cholesterol 102 mg/dl Normal 0-119 [facility] Comment on above: Order Comment: With differential. Is this specimen being sent to an external lab?->No Result Comment: Acceptable <120 mg/dL Borderline 120-144 mg/dL Abnormal >144 mg/dl Performed By: #### L IPID #### [address] [id number] Triglyceride [Mass/Vol] 66 mg/dL Normal 0-89 [facility] Comment on above: Order Comment: With differential. Is this specimen being sent to an external lab?->No Result Comment: Acceptable <90 mg/dl Borderline 90-129 mg/dl Abnormal >129 mg/dl NOTE: Reference Range change effective 05/26/18 Result invalid if not a fasting specimen. Performed By: #### L IPID #### [address] [address] Progress Noteon 11-01-2019 Database Technician Authentication Interface Message Text Patient ID: Pancho [...] daily for 90 days Other orders - [facility] Miscellaneous Sendout: Return in about 1 year [...] patient's vision. Patient is being seen by captain/check airman or pie chef. Primary Care Review of Systems Objective Vital [...] divorce. Electronically signed by: Sera Banks MD [facility] Progress Noteon 08-09-2019 Database Technician Authentication Interface Message Text Patient ID: Pancho [...] Line *Present Clear Background *Present Lot Number [id number] Normal [facility] Strep Cultureon 08-09-2019 Strep Culture Is this specimen eddi ng sent to an external lab?->No Strep Culture: No Beta hemolytic Streptococci isolated. Source: THRSW Collected: 08/09/19 15:19 Site: Throat swab Received : 08/09/19 19:43 Strep Culture FINAL 08/11/19 11:08 No Beta hemolytic Streptococci isolated. Normal [facility] Comment on above: Performed By: #### S TRE #### [place] [address] Vital Signs Date Time Vital Sign Value Performing Clinician Darwin benjamin 03-31-2025 09:26-0400 Body height 170.[address] Susu Garcia DO Work Phone: [facility] 03-31-2025 09:26-0400 Body mass index (BMI) [Ratio] 23.1 kg/m2 Dr. Susu Garcia DO Work Phone: [facility] 03-31-2025 09:26-0400 Body weight 66.[address] Susu Garcia DO Work Phone: [facility] 03-31-2025 09:26-0400 Diastolic blood pressure 71 mm[Hg] Dr. Susu Garcia DO Work Phone: [facility] 03-31-2025 09:26-0400 Systolic blood pressure 118 mm[Hg] Dr. Susu Garcia DO Work Phone: [facility] 03-16-2025 14:30-0400 Body height 170.[address] Susu Garcia DO Work Phone: [facility] 03-16-2025 14:30-0400 Body mass index (BMI) [Ratio] 23.1 kg/m2 Dr. Susu Garcia DO Work Phone: [facility] 03-16-2025 14:30-0400 Body weight 67.[address] Susu Garcia DO Work Phone: [facility] 03-16-2025 14:30-0400 Diastolic blood pressure 74 mm[Hg] Dr. Susu Garcia DO Work Phone: [facility] 03-16-2025 14:30-0400 Systolic blood pressure 113 mm[Hg] Dr. Susu Garcia DO Work Phone: [facility] 03-04-2025 07:59-0400 Body height 170.[address] Susu Garcia DO Work Phone: [facility] 03-04-2025 07:59-0400 Body mass index (BMI) [Ratio] 23.2 kg/m2 Dr. Susu Garcia DO Work Phone: [facility] 03-04-2025 07:59-0400 Body weight 67.[address] Susu Garcia DO Work Phone: [facility] 03-04-2025 07:59-0400 Diastolic blood pressure 70 mm[Hg] Dr. Susu Garcia DO Work Phone: [facility] 03-04-2025 07:59-0400 Systolic blood pressure 107 mm[Hg] Dr. Susu Garcia DO Work Phone: [facility] 12-16-2022 08:30-0400 Body height 170.[address] Susu Garcia Work Phone: [facility] 12-16-2022 08:22-0400 Body mass index (BMI) [Percentile] Per age and sex 70.1 % Dr. Susu Garcia Work Phone: [facility] 12-16-2022 08:22-0400 Body mass index (BMI) [Ratio] 23.5 kg/m2 Dr. Susu Garcia Work Phone: [facility] 12-16-2022 08:22-0400 Body weight 68.[address] Susu Garcia Work Phone: [facility] 12-16-2022 08:22-0400 Diastolic blood pressure 77 mm[Hg] Dr. Susu Garcia Work Phone: [facility] 12-16-2022 08:22-0400 Systolic blood pressure 112 mm[Hg] Dr. Susu Garcia Work Phone: [facility] 04-02-2022 13:00-0400 Diastolic blood pressure 59 mm[Hg] Nora Key DO Work Phone: [facility] 04-02-2022 13:00-0400 Heart rate 81 /min Nora Key DO Work Phone: [facility] 04-02-2022 13:00-0400 Respiratory rate 17 /min Nora Key DO Work Phone: [facility] 04-02-2022 13:00-0400 SaO2% (BldA) [Mass fraction] 100 % Nora Key DO Work Phone: [facility] 04-02-2022 13:00-0400 Systolic blood pressure 109 mm[Hg] Nora Key DO Work Phone: [facility] 04-02-2022 12:40-0400 Body temperature 97 [degF] Nora Key DO Work Phone: [facility] 03-27-2022 08:37-0400 Body height 170.2 cm Pac 2 Work Phone: [facility] 03-27-2022 08:37-0400 Body mass index (BMI) [Percentile] Per age and sex 36.55 % Pac 2 Work Phone: [facility] 03-27-2022 08:37-0400 Body weight 58.97 kg Pac 2 Work Phone: [facility] 03-27-2022 08:37-0400 Heart rate 72 /min Pac 2 Work Phone: [facility] 03-06-2022 13:07-0400 Body height 170.8 cm Nora Key DO Work Phone: [facility] 03-06-2022 13:07-0400 Body mass index (BMI) [Percentile] Per age and sex 49.47 % Nora Key DO Work Phone: [facility] 03-06-2022 13:07-0400 Body weight 62.14 kg Nora Key DO Work Phone: [facility] Encounters Encounter Date Encounter Type Care Provider Facility Start: 04-29-2025 End: 04-29-2025 ambulatory Susu Garcia Facility:[facility] Start: 03-31-2025 End: 03-31-[address] Darlyn Menendez DO -[facility] Work Phone: Start: 03-31-2025 End: 03-31-[address] Susu Garcia DO Work Phone: [facility] Start: 03-16-2025 End: 03-16-[address] Darlyn Menendez DO -[facility] Work Phone: Start: 03-16-2025 End: 03-16-[address] Susu Garcia DO Work Phone: [facility] Start: 03-04-2025 End: 03-04-[address] Susu Garcia DO Work Phone: -Laboratory Specimen Start: 03-04-2025 End: 03-04-2025 Patient encounter procedure Fely Hickman CNM -Laboratory Specimen Work Phone: Start: 03-04-2025 End: 03-04-2025 Patient encounter procedure Fely Hickman CNM -[facility] Work Phone: Start: 03-04-2025 End: 03-04-[address] Susu Garcia DO Work Phone: -[facility] Start: 03-04-2025 End: 03-04-2025 ambulatory Fely Hickman Facility:[facility] Start: 02-13-2025 End: 02-13-[address] Susu Garcia DO Work Phone: -Laboratory Start: 02-13-2025 End: 02-13-[address] Veronique Rg MD -Laboratory Work Phone: Start: 02-13-2025 End: 02-13-20[facility] Start: 02-11-2025 End: 02-11-[address] Susu Garcia DO Work Phone: -Laboratory Start: 02-11-2025 End: 02-11-[address] Veronique Rg MD -Laboratory Work Phone: Start: 02-11-2025 End: 02-11-2025 [facility] Start: 01-29-2025 End: 01-29-[address] Susu Garcia DO Work Phone: -Laboratory Start: 01-29-2025 End: 01-29-2025 Patient encounter procedure Fely Hickman CNM -Laboratory Work Phone: Start: 01-29-2025 End: 01-29-2025 [facility] Start: 01-21-2025 End: 01-21-[address] Susu Garcia DO Work Phone: -Laboratory Start: 01-21-2025 End: 01-21-2025 Patient encounter procedure Fely Hickman CNM -Laboratory Work Phone: Start: 01-21-2025 End: 01-21-[facility] Start: 01-18-2025 Encounter for genera l adult medical examination without abnormal findings Fely Hickman [facility] Start: 01-12-2025 End: 01-12-[address] Susu Garcia DO Work Phone: -Laboratory Start: 01-12-2025 End: 01-12-2025 Patient encounter procedure Fely Hickman CNM -Laboratory Specimen Work Phone: Start: 01-11-2025 End: 01-11-[address] Veronique Rg MD -[facility] Work Phone: Start: 01-11-2025 End: 01-12-[address] Susu Garcia DO Work Phone: -[facility] Start: 01-10-2025 End: 01-10-[address] Susu Garcia DO Work Phone: -Laboratory Start: 01-10-2025 End: 01-10-2025 Patient encounter procedure Fely Hickman CNM -Laboratory Work Phone: Start: 01-10-2025 End: 01-10-2025 ambulatory Susu Garcia Facility:[facility] Start: 12-08-2024 End: 12-08-[address] Susu Garcia DO Work Phone: [facility] Work Phone: Start: 12-08-2024 End: 12-08-[address] Susu Garcia DO -Laboratory Work Phone: Start: 12-08-2024 End: 12-08-2024 [facility] Start: 09-10-2024 End: 09-10-[address] Susu Garcia DO Work Phone: [facility] Work Phone: Start: 09-10-2024 End: 09-10-[address] Susu Garcia DO -Laboratory Work Phone: Start: 09-10-2024 End: 09-10-2024 ambulatory Susu Garcia Facility:[facility] Start: 07-27-2024 End: 07-27-2024 Patient encounter procedure Fely PATELM -Laboratory Work Phone: Start: 07-27-2024 End: 07-27-2024 ambulatory Susu Garcia Facility:[facility] Start: 05-14-2024 End: 05-14-2024 [facility] Start: 02-21-2023 End: 02-21-[address] Susu Garcia Work Phone: [facility] Work Phone: Start: 02-21-2023 End: 02-21-[address] Susu Garcia Work Phone: [facility] Work Phone: Start: 12-16-2022 End: 12-16-[address] Susu Garcia Work Phone: [facility] Work Phone: Start: 05-30-2022 End: 05-30-2022 ambulatory NORA KEY Facility:[facility] Start: 04-17-2022 End: 04-17-2022 ambulatory NORA KEY [facility] [facility] Start: 04-17-2022 End: 04-17-2022 Patient encounter procedure Nora Key DO Work Phone: Orthopaedics Comment on above: Suture granuloma, in itial encounter (Primary Dx); S/P foot surgery Start: 04-08-2022 Telephone encounter Nora Key DO Work Phone: Orthopaedics Comment on above: Patient Question Start: 04-02-2022 End: 04-02-2022 Subsequent hospital visit by physician Nora Key DO Work Phone: [facility] Comment on above: Suture granuloma, 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], Right ankle pain, unspecified chronicity [M25.571] Start: 03-27-2022 End: 03-27-2022 ambulatory NORA KEY Facility:[facility] Start: 03-27-2022 Encounter for other preprocedural examination NORA KEY [facility] Start: 03-27-2022 End: 03-27-2022 [facility] Start: 03-27-2022 End: 03-27-2022 ambulatory Pac 2 [...] Start: 03-06-2022 End: 03-06-2022 ambulatory UNKNOWN PROVIDER Facility:[facility] Start: 03-06-2022 End: 03-06-2022 Patient encounter procedure Nora Key DO Work Phone: Orthopaedics Comment on above: Suture granuloma, in itial encounter (Primary Dx) Start: 03-06-2022 End: 03-06-2022 Subsequent hospital visit by physician [facility] Work Phone: Radiology Comment on above: Pain [R52] Procedures Date Procedure Procedure Detail Performing Clinician Start: 03-04-[address] Susu Garcia DO Work Phone: Start: 03-04-2025 Liquid based cervica l cytology screening Dr. Susu Garcia DO Work Phone: Start: 01-21-[address] Susu [...] >20 - 80 High Positive: >80Performed at: [facility] [address] [id number] Director: Caleb Armenta MD, Phone: [phone] at: [facility] [address] [id number] Director: Huan Orlando PhD, Phone: [phone] Start: 12-08-2024 Total iron binding c apacity [...] Treatment Date Care Activity Detail Author Start: 03-04-2025 Hepatitis C antibody measurement [facility] Start: 03-04-2025 Rubella IgG measurement [facility] Start: 03-04-2025 Serologic test for syphilis [facility] Start: 03-04-2025 [facility] Start: 02-21-2022 Influenza vaccination INFLUENZA (#1) [facility] Start: 12-03-2021 CHLAMYDIA SCREENING (18-24) CHLAMYDIA SCREENING (18-24) [facility] Start: 12-03-2021 GC (GONORRHEA) SCREE ALINA (18-24) GC (GONORRHEA) SCREENING (18-24) [facility] Start: 12-03-2021 HEPATITIS C SCREENING HEPATITIS C SC REENING [facility] Start: 12-03-2021 HIV SCREENING HIV SCREENING [facility] Start: 06-23-2021 DEPRESSION ASSESSMENT DEPRESSION ASS ESSMENT [facility] Start: 2019 MENINGOCOCCAL CONJUG ATE (1 - 2-dose series) MENINGOCOCCAL CONJUGATE (1 - 2-dose series) [facility] Start: 12-03-2017 PEDS TO ADULT TRANSI TION ANNUAL ASSESSMENT PEDS TO ADULT TRANSITION ANNUAL ASSESSMENT [facility] Start: 2015 Adult depression scr eening assessment DEPRESSION SCREENING [facility] Start: 2015 PEDS TO ADULT TRANSI TION INITIAL DISCUSSION PEDS TO ADULT TRANSITION INITIAL DISCUSSION [facility] Start: 12-03-2014 HPV VACCINE (1 - 2-d ose series) HPV VACCINE (1 - 2-dose series) [facility] Start: 12-03-2013 MENINGOCOCCAL B: Con director part based on risk (1 of 2 - Risk Bexsero 2-dose series) MENINGOCOCCAL B: Consider based on risk (1 of 2 - Risk Bexsero 2-dose series) [facility] Start: 12-03-2010 Urine microalbumin profile DTAP,TDAP ,TD (5 - Tdap) [facility] Start: 06-04-2004 COVID-19 VACCINE (#1) COVID-19 VACCI NE (#1) [facility] CBC W Auto Different ial panel - Blood [facility] Chlamydia deoxyribon ucleic acid detection [facility] Liquid based cervica l cytology screening [facility] SURGICAL PATHOLOGY [facility] Work Phone: Comment on above: Release Upon Benny orozco for 1 Occurrences starting 04/02/2022 [facility] Immunizations Immunization Date Immunization Notes Care Provider Fa tiffany 04-29-2006 influenza virus vaccine, unspecified formulation [employer] Work Phone: [facility] Work Phone: 06-28-2005 diphtheria, tetanus toxoids and pertussis vaccine [employer] Work Phone: [facility] Work Phone: 06-28-2005 influenza virus vaccine, unspecified formulation [employer] Work Phone: [facility] Work Phone: 06-28-2005 poliovirus vaccine, inactivated [employer] Work Phone: [facility] Work Phone: 03-05-2005 haemophilus influenz ae type b vaccine, HbOC conjugate [employer] Work Phone: [facility] Work Phone: 03-05-2005 pneumococcal conjuga te vaccine, 7 valent [employer] Work Phone: [facility] Work Phone: 01-06-2005 diphtheria, tetanus toxoids and pertussis vaccine [employer] Work Phone: [facility] Work Phone: 12-05-2004 measles, mumps and rubella virus vaccine [employer] Work Phone: [facility] Work Phone: 12-05-2004 varicella virus vaccine [employer] Work Phone: [facility] Work Phone: 09-04-2004 hepatitis B vaccine, pediatric or pediatric/adolescent dosage [employer] Work Phone: [facility] Work Phone: 07-09-2004 haemophilus influenz ae type b vaccine, HbOC conjugate [employer] Work Phone: [facility] Work Phone: 07-09-2004 pneumococcal conjuga te vaccine, 7 valent [employer] Work Phone: [facility] Work Phone: 05-02-2004 diphtheria, tetanus toxoids and pertussis vaccine [employer] Work Phone: [facility] Work Phone: 05-02-2004 haemophilus influenz ae type b vaccine, HbOC conjugate [employer] Work Phone: [facility] Work Phone: 05-02-2004 pneumococcal conjuga te vaccine, 7 valent [employer] Work Phone: [facility] Work Phone: 05-02-2004 poliovirus vaccine, inactivated [employer] Work Phone: [facility] Work Phone: 02-14-2004 diphtheria, tetanus toxoids and pertussis vaccine [employer] Work Phone: [facility] Work Phone: 02-14-2004 poliovirus vaccine, inactivated [employer] Work Phone: [facility] Work Phone: 02-03-2004 haemophilus influenz ae type b vaccine, HbOC conjugate [employer] Work Phone: [facility] Work Phone: 02-03-2004 pneumococcal conjuga te vaccine, 7 valent [employer] Work Phone: [facility] Work Phone: 01-04-2004 hepatitis B vaccine, pediatric or pediatric/adolescent dosage [employer] Work Phone: [facility] Work Phone: 2003 hepatitis B vaccine, pediatric or pediatric/adolescent dosage [employer] Work Phone: [facility] Work Phone: Payers Date Payer Category Payer Self-pay [id number] 2024 Unknown [id number] 2021 Unknown [id number] 2020 Unknown [id number] 2015 Unknown [id number] 2015 Unknown [id number] Unknown [id number] Unknown [id number] Unknown [id number] 2.16.8 [id number] Unknown [id number] 2.16.8 [id number] Unknown [id number] 2.16.8 [id number] Unknown [id number] 2.16.8 [id number] Unknown [id number] 2.16.8 [id number] Unknown [id number] 2.16.8 [id number] Unknown [id number] 2.16.8 [id number] Unknown [id number] 2.16.8 [id number] Unknown [id number] 2.16.8 [id number] Unknown [id number] 2.16.8 [id number] Unknown [id number] 2.16.8 [id number] Unknown [id number] 2.16.8 [id number] Unknown [id number] 2.16.8 [id number] Unknown [id number] 2.16.8 [id number] Unknown [id number] 2.16.8 [id number] Unknown [id number] 2.16.8 [id number] Unknown [id number] 2.16.8 [id number] Social History Date Type Detail Facility Start: 12-16-2022 Tobacco smoking status KSIS Tobacco smoking consumption unknown [facility] Start: 2005 Sex Assigned At Not on file [facility] Start: 02-24-2022 End: 04-02-2022 Exposure to SARS-CoV-2 (event) Not sure [facility] Start: 03-03-2022 End: 03-13-2022 Exposure to SARS-CoV-2 (event) Unable to assess [facility] Start: 03-27-2022 End: 01-11-2025 Tobacco smoking status NHIS Never smoked tobacco [facility] Work Phone: Start: 03-27-2022 Tobacco use and exposure Smokeless tobacco non-user [facility] Work Phone: Start: 03-27-2022 End: 04-17-2022 Alcohol intake Lifetime non-drinker (finding) [facility] Start: 05-07-2020 With Family [facility] Start: 05-07-2020 Non-smoker [facility] Start: 2005 Sex Assigned At Female [facility] Start: 09-16-2024 Sex Female (finding) [facility] Sex Female [facility] Medical Equipment Procedure Code Equipment Code Equipment Origin al Text Equipment Identifier Dates Arthroscopy, ankle Disposables K it, FiberTak DX S FDA Start: 05-26-2019 Arthroscopy, ankle FiberTak DX S uture [place] FDA Start: 05-26-2019 Arthroscopy, ankle FiberTak DX S uture [place] FDA Start: 05-26-2019 Arthroscopy, ankle FiberTak DX S uture [place] FDA Start: 05-26-2019 Arthroscopy, ankle FiberTak DX S uture [place] FDA Start: 05-26-2019 Arthroscopy, ankle FiberTak DX S uture [place] FDA Start: 05-26-2019 Arthroscopy, ankle InternalBrace Implant System FDA Start: 05-26-2019 Arthroscopy, ankle Disposables K it, FiberTak DX S FDA Start: 05-26-2019 Arthroscopy, ankle FiberTak DX S uture [place] FDA Start: 05-26-2019 Arthroscopy, ankle FiberTak DX S uture [place] FDA Start: 05-26-2019 Arthroscopy, ankle FiberTak DX S uture [place] FDA Start: 05-26-2019 Arthroscopy, ankle FiberTak DX S uture [place] FDA Start: 05-26-2019 Arthroscopy, ankle FiberTak DX S uture [place] FDA Start: 05-26-2019 Arthroscopy, ankle InternalBrace Implant System FDA Start: 05-26-2019 Arthroscopy, ankle Disposables K it, FiberTak DX S FDA Start: 05-26-2019 Arthroscopy, ankle FiberTak DX S uture [place] FDA Start: 05-26-2019 Arthroscopy, ankle FiberTak DX S uture [place] FDA Start: 05-26-2019 Arthroscopy, ankle FiberTak DX S uture [place] FDA Start: 05-26-2019 Arthroscopy, ankle FiberTak DX S uture [place] FDA Start: 05-26-2019 Arthroscopy, ankle FiberTak DX S uture [place] FDA Start: 05-26-2019 Arthroscopy, ankle InternalBrace Implant System FDA Start: 05-26-2019 Arthroscopy, ankle Disposables K it, FiberTak DX S FDA Start: 05-26-2019 Arthroscopy, ankle FiberTak DX S uture [place] FDA Start: 05-26-2019 Arthroscopy, ankle FiberTak DX S uture [place] FDA Start: 05-26-2019 Arthroscopy, ankle FiberTak DX S uture [place] FDA Start: 05-26-2019 Arthroscopy, ankle FiberTak DX S uture [place] FDA Start: 05-26-2019 Arthroscopy, ankle FiberTak DX S uture [place] FDA Start: 05-26-2019 Arthroscopy, ankle InternalBrace Implant System FDA Start: 05-26-2019 Arthroscopy, ankle Disposables K it, FiberTak DX S FDA Start: 05-26-2019 Arthroscopy, ankle FiberTak DX S uture [place] FDA Start: 05-26-2019 Arthroscopy, ankle FiberTak DX S uture [place] FDA Start: 05-26-2019 Arthroscopy, ankle FiberTak DX S uture [place] FDA Start: 05-26-2019 Arthroscopy, ankle FiberTak DX S uture [place] FDA Start: 05-26-2019 Arthroscopy, ankle FiberTak DX S uture [place] FDA Start: 05-26-2019 Arthroscopy, ankle InternalBrace Implant System FDA Start: 05-26-2019 Arthroscopy, ankle Disposables K it, FiberTak DX S FDA Start: 05-26-2019 Arthroscopy, ankle FiberTak DX S uture [place] FDA Start: 05-26-2019 Arthroscopy, ankle FiberTak DX S uture [place] FDA Start: 05-26-2019 Arthroscopy, ankle FiberTak DX S uture [place] FDA Start: 05-26-2019 Arthroscopy, ankle FiberTak DX S uture [place] FDA Start: 05-26-2019 Arthroscopy, ankle FiberTak DX S uture [place] FDA Start: 05-26-2019 Arthroscopy, ankle InternalBrace Implant System FDA Start: 05-26-2019 Arthroscopy, ankle Disposables K it, FiberTak DX S FDA Start: 05-26-2019 Arthroscopy, ankle FiberTak DX S uture [place] FDA Start: 05-26-2019 Arthroscopy, ankle FiberTak DX S uture [place] FDA Start: 05-26-2019 Arthroscopy, ankle FiberTak DX S uture [place] FDA Start: 05-26-2019 Arthroscopy, ankle FiberTak DX S uture [place] FDA Start: 05-26-2019 Arthroscopy, ankle FiberTak DX S uture [place] FDA Start: 05-26-2019 Arthroscopy, ankle InternalBrace Implant System FDA Start: 05-26-2019 Arthroscopy, ankle Disposables K it, FiberTak DX S FDA Start: 05-26-2019 Arthroscopy, ankle FiberTak DX S uture [place] FDA Start: 05-26-2019 Arthroscopy, ankle FiberTak DX S uture [place] FDA Start: 05-26-2019 Arthroscopy, ankle FiberTak DX S uture [place] FDA Start: 05-26-2019 Arthroscopy, ankle FiberTak DX S uture [place] FDA Start: 05-26-2019 Arthroscopy, ankle FiberTak DX S uture [place] FDA Start: 05-26-2019 Arthroscopy, ankle InternalBrace Implant System FDA Start: 05-26-2019 Arthroscopy, ankle Disposables K it, FiberTak DX S FDA Start: 05-26-2019 Arthroscopy, ankle FiberTak DX S uture [place] FDA Start: 05-26-2019 Arthroscopy, ankle FiberTak DX S uture [place] FDA Start: 05-26-2019 Arthroscopy, ankle FiberTak DX S uture [place] FDA Start: 05-26-2019 Arthroscopy, ankle FiberTak DX S uture [place] FDA Start: 05-26-2019 Arthroscopy, ankle FiberTak DX S uture [place] FDA Start: 05-26-2019 Arthroscopy, ankle InternalBrace Implant System FDA Start: 05-26-2019 Arthroscopy, ankle Disposables K it, FiberTak DX S FDA Start: 05-26-2019 Arthroscopy, ankle FiberTak DX S uture [place] FDA Start: 05-26-2019 Arthroscopy, ankle FiberTak DX S uture [place] FDA Start: 05-26-2019 Arthroscopy, ankle FiberTak DX S uture [place] FDA Start: 05-26-2019 Arthroscopy, ankle FiberTak DX S uture [place] FDA Start: 05-26-2019 Arthroscopy, ankle FiberTak DX S uture [place] FDA Start: 05-26-2019 Arthroscopy, ankle InternalBrace Implant System FDA Start: 05-26-2019 Arthroscopy, ankle Disposables K it, FiberTak DX S FDA Start: 05-26-2019 Arthroscopy, ankle FiberTak DX S uture [place] FDA Start: 05-26-2019 Arthroscopy, ankle FiberTak DX S uture [place] FDA Start: 05-26-2019 Arthroscopy, ankle FiberTak DX S uture [place] FDA Start: 05-26-2019 Arthroscopy, ankle FiberTak DX S uture [place] FDA Start: 05-26-2019 Arthroscopy, ankle FiberTak DX S uture [place] FDA Start: 05-26-2019 Arthroscopy, ankle InternalBrace Implant System FDA Start: 05-26-2019 Arthroscopy, ankle Disposables K it, FiberTak DX S FDA Start: 05-26-2019 Arthroscopy, ankle FiberTak DX S uture [place] FDA Start: 05-26-2019 Arthroscopy, ankle FiberTak DX S uture [place] FDA Start: 05-26-2019 Arthroscopy, ankle FiberTak DX S uture [place] FDA Start: 05-26-2019 Arthroscopy, ankle FiberTak DX S uture [place] FDA Start: 05-26-2019 Arthroscopy, ankle FiberTak DX S uture [place] FDA Start: 05-26-2019 Arthroscopy, ankle InternalBrace Implant System FDA Start: 05-26-2019 Arthroscopy, ankle Disposables K it, FiberTak DX S FDA Start: 05-26-2019 Arthroscopy, ankle FiberTak DX S uture [place] FDA Start: 05-26-2019 Arthroscopy, ankle FiberTak DX S uture [place] FDA Start: 05-26-2019 Arthroscopy, ankle FiberTak DX S uture [place] FDA Start: 05-26-2019 Arthroscopy, ankle FiberTak DX S uture [place] FDA Start: 05-26-2019 Arthroscopy, ankle FiberTak DX S uture [place] FDA Start: 05-26-2019 Arthroscopy, ankle InternalBrace Implant System FDA Start: 05-26-2019 Arthroscopy, ankle Disposables K it, FiberTak DX S FDA Start: 05-26-2019 Arthroscopy, ankle FiberTak DX S uture [place] FDA Start: 05-26-2019 Arthroscopy, ankle FiberTak DX S uture [place] FDA Start: 05-26-2019 Arthroscopy, ankle FiberTak DX S uture [place] FDA Start: 05-26-2019 Arthroscopy, ankle FiberTak DX S uture [place] FDA Start: 05-26-2019 Arthroscopy, ankle FiberTak DX S uture [place] FDA Start: 05-26-2019 Arthroscopy, ankle InternalBrace Implant System FDA Start: 05-26-2019 Arthroscopy, ankle Disposables K it, FiberTak DX S FDA Start: 05-26-2019 Arthroscopy, ankle FiberTak DX S uture [place] FDA Start: 05-26-2019 Arthroscopy, ankle FiberTak DX S uture [place] FDA Start: 05-26-2019 Arthroscopy, ankle FiberTak DX S uture [place] FDA Start: 05-26-2019 Arthroscopy, ankle FiberTak DX S uture [place] FDA Start: 05-26-2019 Arthroscopy, ankle FiberTak DX S uture [place] FDA Start: 05-26-2019 Arthroscopy, ankle InternalBrace Implant System FDA Start: 05-26-2019 Clinical Notes 03-06-2022 to 03-31-2025 Note Date & Type Note Facility 03-31-2025 Progress note [facility] 03-16-2025 Progress note [facility] 03-16-2025 Progress note Note Date/Time March 16, 2025 2:53pm [facility] [address], [address] [place] [address] OFFICE VISIT Date of Service: 03/16/25 MR#: [id number] Acct: [id number] Name: PANCHO RUIZ Rep #: [id number] : 2005 Provider: Dr. Samreen Menendez DO Age/Sex: 19/F [place] [facility] [place]: Signed Intake Vital Signs 03/04/25 07:59 03/16/25 14:30 Height 5 ft 7 in 5 ft 7 in Weight: 148 lb 5 oz 148 lb BMI 23.2 23.1 BP 107/70 113/74 Intake Visit Reasons: RESCAN Resin Painter Required: No Is patient in pain?: No Allergies Latex, Natural Rubber Allergy (Intermediate, Verified 03/16/25 14:30) Hives gluten Allergy (Mild, Verified 03/16/25 14:30) Diarrhea Medications ?Medication ?Instructions ?Recorded ?Confirmed ?Type cetirizine 10 mg capsule (Zyrtec) 10 mg PO DAILY PRN 0 10/15/22 03/16/25 History omeprazole 20 mg tablet,delayed 10 mg PO DAILY 3 03/16/25 History release cholecalciferol (vitamin D3) 125 125 mcg PO QDAY 01/1103/16/25 History mcg (5,000 unit) capsule multivitamin no.47-iron fum 27 cap PO 01/11/25 5 History mg-folate no.1 1 mg-dha 300 mg capsule (PNV-DHA) ondansetron 4 mg disintegrating 4 mg PO Q6H PRN nausea and 03/16/25 03/16/25 Rx tablet vomiting #30 tabs Last Menstrual Period: 11/24/24 Zika: Zika virus screening: Negative : No PFSH PFSH Medical History Seasonal allergies Gastrointestinal problem Peroneal tendinitis of right lower extremity Right ankle injury Ankle fracture, lateral malleolus, closed URI, acute Hay fever Surgical History History of ankle surgery Hx of tonsillectomy Family History Grandfather Diabetes Paternal Parkinsons disease Paternal Father Asthma Sleep apnea Mother Hypertension Maternal Grandmother Hypertension Grandfather Hypertension Paternal Social History adopted: No household members: spouse housing: house current occupational status: employed 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 current occupational exposures/hazards: No pets and animals: No history of recent travel: No sexually active: Yes Smoking Status: Never smoker alcohol intake: never substance use type: does not use diet: gluten free and lactose free well-balanced diet: daily or most days caffeine: Yes (occasional) Type: coffee Number of servings: 1 and tea Number ofservings: 1 eating out: rarely or never during the past year weight has: remained stable what type of physical activity do you participate in: none elvira/amish: Rastafari seatbelt use: always do you feel safe at home: Yes additional 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 OB Visit INGRID Calculator Estimated Delivery Date Method Current WG Current Estimate 10/23/25 Ultrasound #1 8w 3d Other Estimates 10/17/25 LMP (Certain) 9w 2d Expected Delivery Route/Plan Labor Preferences- CB/BF classes: [] labor support person: [] labor intervention preferences: [] pain management options preferred: [] cut cord/dad catch: [] : [] PP control planned: [] discussed possible routes of delivery and associated risks: [] special requests: [] Specific Issue/Plans Covid status: [] Flu vaccine: [] Tdap vaccine: [] Rhogam: [] LARC form signed: [] Problem list reviewed and updated with the most current plan of care details and appropriate orders placed. Relevant counseling for the gestational age provided. Continue routine care and follow up unless otherwise noted in visit notes/problem list details Initial Weight: 148 lb Date -?-?-?-?-?-?-?-?-?-?-?-?- EGA Weight BP Urine Prot -?-?-?-?-?-?-?-?-?-?-?-?- Glucose FHR FuHt Pres Dilation -?-?-?-?-?-?-?-?-?-?-?-?- Effaced St Visit Note 03/04/25 -?-?-?-?-?-?-?-?-?-?-?-?- 6w 5d 148 lb 5 oz (+5 oz) 107/70 -?-?-?-?-?-?-?-?-?-?-?-?- 127 -?-?-?-?-?-?-?-?-?-?-?-?- KW- CRL not cons with dates. unsure of LMP due to it being SAB. RTO in 2 weeks for rescan. will do labs then. declines NIPT. 03/16/25 -?-?-?-?-?-?-?-?-?-?-?-?- 8w 3d 148 lb (+0 oz) 113/74 Negative -?-?-?-?-?-?-?-?-?-?-?-?- Negative 199 -?-?-?-?-?-?-?-?-?-?-?-?- JV- repeat scan today is reassuring measuring 8 weeks 3 days. no bleeding or cramping. vomited at work today wants zofran. ACOG First Trimester First Trimester: Desire for , Alcohol, Tobacco Cessation, Illicit/Recreational Drug/Substance Use, Intimate Partner Violence, Barriers to care, Unstable Housing, Communication Barriers, Environmental/Work Hazards, Anticipated Course of Care, Toxoplasmosis Precations, Use of Any medications, Sexual activity, Exercise, Dental Care, Sauna/Hot tub use, Seat Belt use, Childbirth classes/Hospital facilities, Travel, Indications for Ultrasound and Screening for Aneuploidy; Discussed Second Trimester Second Trimester: Signs and Symptoms of Labor, Selecting a care provider, Reproductive Life Planning & Contreception, Care Planning, Depression/Anxiety and Intimate Partner Violence; Discussed Tobacco Cessation Third Trimester Third Trimester: Pain Management Plans, Labor support person(s), Immediate Larc, Signs and Symptoms of Preeclampsia, Feeding No , Education and Family Medical Leave or Disability Forms Results POC Urinalysis 2 Dip (Clinic) Office Urine Glucose Negative Last Edit by Yolanda Melendrez on 03/16/25 14 :44 Office Urine Protein Negative Last Edit by Yolanda Melendrez on 03/16/25 14 :44 Coding Level of Care Code OB Routine Diagnoses 8 weeks gestation of Z3A.08 Weeks of gestation: 8 weeks Supervision of high-risk O09.90 Chemical O02.81 Amenorrhea N91.2 Bleeding in early O20.9 Assessment and Plan Assessment and Plan (1) : Status: Acute Qualifiers: Weeks of gestation: 8 weeks Qualified Code(s): Z3A.08 - 8 weeks gestation of Comment: NEEDS repeat urine culture at 2nd visit. discussed genetic & carrier testing-undecided (2) Supervision of high-risk : Status: Acute Comment: , INGRID 08/31/25, [place] (3) Chemical : Status: Acute (4) Amenorrhea: Status: Acute Comment: serial HCG (5) Bleeding in early : Status: Acute Orders: Orders POC Urinalysis 2 Dip (Clinic) Today Medications: New ondansetron 4 mg PO Q6H PRN 30 tabs 4RF nausea and vomiting 03/16/25 1453 <Electronically signed by Darlyn Mauricio DO> Date _ Darlyn Menendez DO Cosigner Signature: Date (if applicable) CC: ~ [place] [address] [facility] [place] Work Phone: 1(906) 887-225709-12-2025 Evaluation note* Diagnosis Onset Date Resolution Status Admit Date Amenorrhea acute February 7:48am Bleeding in early acute March 04, 2025 7:48am Chemical acute Sept2024 7:48am acute February 7:48am Supervision of high-risk acute March 04, 2025 7:48am Amenorrhea acute February 2:27pm Bleeding in early acute March 16, 2025 2:27pm Chemical acute 2024 2:27pm acute February 2:27pm Supervision of high-risk acute March 16, 2025 2:27pm [facility] Work Phone: 1(239) 385-396609-12-2025 Evaluation note* Diagnosis Onset Date Resolution Status Admit Date Amenorrhea acute February 7:48am Bleeding in early acute March 04, 2025 7:48am Chemical acute 2024 7:48am acute February 7:48am Supervision of high-risk acute March 04, 2025 7:48am Amenorrhea acute February 2:27pm Bleeding in early acute March 16, 2025 2:27pm Chemical acute 2024 2:27pm acute February 2:27pm Supervision of high-risk acute March 16, 2025 2:27pm Amenorrhea acute March 31, 2 025 9:20am Bleeding in early acute March 31, 2025 9:20am Chemical acute 2024 9:20am acute March 31, 2 025 9:20am Supervision of high-risk acute March 31 9:20am [facility] Work Phone: 1(308) 844-690609-12-2025 [facility] [address] [place] [address], [place] [address] OFFICE VISIT Date of Service: 03/04/25 MR#: [id number] Acct: [id number] Name: PANCHO RUIZ Rep #: [id number] : 2005 Provider: ENDY Hickman Age/Sex: 19/F [place] [facility] [place]: Signed Intake Vital Signs 12/16/22 08:30 03/04/25 07:59 Height 5 ft 7 in 5 ft 7 in Weight: 148 lb 5 oz BMI 23.2 BP 107/70 Intake Visit Reasons: *EST* NOB LMP 01/10, INGRID 4/27 Chief Complaint: New OB Resin Painter Required: No Is patient in pain?: No Allergies Latex, Natural Rubber Allergy (Intermediate, Verified 03/04/25 07:57) Hives gluten Allergy (Mild, Verified 03/04/25 07:57) Diarrhea Medications ?Medication ?Instructions ?Recorded ?Confirmed ?Type cetirizine 10 mg capsule (Zyrtec) 10 mg PO DAILY PRN 0 10/15/22 03/04/25 History omeprazole 20 mg tablet,delayed 10 mg PO DAILY 3 03/04/25 History release cholecalciferol (vitamin D3) 125 125 mcg PO QDAY 01/1103/04/25 History mcg (5,000 unit) capsule multivitamin no.47-iron fum 27 cap PO 01/11/25 5 History mg-folate no.1 1 mg-dha 300 mg capsule (PNV-DHA) Last Menstrual Period: 11/24/24 PFSH PFSH Medical History Seasonal allergies Gastrointestinal problem Peroneal tendinitis of right lower extremity Right ankle injury Ankle fracture, lateral malleolus, closed URI, acute Hay fever Surgical History History of ankle surgery Hx of tonsillectomy Family History Grandfather Diabetes Paternal Parkinsons disease Paternal Father Asthma Sleep apnea Mother Hypertension Maternal Grandmother Hypertension Grandfather Hypertension Paternal Social History adopted: No household members: spouse housing: house current occupational status: employed 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 current occupational exposures/hazards: No pets and animals: No history of recent travel: No sexually active: Yes Smoking Status: Never smoker alcohol intake: never substance use type: does not use diet: gluten free and lactose free well-balanced diet: daily or most days caffeine: Yes (occasional) Type: coffee Number of servings: 1 and tea Number ofservings: 1 eating out: rarely or never during the past year weight has: remained stable what type of physical activity do you participate in: none elvira/amish: Rastafari seatbelt use: always do you feel safe at home: Yes 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 OB Visit INGRID Calculator Estimated Delivery Date Method Current WG Current Estimate 10/23/25 Ultrasound #1 6w 5d Other Estimates 10/17/25 LMP (Certain) 7w 4d Estimated Due Date: 08/31/25 Expected Delivery Route/Plan Labor Preferences- CB/BF classes: [] labor support person: [] labor intervention preferences: [] pain management options preferred: [] cut cord/dad catch: [] : [] PP control planned: [] discussed possible routes of delivery and associated risks: [] special requests: [] Specific Issue/Plans Covid status: [] Flu vaccine: [] Tdap vaccine: [] Rhogam: [] LARC form signed: [] Problem list reviewed and updated with the most current plan of care details and appropriate ordersplaced. Relevant counseling for the gestational age provided. Continue routine care and follow up unless otherwise noted in visit notes/problem list details Initial Weight: 148 lb Date -?-?-?-?-?-?-?-?-?-?-?-?- EGA Weight BP Urine Prot -?-?-?-?-?-?-?-?-?-?-?-?- Glucose FHR FuHt Pres Dilation -?-?-?-?-?-?-?-?-?-?-?-?- Effaced St Visit Note 03/04/25 -?-?-?-?-?-?-?-?-?-?-?-?- 6w 5d 148 lb 5 oz (+5 oz) 107/70 -?-?-?-?-?-?-?-?-?-?-?-?- 127 -?-?-?-?-?-?-?-?-?-?-?-?- KW- CRL not cons with dates. unsure of LMP due to it being SAB. RTO in 2 weeks for rescan. will do labs then. declines NIPT. Menstrual History Last Menstrual Period: 11/24/24 Reported LMP: definite Normal amount/duration: Yes Frequency in days: 29-30 On hormonal BC at conception: No hCG+: 12/22/24 Antepartum Record Genetic Screening: Congenital Heart Defect: Other, Neural Tube Defect: Other, Hemoglobinopathy Or Carrier: Other, Cystic Fibrosis: Other, Chromosome Abnormality: Other, Jace-Sachs: Other, Hemophilia: Other, Intellectual Disability/Autism: Other, Recurrent Loss/Stillbirth: Other, Other Structural Defect: Other, Other Genetic Disease: Other and Maternal Metabolic Disorder: Other Infection History: Live with someone with TB or Exposed to TB: No, Patient or Partner has history of Genital Herpes: No, Rash or Viral illness since last mentrual period: No, Prior GBS-Infected child: No, History of STD: No, HIV Infection: No, History of Hepatitis: No, Recent travel outside of [place]: No, Concern for hepatitis exposure: No, Varicella immune: Yes (immune-vaccinated) and Covid Vaccinated: No Medical History Medical History: Positive: Seasonal allergies, Drug/latex allergies/reactions (latex powder in gloves- hives and itching), Operations/hospitalizations (ankle surgery x2, tonsillectomy), Relevant family history (See PFSH) and Other (bleeding in early ) and Negative: Diabetes, Hypertension, Heart disease, Auto-immune disorder, Kidney disease/UTI, Neurologic/epilepsy, Psychiatric, Depression/ depression, Hepatitis/liver disease, Varicosities/phlebitis, Thyroid dysfunction, Trauma/domestic violence, History of blood transfusions, D (Rh) Sensitized, Pulmonary (e.g.,TB,Asthma), Breast, 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, Anesthetic complications, History of abnormal pap (Due for 1st pap), Uterine anomaly/bao, Infertility and Anti-retroviral treatment Comments: Pt reports a chemical in June and possibly a second in Aug-Sep ACOG First Trimester First Trimester: Desire for , Alcohol, Tobacco Cessation, Illicit/Recreational Drug/Substance Use, Intimate Partner Violence, Barriers to care, Unstable Housing, Communication Barriers, Environmental/Work Hazards, Anticipated Course of Care, Toxoplasmosis Precations, Use of Any med ications, Sexual activity, Exercise, Dental Care, Sauna/Hot tub use, Seat Belt use, Childbirth classes/Hospital facilities, Travel, Indications for Ultrasound and Screening for Aneuploidy Second Trimester Second Trimester: Signs and Symptoms of Labor, Selecting a care provider, Reproductive Life Planning & Contreception, Care Planning, Depression/Anxiety and Intimate Partner Violence; Discussed Tobacco Cessation Third Trimester Third Trimester: Pain Management Plans, Labor support person(s), Immediate Larc, Signs and Symptoms of Preeclampsia, Feeding Yes , [place] Education and Family Medical Leave or Disability Forms ROS Const Reports system reviewed and no additional complaints, except as documented, Denies fatigue, Denies headache(s) and Denies lethargy ENT Denies headache(s) Card Reports system reviewed and no additional complaints, except as documented Resp Reports system reviewed and no additional complaints, except as documented GI Reports system reviewed and no additional complaints, except as documented, Denies abdominal pain, Denies constipation, Denies cramping, Denies diarrhea and Denies dyspepsia Reports system reviewed and no additional complaints, except as documented, Denies abnormal vaginalbleeding, Denies difficulty voiding, Denies dyspareunia and Denies dysuria Musc Reports system reviewed and no additional complaints, except as documented Skin/Breast Reports system reviewed and no additional complaints, except as documented Neuro Yes system reviewed and no additional complaints, except as documented and No headache(s) Psych Reports system reviewed and no additional complaints, except as documented, Denies anhedonia and Denies anxiety Endo Reports system reviewed and no additional complaints, except as documented and Denies fatigue Exam Const General: cooperative, healthy appearing and comfortable Neck Neck: normal visual inspection and full ROM Chest Chest palpation & inspection: normal inspection of the chest Breast inspection: normal inspection of the breasts and normal inspection of the axillae Breast palpation: normal palpation of the breasts and normal palpation of the axillae Resp Effort & Inspection: normal respiratory effort and able to speak in complete sentences GI Inspection: normal to inspection Palpation: soft External Female Exam: normal external appearance and normal appearance of the urethra Urethra: normal appearance of the urethra Skin General: no rashes or lesions noted Neuro General: patient alert, patient awake and patient oriented x3 Extrem General: normal to inspection and full ROM Psych Appearance: grossly normal and well kempt Mental Status: mental status grossly normal Mood: congruent mood Affect: normal affect Speech and Movement: speech and movement normal Thought Process: normal Thought Content: normal Coding Level of Care Code OB Routine Diagnoses Amenorrhea N91.2 Chemical O02.81 Supervision of high-risk O09.90 Less than 8 weeks gestation of Z3A.01 Weeks of gestation: less than 8 weeks Bleeding in early O20.9 Assessment and Plan Assessment and Plan (1) Amenorrhea: Status: Acute Comment: serial HCG (2) Chemical : Status: Acute (3) Supervision of high-risk : Status: Acute Comment: , INGRID 08/31/25, [place] (4) : Status: Acute Qualifiers: Weeks of gestation: less than 8 weeks Qualified Code(s): Z3A.01 - Less than 8 weeks gestation of Comment: discussed genetic & carrier testing-undecided (5) Bleeding in early : Status: Acute Orders: Orders CBC W/Diff, Automated Today O09.90 - Supervision of high risk , unspecified, unspecified trimester, Z3A.01 - Less than 8 weeks gestation of Type & Screen Today O09.90 - Supervision of high risk , unspecified, unspecified trimester, Z3A.01 - Less than 8 weeks gestation of Rubella IgG Today O09.90 - Supervision of high risk , unspecified, unspecified trimester, Z3A.01 - Less than 8 weeks gestation of Hepatitis C Antibody Today O09.90 - Supervision of high risk , unspecified, unspecified trimester, Z3A.01 - Less than 8 weeks gestation of Hepatitis B Surface Antigen Today O09.90 - Supervision of high risk , unspecified, unspecified trimester, Z3A.01 - Less than 8 weeks gestation of Culture, Urine Today O09.90 - Supervision of high risk , unspecified, unspecified trimester, Z3A.01 - Less than 8 weeks gestation of Syphilis Antibodies Today O09.90 - Supervision of high risk , unspecified, unspecified trimester, Z3A.01 - Less than 8 weeks gestation of Chlamydia/GC KESHA aptima Today O09.90 - Supervision of high risk , unspecified, unspecifiedtrimester, Z3A.01 - Less than 8 weeks gestation of HIV Today O09.90 - Supervision of high risk , unspecified, unspecified trimester, Z3A.01 -Less than 8 weeks gestation of PAP I-G w/rfx hrHPV-Aptima Today O09.90 - Supervision of high risk , unspecified, unspecified trimester, Z12.4 - Encounter for screening for malignant neoplasm of cervix Comments Comments: Patient oriented to practice and discussed care expectations and screenings. ACOG book offered to patient. Discussed routine and specially indicated labs if needed- patient consents to testing. See problem list details for plan information. Optional screening including maternal carrier screenings, neural tube defect screening, genetic screening options including quad screen, nuchal translucency, sequential screening, and NIPT screening offered to patient and patient chose: declines 03/04/25 0834 s AMANDAM> Date _ Fely Hickman CNM Cosigner Signature: Date (if applicable) CC: ~ [facility]07-22-2025 Chief complaint+Reason for visit Narrative* Chief Complaint Admit Date [employer], Education January 11, 2025 7 :51am E ORDER January 12, 2025 6:24 pm [facility] Work Phone: 1(168) 402-809607-22-2025 Chief complaint+Reason for visit Narrative * Chief Complaint Admit Date [employer], Education January 11, 2025 7 :51am E ORDER January 12, 2025 6:24 pm E ORDERS January 21, 2025 9:0 5am [facility] Work Phone: 1(240) 238-168507-22-2025 Chief complaint+Reason for visit Narrative * Chief Complaint Admit Date [employer], Education January 11, 2025 7 :51am E ORDER January 12, 2025 6:24 pm E ORDERS January 21, 2025 9:0 5am E ORDER February 11, 2025 1: 45pm Amenorrhea February 13, 2025 2: 03pm [facility] Work Phone: 1([phone]) 503-531607-22-2025 Chief complaint+Reason for visit Narrative * Chief Complaint Admit Date [employer], Education January 11, 2025 7 :51am E ORDER January 12, 2025 6:24 pm E ORDERS January 21, 2025 9:0 5am E ORDER February 11, 2025 1: 45pm Amenorrhea February 13, 2025 2: 03pm *EST* NOB LMP 01/10, INGRID 10/17February 212024 7:48am Reason for Visit Admit Date Amenorrhea March 04, 2025 7:48am Bleeding in early March 042024 7:48am Chemical March 04, 2025 7:48am March 04, 2025 7:48am Supervision of high-risk [facility] 2024 7:48am [facility] Work Phone: 1(518) 643-501607-22-2025 Chief complaint+Reason for visit Narrative * Chief Complaint Admit Date PNOB Vitals, Education January 11, 2025 7 :51am E ORDER January 12, 2025 6:24 pm E ORDERS January 21, 2025 9:0 5am E ORDER February 11, 2025 1: 45pm Amenorrhea February 13, 2025 2: 03pm *EST* NOB LMP 01/10, INGRID 10/17February 212024 7:48am RESCAN March 16, 2025 2:27pm Reason for Visit Admit Date Amenorrhea March 04, 2025 7:48am Bleeding in early March 042024 7:48am Chemical March 04, 2025 7:48am March 04, 2025 7:48am Supervision of high-risk [facility] 2024 7:48am Amenorrhea March 16, 2025 2:27pm Bleeding in early March 162024 2:27pm Chemical March 16, 2025 2:27pm March 16, 2025 2:27pm Supervision of high-risk [facility] 2024 2:27pm [facility] Work Phone: 1(914) 372-364807-22-2025 Chief complaint+Reason for visit Narrative * Chief Complaint Admit Date PNOB Vitals, Education January 11, 2025 7 :51am E ORDER January 12, 2025 6:24 pm E ORDERS January 21, 2025 9:0 5am E ORDER February 11, 2025 1: 45pm Amenorrhea February 13, 2025 2: 03pm *EST* NOB LMP 01/10, INGRID 10/17February 212024 7:48am RESCAN March 16, 2025 2:27pm 10 WK 4D OB March 31, 2025 9: 20am Reason for Visit Admit Date Amenorrhea March 04, 2025 7:48am Bleeding in early March 042024 7:48am Chemical March 04, 2025 7:48am March 04, 2025 7:48am Supervision of high-risk [facility] 2024 7:48am Amenorrhea March 16, 2025 2:27pm Bleeding in early March 162024 2:27pm Chemical March 16, 2025 2:27pm March 16, 2025 2:27pm Supervision of high-risk [facility] 2024 2:27pm Amenorrhea March 31, 2025 9: 20am Bleeding in early March 31, 2025 9:20am Chemical March 31, 2025 9: 20am March 31, 2025 9: 20am Supervision of high-risk Octob 2024 9:20am [place] [facility] [employer] Work Phone: 1([phone]) 343-278312-08-2022 NoteHNO ID: [id number] Author: Nora Key, DO Service: ? Author [...] (FLONASE) 50 mcg/actuation nasal spray Use 1 [place] in each nostril once daily as needed. [...] free to contact the dictating provider for clarification.[facility]10-26-2022 NoteHNO ID: [id number] Author: Nora Key, DO Service: ? Author [...] (FLONASE) 50 mcg/actuation nasal spray Use 1 [place] in each nostril once daily as needed. [...] and in agreement of plan. All questions answered.[facility]10-26-2022 History of Present illness Narrative* Nora Key, - 04/17/2022 2:23 PM EDT Follow Up [...] (FLONASE) 50 mcg/actuation nasal spray Use 1 [place] in each nostril once daily as needed. [...] plan. All questions answered. [facility] Miscellaneous Notes* Telephone Encounter [...] is 04/17/22 Please advise documented in this encounterAdena [facility]10-[facility] History of Past illness Narrative* Problem Noted Date Resolved Date Right ankle pain 04/02/2022 04/02/2022 documented as of this encounter (statuses as of 04/03/2022) [facility] History of Past illness Narrative* Problem Noted Date Resolved Date Right ankle pain 04/02/2022 04/02/2022 documented as of this encounter (statuses as of 04/08/2022) [facility] History of Past illness Narrative* Problem Noted Date Resolved Date Right ankle pain 04/02/2022 04/02/2022 documented as of this encounter (statuses as of 04/23/2022) [facility] Surgical operation note* Operative Report - Nora Key DO - 04/02/2022 10:47 AM EDT OPERATIVE/PROCEDURE REPORT LOG ID: [id number] SURGERY/PROCEDURE DATE: 04/02/2022 INCISION/PROCEDURE START TIME: 11:18 AM INCISION CLOSE/PROCEDURE END TIME: 12:36 PM SURGEON(S)/PROCEDURALIST(S) AND MACHINIST SET UP(S): Surgeon(s) and Role: * Nora Key DO - Primary Physician Ccna: Bijal Mott PA-C SURGERY/PROCEDURE(S): Right ankle arthroscopy, [...] 2022 TIME: 1:11 PM documented in this encounterAden[facility]10-11-2022 History and physical note [...] 10:11 AM Source Note - Khalida Abbott APRN.CNP - 03/27/2022 8:30 AM [...] RELIEF) 50 mcg/actuation nasal spray Use 1 [place] in each nostril once daily as needed. fexofenadine (NORMA ALLERGY) 180 mg tablet Take 180 mg by mouth once daily. No current facility-administered medications for this visit. COVID VACCINATION STATUS: Not vaccinated REVIEW OF SYSTEMS: Pain Assessment: General: No weight loss, malaise or fevers. Neuro: No history of TIA's, stroke, SPINNING BATH PERSON tumor, impaired sensorium, hemiplegia, paraplegia or quadraplegia. No neurological symptoms or problems. Respiratory: No history of current cough or dyspnea, or pneumonia in the past 6 weeks. No history of respiratory/pulmonary symptoms or problems. Cardiovascular: No history of HTN requiring medication, no history of angina, CHF, RI, cardiac surgery or stents. Denies rest pain, gangrene or revascularization/amputation for PVD. No history of cardiovascular symptoms or problems. GI: Negative for Nausea, Vomiting, Abdominal pain, Inflammatory bowel disease +GERD : No history of dysuria, frequency or incontinence,, stones or chronic kidney disease PILL MAKER: Negative for abnormal vaginal bleeding, abnormal vaginal [...] making as documented above. SIGNATURE: Khalida Abbott APRN.LULA PATIENT NAME: Pancho Savage DATE: Patient would like to see someone today. TIME: 8:32 AM PAGER/CONTACT #: documented in this encounterAdena [facility]10-05-2022 History and physical note * Khalida YULISSA Abbott - 03/27/2022 8:30 AM EDT PREANESTHESIA CONSULT [...] RELIEF) 50 mcg/actuation nasal spray Use 1 [place] in each nostril once daily as needed. fexofenadine (NORMA ALLERGY) 180 mg tablet Take 180 mg by mouth once daily. No current facility-administered medications for this visit. COVID VACCINATION STATUS: Not vaccinated REVIEW OF SYSTEMS: Pain Assessment: General: No weight loss, malaise or fevers. Neuro: No history of TIA's, stroke, SPINNING BATH PERSON tumor, impaired sensorium, hemiplegia, paraplegia or quadraplegia. No neurological symptoms or problems. Respiratory: No history of current cough or dyspnea, or pneumonia in the past 6 weeks. No history of respiratory/pulmonary symptoms or problems. Cardiovascular: No history of HTN requiring medication, no history of angina, CHF, RI, cardiac surgery or stents. Denies rest pain, gangrene or revascularization/amputation for PVD. No history of cardiovascular symptoms or problems. GI: Negative for Nausea, Vomiting, Abdominal pain, Inflammatory bowel disease +GERD : No history of dysuria, frequency or incontinence,, stones or chronic kidney disease PILL MAKER: Negative for abnormal vaginal bleeding, abnormal vaginal [...] 8:32 AM PAGER/CONTACT #: documented in this encounterAden[facility]10-05-2022 Instructions* Patient Instructions* Khalida Abbott APRN.CNP - 03/27/2022 8:29 AM EDT PATIENT PREOPERATIVE INSTRUCTIONS Nora Key,* has scheduled you for your procedure at this surgery center: [facility]: [phone] -- [address] [address]. Please read below carefully for your personalized [...] Procedures: - YOU MUST HAVE A RESPONSIBLE CONTINUOUS IMPROVEMENT DIRECTOR TAKE YOU HOME. A ACO COORDINATOR OR CONSULTING PRACTICE MANAGER CANNOT BE MADE A RESPONSIBLE CONTINUOUS IMPROVEMENT DIRECTOR. - We recommend that a responsible person [...] Advance Directive, please fax a copy to [phone] or email to for it to be [...] into your chart that day. Khalida Abbott APRN.LULA documented in this encounterAdena [facility] Center09-14-2022 NoteHNO ID: [id number] Author: Nora Key, DO Service: ? Author [...] her right ankle two years ago at [facility], presents today with pain in the same [...] RELIEF) 50 mcg/actuation nasal spray Use 1 [place] in each nostril once daily as needed. [...] prior surgical change. Clinical correlation is recommended. Metal Numerical Tool Programmer: BEKAH Transcribe Date/Time: Mar 06 2022 2:27P [...] of limb. Patient james (more content not included)...[facility]09-14-2022 NoteHNO ID: [id number] Author: MARLIN Velasquez Service: Radiology Author Type: [...] BY: MARLIN Velasquez March 06, 2022 1:49 PMElyria [facility] [id number] History of Present illness Narrative* Nora Key, [...] her right ankle two years ago at [facility], presents today with pain in the same [...] RELIEF) 50 mcg/actuation nasal spray Use 1 [place] in each nostril once daily as needed. [...] prior surgical change. Clinical correlation is recommended. Metal Numerical Tool Programmer: BEKAH Transcribe Date/Time: Mar 06 2022 2:27P [...] body, repair as indicated documented in this encounterAdena [facility]09-14-2022 History of Present illness [...] 06, 2022 1:49 PM documented in this encounterAdena Regional Medical CenterChi complaint+Reason for visit Narrative* Chief Complaint Admit Date Rikki Vogel January 11, 2025 7 :51am [place] [employer] Work Phone: Evaluation note* Diagnosis Pain Generalized pain [facility]* Diagnosis Suture granuloma, initial encounter- Primary [facility]* Diagnosis Suture granuloma, initial encounter- Primary Right ankle pain, acute [facility]* Diagnosis Pre-op evaluation- Primary Preoperative examination, unspecified Gastroesophageal reflux disease, unspecified whether esophagitis present Suture granuloma, initial encounter Right ankle pain, unspecified chronicity [facility]* Diagnosis Postoperative pain- Primary Other acute postoperative pain Suture granuloma, initial encounter Right ankle pain, unspecified chronicity Right ankle pain Pain in joint, ankle and foot documented in this encounter [facility] emergency department note* Diagnosis Suture granuloma, initial encounter- Primary S/P foot surgery Other postprocedural status [facility] Onset Date Resolution Status Contraception management acu te [facility] Work Phone: Evaluation noteNo assessment information available [facility] Work Phone: Evaluation note* Diagnosis Onset Date Resolution Status Admit Date Amenorrhea acute February 7:48am Bleeding in early acute March 04, 2025 7:48am Chemical acute Septem 2024 7:48am acute February 7:48am Supervision of high-risk acute March 04, 2025 7:48am [facility] Work Phone: Progress note Author Fely Hickman [facility] Note Date/Time March 04, 2025 8:34am [facility] [address], [address] [place] [address] OFFICE VISIT Date of Service: 03/04/25 MR#: [id number] Acct: [id number] Name: PANCHO RUIZ BISI Rep #: [id number] : 2005 Provider: ENDY Hickman Age/Sex: 19/F [place] [facility] [place]: Signed Intake Vital Signs 12/16/22 08:30 03/04/25 07:59 Height 5 ft 7 in 5 ft 7 in Weight: 148 lb 5 oz BMI 23.2 BP 107/70 Intake Visit Reasons: *EST* NOB LMP 01/10, INGRID 10/17 Chief Complaint: New OB Resin Painter Required: No Is patient in pain?: No Allergies Latex, Natural Rubber Allergy (Intermediate, Verified 03/04/25 07:57) Hives gluten Allergy (Mild, Verified 03/04/25 07:57) Diarrhea Medications ?Medication ?Instructions ?Recorded ?Confirmed ?Type cetirizine 10 mg capsule (Zyrtec) 10 mg PO DAILY PRN 0 10/15/22 03/04/25 History omeprazole 20 mg tablet,delayed 10 mg PO DAILY 3 03/04/25 History release cholecalciferol (vitamin D3) 125 125 mcg PO QDAY 01/1103/04/25 History mcg (5,000 unit) capsule multivitamin no.47-iron fum 27 cap PO 01/11/2503/04/ 5 History mg-folate no.1 1 mg-dha 300 mg capsule (PNV-DHA) Last Menstrual Period: 11/24/24 PFSH PFSH Medical History Seasonal allergies Gastrointestinal problem Peroneal tendinitis of right lower extremity Right ankle injury Ankle fracture, lateral malleolus, closed URI, acute Hay fever Surgical History History of ankle surgery Hx of tonsillectomy Family History Grandfather Diabetes Paternal Parkinsons disease Paternal Father Asthma Sleep apnea Mother Hypertension Maternal Grandmother Hypertension Grandfather Hypertension Paternal Social History adopted: No household members: spouse housing: house current occupational status: employed 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 current occupational exposures/hazards: No pets and animals: No history of recent travel: No sexually active: Yes Smoking Status: Never smoker alcohol intake: never substance use type: does not use diet: gluten free and lactose free well-balanced diet: daily or most days caffeine: Yes (occasional) Type: coffee Number of servings: 1 and tea Number ofservings: 1 eating out: rarely or never during the past year weight has: remained stable what type of physical activity do you participate in: none elvira/amish: Rastafari seatbelt use: always do you feel safe at home: Yes additional social history: [place] History 3 Elective abortions Hx Para 0 Spontaneous abortions 3 Hx # Term Pregnancies Ectopic pregnancies Hx # Pregnancies Multiple births # of living children HPI *EST* NOB LMP 01/10, INGRID 10/17 Details: PANCHO RUIZ is a 19 year old who presents for New OB visit. OB Visit INGRID Calculator Estimated Delivery Date Method Current WG Current Estimate 10/23/25 Ultrasound #1 6w 5d Other Estimates 10/17/25 LMP (Certain) 7w 4d Estimated Due Date: 08/31/25 Expected Delivery Route/Plan Labor Preferences- CB/BF classes: [] labor support person: [] labor intervention preferences: [] pain management options preferred: [] cut cord/dad catch: [] : [] PP control planned: [] discussed possible routes of delivery and associated risks: [] special requests: [] Specific Issue/Plans Covid status: [] Flu vaccine: [] Tdap vaccine: [] Rhogam: [] LARC form signed: [] Problem list reviewed and updated with the most current plan of care details and appropriate orders placed. Relevant counseling for the gestational age provided. Continue routine care and follow up unless otherwise noted in visit notes/problem list details Initial Weight: 148 lb Date -?-?-?-?-?-?-?-?-?-?-?-?- EGA Weight BP Urine Prot -?-?-?-?-?-?-?-?-?-?-?-?- Glucose FHR FuHt Pres Dilation -?-?-?-?-?-?-?-?-?-?-?-?- Effaced St Visit Note 03/04/25 -?-?-?-?-?-?-?-?-?-?-?-?- 6w 5d 148 lb 5 oz (+5 oz) 107/70 -?-?-?-?-?-?-?-?-?-?-?-?- 127 -?-?-?-?-?-?-?-?-?-?-?-?- KW- CRL not cons with dates. unsure of LMP due to it being SAB. RTO in 2 weeks for rescan. will do labs then. declines NIPT. Menstrual History Last Menstrual Period: 11/24/24 Reported LMP: definite Normal amount/duration: Yes Frequency in days: 29-30 On hormonal BC at conception: No hCG+: 12/22/24 Antepartum Record Genetic Screening: Congenital Heart Defect: Other, Neural Tube Defect: Other, Hemoglobinopathy Or Carrier: Other, Cystic Fibrosis: Other, Chromosome Abnormality: Other, Jace-Sachs: Other, Hemophilia: Other, Intellectual Disability/Autism: Other, Recurrent Loss/Stillbirth: Other, Other Structural Defect: Other, Other Genetic Disease: Other and Maternal Metabolic Disorder: Other Infection History: Live with someone with TB or Exposed to TB: No, Patient or Partner has history of Genital Herpes: No, Rash or Viral illness since last mentrual period: No, Prior GBS-Infected child: No, History of STD: No, HIV Infection: No, History of Hepatitis: No, Recent travel outside of [place]: No, Concern for hepatitis exposure: No, Varicella immune: Yes (immune-vaccinated) and Covid Vaccinated: No Medical History Medical History: Positive: Seasonal allergies, Drug/latex allergies/reactions (latex powder in gloves- hives and itching), Operations/hospitalizations (ankle surgery x2, tonsillectomy), Relevant family history (See PFSH) and Other (bleeding in early ) and Negative: Diabetes, Hypertension, Heart disease, Auto-immune disorder, Kidney disease/UTI, Neurologic/epilepsy, Psychiatric, Depression/ depression, Hepatitis/liver disease, Varicosities/phlebitis, Thyroid dysfunction, Trauma/domestic violence, History of blood transfusions, D (Rh) Sensitized, Pulmonary (e.g.,TB,Asthma), Breast, 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, Anesthetic complications, History of abnormal pap (Due for 1st pap), Uterine anomaly/bao, Infertility and Anti-retroviral treatment Comments: Pt reports a chemical in June and possibly a second in Aug-Sep ACOG First Trimester First Trimester: Desire for , Alcohol, Tobacco Cessation, Illicit/Recreational Drug/Substance Use, Intimate Partner Violence, Barriers to care, Unstable Housing, Communication Barriers, Environmental/Work Hazards, Anticipated Course of Care, Toxoplasmosis Precations, Use of Any medications, Sexual activity, Exercise, Dental Care, Sauna/Hot tub use, Seat Belt use, Childbirth classes/Hospital facilities, Travel, Indications for Ultrasound and Screening for Aneuploidy Second Trimester Second Trimester: Signs and Symptoms of Labor, Selecting a care provider, Reproductive Life Planning & Contreception, Care Planning, Depression/Anxiety and Intimate Partner Violence; Discussed Tobacco Cessation Third Trimester Third Trimester: Pain Management Plans, Labor support person(s), Immediate Larc, Signs and Symptoms of Preeclampsia, Feeding Yes , Education and Family Medical Leave or Disability Forms ROS Const Reports system reviewed and no additional complaints, except as documented, Denies fatigue, Denies headache(s) and Denies lethargy ENT Denies headache(s) Card Reports system reviewed and no additional complaints, except as documented Resp Reports system reviewed and no additional complaints, except as documented GI Reports system reviewed and no additional complaints, except as documented, Denies abdominal pain, Denies constipation, Denies cramping, Denies diarrhea and Denies dyspepsia Reports system reviewed and no additional complaints, except as documented, Denies abnormal vaginal bleeding, Denies difficulty voiding, Denies dyspareunia and Denies dysuria Musc Reports system reviewed and no additional complaints, except as documented Skin/Breast Reports system reviewed and no additional complaints, except as documented Neuro Yes system reviewed and no additional complaints, except as documented and No headache(s) Psych Reports system reviewed and no additional complaints, except as documented, Denies anhedonia and Denies anxiety Endo Reports system reviewed and no additional complaints, except as documented and Denies fatigue Exam Const General: cooperative, healthy appearing and comfortable Neck Neck: normal visual inspection and full ROM Chest Chest palpation & inspection: normal inspection of the chest Breast inspection: normal inspection of the breasts and normal inspection of the axillae Breast palpation: normal palpation of the breasts and normal palpation of the axillae Resp Effort & Inspection: normal respiratory effort and able to speak in complete sentences GI Inspection: normal to inspection Palpation: soft External Female Exam: normal external appearance and normal appearance of the urethra Urethra: normal appearance of the urethra Skin General: no rashes or lesions noted Neuro General: patient alert, patient awake and patient oriented x3 Extrem General: normal to inspection and full ROM Psych Appearance: grossly normal and well kempt Mental Status: mental status grossly normal Mood: congruent mood Affect: normal affect Speech and Movement: speech and movement normal Thought Process: normal Thought Content: normal Coding Level of Care Code OB Routine Diagnoses Amenorrhea N91.2 Chemical O02.81 Supervision of high-risk O09.90 Less than 8 weeks gestation of Z3A.01 Weeks of gestation: less than 8 weeks Bleeding in early O20.9 Assessment and Plan Assessment and Plan (1) Amenorrhea: Status: Acute Comment: serial HCG (2) Chemical : Status: Acute (3) Supervision of high-risk : Status: Acute Comment: , INGRID 08/31/25, [place] (4) : Status: Acute Qualifiers: Weeks of gestation: less than 8 weeks Qualified Code(s): Z3A.01 - Less than 8 weeks gestation of Comment: discussed genetic & carrier testing-undecided (5) Bleeding in early : Status: Acute Orders: Orders CBC W/Diff, Automated Today O09.90 - Supervision of high risk , unspecified, unspecified trimester, Z3A.01 - Less than 8 weeks gestation of Type & Screen Today O09.90 - Supervision of high risk , unspecified, unspecified trimester, Z3A.01 - Less than 8 weeks gestation of Rubella IgG Today O09.90 - Supervision of high risk , unspecified, unspecified trimester, Z3A.01 - Less than 8 weeks gestation of Hepatitis C Antibody Today O09.90 - Supervision of high risk , unspecified, unspecified trimester, Z3A.01 - Less than 8 weeks gestation of Hepatitis B Surface Antigen Today O09.90 - Supervision of high risk , unspecified, unspecified trimester, Z3A.01 - Less than 8 weeks gestation of Culture, Urine Today O09.90 - Supervision of high risk , unspecified, unspecified trimester, Z3A.01 - Less than 8 weeks gestation of Syphilis Antibodies Today O09.90 - Supervision of high risk , unspecified, unspecified trimester, Z3A.01 - Less than 8 weeks gestation of Chlamydia/GC KESHA aptima Today O09.90 - Supervision of high risk , unspecified, unspecified trimester, Z3A.01 - Less than 8 weeks gestation of HIV Today O09.90 - Supervision of high risk , unspecified, unspecified trimester, Z3A.01 - Less than 8 weeks gestation of PAP I-G w/rfx hrHPV-Aptima Today O09.90 - Supervision of high risk , unspecified, unspecified trimester, Z12.4 - Encounter for screening for malignant neoplasm of cervix Comments Comments: Patient oriented to practice and discussed care expectations and screenings. ACOG book offered to patient. Discussed routine and specially indicated labs if needed- patient consents to testing. See problem list details for plan information. Optional screening including maternal carrier screenings, neural tube defect screening, genetic screening options including quad screen, nuchal translucency, sequential screening, and NIPT screening offered to patient and patient chose: declines 03/04/25 0834 <Electronically signed by Fely mason CNM> Date _ Fely Hickman CNM Cosigner Signature: Date (if applicable) CC: ~ [facility] Work Phone: Progress note Author Darlyn Crane [facility] Note Date/Time March 31, 2025 9: 55am [facility] [address] [place] [address], [address] [place] [address] OFFICE VISIT Date of Service: 03/31/25 MR#: [id number] Acct: [id number] Name: PANCHO RUIZ BISI Rep #: [id number] : 2005 Provider: Dr. Samreen Menendez DO Age/Sex: 19/F Location: [facility] [place] Status: Signed Intake Vital Signs 03/04/25 07:59 03/16/25 14:30 03/31/25 09:26 03/31/25 09:26 Height 5 ft 7 in 5 ft 7 in 5 ft 7 in 5 ft 7 in Weight: 147 lb 6 oz BMI 23.1 BP 118/71 Intake Visit Reasons: 10 WK 4D OB Resin Painter Required: No Is patient in pain?: No Allergies Latex, Natural Rubber Allergy (Intermediate, Verified 03/31/25 09:26) Hives gluten Allergy (Mild, Verified 03/31/25 09:26) Diarrhea suture Adverse Reaction (Intermediate, Verified 03/31/25 09:37) body rejected Medications ?Medication ?Instructions ?Recorded ?Confirmed ?Type cetirizine 10 mg capsule (Zyrtec) 10 mg PO DAILY PRN 0 10/15/22 03/31/25 History omeprazole 20 mg tablet,delayed 10 mg PO DAILY 3 03/31/25 History release cholecalciferol (vitamin D3) 125 125 mcg PO QDAY 01/1103/31/25 History mcg (5,000 unit) capsule multivitamin no.47-iron fum 27 cap PO 01/11/25 5 History mg-folate no.1 1 mg-dha 300 mg capsule (PNV-DHA) ondansetron 4 mg disintegrating 4 mg PO Q6H PRN nausea and 03/16/25 03/31/25 Rx tablet vomiting #30 tabs Last Menstrual Period: 11/24/24 Zika: Zika virus screening: Negative : No PFSH PFSH Medical History Seasonal allergies Gastrointestinal problem Peroneal tendinitis of right lower extremity Right ankle injury Ankle fracture, lateral malleolus, closed URI, acute Hay fever Surgical History History of ankle surgery Hx of tonsillectomy Family History Grandfather Diabetes Paternal Parkinsons disease Paternal Father Asthma Sleep apnea Mother Hypertension Maternal Grandmother Hypertension Grandfather Hypertension Paternal Social History adopted: No household members: spouse housing: house current occupational status: employed 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 current occupational exposures/hazards: No pets and animals: No history of recent travel: No sexually active: Yes Smoking Status: Never smoker alcohol intake: never substance use type: does not use diet: gluten free and lactose free well-balanced diet: daily or most days caffeine: Yes (occasional) Type: coffee Number of servings: 1 and tea Number ofservings: 1 eating out: rarely or never during the past year weight has: remained stable what type of physical activity do you participate in: none elvira/amish: Rastafari seatbelt use: always do you feel safe at home: Yes additional social history: [place]- [place] History 3 Elective abortions Hx Para 0 Spontaneous abortions 3 Hx # Term Pregnancies Ectopic pregnancies Hx # Pregnancies Multiple births # of living children HPI 10 WK 4D OB Details: PANCHO RUIZ is a 19 year old who presents for routine OB visit. OB Visit INGRID Calculator Estimated Delivery Date Method Current WG Current Estimate 10/23/25 Ultrasound #1 10w 4d Other Estimates 10/17/25 LMP (Certain) 11w 3d Expected Delivery Route/Plan Labor Preferences- CB/BF classes: [] labor support person: [] labor intervention preferences: [] pain management options preferred: [] cut cord/dad catch: [] : [] PP control planned: [] discussed possible routes of delivery and associated risks: [] special requests: [] Specific Issue/Plans Covid status: [] Flu vaccine: [] Tdap vaccine: [] Rhogam: [] LARC form signed: [] Problem list reviewed and updated with the most current plan of care details and appropriate orders placed. Relevant counseling for the gestational age provided. Continue routine care and follow up unless otherwise noted in visit notes/problem list details Initial Weight: 148 lb Date -?-?-?-?-?-?-?-?-?-?-?-?- EGA Weight BP Urine Prot -?-?-?-?-?-?-?-?-?-?-?-?- Glucose FHR FuHt Pres Dilation -?-?-?-?-?-?-?-?-?-?-?-?- Effaced St Visit Note 03/04/25 -?-?-?-?-?-?-?-?-?-?-?-?- 6w 5d 148 lb 5 oz (+5 oz) 107/70 -?-?-?-?-?-?-?-?-?-?-?-?- 127 -?-?-?-?-?-?-?-?-?-?-?-?- KW- CRL not cons with dates. unsure of LMP due to it being SAB. RTO in 2 weeks for rescan. will do labs then. declines NIPT. 03/16/25 -?-?-?-?-?-?-?-?-?-?-?-?- 8w 3d 148 lb (+0 oz) 113/74 Negative -?-?-?-?-?-?-?-?-?-?-?-?- Negative 199 -?-?-?-?-?-?-?-?-?-?-?-?- JV- repeat scan today is reassuring measuring 8 weeks 3 days. no bleeding or cramping. vomited at work today wants zofran. 03/31/25 -?-?-?-?-?-?-?-?--?-?-?-?- 10w 4d 147 lb 6 oz (-10 oz) 118/71 Negative -?-?-?-?-?-?-?-?-?-?-?-?- Negative 185 -?-?-?-?-?-?-?-?-?-?-?-?- JV- reassuring b edside scan with active movement. no complaints today. ok to rto in 4 weeks. JV- reassuring bedside scan with active movement. no complaints today. ok to rto in 4 weeks. Declines flu shot today ACOG First Trimester First Trimester: Desire for , Alcohol, Tobacco Cessation, Illicit/Recreational Drug/Substance Use, Intimate Partner Violence, Barriers to care, Unstable Housing, Communication Barriers, Environmental/Work Hazards, Anticipated Course of Care, Toxoplasmosis Precations, Use of Any medications, Sexual activity, Exercise, Dental Care, Sauna/Hot tub use, Seat Belt use, Childbirth classes/Hospital facilities, Travel, Indications for Ultrasound and Screening for Aneuploidy; Discussed Second Trimester Second Trimester: Signs and Symptoms of Labor, Selecting a care provider, Reproductive Life Planning & Contreception, Care Planning, Depression/Anxiety and Intimate Partner Violence; Discussed Tobacco Cessation Third Trimester Third Trimester: Pain Management Plans, Labor support person(s), Immediate Larc, Signs and Symptoms of Preeclampsia, Infant Feeding No , [place] Education and Family Medical Leave or Disability Forms Results POC Urinalysis 2 Dip (Clinic) Office Urine Glucose Negative Last Edit by Sri Woody on 03/31/25 09: 37 Office Urine Protein Negative Last Edit by Sri Woody on 03/31/25 09: 37 Coding Level of Care Code OB Routine Diagnoses Amenorrhea N91.2 Chemical O02.81 Supervision of high-risk O09.90 10 weeks gestation of Z3A.10 Weeks of gestation: 10 weeks Bleeding in early O20.9 Assessment and Plan Assessment and Plan (1) Amenorrhea: Status: Acute Comment: serial HCG (2) Chemical : Status: Acute (3) Supervision of high-risk : Status: Acute Comment: , IGNRID 08/31/25, [place] (4) : Status: Acute Qualifiers: Weeks of gestation: 10 weeks Qualified Code(s): Z3A.10 - 10 weeks gestation of Comment: NEEDS repeat urine culture at 2nd visit. discussed genetic & carrier testing-undecided (5) Bleeding in early : Status: Acute Orders: Orders POC Urinalysis 2 Dip (Clinic) Today 03/31/2555 <Electronically signed by Darlyn Mauricio DO> Date _ Darlyn Menendez DO Cosigner Signature: Date (if applicable) CC: ~ [facility] Work Phone: Rexys[facility] for referral (narrative)* Diagnostic Procedure Only (Routine) - Closed Specialty Diagnoses / Procedures Referred By Contac t Referred To Contact XR IMAGING Diagnoses Pain Procedures XR ANKLE GENERAL 3V AP/LAT/OBL RIGHT RADEX ANKLE COMPLETE MINIMUM 3 VIEWS Nora Key DO [address] [place] [address] Xr Imaging Referral ID Status Reason Start Date Expiration Date V isits Requested Visits Authorized [id number] Closed Auto-Generate d Referral 02/19/2022 03/21/2023 1 1 [facility] for referral (narrative)No reason for [facility] Work Phone: Revsqv for visit Narrative* Diagnostic Procedure Only (Routine) - Closed Specialty Diagnoses / Procedures Referred By Contac t Referred To Contact XR IMAGING Diagnoses Pain Procedures XR ANKLE GENERAL 3V AP/LAT/OBL RIGHT RADEX ANKLE COMPLETE MINIMUM 3 VIEWS Nora Key DO [address] [place] [address] Xr Imaging Referral ID Status Reason Start Date Expiration Date V isits Requested Visits Authorized [id number] Closed Auto-Generate d Referral 02/19/2022 03/21/2023 1 1 [facility] Summary Purpose Family History [...] Will No April 15 1:15pm Power of Telecommunications Manager No April 15, 2016 1:15pm Advance Directive [...] section and content) DATE CREATED AUTHOR 11/06/2019 [facility] DATE CREATED AUTHOR AUTHOR'S ORGANIZ ATION 03/22/2022 [facility] DATE CREATED AUTHOR AUTHOR'S ORGANIZ ATION 05/31/2022 [facility] DATE CREATED AUTHOR AUTHOR'S ORGANIZ ATION 04/30/2025 [facility] Source Comments (unrecognize d section and content) In the event this informatio n is protected by the Federal Confidentiality of Alcohol and Drug Abuse Patient Records regulations: The Federal rules restrict any use of the information to criminally investigate or prosecute any alcohol or drug abuse patient.[facility] the event this information is protected by the Federal Confidentiality of Alcohol and Drug Abuse Patient Records regulations: The Federal rules restrict any use of the information to criminally investigate or prosecute any alcohol or drug abuse patient.[facility] the event this information is protected by the Federal Confidentiality of Alcohol and Drug Abuse Patient Records regulations: The Federal rules restrict any use of the information to criminally investigate or prosecute any alcohol or drug abuse patient.[facility] the event this information is protected by the Federal Confidentiality of Alcohol and Drug Abuse Patient Records regulations: The Federal rules restrict any use of the information to criminally investigate or prosecute any alcohol or drug abuse patient.[facility] the event this information is protected by the Federal Confidentiality of Alcohol and Drug Abuse Patient Records regulations: The Federal rules restrict any use of the information to criminally investigate or prosecute any alcohol or drug abuse patient.[facility] the event this information is protected by the Federal Confidentiality of Alcohol and Drug Abuse Patient Records regulations: The Federal rules restrict any use of the information to criminally investigate or prosecute any alcohol or drug abuse patient.[facility] the event this information is protected by the Federal Confidentiality of Alcohol and Drug Abuse Patient Records regulations: The Federal rules restrict any use of the information to criminally investigate or prosecute any alcohol or drug abuse patient.[facility] Reason for Visit (unrecogniz [...] ARTHROSCOPY ANKLE W/ DEBRIDEMENT EXTENSIVE [facility] [address] [place] [id number] Referral ID Status Reason Start Date Expiration Date Visits Re quested Visits Authorized [id number] 1 1 Reason Comments Patient Question Reason [...] Provider: Daniela Perez RN)[phone] (Given - Provider: Tedooro Noyola APRN.STUDENT ASSISTANCE COUNSELOR) promethazine 12.5 mg tab(s) (PHENERGAN) (COMPLETED) 12.5 [...] Garcia DO Primary Care Provider, Referring P rovider Active Tyesha Shi CNM Attending Provider Active [...] Inactive Member Role Status Dates Dr. Susu Garica DO Primary Care Provider Active Start: December [...] January 29, 2025 End: January 29, 2025 Team Status: Inactive Member Role/Relationship Status Dates Dr. Susu Garcia DO Primary Care Provider Active Start: February 11, 2025 End: February 11, 2025 Dr. Veronique Rg MD Attending Provider Active Start: February 11, 2025 End: February 11, 2025 Dr. Veronique Rg MD Referring Provider Active Start: February 11, 2025 End: February 11, 2025 Team Status: Active Member Role/Relationship Status Dates Dr. Susu Garcia DO Primary Care Provider Active Start: February 13, 2025 Dr. Veronique Rg MD Attending Provider Active Start: February 13, 2025 Team Status: Inactive Member Role/Relationship Status Dates Dr. Susu Garcia DO Primary Care Provider Active Start: February 13, 2025 End: February 13, 2025 Dr. Veronique Rg MD Attending Provider Active Start: February 13, 2025 End: February 13, 2025 Team Status: Inactive Member Role/Relationship Status Dates Dr. Susu Garcia DO Primary Care Provider Active Start: March 04, 2025 End: March 04, 2025 Dr. Susu Garcia DO Referring Provider Active St art: March 04, 2025 End: March 04, 2025 Fely Hickman CNM Attending Provider Active S tart: March 04, 2025 End: March 04, 2025 Team Status: Active Member Role/Relationship Status Dates Dr. Susu Garcia DO Primary care physician Active Team Status: Inactive Member Role/Relationship Status Dates Dr. Susu Garcia DO Primary care physician Active Start: December 08, 2024 End: December 08, 2024 Dr. Susu Garcia DO Attending physician Active S tart: December 08, 2024 End: December 08, 2024 Dr. Susu Garcia DO Referring Provider Active St art: December 08, 2024 End: December 08, 2024 Team Status: Inactive Member Role/Relationship Status Dates Dr. Susu Garcia DO Primary care physician Active Start: January 10, 2025 End: January 10, 2025 Fely Hickman CNM Attending physician Active Start: January 10, 2025 End: January 10, 2025 Fely Hickman CNM Referring Provider Active S tart: January 10, 2025 End: January 10, 2025 Team Status: Inactive Member Role/Relationship Status Dates Dr. Susu Garcia DO Primary care physician Active Start: January 11, 2025 End: January 11, 2025 Dr. Susu Garcia DO Referring Provider Active St art: January 11, 2025 End: January 11, 2025 Dr. Veronique Rg MD Attending physician Active Start: January 11, 2025 End: January 11, 2025 Team Status: Inactive Member Role/Relationship Status Dates Dr. Susu Garcia DO Primary care physician Active Start: January 12, 2025 End: January 12, 2025 Fely Hickman CNM Attending physician Active Start: January 12, 2025 End: January 12, 2025 Fely Hickman CNM Referring Provider Active S tart: January 12, 2025 End: January 12, 2025 Team Status: Inactive Member Role/Relationship Status Dates Dr. Susu Garcia DO Primary care physician Active Start: January 12, 2025 End: January 12, 2025 Fely Hickman CNM Attending physician Active Start: January 12, 2025 End: January 12, 2025 Team Status: Inactive Member Role/Relationship Status Dates Dr. Susu Garcia DO Primary care physician Active Start: January 21, 2025 End: January 21, 2025 Fely Hickman CNM Attending physician Active Start: January 21, 2025 End: January 21, 2025 Fely Hickman CNM Referring Provider Active S tart: January 21, 2025 End: January 21, 2025 Team Status: Inactive Member Role/Relationship Status Dates Dr. Susu Garcia DO Primary care physician Active Start: January 29, 2025 End: January 29, 2025 Fely Hickman CNM Attending physician Active Start: January 29, 2025 End: January 29, 2025 Fely Hickman CNM Referring Provider Active S tart: January 29, 2025 End: January 29, 2025 Team Status: Inactive Member Role/Relationship Status Dates Dr. Susu Garcia DO Primary care physician Active Start: February 11, 2025 End: February 11, 2025 Dr. Veronique Rg MD Attending physician Active Start: February 11, 2025 End: February 11, 2025 Dr. Veronique Rg MD Referring Provider Active Start: February 11, 2025 End: February 11, 2025 Team Status: Inactive Member Role/Relationship Status Dates Dr. Susu Garcia DO Primary care physician Active Start: February 13, 2025 End: February 13, 2025 Dr. Veronique Rg MD Attending physician Active Start: February 13, 2025 End: February 13, 2025 Team Status: Inactive Member Role/Relationship Status Dates Dr. Susu Garcia DO Primary care physician Active Start: March 04, 2025 End: March 04, 2025 Dr. Susu Garcia DO Referring Provider Active St art: March 04, 2025 End: March 04, 2025 Fely Hickman CNM Attending physician Active Start: March 04, 2025 End: March 04, 2025 Team Status: Inactive Member Role/Relationship Status Dates Dr. Susu Garcia DO Primary care physician Active Start: March 04, 2025 End: March 04, 2025 Fely Hickman CNM Attending physician Active Start: March 04, 2025 End: March 04, 2025 Fely Hickman CNM Referring Provider Active S tart: March 04, 2025 End: March 04, 2025 Team Status: Inactive Member Role/Relationship Status Dates Dr. Susu Garcia DO Primary care physician Active Start: March 16, 2025 End: March 16, 2025 Dr. Susu Garcia DO Referring Provider Active St art: March 16, 2025 End: March 16, 2025 Dr. Darlyn Menendez DO Attending physician Active Start: February End: March 16, 2025 Team Status: Inactive Member Role/Relationship Status Dates Dr. Susu Garcia DO Primary care physician Active Start: March 31, 2025 End: March 31, 2025 Dr. Susu Garcia DO Referring Provider Active St art: March 31, 2025 End: March 31, 2025 Dr. Darlyn Menendez DO Attending physician Dawna ramsay Start: March 31, 2025 End: March 31, 2025 Goals (unrecognized section and content) Type Care Experience Labor Preferences-CB /BF classes: []labor support person: []labor intervention preferences: []pain management options preferred: []cut cord/dad catch: []: []PP control planned: []discussed possible routes of delivery and associated risks: []special requests: [] FOR RECORDS PERTAINING TO PATIENTS WHO ARE [...] BE BASED ON THE PRIMARY CLINICAL RECORDS. [employer] provides no warranty or guarantee of the accuracy or completeness of information in this document.
[2025-06-22 15:03] LABS: Hematocrit 36.4 % (37-47); Hemoglobin 12.8 g/dL (12.0-15.0); Immature Granulocytes Count 0.010 X10^3/uL (0.0-0.0); Mean Corp Hgb Conc 35.2 g/dL (32-36); Mean Corpuscular Volume 89.2 fL (81-99); Mean Platelet Vol. 9.8 fl (6.2-12.0); NRBC Flagged by Analyzer 0 % (0-5); Platelet Count 168 K/mm3 (150-450); RBC Distribution Width CV 12.9 % (11.6-14.6); RBC Distribution Width SD 42.4 fl (35.1-43.9); Red Blood Count 4.08 M/mm3 (4.2-5.4); White Blood Count 6.9 K/mm3 (4.4-11.0)
[2025-06-22 16:08] LABS: HIV Nonreactive (Nonreactive); Hepatitis B Surface Antigen Nonreactive (Nonreactive); Hepatitis C Antibody Nonreactive (Nonreactive); Syphilis Antibodies Nonreactive (Nonreactive)
== END | disposition home or self-care (01) ==
LOC: BWCLAB 14:21
PROVIDERS: PCP Family Medicine; Visit Provider Advanced Practice Midwife
DX: O09.91 Supervision of high risk pregnancy, unspecified, first trimester (principal); Z3A.01 Less than 8 weeks gestation of pregnancy
CPT/HCPCS: 36415; 85025; 86703; 86762; 86780; 86803; 86850; 86900; 86901; 87340